=== PATIENT | male | born 1940 | race Caucasian/White ===

== ENCOUNTER → 2016-07-09 | Outpatient (CLI) | payer MEDICARE, BC ==
[2016-07-09 08:44] LABS: ALT 22 U/L (21-72); AST 19 U/L (17-59); Alkaline Phosphatase 109 U/L (38-126); Anion Gap 9 mmol/L; Blood Urea Nitrogen 14 mg/dL (9-20); Calcium 9.2 mg/dL (8.4-10.2); Carbon Dioxide 29 mmol/L (22-30); Chloride 108 mmol/L (98-107); Cholesterol 127 mg/dL (<200); Glucose 110 mg/dL (74-99); HDL Cholesterol 38 mg/dL (40-60); Non-African American GFR(MDRD) >60 (>60 ml/min/1.73 sqM); Sodium 146 mmol/L (137-145); Total Bilirubin 0.6 mg/dL (0.2-1.3); Total Protein 6.3 g/dL (6.3-8.2); Triglycerides 110 mg/dL (<150)
== END | disposition home or self-care (01) ==
LOC: LABWHC1 07:52
PROVIDERS: ATTEND Internal Medicine Interventional Cardiology
DX: E78.2 Mixed hyperlipidemia (principal); D48.0 Neoplasm of uncertain behavior of bone and articular cartilage
CPT/HCPCS: 36415; 80053; 80061; 84443

== ENCOUNTER → 2016-10-20 | Outpatient (CLI) | payer MEDICARE, BC ==
[2016-10-20 11:10] LABS: CH 29.3; CHCM 32.1; HCT 43.8 % (39.0-53.0); HDW 2.31; HGB 14.1 gm/dL (13.0-17.5); MCH 29.5 pg (25.0-35.0); MCHC 32.1 g/dL (31.0-37.0); MCV 91.8 fL (80.0-100.0); Mean Platelet Volume 7.6; RBC 4.77 m/uL (4.30-5.90); RDW 14.9 % (11.5-15.5); WBC 8.2 k/uL (3.8-10.6)
== END | disposition home or self-care (01) ==
LOC: LABPAT 10:50
PROVIDERS: ATTEND Otolaryngology
DX: Z01.812 Encounter for preprocedural laboratory examination (principal)
CPT/HCPCS: 36415; 85027

== ENCOUNTER → 2017-07-26 | Outpatient (CLI) | payer MEDICARE, BC ==
[2017-07-26 08:05] LABS: ALT 17 U/L (21-72); AST 18 U/L (17-59); Albumin 3.6 g/dL (3.5-5.0); Alkaline Phosphatase 92 U/L (38-126); Anion Gap 11 mmol/L; Blood Urea Nitrogen 12 mg/dL (9-20); Calcium 9.4 mg/dL (8.4-10.2); Carbon Dioxide 30 mmol/L (22-30); Chloride 107 mmol/L (98-107); Cholesterol 121 mg/dL (<200); Glucose 111 mg/dL (74-99); HDL Cholesterol 34 mg/dL (40-60); LDL Cholesterol,Calculated 61 mg/dL (0-99); Potassium 4.2 mmol/L (3.5-5.1); Sodium 148 mmol/L (137-145); Total Bilirubin 0.4 mg/dL (0.2-1.3); Triglycerides 130 mg/dL (<150)
== END | disposition home or self-care (01) ==
LOC: LABWHC1 06:56
PROVIDERS: ATTEND Internal Medicine Interventional Cardiology
DX: E78.2 Mixed hyperlipidemia (principal)
CPT/HCPCS: 36415; 80053; 80061

== ENCOUNTER → 2018-01-18 | Outpatient (CLI) | payer MEDICARE, BC ==
[2018-01-18 16:30] LABS: LDL Cholesterol,Calculated 53.8 mg/dL (0.0-131.0); VLDL Calculation 39.2 mg/dL (5.00-40.00)
== END | disposition home or self-care (01) ==
LOC: LABWHC1 07:21
PROVIDERS: ATTEND Internal Medicine Interventional Cardiology
DX: E78.2 Mixed hyperlipidemia (principal)
CPT/HCPCS: 36415; 80061; 84450; 84460

== ENCOUNTER → 2018-05-31 | Outpatient (CLI) | payer MEDICARE, BC ==
[2018-05-31 19:35] LABS: Anion Gap 6.6 mmol/L (4.00-12.00); Calcium 9.2 mg/dL (8.7-10.3); Carbon Dioxide 27.4 mmol/L (21.6-31.8); Potassium 4.4 mmol/L (3.5-5.5)
== END | disposition home or self-care (01) ==
LOC: LABWHC1 13:37
PROVIDERS: ATTEND Family Medicine
DX: I10 Essential (primary) hypertension (principal)
CPT/HCPCS: 36415; 80048

== ENCOUNTER → 2018-08-08 | Outpatient (CLI) | payer MEDICARE, BC ==
[2018-08-08 18:54] LABS: Vitamin D 25 Hydroxy 71.4 ng/mL (30.0-100.0)
[2018-08-08 19:14] LABS: T4, Free (Free Thyroxine) 1.2 ng/dL (0.80-1.80)
== END | disposition home or self-care (01) ==
LOC: LABWHC1 11:54
PROVIDERS: ATTEND Psychiatry & Neurology Neurology
DX: E55.9 Vitamin D deficiency, unspecified (principal); R53.83 Other fatigue
CPT/HCPCS: 36415; 82306; 82607; 83921; 84439; 84443; 84481

== ENCOUNTER → 2018-10-10 | Outpatient (CLI) | payer MEDICARE, BC ==
[2018-10-10 11:14] LABS: LDL Cholesterol,Calculated 64.6 mg/dL (0.0-131.0); VLDL Calculation 20.4 mg/dL (5.00-40.00)
== END | disposition home or self-care (01) ==
LOC: LABWHC1 06:39
PROVIDERS: ATTEND Internal Medicine Interventional Cardiology
DX: E78.2 Mixed hyperlipidemia (principal)
CPT/HCPCS: 36415; 80061; 84450; 84460

== ENCOUNTER → 2018-10-26 | Outpatient (CLI) | payer MEDICARE, BC ==
[2018-10-26 12:39] LABS: HCT 43.6 % (39.0-53.0); HGB 13.8 gm/dL (13.0-17.5); MCH 29.1 pg (25.0-35.0); MCHC 31.6 g/dL (31.0-37.0); MCV 92.3 fL (80.0-100.0); Mean Platelet Volume 7.2; Platelet Count 342 k/uL (150-450); RBC 4.73 m/uL (4.30-5.90); RDW 14.2 % (11.5-15.5); WBC 7.1 k/uL (3.8-10.6)
[2018-10-26 12:51] LABS: African American GFR (CKD) >90 (>60 ml/min/1.73 sqM); Anion Gap 6 mmol/L; Blood Urea Nitrogen 15 mg/dL (9-20); Carbon Dioxide 28 mmol/L (22-30); Chloride 109 mmol/L (98-107); Potassium 4.5 mmol/L (3.5-5.1); Sodium 143 mmol/L (137-145)
== END | disposition home or self-care (01) ==
LOC: LABPAT 12:13
PROVIDERS: ATTEND Internal Medicine Interventional Cardiology
DX: Z01.812 Encounter for preprocedural laboratory examination (principal); I10 Essential (primary) hypertension; R94.39 Abnormal result of other cardiovascular function study
CPT/HCPCS: 36415; 80051; 82565; 84520; 85027

== ENCOUNTER 2018-11-03 06:32 | Day surgery (SDC) | payer MEDICARE, BC ==
[2018-10-28 13:34] VITALS: BMI 25.4
[~2018-11-03 06:32] MED LIST: ALPRAZolam 0.25 MG TAB PO PRN; ALPRAZolam 0.5 MG TAB PO PRN; ASPIRIN 325 MG TAB PO STA; ATORVASTATIN 80 MG TAB PO STA; NITROGLYCERIN SL TABS 0.4 MG TAB SUBLINGUAL PRN; SODIUM CHLORIDE 0.9% 1,000 ML in EMPTY BAG 1 BAG IV ONE
[2018-11-03] MEDS ORDERED: LIDOCAINE 1% INJ 10MG/ML (20 ML MDV) ONE ×2 (07:10→07:56)
[2018-11-03] MEDS ORDERED: fentaNYL (PF) 50 MCG/ML 2 ML AMP ONE (07:10)
[2018-11-03] MEDS ORDERED: LIDOCAINE 1% INJ 10MG/ML (20 ML MDV) SQ ONE ×2 (07:54→07:58)
[2018-11-03] MEDS ORDERED: fentaNYL (PF) 50 MCG/ML 2 ML AMP IV ONE (07:55)
[2018-11-03] MEDS ORDERED: MIDAZOLAM PF (FBP) 2 MG/2 ML VIAL IV ONE (07:59)
[2018-11-03] MEDS ORDERED: IOPAMIDOL-370 100ML BTL INJ ONE (08:08)
[2018-11-03] MEDS ORDERED: BIVALIRUDIN BOLUS 250 MG/50 ML IV ONE (08:13)
[2018-11-03] MEDS ORDERED: BIVALIRUDIN 250 MG in SODIUM CHLORIDE 0.9% 50 ML IV ONE (08:14)
[2018-11-03] MEDS ORDERED: RX INFO: IV CONTRAST WAS GIVEN 1 EACH MISC MISCELLANE PRN (08:40)
[2018-11-03] MEDS ORDERED: MAG HYDROX/AL HYDROX/SIMETH 30 ML CUP PO PRN (08:40)
[2018-11-03] MEDS ORDERED: ZOLPIDEM 5 MG TAB PO PRN (08:40)
[2018-11-03] MEDS ORDERED: NITROGLYCERIN SL TABS 0.4 MG TAB SUBLINGUAL PRN (08:40)
[2018-11-03] MEDS ORDERED: ATROPINE SULFATE 0.1 MG/ML 10ML SYRINGE IV PRN (08:40)
[2018-11-03] MEDS ORDERED: DICYCLOMINE 10 MG CAP PO PRN (08:41)
[2018-11-03] MEDS ORDERED: SODIUM CHLORIDE 0.9% 1,000 ML IV SCH (08:45)
--- NOTE | 2018-11-03 08:58 | CC ---
CARDIAC CATHETERIZATION REPORT Mr. Masterson is a 78-year-old male with known history of hypertension, hyperlipidemia, diabetes mellitus, history of coronary artery bypass grafting, who presented with symptoms of progressive fatigue and dyspnea and had an abnormal myocardial perfusion imaging. In view of that, recommendation was made regarding cardiac catheterization. The procedure as well as the risks and the complications were discussed with the patient who is in full understanding and agreement. PROCEDURE: Patient was brought to roofing laborer in a fasting semi-sedated state after receiving fentanyl and Benadryl and achieving moderate conscious sedated state. Using Xylocaine anesthesia in the Seldinger technique, a 6-Welsh sheath was introduced in the right femoral artery. Selective right and left coronary angiography were performed using 6- Welsh 4 bend right and 4.5 bend left Ryne catheter. Multiple views of the coronary artery including hemiaxial views were obtained. The right Ryne catheter was used to cannulate the saphenous vein graft to the right coronary artery and the LOPEZ to the LAD. Images of the grafts were obtained. Following that, angioplasty and stenting was performed. Following that 6-Welsh tight pigtail catheter was introduced in left ventricle and a 30-degree HOLLIDAY view of the left ventricle was obtained. Following that, catheters were removed. The sheath was sutured in place the patient was returned to his room in stable condition. FINDINGS: LEFT MAIN: This is a large-sized vessel bifurcating into left circumflex and left anterior descending artery. Left main coronary artery has no evidence of high-grade stenosis. LEFT ANTERIOR DESCENDING ARTERY: This vessel is heavily calcified proximally giving rise to a very proximal diagonal branch. Following that, the vessel is totally occluded with no antegrade flow. The first diagonal branch has an 85% to 90% stenosis in the ostium. The rest of the vessel has no high-grade stenosis. LEFT CIRCUMFLEX: This is a nondominant vessel, large in caliber giving rise to 3 obtuse marginal branches. The left circumflex as well as branches have no evidence of obstructive coronary artery disease. RIGHT CORONARY ARTERY: This vessel is totally occluded in the mid segment and has critical stenosis proximally. There is no significant antegrade flow. SAPHENOUS VEIN GRAFT TO THE RIGHT CORONARY ARTERY: The proximal distal anastomotic sites are patent. The flow in the PDA and PLV is brisk. There is no evidence of high- grade stenosis. LOPEZ TO LAD: The distal anastomotic site is patent. The flow in the LAD is brisk. There is no evidence of high-grade stenosis. LEFT VENTRICULOGRAM: Left ventriculogram is performed in 30-degree HOLLIDAY view and revealed normal left ventricular size and systolic function. Ejection fraction 60%. There was calcification involving the aorta. HEMODYNAMICS: There was no gradient across the aortic valve. The left ventricular end- diastolic pressure was 14 to 16 mmHg. CONCLUSION: 1. 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 2. Critical stenosis in the very proximal first diagonal branch. 3. Patent LOPEZ to LAD and patent saphenous vein graft to the right coronary artery. 4. Normal left ventricular size and systolic function. RECOMMENDATION: In view of finding anatomy, I recommend proceeding with angioplasty and stenting of the first diagonal branch. The procedure as well as the risks and the complications were discussed with the patient who is in full understanding and agreement. MMWILIAN / DREW: [id number] /
[2018-11-03] MEDS ORDERED: LOPRESSOR PO SCH (09:00)
--- NOTE | 2018-11-03 09:04 | PTCA ---
PERCUTANEOUSTRANS CORORONARY ANGIOGRAPHY Mr. Masterson is a 78-year-old male with known history of hypertension, hyperlipidemia, diabetes mellitus, who had an abnormal myocardial perfusion imaging with symptoms of progressive dyspnea and fatigue underwent cardiac catheterization, was found to have critical stenosis involving the very proximal first diagonal branch. In view of that, recommendation was made regarding angioplasty and stenting. The procedure as well as the risks and the complications were discussed with the patient who is in full understanding and agreement. PROCEDURE: A 6-Bangladeshi FL4.5 guiding catheter introduced in the system. After cannulating the left main a 0.014 balanced medium weight J-wire was advanced across the lesion positioned in the distal diagonal branch. Following that, a 2.75 x 12 mm Xience Renate stent was advanced, deployed and postdilated at 16 atmospheres. After the last inflation, after appropriate wait the balloon and the guidewire were withdrawn back in the guiding catheter. Images were obtained repeated. Those images reveal stable successful stenting. At that point, the guiding catheter, the balloon and the guidewire were removed. The left ventriculogram was performed. Following that, the sheath was sutured in place. The patient was returned to his room in stable condition. Of note, the patient had no chest discomfort or EKG changes with the inflation. He received Angiomax per protocol. RESULTS: Successful stenting of the proximal segment of the first diagonal branch with reduction of stenosis from 85% to 0%. RECOMMENDATION: Patient will be continued on aspirin, Plavix and statin. The importance of dual antiplatelet treatment was discussed with the patient and his family and they are in full understanding and agreement. Duration of procedure is 35 minutes. MMODL / IJN: [id number] /
[2018-11-03 09:55] LABS: Glucose,Whole Blood 99 mg/dL (75-99)
[2018-11-03] MEDS ORDERED: amLODIPine 5 MG TAB PO STA ×2 (10:20→11:50)
[2018-11-03 11:06] VITALS: RESP 16
[2018-11-03] MEDS: FLUTICASONE 50MCG/SPRAY NASAL 16GM EA NOSTRIL SCH (17:48)
[2018-11-03] MEDS: CLOPIDOGREL 75 MG TAB PO SCH (17:48)
[2018-11-03] MEDS: PANTOPRAZOLE 40 MG TABLET PO SCH (17:48)
[2018-11-03] MEDS ORDERED: ACETAMINOPHEN TAB 325 MG TAB PO PRN (20:16)
[2018-11-03] MEDS ORDERED: ATORVASTATIN 40 MG TAB PO SCH (21:00)
[2018-11-03] MEDS ORDERED: MONTELUKAST 10 MG TAB PO SCH (21:00)
[2018-11-03] MEDS ORDERED: TAMSULOSIN 0.4 MG CAP.ER.24H PO SCH (21:00)
[2018-11-03] MEDS ORDERED: VALSARTAN 160 MG TAB PO SCH (21:00)
[2018-11-04] MEDS: PANTOPRAZOLE 40 MG TABLET PO SCH ×2 (06:29→07:59)
[2018-11-04 06:58] LABS: African American GFR (CKD) >90 (>60 ml/min/1.73 sqM); Anion Gap 5 mmol/L; Blood Urea Nitrogen 13 mg/dL (9-20); Calcium 8.8 mg/dL (8.4-10.2); Carbon Dioxide 26 mmol/L (22-30); Chloride 109 mmol/L (98-107); Glucose 120 mg/dL (74-99); Non-African American GFR(CKD) 87 (>60 ml/min/1.73 sqM); Potassium 4.1 mmol/L (3.5-5.1); Sodium 140 mmol/L (137-145)
--- NOTE | 2018-11-04 07:38 | PN ---
PROGRESS NOTE Mr. Masterson is a 78-year-old male with known history of coronary artery disease who has been complaining of progressive dyspnea on exertion, had an abnormal myocardial perfusion imaging. On Subsequent cardiac catheterization that revealed evidence of significant disease in the first diagonal branch with patent LOPEZ to LAD and patent saphenous vein graft to the RCA. He underwent stenting of the diagonal branch. He is doing well this morning, ambulating without difficulty. His breathing has been stable. He is denying any chest pain. He continues on aspirin once a day, Lipitor 40 mg daily, Plavix 75 mg daily, valsartan 320 mg daily. PHYSICAL EXAMINATION: Blood pressure 137/60 with a heart rate in the 60s. LUNGS: Clear. HEART: Regular rate and rhythm, S1, S2. No S3. No rub. ABDOMEN: Soft, nontender. Positive bowel sounds, no organomegaly. EXTREMITIES: No edema, intact pulses, right femoral pulse is intact. EKG reveals sinus mechanism with occasional PACs and no acute ST-segment changes. LAB DATA: Revealed potassium 4.1, BUN and creatinine 13 and 0.76. IMPRESSION: 1. Status post stenting of the diagonal branch. 2. History of coronary artery disease, status post coronary artery bypass grafting. 3. Hypertension. 4. Hyperlipidemia. RECOMMENDATION: Patient will be discharged home today and followed as an outpatient. MMODL / IJN: [id number] /
[2018-11-04] MEDS: FLUTICASONE 50MCG/SPRAY NASAL 16GM EA NOSTRIL SCH (07:59)
[2018-11-04] MEDS: CLOPIDOGREL 75 MG TAB PO SCH (07:59)
[2018-11-04 08:24] VITALS: BP 132/60; PULSE 89; TEMP 98.3
[2018-11-04] MEDS ORDERED: ASPIRIN 81 MG PO SCH (09:00)
== END 2018-11-04 10:12 | disposition home or self-care (01) ==
LOC: CATHCVL 06:32 → 3SCARD 08:28 → CATHCVL 11-04 10:12
PROVIDERS: ATTEND Internal Medicine Interventional Cardiology
DX: I25.10 Atherosclerotic heart disease of native coronary artery without angina pectoris (principal); I25.84 Coronary atherosclerosis due to calcified coronary lesion; I25.82 Chronic total occlusion of coronary artery; I10 Essential (primary) hypertension; E78.2 Mixed hyperlipidemia; E78.00 Pure hypercholesterolemia, unspecified; E11.9 Type 2 diabetes mellitus without complications; Z95.1 Presence of aortocoronary bypass graft; Z79.02 Long term (current) use of antithrombotics/antiplatelets; Z79.899 Other long term (current) drug therapy; Z88.1 Allergy status to other antibiotic agents
CPT/HCPCS: 93459; 85347; 80048; C9600; C1769 ×2; C1887; C1894; C1874; J2001; J3010; J0583; Q9967; J2250

== ENCOUNTER 2018-11-05 10:49 | Observation (INO) | payer MEDICARE, BC ==
[2018-11-05] MEDS ORDERED: SODIUM CHLORIDE 0.9% 1,000 ML IV STA (11:10)
[2018-11-05 11:26] LABS: Glucose,Whole Blood 165 mg/dL (75-99)
[2018-11-05 11:27] LABS: Basophils # (A) 0.1 k/uL (0-0.2); Basophils % (A) 1 %; Eosinophils # (A) 0.3 k/uL (0-0.7); Eosinophils % (A) 4 %; HCT 43.3 % (39.0-53.0); HGB 14.1 gm/dL (13.0-17.5); Lymphocytes # (A) 1.4 k/uL (1.0-4.8); Lymphocytes % (A) 17 %; MCH 29.2 pg (25.0-35.0); MCHC 32.6 g/dL (31.0-37.0); MCV 89.5 fL (80.0-100.0); Mean Platelet Volume 7.4; Monocytes # (A) 0.5 k/uL (0-1.0); Monocytes % (A) 6 %; Neutrophils # (A) 6.3 k/uL (1.3-7.7); Neutrophils % (A) 72 %; Platelet Count 367 k/uL (150-450); RBC 4.84 m/uL (4.30-5.90); RDW 14.7 % (11.5-15.5); WBC 8.7 k/uL (3.8-10.6)
[2018-11-05 11:32] LABS: ALT 12 U/L (21-72); AST 17 U/L (17-59); African American GFR (CKD) >90 (>60 ml/min/1.73 sqM); Albumin 3.5 g/dL (3.5-5.0); Alkaline Phosphatase 90 U/L (38-126); Anion Gap 10 mmol/L; Blood Urea Nitrogen 18 mg/dL (9-20); Calcium 9.2 mg/dL (8.4-10.2); Carbon Dioxide 22 mmol/L (22-30); Chloride 109 mmol/L (98-107); Creatine Kinase 28 U/L (55-170); Glucose 175 mg/dL (74-99); Magnesium 2.1 mg/dL (1.6-2.3); Phosphorus 3.8 mg/dL (2.5-4.5); Potassium 4.2 mmol/L (3.5-5.1); Sodium 141 mmol/L (137-145); Total Bilirubin 0.7 mg/dL (0.2-1.3); Total Protein 6.1 g/dL (6.3-8.2)
[2018-11-05 11:49] LABS: Prothrombin Time 10.3 sec (9.0-12.0)
--- NOTE | 2018-11-05 11:50 | ED ---
Weakness HPI - General Chief complaint: Weakness Stated complaint: POSS CVA Time Seen by Provider: 11/05/18 11:09 Source: patient, family, RN notes reviewed, old records reviewed Mode of arrival: ambulatory Limitations: no limitations - History of Present Illness Initial comments: This is a 78 -year-old male presenting for evaluation. Patient presented today for evaluation of not feeling well weakness weakness began this morning he noticed last night. Patient appeared to have elevated heart rate last night. Patient recent heart history is significant for heart disease with prior CABG, stent placement a few days ago. Patient was feeling fine until today and then being very lightheaded dizzy pale awful times throughout today with no 4 episode of syncope. No other change in medications as of now. Patient has no headache denies any neurological complaint currently no chest pain currently no shortness of breath. Patient states he started much better now than he was earlier MD Complaint: generalized weakness -: minutes(s) Location: generalized Severity: moderate Severity scale (1-10): 7 Consistency: constant, other (Improving) Improves with: rest Worsens with: movement Associated Symptoms: shortness of breath, syncope (Near-syncope) - Related Data Home Medications Medication Instructions Recorded Confirmed Montelukast [Singulair] 10 mg PO HS 11/12/15 11/05/18 Fexofenadine HCl [Kavita Allergy] 180 mg PO DAILY PRN 11/19/15 11/05/18 Rosuvastatin Calcium [Crestor] 20 mg PO HS 11/19/15 11/05/18 Dicyclomine [Bentyl] 10 mg PO TID PRN 12/30/16 11/05/18 Fluticasone Nasal [place] [Flonase 1 spray EA NOSTRIL DAILY 12/30/16 11/05/18 Nasal [place]] Pantoprazole Sodium [Protonix] 40 mg PO DAILY 12/30/16 11/05/18 Clopidogrel [Plavix] 75 mg PO DAILY 10/28/18 11/05/18 Multivitamins, Thera [Multivitamin 1 tab PO DAILY 10/28/18 11/05/18 (formulary)] Valsartan 320 mg PO HS 10/28/18 11/05/18 Citalopram Hydrobromide [CeleXA] 20 mg PO DAILY 11/05/18 11/05/18 Cranberry Fruit Extract [Cranberry] 500 mg PO DAILY 11/05/18 11/05/18 Metoprolol Tartrate [Lopressor] 25 mg PO BID 11/05/18 11/05/18 Previous Rx's Medication Instructions Recorded Tamsulosin [Flomax] 0.4 mg PO HS cap.er.24h 11/26/15 Aspirin 81 mg PO DAILY chew 11/04/18 Nitroglycerin Sl Tabs [Nitrostat] 0.4 mg SUBLINGUAL Q5M PRN #25 tab 11/04/18 Allergies Allergy/AdvReac Type Severity Reaction Status Date / Time erythromycin base AdvReac Nausea & Verified 11/05/18 11:18 Vomiting Review of Systems ROS Statement: Those systems with pertinent positive or pertinent negative responses have been documented in the HPI. ROS Other: All systems not noted in ROS Statement are negative. 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 History of Any Multi-Drug Resistant Organisms: None Reported Past Surgical History: Adenoidectomy, Coronary Bypass/CABG, Heart Catheterization, Heart Catheterization With Stent, Tonsillectomy Additional Past Surgical History / Comment(s): 11/13/15 Cardiac cath, 11/21/15 CABG-2 vessel, deviated septum repaired, cystoscopies x2, colonoscopy, bilateral cataract surg. Past Anesthesia/Blood Transfusion Reactions: No Reported Reaction Past Psychological History: Bipolar, Depression Smoking Status: Current every day smoker Past Alcohol Use History: None Reported Past Drug Use History: None Reported - Past Family History Father Additional Family Medical History / Comment(s): Father was a "drinker and a smoker". He at the age of 55 yrs from cerebral hemorhage Mother Additional Family Medical History / Comment(s): Mother at the age of 92yrs. General Exam Limitations: no limitations General appearance: alert, in no apparent distress, anxious Head exam: Present: atraumatic, normocephalic, normal inspection Eye exam: Present: normal appearance, PERRL, EOMI. Absent: scleral icterus, conjunctival injection, periorbital swelling ENT exam: Present: normal exam, mucous membranes moist Neck exam: Present: normal inspection. Absent: tenderness, meningismus, lymphadenopathy Respiratory exam: Present: normal lung sounds bilaterally. Absent: respiratory distress, wheezes, rales, rhonchi, stridor Cardiovascular Exam: Present: tachycardia, irregular rhythm, normal heart sounds. Absent: systolic murmur, diastolic murmur, rubs, gallop, clicks GI/Abdominal exam: Present: soft, normal bowel sounds. Absent: distended, tenderness, guarding, rebound, rigid Extremities exam: Present: normal inspection, full ROM, normal capillary refill. Absent: tenderness, pedal edema, joint swelling, calf tenderness Back exam: Present: normal inspection Neurological exam: Present: alert, oriented X3, CN II-XII intact Psychiatric exam: Present: normal affect, normal mood Skin exam: Present: warm, dry, intact, normal color. Absent: rash Course Vital Signs 11/05/18 11/05/18 11/05/18 10:52 11:05 11:10 Temperature 98.1 F Pulse Rate 131 H 131 H 125 H Respiratory 18 30 H 19 Rate Blood Pressure 85/49 105/63 O2 Sat by Pulse 97 Oximetry 11/05/18 11/05/18 11/05/18 11:20 11:30 11:40 Temperature Pulse Rate 124 H 123 H Respiratory 22 34 H Rate Blood Pressure 97/67 97/67 92/61 O2 Sat by Pulse 98 97 Oximetry 11/05/18 11/05/18 11/05/18 12:10 12:20 12:30 Temperature Pulse Rate 70 81 74 Respiratory 20 16 20 Rate Blood Pressure 110/65 99/62 99/62 O2 Sat by Pulse 98 95 96 Oximetry 11/05/18 12:32 Temperature Pulse Rate 78 Respiratory 18 Rate Blood Pressure 114/78 O2 Sat by Pulse 99 Oximetry - Reevaluation(s) Reevaluation #1: 11/05/18 12:09 Medical records reviewed Reevaluation #2: 11/05/18 12:57 Heart rate improved with hydration here in the ER as well as blood pressure EKG Findings - EKG Comments: EKG Findings:: EKG shows A. fib with RVR rate 120, QRS 86, QTc 398 Medical Decision Making - Medical Decision Making 78 male the ER for evaluation with weakness lightheadedness near syncope, patient is A. fib with RVR which is now resolved. Patient can be admitted for cardiology evaluation and observation - Lab Data Result diagrams: 11/05/18 11:12 11/05/18 11:12 Lab Results 11/05/18 11/05/18 11/05/18 Range/Units 11:09 11:12 11:12 WBC 8.7 (3.8-10.6) k/uL RBC 4.84 (4.30-5.90) m/uL Hgb 14.1 (13.0-17.5) gm/dL Hct 43.3 (39.0-53.0) % MCV 89.5 (80.0-100.0) fL MCH 29.2 (25.0-35.0) pg MCHC 32.6 (31.0-37.0) g/dL RDW 14.7 (11.5-15.5) % Plt Count 367 (150-450) k/uL Neutrophils % 72 % Lymphocytes % 17 % Monocytes % 6 % Eosinophils % 4 % Basophils % 1 % Neutrophils # 6.3 (1.3-7.7) k/uL Lymphocytes # 1.4 (1.0-4.8) k/uL Monocytes # 0.5 (0-1.0) k/uL Eosinophils # 0.3 (0-0.7) k/uL Basophils # 0.1 (0-0.2) k/uL PT (9.0-12.0) sec INR (<1.2) APTT (22.0-30.0) sec Sodium 141 (137-145) mmol/L Potassium 4.2 (3.5-5.1) mmol/L Chloride 109 H (98-107) mmol/L Carbon Dioxide 22 (22-30) mmol/L Anion Gap 10 mmol/L BUN 18 (9-20) mg/dL Creatinine 0.86 (0.66-1.25) mg/dL Est GFR (CKD-EPI)AfAm >90 (>60 ml/min/1.73 sqM) Est GFR (CKD-EPI)NonAf 83 (>60 ml/min/1.73 sqM) Glucose 175 H (74-99) mg/dL POC Glucose (mg/dL) 165 H (75-99) mg/dL POC Glu Seedling Puller Luz Elena [place] Plasma Lactic Acid Brent (0.7-2.0) mmol/L Calcium 9.2 (8.4-10.2) mg/dL Phosphorus 3.8 (2.5-4.5) mg/dL Magnesium 2.1 (1.6-2.3) mg/dL Total Bilirubin 0.7 (0.2-1.3) mg/dL AST 17 (17-59) U/L ALT 12 L (21-72) U/L Alkaline Phosphatase 90 (38-126) U/L Creatine Kinase 28 L (55-170) U/L Troponin I (0.000-0.034) ng/mL Total Protein 6.1 L (6.3-8.2) g/dL Albumin 3.5 (3.5-5.0) g/dL TSH 3.550 (0.465-4.680) mIU/L 11/05/18 11/05/18 11/05/18 Range/Units 11:12 11:12 11:12 WBC (3.8-10.6) k/uL RBC (4.30-5.90) m/uL Hgb (13.0-17.5) gm/dL Hct (39.0-53.0) % MCV (80.0-100.0) fL MCH (25.0-35.0) pg MCHC (31.0-37.0) g/dL RDW (11.5-15.5) % Plt Count (150-450) k/uL Neutrophils % % Lymphocytes % % Monocytes % % Eosinophils % % Basophils % % Neutrophils # (1.3-7.7) k/uL Lymphocytes # (1.0-4.8) k/uL Monocytes # (0-1.0) k/uL Eosinophils # (0-0.7) k/uL Basophils # (0-0.2) k/uL PT 10.3 (9.0-12.0) sec INR 1.0 (<1.2) APTT 26.0 (22.0-30.0) sec Sodium (137-145) mmol/L Potassium (3.5-5.1) mmol/L Chloride (98-107) mmol/L Carbon Dioxide (22-30) mmol/L Anion Gap mmol/L BUN (9-20) mg/dL Creatinine (0.66-1.25) mg/dL Est GFR (CKD-EPI)AfAm (>60 ml/min/1.73 sqM) Est GFR (CKD-EPI)NonAf (>60 ml/min/1.73 sqM) Glucose (74-99) mg/dL POC Glucose (mg/dL) (75-99) mg/dL POC Glu Seedling Puller ID Plasma Lactic Acid Brent 2.1 H* (0.7-2.0) mmol/L Calcium (8.4-10.2) mg/dL Phosphorus (2.5-4.5) mg/dL Magnesium (1.6-2.3) mg/dL Total Bilirubin (0.2-1.3) mg/dL AST (17-59) U/L ALT (21-72) U/L Alkaline Phosphatase (38-126) U/L Creatine Kinase (55-170) U/L Troponin I 0.076 H* (0.000-0.034) ng/mL Total Protein (6.3-8.2) g/dL Albumin (3.5-5.0) g/dL TSH (0.465-4.680) mIU/L - Radiology Data Radiology results: report reviewed (Chest x-rays negative for acute disease), image reviewed Critical Care Time Critical Care Time: Yes Total Critical Care Time: 31 Disposition Clinical Impression: Coronary artery disease, Atrial fibrillation with RVR, Dehydration Disposition: ADMITTED IP TO THIS HOSP Condition: Fair Is patient prescribed a controlled substance at d/c from ED?: No Referrals: Adam Acosta MD [Primary Care Provider] - 1-2 days
--- NOTE | 2018-11-05 11:58 | CT ---
EXAMINATION TYPE: CT brain scotty hendricks DATE OF EXAM: 11/05/2018 COMPARISON: Previous study dated 12/30/2016 HISTORY: Fall CT DLP: 1265.6 mGycm Automated exposure control for dose reduction was used. TECHNIQUE: CT scan of the head and cervical spine are performed without contrast. FINDINGS: BRAIN: There are generalized changes of sulcal prominence and ventriculomegaly, compatible with atrop hic change. There is diffuse periventricular white matter lucency, compatible with small vessel ische judson change. There is an old infarct involving the basal ganglia on the right and a small lacunar infa rct in the posterior limb of the internal capsule on the left. There is no acute mass effect, midline shift or intracranial blood. Visualized portions of the paranasal sinuses and mastoids are clear. The bony calvarium is intact. IMPRESSION: 1. NO ACUTE INTRACRANIAL ABNORMALITY. 2. DEGENERATIVE CHANGE. 3. EVIDENCE OF PREVIOUS BILATERAL INFARCTS. CERVICAL SPINE: There are emphysematous changes present within the visualized portions of the lungs. There is aneurysmal dilatation of the proximal ascending thoracic aorta with maximal transverse diame ter 4.3 cm. Prevertebral soft tissues are otherwise unremarkable. Vertebral body height and alignment are maintained. Atlantoaxial relationships are normal. There is degenerative disc disease and hypertrophic spondylosis, most marked at C4-5, C5-6 and C6-7 b ut also present at C3-4. There is uncovertebral joint disease present at these levels. There is facet arthropathy present bilaterally at C2-3, C3-4 and C4-5. No definite protrusion is seen. No fractures identified. IMPRESSION: 1. NO ACUTE OSSEOUS LESION. 2. DEGENERATIVE CHANGE. 3. EMPHYSEMATOUS CHANGE. 4. ASCENDING THORACIC AORTIC ANEURYSM.
--- NOTE | 2018-11-05 11:59 | XR ---
EXAMINATION TYPE: XR chest 2V DATE OF EXAM: 11/05/2018 HISTORY: Weakness. REFERENCE: Previous study dated 12/30/2016. FINDINGS: There has been a midline sternotomy. The lungs are clear. Pleural space are clear. The heart is not enlarged. Fullness in the right paratr acheal region is stable and may relate to ectasia of the great vessels. IMPRESSION: NO ACUTE INTRATHORACIC ABNORMALITY OR INTERVAL CHANGE IN THE APPEARANCE OF THE CHEST.
[2018-11-05] MEDS ORDERED: DILTIAZEM DRIP BOLUS FROM BAG 1 MG SOLN IV ONE (12:09)
[2018-11-05] MEDS ORDERED: DILTIAZEM 125 MG in SODIUM CHLORIDE 0.9% 100 ML IV SCH (12:30)
[2018-11-05] MEDS ORDERED: NITROGLYCERIN SL TABS 0.4 MG TAB SUBLINGUAL PRN ×2 (12:55→15:06)
[2018-11-05] MEDS ORDERED: HEPARIN SODIUM,PORCINE 5,000 UNIT/ML 1 ML VIAL IV PRN (12:55)
[2018-11-05] MEDS ORDERED: ASPIRIN 81 MG PO STA (12:55)
[2018-11-05] MEDS ORDERED: HEPARIN SODIUM,PORCINE 5,000 UNIT/ML 1 ML VIAL IV ONE (12:55)
[2018-11-05] MEDS ORDERED: HEPARIN SOD,PORK IN 0.45% NACL 25,000 UNIT in 0.45% NACL 1 250ML.BAG IV SCH (13:00)
[2018-11-05 13:20] LABS: Appearance,Urine Clear (Clear); Bacteria,Urine Rare /hpf; Bilirubin,Urine Negative (Negative); Blood,Urine Negative (Negative); Color,Urine Yellow; Glucose,Urine (UA) Negative (Negative); Hyaline Casts,Urine 42 /lpf (0-2); Ketones,Urine Negative (Negative); Leukocyte Esterase,Urine Small (Negative); Mucus,Urine Rare /hpf; Nitrite,Urine Negative (Negative); PH, Urine 6.5 (5.0-8.0); Protein,Urine Trace (Negative); RBC,Urine 1 /hpf (0-5); Specific Gravity,Urine 1.014 (1.001-1.035); Urobilinogen,Urine <2.0 mg/dL (<2.0); WBC,Urine 17 /hpf (0-5)
[2018-11-05] MEDS ORDERED: ACETAMINOPHEN TAB 325 MG TAB PO PRN (15:04)
[2018-11-05] MEDS ORDERED: NALOXONE 0.4 MG/ML 1 ML VIAL IV PRN (15:04)
[2018-11-05] MEDS ORDERED: DICYCLOMINE 10 MG CAP PO PRN (15:06)
[2018-11-05] MEDS ORDERED: LORATADINE 10 MG TAB PO PRN (15:06)
--- NOTE | 2018-11-05 15:16 | P.HPIM ---
History of Present Illness H&P Date: 11/05/18 Chief Complaint: Weakness 78 -year-old male presented to the ER because of feeling weak and tired since last night. This morning when he got up he was very wobbly secondary to extreme weakness. Family members had to assist him with walking. Patient denied having any dizziness, passing out. No chest pain or shortness of breath. Patient fell onto the wall and hit his head against a wall in the bathroom due to weakness today. No shaking, urinary or stool incontinence. No focal weakness or numbness. No nausea or vomiting. No fevers or chills. A few days ago patient had a positive stress test and subsequently had a heart catheterization during which she had a stent placed in the diagonal artery. He has been doing well since her heart cath until he started having weakness. In the emergency department he was evaluated with computed tomography scan of the head and neck which came back negative for acute fractures or dislocation. No bleeding was found. EKG showed A. fib with RVR. Labs significant for slightly elevated troponin at 0.076. Review of Systems Complete review of systems performed, pertinent positives as per HPI otherwise negative. 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 History of Any Multi-Drug Resistant Organisms: None Reported Past Surgical History: Adenoidectomy, Coronary Bypass/CABG, Heart Catheterizatio n, Heart Catheterization With Stent, Tonsillectomy Additional Past Surgical History / Comment(s): 11/13/15 Cardiac cath, 11/21/15 CABG-2 vessel, deviated septum repaired, cystoscopies x2, colonoscopy, bilateral cataract surg. Past Anesthesia/Blood Transfusion Reactions: No Reported Reaction Past Psychological History: Bipolar, Depression Smoking Status: Current every day smoker Past Alcohol Use History: None Reported Past Drug Use History: None Reported - Past Family History Father Additional Family Medical History / Comment(s): Father was a "drinker and a smoker". He at the age of 55 yrs from cerebral hemorhage Mother Additional Family Medical History / Comment(s): Mother at the age of 92yrs. Medications and Allergies Home Medications Medication Instructions Recorded Confirmed Type Montelukast [Singulair] 10 mg PO HS 11/12/15 11/05/18 History Fexofenadine HCl [Kavita Allergy] 180 mg PO DAILY PRN 11/19/15 11/05/18 History Rosuvastatin Calcium [Crestor] 20 mg PO HS 11/19/15 11/05/18 History Tamsulosin [Flomax] 0.4 mg PO HS cap.er.24h 11/26/15 11/05/18 Rx Dicyclomine [Bentyl] 10 mg PO TID PRN 12/30/16 11/05/18 History Fluticasone Nasal [place] [Flonase 1 spray EA NOSTRIL DAILY 12/30/16 11/05/18 History Nasal [place]] Pantoprazole Sodium [Protonix] 40 mg PO DAILY 12/30/16 11/05/18 History Clopidogrel [Plavix] 75 mg PO DAILY 10/28/18 11/05/18 History Multivitamins, Thera [Multivitamin 1 tab PO DAILY 10/28/18 11/05/18 History (formulary)] Valsartan 320 mg PO HS 10/28/18 11/05/18 History Aspirin 81 mg PO DAILY chew 11/04/18 11/05/18 Rx Nitroglycerin Sl Tabs [Nitrostat] 0.4 mg SUBLINGUAL Q5M PRN #25 tab 11/04/18 11/05/18 Rx Citalopram Hydrobromide [CeleXA] 20 mg PO DAILY 11/05/18 11/05/18 History Cranberry Fruit Extract [Cranberry] 500 mg PO DAILY 11/05/18 11/05/18 History Metoprolol Tartrate [Lopressor] 25 mg PO BID 11/05/18 11/05/18 History Allergies Allergy/AdvReac Type Severity Reaction Status Date / Time erythromycin base AdvReac Nausea & Verified 11/05/18 11:18 Vomiting Physical Exam Vitals: Vital Signs Temp Pulse Resp BP Pulse Ox 11/05/18 13:50 69 31 H 116/66 96 11/05/18 13:40 76 20 128/74 98 11/05/18 13:30 87 20 121/68 96 11/05/18 13:10 63 15 112/66 98 11/05/18 12:50 93 18 116/79 97 11/05/18 12:40 73 11 L 114/74 97 11/05/18 12:32 78 18 114/78 99 11/05/18 12:30 74 20 99/62 96 11/05/18 12:20 81 16 99/62 95 11/05/18 12:10 70 20 110/65 98 11/05/18 11:40 92/61 11/05/18 11:30 123 H 34 H 97/67 97 11/05/18 11:20 124 H 22 97/67 98 11/05/18 11:10 125 H 19 105/63 11/05/18 11:05 131 H 30 H 11/05/18 10:52 98.1 F 131 H 18 85/49 97 Intake and Output 11/05/18 11/05/18 11/05/18 06:59 14:59 22:59 Other: Weight 66.224 kg Constitutional: No acute distress, conversant, pleasant Eyes:Anicteric sclerae, moist conjunctiva, no lid-lag, PERRLA, ENMT: Oropharynx clear, no erythema, exudates Neck: Supple, FROM, no masses, or JVD, No carotid bruits, No thyromegaly Lungs: Clear to auscultation, Clear to percussion, Normal respiratory effort, no accessory muscle use Cardiovascular: Heart regular in rate and rhythm, No murmurs, gallops, or rubs, No peripheral edema Abdominal: Soft, Nontender, no guarding, rebound or rigidity, Normoactive bowel sounds, No hepatomegaly, No splenomegaly, No palpable mass Skin: Normal temperature, tone, texture, turgor, no induration, No subcutaneous nodules, No rash, lesions, No ulcers Extremities: No digital cyanosis, No clubbing, Pedal pulses intact and symmetrical, Radial pulses intact and symmetrical, No calf tenderness Psychiatric: Alert and oriented to person, place and time, appropriate affect, intact judgement Neuro: Muscles Strength 5/5 in all 4 extremities, Sensation to light touch grossly present throughout, Cranial nerves II-XII grossly intact, no focal sensory deficits Results CBC & Chem 7: 11/05/18 11:12 11/05/18 11:12 Labs: Abnormal Lab Results - Last 24 Hours (Table) 11/05/18 11/05/18 11/05/18 Range/Units 11:09 11:12 11:12 Chloride 109 H (98-107) mmol/L Glucose 175 H (74-99) mg/dL POC Glucose (mg/dL) 165 H (75-99) mg/dL Plasma Lactic Acid Brent 2.1 H* (0.7-2.0) mmol/L ALT 12 L (21-72) U/L Creatine Kinase 28 L (55-170) U/L Troponin I (0.000-0.034) ng/mL Total Protein 6.1 L (6.3-8.2) g/dL Urine Protein (Negative) Ur Leukocyte Esterase (Negative) Urine WBC (0-5) /hpf Urine Bacteria (None) /hpf Hyaline Casts (0-2) /lpf Urine Mucus (None) /hpf 11/05/18 11/05/18 Range/Units 11:12 12:34 Chloride (98-107) mmol/L Glucose (74-99) mg/dL POC Glucose (mg/dL) (75-99) mg/dL Plasma Lactic Acid Brent (0.7-2.0) mmol/L ALT (21-72) U/L Creatine Kinase (55-170) U/L Troponin I 0.076 H* (0.000-0.034) ng/mL Total Protein (6.3-8.2) g/dL Urine Protein Trace H (Negative) Ur Leukocyte Esterase Small H (Negative) Urine WBC 17 H (0-5) /hpf Urine Bacteria Rare H (None) /hpf Hyaline Casts 42 H (0-2) /lpf Urine Mucus Rare H (None) /hpf Assessment and Plan Plan: Atrial fibrillation with RVR Rhythm converted back to normal sinus rhythm spontaneously in the emergency department Resume home Lopressor 25 mg by mouth twice a day HR is currently stable Patient was started on heparin in the emergency department, will resume until cardiology evaluates Elevated troponin Rule out ACS Continue aspirin and Plavix Continue statin Cycle troponins Cardiology evaluation Essential hypertension Hyperlipidemia Depression Stable Resume meds
[2018-11-05] MEDS: METOPROLOL TARTRATE 25 MG TAB PO SCH (17:58)
[2018-11-05] MEDS: TAMSULOSIN 0.4 MG CAP.ER.24H PO SCH (19:43)
[2018-11-05] MEDS: MONTELUKAST 10 MG TAB PO SCH (19:43)
[2018-11-05] MEDS: VALSARTAN 160 MG TAB PO SCH (19:43)
[2018-11-05] MEDS ORDERED: NON-FORMULARY DRUG (Rosuvastatin Calcium [Crestor] 20 MG) PO SCH (21:00)
[2018-11-05] MEDS ORDERED: METOPROLOL TARTRATE 25 MG TAB PO SCH (21:00)
[2018-11-06] MEDS: PANTOPRAZOLE 40 MG TABLET PO SCH (06:07)
[2018-11-06 06:25] LABS: Basophils # (A) 0.1 k/uL (0-0.2); Basophils % (A) 1 %; Eosinophils # (A) 0.6 k/uL (0-0.7); Eosinophils % (A) 9 %; HCT 35.5 % (39.0-53.0); HGB 11.7 gm/dL (13.0-17.5); Lymphocytes # (A) 1.3 k/uL (1.0-4.8); Lymphocytes % (A) 19 %; MCH 29.6 pg (25.0-35.0); MCHC 32.9 g/dL (31.0-37.0); Mean Platelet Volume 7.3; Monocytes # (A) 0.5 k/uL (0-1.0); Monocytes % (A) 8 %; Neutrophils # (A) 4.2 k/uL (1.3-7.7); Neutrophils % (A) 63 %; Platelet Count 271 k/uL (150-450); RBC 3.94 m/uL (4.30-5.90); RDW 14.5 % (11.5-15.5); WBC 6.7 k/uL (3.8-10.6)
[2018-11-06 06:46] LABS: AST 14 U/L (17-59); African American GFR (CKD) >90 (>60 ml/min/1.73 sqM); Albumin 2.7 g/dL (3.5-5.0); Alkaline Phosphatase 70 U/L (38-126); Anion Gap 3 mmol/L; Blood Urea Nitrogen 14 mg/dL (9-20); Calcium 8.3 mg/dL (8.4-10.2); Carbon Dioxide 27 mmol/L (22-30); Chloride 112 mmol/L (98-107); Cholesterol 93 mg/dL (<200); Glucose 113 mg/dL (74-99); HDL Cholesterol 21 mg/dL (40-60); LDL Cholesterol,Calculated 50 mg/dL (0-99); Phosphorus 4.2 mg/dL (2.5-4.5); Potassium 4.2 mmol/L (3.5-5.1); Sodium 142 mmol/L (137-145); Total Bilirubin 0.5 mg/dL (0.2-1.3); Total Protein 4.9 g/dL (6.3-8.2); Triglycerides 111 mg/dL (<150)
[2018-11-06 06:48] LABS: ALT 17 U/L (21-72)
[2018-11-06] MEDS: MULTIVITAMINS, THERA 1 EACH TAB PO SCH (08:26)
[2018-11-06] MEDS: ATORVASTATIN 80 MG TAB PO SCH (08:26)
[2018-11-06] MEDS: CITALOPRAM HYDROBROMIDE 20 MG TAB PO SCH (08:26)
[2018-11-06] MEDS: METOPROLOL TARTRATE 25 MG TAB PO SCH ×2 (08:26→20:35)
[2018-11-06] MEDS: ASPIRIN 81 MG PO SCH (08:26)
[2018-11-06] MEDS: CLOPIDOGREL 75 MG TAB PO SCH (08:26)
[2018-11-06] MEDS ORDERED: ASPIRIN 325 MG TAB PO SCH (09:00)
--- NOTE | 2018-11-06 11:00 | P.PN ---
Subjective Progress Note Date: 11/06/18 Principal diagnosis: Weakness Patient is still weak, he was wobbly this morning when he was stood up by the nurse. No chest pain or shortness of breath. No palpitations. No dizziness. Objective - Vital Signs Vital signs: Vital Signs Temp 98 F 11/06/18 08:00 Pulse 68 11/06/18 08:00 Resp 20 11/06/18 08:00 BP 132/64 11/06/18 08:00 Pulse Ox 97 11/06/18 08:00 Intake & Output 11/05/18 11/06/18 11/06/18 18:59 06:59 18:59 Intake Total 120 264.106 Output Total 200 350 200 Balance -80 -350 64.106 Weight 66.224 kg 66.7 kg Intake: Intake, IV Titration 144.106 Amount Heparin Sod,Pork in 0.45% 144.106 NaCl 25,000 unit In 0.45 % NaCl 1 250ml.bag @ 12 UNITS/KG/HR 7.947 mls/hr IV .Q24H [facility] Rx#: [id number] Oral 120 120 Output: Urine 200 350 200 Other: Voiding Method Urinal Urinal # Voids 0 2 1 # Bowel Movements 1 0 - Exam Constitutional: No acute distress, conversant, pleasant Eyes:Anicteric sclerae, moist conjunctiva, no lid-lag, PERRLA, ENMT: Oropharynx clear, no erythema, exudates Neck: Supple, FROM, no masses, or JVD, No carotid bruits, No thyromegaly Lungs: Clear to auscultation, Clear to percussion, Normal respiratory effort, no accessory muscle use Cardiovascular: Heart regular in rate and rhythm, No murmurs, gallops, or rubs, No peripheral edema Abdominal: Soft, Nontender, no guarding, rebound or rigidity, Normoactive bowel sounds, No hepatomegaly, No splenomegaly, No palpable mass Skin: Normal temperature, tone, texture, turgor, no induration, No subcutaneous nodules, No rash, lesions, No ulcers Extremities: No digital cyanosis, No clubbing, Pedal pulses intact and symmetrical, Radial pulses intact and symmetrical, No calf tenderness Psychiatric: Alert and oriented to person, place and time, appropriate affect, intact judgement Neuro: Muscles Strength 5/5 in all 4 extremities, Sensation to light touch gross ly present throughout, Cranial nerves II-XII grossly intact, no focal sensory deficits - Labs CBC & Chem 7: 11/06/18 05:49 11/06/18 05:49 Labs: Abnormal Lab Results - Last 24 Hours (Table) 11/05/18 11/05/18 11/05/18 Range/Units 11:09 11:12 11:12 RBC (4.30-5.90) m/uL Hgb (13.0-17.5) gm/dL Hct (39.0-53.0) % APTT (22.0-30.0) sec Chloride 109 H (98-107) mmol/L Glucose 175 H (74-99) mg/dL POC Glucose (mg/dL) 165 H (75-99) mg/dL Plasma Lactic Acid Brent 2.1 H* (0.7-2.0) mmol/L Calcium (8.4-10.2) mg/dL AST (17-59) U/L ALT 12 L (21-72) U/L Creatine Kinase 28 L (55-170) U/L Troponin I (0.000-0.034) ng/mL Total Protein 6.1 L (6.3-8.2) g/dL Albumin (3.5-5.0) g/dL HDL Cholesterol (40-60) mg/dL Urine Protein (Negative) Ur Leukocyte Esterase (Negative) Urine WBC (0-5) /hpf Urine Bacteria (None) /hpf Hyaline Casts (0-2) /lpf Urine Mucus (None) /hpf 11/05/18 11/05/18 11/05/18 Range/Units 11:12 12:34 16:01 RBC (4.30-5.90) m/uL Hgb (13.0-17.5) gm/dL Hct (39.0-53.0) % APTT (22.0-30.0) sec Chloride (98-107) mmol/L Glucose (74-99) mg/dL POC Glucose (mg/dL) (75-99) mg/dL Plasma Lactic Acid Brent (0.7-2.0) mmol/L Calcium (8.4-10.2) mg/dL AST (17-59) U/L ALT (21-72) U/L Creatine Kinase (55-170) U/L Troponin I 0.076 H* 0.076 H* (0.000-0.034) ng/mL Total Protein (6.3-8.2) g/dL Albumin (3.5-5.0) g/dL HDL Cholesterol (40-60) mg/dL Urine Protein Trace H (Negative) Ur Leukocyte Esterase Small H (Negative) Urine WBC 17 H (0-5) /hpf Urine Bacteria Rare H (None) /hpf Hyaline Casts 42 H (0-2) /lpf Urine Mucus Rare H (None) /hpf 11/05/18 11/05/18 11/06/18 Range/Units 19:20 23:26 05:49 RBC 3.94 L (4.30-5.90) m/uL Hgb 11.7 L (13.0-17.5) gm/dL Hct 35.5 L (39.0-53.0) % APTT 50.2 H (22.0-30.0) sec Chloride (98-107) mmol/L Glucose (74-99) mg/dL POC Glucose (mg/dL) (75-99) mg/dL Plasma Lactic Acid Brent (0.7-2.0) mmol/L Calcium (8.4-10.2) mg/dL AST (17-59) U/L ALT (21-72) U/L Creatine Kinase (55-170) U/L Troponin I 0.073 H* (0.000-0.034) ng/mL Total Protein (6.3-8.2) g/dL Albumin (3.5-5.0) g/dL HDL Cholesterol (40-60) mg/dL Urine Protein (Negative) Ur Leukocyte Esterase (Negative) Urine WBC (0-5) /hpf Urine Bacteria (None) /hpf Hyaline Casts (0-2) /lpf Urine Mucus (None) /hpf 11/06/18 11/06/18 Range/Units 05:49 05:49 RBC (4.30-5.90) m/uL Hgb (13.0-17.5) gm/dL Hct (39.0-53.0) % APTT 44.3 H (22.0-30.0) sec Chloride 112 H (98-107) mmol/L Glucose 113 H (74-99) mg/dL POC Glucose (mg/dL) (75-99) mg/dL Plasma Lactic Acid Brent (0.7-2.0) mmol/L Calcium 8.3 L (8.4-10.2) mg/dL AST 14 L (17-59) U/L ALT 17 L (21-72) U/L Creatine Kinase (55-170) U/L Troponin I (0.000-0.034) ng/mL Total Protein 4.9 L (6.3-8.2) g/dL Albumin 2.7 L (3.5-5.0) g/dL HDL Cholesterol 21 L (40-60) mg/dL Urine Protein (Negative) Ur Leukocyte Esterase (Negative) Urine WBC (0-5) /hpf Urine Bacteria (None) /hpf Hyaline Casts (0-2) /lpf Urine Mucus (None) /hpf Microbiology - Last 24 Hours (Table) 11/05/18 12:34 Urine Culture - Preliminary Urine,Voided Assessment and Plan Plan: Atrial fibrillation with RVR Rhythm converted back to normal sinus rhythm spontaneously in the emergency department Resume home Lopressor 25 mg by mouth twice a day HR is currently stable Seen by cardiology, patient will be started on xarelto for AC therapy Elevated troponin Troponin remained flat, ACS unlikely Continue aspirin and Plavix Continue statin Essential hypertension Hyperlipidemia Depression Stable Resume meds General weakness PT and OT Insomnia Steffanie
[2018-11-06] MEDS: FLUTICASONE 50MCG/SPRAY NASAL 16GM EA NOSTRIL SCH (12:47)
--- NOTE | 2018-11-06 12:49 | P.CRDCN ---
History of Present Illness Consult date: 11/06/18 Reason for Consult (text): Elevated troponin, atrial fibrillation with RVR History of present illness: The patient is a 78-year-old male who follows with Dr. Webb in the office, who presents after experiencing dizziness and lightheadedness, followed by a fall at home. He was recently admitted to the hospital and received a stent to his fir st diagonal branch on November 03. He states he went home feeling well, however his discharge paperwork said to discontinue his metoprolol, therefore he did not take it for several days. Upon arrival to the emergency room he was noted to be in atrial fibrillation with a heart rate of 120, and his systolic blood pressure was in the 80s. Serial troponins show 0.73, 0.76, and 0.76. He was started on a Cardizem drip and converted to sinus rhythm. On exam he is resting comfortably in the recliner with his at his side. He states he no longer has any dizziness or lightheadedness. He states he recently walked to the bathroom with assistance of the nursing staff and has a slightly unstable gait. He denies any chest pain, chest pressure, palpitations, or dyspnea. PAST MEDICAL HISTORY: CAD status post CABG and recent stenting of his first diagonal branch, hypertension, dyslipidemia, CVA REVIEW OF SYSTEMS: No fever or chills. No cough or expectoration. No diaphor esis. Patient denies headache, dizziness, blurred vision, double vision. Patient denies any stomach discomfort. No nausea, vomiting. No hematochezia. No hematemesis. Denies any black stools or blood in his stools. Denies dysuria or hematuria. No muscle weakness or numbness. PHYSICAL EXAMINATION: This is a 78-year-old male in no apparent distress at the time of my examination. HEENT: Head is atraumatic, normocephalic. Pupils are equal, round. Sclerae anicteric. Conjunctivae are clear. Mucous membranes of the mouth are moist. Neck is supple. There is no jugular venous distention. No carotid bruit is heard. CHEST EXAMINATION: Lungs are clear to auscultation. No chest wall tenderness is noted on palpation or with deep breathing. HEART EXAMINATION: Heart regular rate and rhythm. S1, S2 heard. No murmurs, gallops or rub. ABDOMEN: Soft, nontender. Bowel sounds are heard. No organomegaly noted. EXTREMITIES: 2+ peripheral pulses with no evidence of peripheral edema and no calf tenderness noted. NEUROLOGIC EXAMINATION: Patient is awake, alert and oriented x3. History of mild dementia. EKG shows atrial fibrillation with a rate of 123 LABORATORY DATA: WBC 6.7, hemoglobin 11.7, hematocrit 35.5, platelet 271, sodium 142, potassium 4.2, BUN 14, creatinine 0.78, AST 14, ALT 17, LDL 50, and triglycerides 111 FINAL ASSESSMENT AND PLAN: #1 paroxysmal atrial fibrillation, conversion calcium channel bhumika #2 history of coronary artery disease, recent stenting to his first diagonal #3 dizziness, likely related to hypotension while in atrial fibrillation PLAN: We will discontinue heparin drip. Patient will start Xarelto 15 mg daily, in addition to his Plavix and low-dose aspirin. Encourage ambulation for unsteady gait. Check for orthostatic blood pressures. 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 History of Any Multi-Drug Resistant Organisms: None Reported Past Surgical History: Adenoidectomy, Coronary Bypass/CABG, Heart Catheterization, Heart Catheterization With Stent, Tonsillectomy Additional Past Surgical History / Comment(s): 11/13/15 Cardiac cath, 11/21/15 CABG-2 vessel, deviated septum repaired, cystoscopies x2, colonoscopy, bilateral cataract surg. Past Anesthesia/Blood Transfusion Reactions: No Reported Reaction Date of Last Stent Placement:: 11/03/18 Past Psychological History: Bipolar, Depression Smoking Status: Current every day smoker Past Alcohol Use History: None Reported Past Drug Use History: None Reported - Past Family History Father Additional Family Medical History / Comment(s): Father was a "drinker and a smoker". He at the age of 55 yrs from cerebral hemorhage Mother Additional Family Medical History / Comment(s): Mother at the age of 92yrs. Medications and Allergies Home Medications Medication Instructions Recorded Confirmed Type Montelukast [Singulair] 10 mg PO HS 11/12/15 11/05/18 History Fexofenadine HCl [Kavita Allergy] 180 mg PO DAILY PRN 11/19/15 11/05/18 History Rosuvastatin Calcium [Crestor] 20 mg PO HS 11/19/15 11/05/18 History Tamsulosin [Flomax] 0.4 mg PO HS cap.er.24h 11/26/15 11/05/18 Rx Dicyclomine [Bentyl] 10 mg PO TID PRN 12/30/16 11/05/18 History Fluticasone Nasal [place] [Flonase 1 spray EA NOSTRIL DAILY 12/30/16 11/05/18 History Nasal [place]] Pantoprazole Sodium [Protonix] 40 mg PO DAILY 12/30/16 11/05/18 History Clopidogrel [Plavix] 75 mg PO DAILY 10/28/18 11/05/18 History Multivitamins, Thera [Multivitamin 1 tab PO DAILY 10/28/18 11/05/18 History (formulary)] Valsartan 320 mg PO HS 10/28/18 11/05/18 History Aspirin 81 mg PO DAILY chew 11/04/18 11/05/18 Rx Nitroglycerin Sl Tabs [Nitrostat] 0.4 mg SUBLINGUAL Q5M PRN #25 tab 11/04/18 0 11/05/18 Rx Citalopram Hydrobromide [CeleXA] 20 mg PO DAILY 11/05/18 11/05/18 History Cranberry Fruit Extract [Cranberry] 500 mg PO DAILY 11/05/18 11/05/18 History Metoprolol Tartrate [Lopressor] 25 mg PO BID 11/05/18 11/05/18 History Allergies Allergy/AdvReac Type Severity Reaction Status Date / Time erythromycin base AdvReac Nausea & Verified 11/05/18 11:18 Vomiting Physical Exam Vitals: Vital Signs Temp Pulse Pulse Pulse Pulse Pulse Resp 11/06/18 11:43 97.7 F 54 L 57 L 53 L 16 11/06/18 08:00 98 F 68 20 11/06/18 04:00 72 16 11/06/18 03:35 64 11/06/18 00:00 65 17 11/05/18 20:00 60 18 11/05/18 17:45 64 20 11/05/18 16:25 72 16 11/05/18 15:08 97.6 F 69 16 11/05/18 13:50 69 31 H 11/05/18 13:40 76 20 11/05/18 13:30 87 20 11/05/18 13:10 63 15 11/05/18 12:50 93 18 11/05/18 12:40 73 11 L 11/05/18 12:32 78 18 BP BP BP BP BP Pulse Ox 11/06/18 11:43 169/66 152/69 157/64 98 11/06/18 08:00 132/64 97 11/06/18 04:00 153/69 96 11/06/18 03:35 11/06/18 00:00 142/63 96 11/05/18 20:00 160/75 98 11/05/18 17:45 170/71 11/05/18 16:25 164/70 99 11/05/18 15:08 121/58 97 11/05/18 13:50 116/66 96 11/05/18 13:40 128/74 98 11/05/18 13:30 121/68 96 11/05/18 13:10 112/66 98 11/05/18 12:50 116/79 97 11/05/18 12:40 114/74 97 11/05/18 12:32 114/78 99 Intake and Output 11/05/18 11/06/18 11/06/18 22:59 06:59 14:59 Intake Total 120 264.106 Output Total 300 250 200 Balance -180 -250 64.106 Intake: Intake, IV Titration 144.106 Amount Heparin Sod,Pork in 0.45% 144.106 NaCl 25,000 unit In 0.45 % NaCl 1 250ml.bag @ 12 UNITS/KG/HR 7.947 mls/hr IV .Q24H [facility] Rx#: [id number] Oral 120 120 Output: Urine 300 250 200 Other: Voiding Method Urinal Urinal # Voids 0 2 1 # Bowel Movements 1 0 Weight 66.7 kg Results 11/06/18 05:49 11/06/18 05:49 Cardiac Enzymes 11/05/18 11/05/18 11/05/18 Range/Units 11:12 16:01 23:26 AST (17-59) U/L Troponin I 0.076 H* 0.076 H* 0.073 H* (0.000-0.034) ng/mL 11/06/18 Range/Units 05:49 AST 14 L (17-59) U/L Troponin I (0.000-0.034) ng/mL Coagulation 11/05/18 11/06/18 Range/Units 19:20 05:49 APTT 50.2 H 44.3 H (22.0-30.0) sec Lipids 11/06/18 Range/Units 05:49 Triglycerides 111 (<150) mg/dL Cholesterol 93 (<200) mg/dL HDL Cholesterol 21 L (40-60) mg/dL CBC 11/06/18 Range/Units 05:49 WBC 6.7 (3.8-10.6) k/uL RBC 3.94 L (4.30-5.90) m/uL Hgb 11.7 L (13.0-17.5) gm/dL Hct 35.5 L (39.0-53.0) % Plt Count 271 (150-450) k/uL Comprehensive Metabolic Panel 11/06/18 Range/Units 05:49 Sodium 142 (137-145) mmol/L Potassium 4.2 (3.5-5.1) mmol/L Chloride 112 H (98-107) mmol/L Carbon Dioxide 27 (22-30) mmol/L BUN 14 (9-20) mg/dL Creatinine 0.78 (0.66-1.25) mg/dL Glucose 113 H (74-99) mg/dL Calcium 8.3 L (8.4-10.2) mg/dL AST 14 L (17-59) U/L ALT 17 L (21-72) U/L Alkaline Phosphatase 70 (38-126) U/L Total Protein 4.9 L (6.3-8.2) g/dL Albumin 2.7 L (3.5-5.0) g/dL Current Medications Generic Name Dose Route Start Last Admin Trade Name Freq PRN Reason Stop Dose Admin Acetaminophen 650 mg 11/05/18 15:04 Tylenol Tab PO Q6HR PRN Mild Pain or Fever > 100.5 Aspirin 81 mg 11/06/18 09:00 11/06/18 08:26 Aspirin PO 81 mg DAILY JUAN Administration Atorvastatin Calcium 80 mg 11/06/18 09:00 11/06/18 08:26 Lipitor PO 80 mg DAILY [facility] Administration Citalopram Hydrobromide 20 mg 11/06/18 09:00 11/06/18 08:26 Celexa PO 20 mg DAILY [facility] Administration Clopidogrel Bisulfate 75 mg 11/06/18 09:00 11/06/18 08:26 Plavix PO 75 mg DAILY [facility] Administration Dicyclomine HCl 10 mg 11/05/18 15:06 Bentyl PO TID PRN ibs Fluticasone Propionate 1 spray 11/06/18 09:00 Flonase Nasal [place] EA NOSTRIL DAILY [facility] Loratadine 10 mg 11/05/18 15:06 Claritin PO DAILY PRN Allergy Symptoms Metoprolol Tartrate 25 mg 11/05/18 21:00 11/06/18 08:26 Lopressor PO 25 mg BID [facility] Administration Montelukast Sodium 10 mg 11/05/18 21:00 11/05/18 19:43 Singulair PO 10 mg HS [facility] Administration Multivitamins 1 each 11/06/18 09:00 11/06/18 08:26 Theragran PO 1 each DAILY [facility] Administration Naloxone HCl 0.2 mg 11/05/18 15:04 Narcan IV Q2M PRN Opioid Reversal Nitroglycerin 0.4 mg 11/05/18 12:55 Nitrostat SUBLINGUAL Q5M PRN Chest Pain Nitroglycerin 0.4 mg 11/05/18 15:06 Nitrostat SUBLINGUAL Q5M PRN Chest Pain Pantoprazole Sodium 40 mg 11/06/18 07:30 11/06/18 06:07 Protonix PO 40 mg [id number] Administration Rivaroxaban 15 mg 11/06/18 17:30 Xarelto PO W/SUPPER [facility] Tamsulosin HCl 0.4 mg 11/05/18 21:00 11/05/18 19:43 Flomax PO 0.4 mg HS [facility] Administration Valsartan 320 mg 11/05/18 21:00 11/05/18 19:43 Diovan PO 320 mg HS [facility] Administration Zolpidem Tartrate 5 mg 11/06/18 21:00 Ambien PO HS [facility] Intake and Output 11/05/18 11/06/18 11/06/18 22:59 06:59 14:59 Intake Total 120 264.106 Output Total 300 250 200 Balance -180 -250 64.106 Intake: Intake, IV Titration 144.106 Amount Heparin Sod,Pork in 0.45% 144.106 NaCl 25,000 unit In 0.45 % NaCl 1 250ml.bag @ 12 UNITS/KG/HR 7.947 mls/hr IV .Q24H [facility] Rx#: [id number] Oral 120 120 Output: Urine 300 250 200 Other: Voiding Method Urinal Urinal # Voids 0 2 1 # Bowel Movements 1 0 Weight 66.7 kg 11/06/18 05:49 11/06/18 05:49
[2018-11-06] MEDS ORDERED: RIVAROXABAN 15 MG TAB PO SCH (17:30)
[2018-11-06] MEDS: VALSARTAN 160 MG TAB PO SCH (20:35)
[2018-11-06] MEDS: MONTELUKAST 10 MG TAB PO SCH (20:35)
[2018-11-06] MEDS: TAMSULOSIN 0.4 MG CAP.ER.24H PO SCH (20:35)
[2018-11-06] MEDS: ZOLPIDEM 5 MG TAB PO SCH (20:35)
[2018-11-07 06:22] LABS: Basophils % (A) 1 %; Eosinophils # (A) 0.5 k/uL (0-0.7); Eosinophils % (A) 9 %; HCT 36.8 % (39.0-53.0); HGB 11.8 gm/dL (13.0-17.5); Lymphocytes % (A) 17 %; MCH 28.7 pg (25.0-35.0); MCHC 32.1 g/dL (31.0-37.0); MCV 89.5 fL (80.0-100.0); Mean Platelet Volume 7.2; Monocytes # (A) 0.5 k/uL (0-1.0); Monocytes % (A) 9 %; Neutrophils # (A) 3.6 k/uL (1.3-7.7); Neutrophils % (A) 63 %; Platelet Count 275 k/uL (150-450); RBC 4.12 m/uL (4.30-5.90); RDW 13.3 % (11.5-15.5); WBC 5.7 k/uL (3.8-10.6)
[2018-11-07 06:34] LABS: African American GFR (CKD) >90 (>60 ml/min/1.73 sqM); Anion Gap 6 mmol/L; Blood Urea Nitrogen 10 mg/dL (9-20); Calcium 8.6 mg/dL (8.4-10.2); Carbon Dioxide 24 mmol/L (22-30); Chloride 112 mmol/L (98-107); Glucose 104 mg/dL (74-99); Potassium 4.1 mmol/L (3.5-5.1); Sodium 142 mmol/L (137-145)
[2018-11-07] MEDS: PANTOPRAZOLE 40 MG TABLET PO SCH (06:45)
--- NOTE | 2018-11-07 08:55 | P.DS ---
Providers Date of admission: 11/05/18 12:55 Expected date of discharge: 11/07/18 Attending physician: Barbara Corley MD Consults: 11/05/18 12:55 Consult Physician Urgent Consulting Provider: Sadi Webb Consult Reason/Comments: cp Do you want consulting provider notified?: Yes Primary care physician: [facility] Course: 78 -year-old male presented to the ER because of feeling weak and tired since last night. This morning when he got up he was very wobbly secondary to extreme weakness. Family members had to assist him with walking. Patient denied having any dizziness, passing out. No chest pain or shortness of breath. Patient fell onto the wall and hit his head against a wall in the bathroom due to weakness today. No shaking, urinary or stool incontinence. No focal weakness or numbness. No nausea or vomiting. No fevers or chills. A few days ago patient had a positive stress test and subsequently had a heart catheterization during which she had a stent placed in the diagonal artery. He has been doing well since her heart cath until he started having weakness. In the emergency department he was evaluated with computed tomography scan of the head and neck which came back negative for acute fractures or dislocation. No bleeding was found. EKG showed A. fib with RVR. Labs significant for slightly elevated troponin at 0.076. Rest of his labs were unremarkable. While in the emergency department patient spontaneously flipped back to normal sinus rhythm with normal rate. Patient was admitted to the hospital, troponin was cycled and it remained flat. ACS was ruled out. Plastic [employer] Filler recommended adding anticoagulation to his regimen, he was started on the to 50 mg daily. Over the hospital course patient was feeling weak but that improved towards the end of the hospitalization. He did not have any chest pain or shortness of breath. Today patient is feeling okay, he will be discharged home in stable condition. Patient Condition at Discharge: Fair Plan - Discharge Summary New Discharge Prescriptions: New Rivaroxaban [Xarelto] 15 mg PO W/SUPPER #30 tab Continue Montelukast [Singulair] 10 mg PO HS Fexofenadine HCl [Kavita Allergy] 180 mg PO DAILY PRN PRN Reason: Allergy Symptoms Rosuvastatin Calcium [Crestor] 20 mg PO HS Tamsulosin [Flomax] 0.4 mg PO HS cap.er.24h Fluticasone Nasal [place] [Flonase Nasal [place]] 1 spray EA NOSTRIL DAILY Dicyclomine [Bentyl] 10 mg PO TID PRN PRN Reason: ibs Pantoprazole Sodium [Protonix] 40 mg PO DAILY Valsartan 320 mg PO HS Clopidogrel [Plavix] 75 mg PO DAILY Multivitamins, Thera [Multivitamin (formulary)] 1 tab PO DAILY Aspirin 81 mg PO DAILY chew Nitroglycerin Sl Tabs [Nitrostat] 0.4 mg SUBLINGUAL Q5M PRN #25 tab PRN Reason: Chest Pain Cranberry Fruit Extract [Cranberry] 500 mg PO DAILY Metoprolol Tartrate [Lopressor] 25 mg PO BID Citalopram Hydrobromide [CeleXA] 20 mg PO DAILY Discharge Medication List Montelukast [Singulair] 10 mg PO HS 11/12/15 [History] Fexofenadine HCl [Kavita Allergy] 180 mg PO DAILY PRN 11/19/15 [History] Rosuvastatin Calcium [Crestor] 20 mg PO HS 11/19/15 [History] Tamsulosin [Flomax] 0.4 mg PO HS cap.er.24h 11/26/15 [Rx] Dicyclomine [Bentyl] 10 mg PO TID PRN 12/30/16 [History] Fluticasone Nasal [place] [Flonase Nasal [place]] 1 spray EA NOSTRIL DAILY 12/30/16 [History] Pantoprazole Sodium [Protonix] 40 mg PO DAILY 12/30/16 [History] Clopidogrel [Plavix] 75 mg PO DAILY 10/28/18 [History] Multivitamins, Thera [Multivitamin (formulary)] 1 tab PO DAILY 10/28/18 [History] Valsartan 320 mg PO HS 10/28/18 [History] Aspirin 81 mg PO DAILY chew 11/04/18 [Rx] Nitroglycerin Sl Tabs [Nitrostat] 0.4 mg SUBLINGUAL Q5M PRN #25 tab 11/04/18 [Rx] Citalopram Hydrobromide [CeleXA] 20 mg PO DAILY 11/05/18 [History] Cranberry Fruit Extract [Cranberry] 500 mg PO DAILY 11/05/18 [History] Metoprolol Tartrate [Lopressor] 25 mg PO BID 11/05/18 [History] Rivaroxaban [Xarelto] 15 mg PO W/SUPPER #30 tab 11/07/18 [Rx] Follow up Appointment(s)/Referral(s): Adam Acosta MD [Primary Care Provider] - 1-2 days
[2018-11-07] MEDS: MULTIVITAMINS, THERA 1 EACH TAB PO SCH (09:31)
[2018-11-07] MEDS: CITALOPRAM HYDROBROMIDE 20 MG TAB PO SCH (09:31)
[2018-11-07] MEDS: ASPIRIN 81 MG PO SCH (09:31)
[2018-11-07] MEDS: CLOPIDOGREL 75 MG TAB PO SCH (09:31)
[2018-11-07] MEDS: METOPROLOL TARTRATE 25 MG TAB PO SCH ×2 (09:31→21:00)
[2018-11-07] MEDS: ATORVASTATIN 80 MG TAB PO SCH (09:31)
[2018-11-07] MEDS: FLUTICASONE 50MCG/SPRAY NASAL 16GM EA NOSTRIL SCH (09:32)
--- NOTE | 2018-11-07 11:05 | PN ---
PROGRESS NOTE Mr. Masterson is 78-year-old male with known history of coronary artery disease, status post coronary artery bypass grafting, history of recent admission and stenting of the diagonal branch. After he went home, he felt well the first day. Subsequently, he was unsteady, dizzy and had a short episode of slurred speech. He came into the emergency room, was noted to be in atrial fibrillation. He is back in sinus mechanism. At this time, he is feeling well. His breathing has been stable. He has been ambulating without difficulty. Denying any chest pain. No dizziness. No palpitation. He continued to be on aspirin once a day, Plavix 75 mg daily, metoprolol tartrate 25 mg twice a day, and he was started on Xarelto 15 mg daily. He was on Diovan 320 mg daily. Of note, the patient did not take his beta bhumika at home. PHYSICAL EXAMINATION: Blood pressure is running in the 160s with the heart rate in the 60s. LUNGS: Clear. HEART: Regular rate and rhythm. S1, S2. No S3 with a systolic murmur. ABDOMEN: Soft, nontender. EXTREMITIES: No edema. LAB DATA: Lab data revealed BUN and creatinine of 10 and 0.67. Hemoglobin is 11.8, potassium 4.1. His LDL of 50. He had minimal elevation of troponin at 0.076 and 0.073, most likely related to his recent event. IMPRESSION: 1. Paroxysmal atrial fibrillation back in sinus mechanism. 2. Status post recent stenting of the diagonal branch. 3. Hypertension. 4. Hyperlipidemia. RECOMMENDATION: From the cardiac standpoint, I will stop the aspirin and switch him to Eliquis 5 mg twice a day. I will add Norvasc 5 mg daily to optimize his blood pressure control. Increase his level of activity and if he remains stable, I am hopeful he should be able to be discharged home tomorrow. MMODL / IJN: [id number] / [facility] CENTERJoellen
[2018-11-07] MEDS: amLODIPine 5 MG TAB PO SCH (12:17)
--- NOTE | 2018-11-07 13:35 | P.PN ---
Subjective Progress Note Date: 11/07/18 Principal diagnosis: Weakness Doing okay, no complaints. Walked around the [place] 3 times yesterday. Objective - Vital Signs Vital signs: Vital Signs Temp 97.9 F 11/07/18 08:00 Pulse 68 11/07/18 08:00 Resp 18 11/07/18 08:00 BP 163/78 11/07/18 04:00 Pulse Ox 98 11/07/18 08:00 Intake & Output 11/06/18 11/07/18 11/07/18 18:59 06:59 18:59 Intake Total 504.106 600 120 Output Total 200 400 Balance 304.106 200 120 Weight 66.6 kg Intake: Intake, IV Titration 144.106 Amount Heparin Sod,Pork in 0.45% 144.106 NaCl 25,000 unit In 0.45 % NaCl 1 250ml.bag @ 12 UNITS/KG/HR 7.947 mls/hr IV .Q24H JUAN Rx#: [id number] Oral 360 600 120 Output: Urine 200 400 Other: Voiding Method Urinal Urinal Urinal # Voids 1 1 1 # Bowel Movements 0 - Exam Constitutional: No acute distress, conversant, pleasant Eyes:Anicteric sclerae, moist conjunctiva, no lid-lag, PERRLA, ENMT: Oropharynx clear, no erythema, exudates Neck: Supple, FROM, no masses, or JVD, No carotid bruits, No thyromegaly Lungs: Clear to auscultation, Clear to percussion, Normal respiratory effort, no accessory muscle use Cardiovascular: Heart regular in rate and rhythm, No murmurs, gallops, or rubs, No peripheral edema Abdominal: Soft, Nontender, no guarding, rebound or rigidity, Normoactive bowel sounds, No hepatomegaly, No splenomegaly, No palpable mass Skin: Normal temperature, tone, texture, turgor, no induration, No subcutaneous nodules, No rash, lesions, No ulcers Extremities: No digital cyanosis, No clubbing, Pedal pulses intact and symmetrical, Radial pulses intact and symmetrical, No calf tenderness Psychiatric: Alert and oriented to person, place and time, appropriate affect, intact judgement Neuro: Muscles Strength 5/5 in all 4 extremities, Sensation to light touch grossly present throughout, Cranial nerves II-XII grossly intact, no focal sensory deficits - Labs CBC & Chem 7: 11/07/18 05:58 11/07/18 05:58 Labs: Abnormal Lab Results - Last 24 Hours (Table) 11/07/18 11/07/18 Range/Units 05:58 05:58 RBC 4.12 L (4.30-5.90) m/uL Hgb 11.8 L (13.0-17.5) gm/dL Hct 36.8 L (39.0-53.0) % Chloride 112 H (98-107) mmol/L Glucose 104 H (74-99) mg/dL Microbiology - Last 24 Hours (Table) 11/05/18 12:34 Urine Culture - Preliminary Urine,Voided Group D Enterococcus Assessment and Plan Plan: Atrial fibrillation with RVR Rhythm converted back to normal sinus rhythm spontaneously in the emergency department Resume home Lopressor 25 mg by mouth twice a day HR is currently stable Discussed with cheese cutter Dr. Webb would like to keep him on more day for monitoring for possible pauses Dr. Webb also switched him from xarelto to eliquis and discontinued aspirin. Elevated troponin Troponin remained flat, ACS unlikely Continue Plavix Continue statin Essential hypertension Norvasc added for better bp control Hyperlipidemia Depression Stable Resume meds General weakness PT and OT Insomnia Ambien
[2018-11-07] MEDS: APIXABAN 5 MG TAB PO SCH (21:00)
[2018-11-07] MEDS: VALSARTAN 160 MG TAB PO SCH (21:00)
[2018-11-07] MEDS: TAMSULOSIN 0.4 MG CAP.ER.24H PO SCH (21:00)
[2018-11-07] MEDS: MONTELUKAST 10 MG TAB PO SCH (21:00)
[2018-11-07] MEDS: ZOLPIDEM 5 MG TAB PO SCH (21:00)
[2018-11-08] MEDS: PANTOPRAZOLE 40 MG TABLET PO SCH (06:37)
[2018-11-08 06:38] LABS: Mean Platelet Volume 7.6; Platelet Count 315 k/uL (150-450)
[2018-11-08 06:53] LABS: African American GFR (CKD) >90 (>60 ml/min/1.73 sqM); Anion Gap 6 mmol/L; Blood Urea Nitrogen 13 mg/dL (9-20); Calcium 8.9 mg/dL (8.4-10.2); Carbon Dioxide 26 mmol/L (22-30); Chloride 110 mmol/L (98-107); Glucose 107 mg/dL (74-99); Potassium 4.2 mmol/L (3.5-5.1); Sodium 142 mmol/L (137-145)
[2018-11-08] MEDS: APIXABAN 5 MG TAB PO SCH (08:35)
[2018-11-08] MEDS: amLODIPine 5 MG TAB PO SCH (08:35)
[2018-11-08] MEDS: METOPROLOL TARTRATE 25 MG TAB PO SCH (08:35)
[2018-11-08] MEDS: CLOPIDOGREL 75 MG TAB PO SCH (08:35)
[2018-11-08] MEDS: ATORVASTATIN 80 MG TAB PO SCH (08:35)
[2018-11-08] MEDS: MULTIVITAMINS, THERA 1 EACH TAB PO SCH (08:35)
[2018-11-08] MEDS: CITALOPRAM HYDROBROMIDE 20 MG TAB PO SCH (08:35)
[2018-11-08] MEDS: FLUTICASONE 50MCG/SPRAY NASAL 16GM EA NOSTRIL SCH (08:36)
[2018-11-08 08:44] VITALS: BP 151/66; PULSE 68; RESP 18; TEMP 98.7
--- NOTE | 2018-11-08 08:59 | PN ---
PROGRESS NOTE Mr. Masterson is a 78-year-old male with a history of coronary artery disease who presented with episode of atrial fibrillation and dizziness. He continued to be in sinus mechanism. He is active, ambulating without difficulty. Denying any chest pain. No dizziness. No palpitation. No nausea. He continues to be on amlodipine 5 mg daily, Eliquis 5 mg twice a day, citalopram 20 mg daily, Plavix 75 mg daily, metoprolol tartrate 25 mg twice a day, and Diovan 320 mg daily. PHYSICAL EXAMINATION: Blood pressure 140/60 with the heart rate in the 60s. LUNGS: Clear. HEART: Regular rate and rhythm. S1, S2. No S3. No rub. ABDOMEN: Soft, nontender. EXTREMITIES: No edema. LAB DATA: Lab data revealed BUN and creatinine 13 and 0.72. IMPRESSION: 1. Status post stenting of the diagonal branch. 2. Paroxysmal atrial fibrillation back in sinus mechanism. 3. Hypertension. 4. Hyperlipidemia. RECOMMENDATION: Patient will be discharged home today and followed as an outpatient in one week. MMODL / IJN: [id number] /
== END 2018-11-08 11:40 | disposition home or self-care (01) ==
LOC: EC 10:49 → 3SCARD 12:55
PROVIDERS: ADMIT Internal Medicine; ATTEND Internal Medicine
DX: I48.0 Paroxysmal atrial fibrillation (principal); I25.10 Atherosclerotic heart disease of native coronary artery without angina pectoris; E86.0 Dehydration; E11.9 Type 2 diabetes mellitus without complications; E78.5 Hyperlipidemia, unspecified; F32.9 Major depressive disorder, single episode, unspecified; F17.200 Nicotine dependence, unspecified, uncomplicated; I10 Essential (primary) hypertension; K21.9 Gastro-esophageal reflux disease without esophagitis; N40.0 Benign prostatic hyperplasia without lower urinary tract symptoms; Z79.01 Long term (current) use of anticoagulants; Z79.02 Long term (current) use of antithrombotics/antiplatelets; Z79.82 Long term (current) use of aspirin; Z79.899 Other long term (current) drug therapy; Z86.73 Personal history of transient ischemic attack (TIA), and cerebral infarction without residual deficits; Z87.442 Personal history of urinary calculi; Z95.1 Presence of aortocoronary bypass graft; Y92.012 Bathroom of single-family (private) house as the place of occurrence of the external cause; W01.198A Fall on same level from slipping, tripping and stumbling with subsequent striking against other object, initial encounter
CPT/HCPCS: 96376 ×2; 96366 ×2; 96361; 96365; 99291; 36415; 93005; 97162; 80061; 80053 ×2; 80048 ×2; 82550; 83605; 83735 ×2; 84100 ×2; 84443; 84484; 85025 ×3; 85049; 85610; 85730 ×2; 81001; 87086; 87077; 87186; 71046; 72125; 70450; G0378 ×4; J1644 ×3

== ENCOUNTER → 2020-01-30 | Outpatient (CLI) | payer MEDICARE, BC ==
[2020-01-30 10:47] LABS: African American GFR (CKD) 97.8 (60.0-200.0); Albumin 3.7 g/dL (3.80-4.90); Albumin/Globulin Ratio 1.85 (1.60-3.17); Anion Gap 7.5 mmol/L (4.00-12.00); BUN/Creat Ratio 18.75 Ratio (12.00-20.00); Calcium 8.9 mg/dL (8.7-10.3); Carbon Dioxide 27.5 mmol/L (21.6-31.8); Chol/HDL Ratio 4.94; LDL Cholesterol,Calculated 108.6 mg/dL (0.0-131.0); Non-African American GFR(CKD) 84.4 (60.0-200.0); Potassium 4.3 mmol/L (3.5-5.5); Total Bilirubin 0.7 mg/dL (0.2-1.2); Total Protein 5.7 g/dL (6.2-8.2); VLDL Calculation 21.4 mg/dL (5.00-40.00)
== END | disposition home or self-care (01) ==
LOC: LABWHC1 07:38
PROVIDERS: ATTEND Internal Medicine Interventional Cardiology
DX: E78.2 Mixed hyperlipidemia (principal)
CPT/HCPCS: 36415; 80053; 80061

== ENCOUNTER → 2020-09-30 | Outpatient (CLI) | payer MEDICARE, BC ==
[2020-09-30 11:47] LABS: African American GFR (CKD) 102.6 (60.0-200.0); Albumin 3.6 g/dL (3.80-4.90); Albumin/Globulin Ratio 1.71 (1.60-3.17); Anion Gap 1.6 mmol/L (4.00-12.00); BUN/Creat Ratio 18.57 Ratio (12.00-20.00); Calcium 8.7 mg/dL (8.7-10.3); Carbon Dioxide 29.4 mmol/L (21.6-31.8); Chol/HDL Ratio 3.72; Globulin 2.1 g/dL (1.6-3.3); LDL Cholesterol,Calculated 57.4 mg/dL (0.0-131.0); Non-African American GFR(CKD) 88.5 (60.0-200.0); Potassium 4.3 mmol/L (3.5-5.5); Total Bilirubin 0.5 mg/dL (0.3-1.2); Total Protein 5.7 g/dL (6.2-8.2); VLDL Calculation 21.6 mg/dL (5.00-40.00)
== END | disposition home or self-care (01) ==
LOC: LABWHC1 07:45
PROVIDERS: ATTEND Internal Medicine Interventional Cardiology
DX: E78.2 Mixed hyperlipidemia (principal)
CPT/HCPCS: 36415; 80053; 80061

== ENCOUNTER 2021-08-13 07:33 | Inpatient (IN) | payer MEDICARE, BC ==
[2021-08-13] MEDS ORDERED: SODIUM CHLORIDE 0.9% 1,000 ML IV STA (07:41)
[2021-08-13 07:52] LABS: Glucose,Whole Blood 126 mg/dL (75-99)
--- NOTE | 2021-08-13 07:58 | ED ---
General Adult HPI - General Chief complaint: Weakness Stated complaint: neuro issue Time Seen by Provider: 08/13/21 07:40 Source: patient, EMS, RN notes reviewed, old records reviewed Mode of arrival: EMS - History of Present Illness Initial comments: Patient is an 80-year-old male with past medical history remarkable for CAD with coronary bypass surgery, diabetes, hypertension, hyperlipidemia, renal disease, A. fib on Eliquis who presents to the emergency Department complaining of a dizziness episode this morning in the shower. When EMS arrived, patient was dazed, and obvious right-sided weakness of the right upper extremity that is isolated. They stated it was completely paralyzed. Symptoms eventually resolved. This is approximately at 7 AM. Patient had a low blood pressure at that time as well which responded to fluids. He states he had some left-sided chest discomfort earlier on the way to the hospital but that is since resolved. No symptoms of since resolved. States he has residual left-sided weakness from prior CVA. Denies any abdominal pain, nausea, vomiting. Denies any current chest pain. Denies any shortness of breath. Denies any headache. States he has not had any recent severe chest pain with radiation to the back. His no other acute complaints at this time. Denies any history of intracranial surgery. Presents for further evaluation at this time. - Related Data Home Medications Medication Instructions Recorded Confirmed Rosuvastatin Calcium [Crestor] 20 mg PO HS 11/19/15 08/13/21 Fluticasone Nasal [place] [Flonase 1 spray EA NOSTRIL DAILY 12/30/16 08/13/21 Nasal [place]] Pantoprazole Sodium [Protonix] 40 mg PO DAILY 12/30/16 08/13/21 Multivitamins, Thera [Multivitamin 1 tab PO DAILY 10/28/18 08/13/21 (formulary)] Valsartan 320 mg PO HS 10/28/18 08/13/21 Citalopram Hydrobromide [CeleXA] 20 mg PO DAILY 11/05/18 08/13/21 Cranberry Fruit Extract [Cranberry] 500 mg PO DAILY 11/05/18 08/13/21 Metoprolol Tartrate [Lopressor] 25 mg PO BID 11/05/18 08/13/21 Aspirin EC [Ecotrin Low Dose] 81 mg PO DAILY 08/13/21 08/13/21 Chlorhexidine Gluconate [Peridex] 15 ml PO BID 08/13/21 08/13/21 Dicyclomine [Bentyl] 20 mg PO TID 08/13/21 08/13/21 Loratadine [Claritin] 10 mg PO DAILY 08/13/21 08/13/21 Mometasone Furoate [Elocon 0.1% 1 applic TOPICAL HS PRN 08/13/21 08/13/21 Top Soln] Triamcinolone 0.1% Cream [Kenalog 1 applicatio TOPICAL Q48H 08/13/21 08/13/21 0.1% Cream] cycloSPORINE 0.05% OPHTH SOLN 1 drop BOTH EYES Q12H 08/13/21 08/13/21 [Restasis] Previous Rx's Medication Instructions Recorded Tamsulosin [Flomax] 0.4 mg PO HS cap.er.24h 11/26/15 Nitroglycerin Sl Tabs [Nitrostat] 0.4 mg SUBLINGUAL Q5M PRN #25 tab 11/04/18 Apixaban [Eliquis] 5 mg PO BID #60 tab 11/08/18 Allergies Allergy/AdvReac Type Severity Reaction Status Date / Time erythromycin base AdvReac Nausea & Verified 08/13/21 08:32 Vomiting Review of Systems ROS Statement: Those systems with pertinent positive or pertinent negative responses have been documented in the HPI. Review of Systems: CONST: Denies fever EYES: Denies blurry vision ENT: Denies nasal congestion C/V: Denies Chest pain RESP: Denies shortness of breath GI: Denies abdominal pain : Denies dysuria SKIN: Denies rash. MSK: Denies joint pain. NEURO: Denies headache ROS Other: All systems not noted in ROS Statement are negative. 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 History of Any Multi-Drug Resistant Organisms: None Reported Past Surgical History: Adenoidectomy, Coronary Bypass/CABG, Heart Catheterization, Heart Catheterization With Stent, Tonsillectomy Additional Past Surgical History / Comment(s): 11/13/15 Cardiac cath, 11/21/15 CABG-2 vessel, deviated septum repaired, cystoscopies x2, colonoscopy, bilateral cataract surg. Past Anesthesia/Blood Transfusion Reactions: No Reported Reaction Date of Last Stent Placement:: 11/03/18 Past Psychological History: Bipolar, Depression Past Alcohol Use History: None Reported Past Drug Use History: None Reported - Past Family History Father Additional Family Medical History / Comment(s): Father was a "drinker and a smoker". He at the age of 55 yrs from cerebral hemorhage Mother Additional Family Medical History / Comment(s): Mother at the age of 92yrs. General Exam - General Exam Comments Initial Comments: General: Appears in no acute distress. HEAD: Normal with no signs of head trauma. EYES: PERRLA, EOMI, conjunctiva normal, no discharge. Pupils are 3 mm and equal bilaterally. ENT: Hearing grossly intact, normal oropharynx. RESPIRATORY: Clear breath sounds bilaterally. No wheezes, rales, or rhonchi. C/V: Regular rate and rhythm. S1 and S2 auscultated, no edema, peripheral pulses 2+ and intact throughout ABD: Abd is soft, nontender, nondistended EXT: Normal range of motion, no obvious deformity SKIN: No rashes or lesions observed on exposed skin. NEURO: Alert and oriented 4. Cranial nerves II through XII are intact. Mild left lower extremity weakness which is chronic. NIH is currently 0 for new symptoms. GCS 15. Course Vital Signs 08/13/21 08/13/21 08/13/21 07:38 07:55 08:55 Temperature 97.6 F Pulse Rate 97 95 88 Respiratory 18 18 18 Rate Blood Pressure 138/74 124/63 149/72 O2 Sat by Pulse 97 96 100 Oximetry 08/13/21 08/13/21 08/13/21 09:40 10:39 10:42 Temperature 98.1 F 98.1 F Pulse Rate 70 68 84 Respiratory 18 18 18 Rate Blood Pressure 141/73 107/71 107/71 O2 Sat by Pulse 100 98 98 Oximetry Medical Decision Making - Medical Decision Making Based on the patient's presentation and physical exam, there is concern for an acute ST segment elevation myocardial infarction this patient. STEMI pager was activated. However due to the witnessed by EMS right-sided paralysis at home, concern for aortic dissection is high my differential. Cannot rule out TIA or CVA. Particularly with him being on blood thinners. Therefore we will obtain CT brain as well as brain and neck imaging in addition to CT angiogram of the aorta. He was in agreement this plan. STEMI pager was activated. We will hold heparin as well as aspirin at this time until imaging is completed. EKG showed ST segment elevations in leads II, 3, aVF as well as depressions in the anterior precordial leads V2 through V6. Concerning for STEMI.Vital signs are within normal limits at this time. Patient remains asymptomatic at this time. Denies any current chest pain. Accu-Chek was within normal limits.I spoke with Dr. Price who requested we completed the neuro symptoms evaluation prior to any cardiac cath. Does not believe this is an acute STEMI. computer laboratory technician was cancelled. Spoke with Dr. Boudreaux who presented to bedside and was in agreement with the plan. Will restart eliquis at neuro's recommendation, and will continue cardiac monitoring and trending troponins. Patient remains asymptomatic at this time. Vital signs are within normal limits. Laboratory studies returned and showed a slight normocytic anemia with a hemoglobin of 12.1, which is chronic. Remainder the labs are unremarkable. Troponin is indeterminate at 0.029. We'll continue to monitor. Chest x-ray shows no acute cardiopulmonary process. Torturous aorta with chronic inferior dilation seen. CT brain showed no acute intracranial process. Old chronic changes.CT angiogram of the brain revealed a plaque in the left internal carotid artery and possible dissection read by radiology at the skull base with patent distal artery. There is also focal stenosis of the left internal carotid artery as well as mid basilar artery. Also the left MCA. 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 No evidence of dissection. No evidence of occlusive stenosis. Patient does have mild hypocalcemia. On reevaluation, NIH remains 0. GCS is 15. He remains asymptomatic. Vital signs are within normal limits and stable. The wares sorter is at bedside. I have updated them on the results of the imaging as well as labs. Cardiology does not plan to take the patient for cath and will evaluate the patient following neurology clearance. I did speak with the neuro apparel manufacture instructor over the phone, Dr. Macdonald and had him review the CT brain and CT angiogram imaging. He does not believe that the interpretted dissection is a dissection at the skull base. He believes it is likely a plaque, not a dissection. He recommended stat MRI as well as loading the patient with Brillinta and to an aspirin. He also recommended holding the patient's old present on MRI is completed. I spoke about this with the patient and he was in agreement this plan. I discussed this with the patient's admitting doctor, Dr. Galeana who was in agreement with the plan. I spoke with on-call neurology, Dr. Ogden who is in agreement this plan. Patient will therefore be admitted in stable condition for prior further workup for possible TIA as well as his abnormal EKG. Vital signs remain within normal limits and stable throughout his stay in the emergency department. Stat MRI is ordered, and will be completed this afternoon after talking to MRI. - Lab Data Result diagrams: 08/13/21 07:50 08/13/21 07:50 Lab Results 08/13/21 08/13/21 08/13/21 Range/Units 07:50 07:50 07:50 WBC 6.9 (3.8-10.6) k/uL RBC 4.17 L (4.30-5.90) m/uL Hgb 12.1 L (13.0-17.5) gm/dL Hct 38.0 L (39.0-53.0) % MCV 91.2 (80.0-100.0) fL MCH 28.9 (25.0-35.0) pg MCHC 31.7 (31.0-37.0) g/dL RDW 13.8 (11.5-15.5) % Plt Count 256 (150-450) k/uL MPV 7.8 Neutrophils % 68 % Lymphocytes % 19 % Monocytes % 8 % Eosinophils % 2 % Basophils % 1 % Neutrophils # 4.7 (1.3-7.7) k/uL Lymphocytes # 1.3 (1.0-4.8) k/uL Monocytes # 0.6 (0-1.0) k/uL Eosinophils # 0.2 (0-0.7) k/uL Basophils # 0.1 (0-0.2) k/uL PT 12.6 H (9.0-12.0) sec INR 1.2 H (<1.2) APTT 27.6 (22.0-30.0) sec Sodium 139 (137-145) mmol/L Potassium 3.7 (3.5-5.1) mmol/L Chloride 113 H (98-107) mmol/L Carbon Dioxide 21 L (22-30) mmol/L Anion Gap 5 mmol/L BUN 12 (9-20) mg/dL Creatinine 0.71 (0.66-1.25) mg/dL Est GFR (CKD-EPI)AfAm >90 (>60 ml/min/1.73 sqM) Est GFR (CKD-EPI)NonAf 88 (>60 ml/min/1.73 sqM) Glucose 130 H (74-99) mg/dL POC Glucose (mg/dL) (75-99) mg/dL POC Glu Emr Specialist ID Calcium 7.3 L (8.4-10.2) mg/dL Magnesium 1.7 (1.6-2.3) mg/dL Total Bilirubin 0.7 (0.2-1.3) mg/dL AST 19 (17-59) U/L ALT 10 (4-49) U/L Alkaline Phosphatase 59 (38-126) U/L Troponin I (0.000-0.034) ng/mL Total Protein 4.9 L (6.3-8.2) g/dL Albumin 2.6 L (3.5-5.0) g/dL Urine Color Urine Appearance (Clear) Urine pH (5.0-8.0) Ur Specific [place] (1.001-1.035) Urine Protein (Negative) Urine Glucose (UA) (Negative) Urine Ketones (Negative) Urine Blood (Negative) Urine Nitrite (Negative) Urine Bilirubin (Negative) Urine Urobilinogen (<2.0) mg/dL Ur Leukocyte Esterase (Negative) 08/13/21 08/13/21 08/13/21 Range/Units 07:50 07:51 08:49 WBC (3.8-10.6) k/uL RBC (4.30-5.90) m/uL Hgb (13.0-17.5) gm/dL Hct (39.0-53.0) % MCV (80.0-100.0) fL MCH (25.0-35.0) pg MCHC (31.0-37.0) g/dL RDW (11.5-15.5) % Plt Count (150-450) k/uL MPV Neutrophils % % Lymphocytes % % Monocytes % % Eosinophils % % Basophils % % Neutrophils # (1.3-7.7) k/uL Lymphocytes # (1.0-4.8) k/uL Monocytes # (0-1.0) k/uL Eosinophils # (0-0.7) k/uL Basophils # (0-0.2) k/uL PT (9.0-12.0) sec INR (<1.2) APTT (22.0-30.0) sec Sodium (137-145) mmol/L Potassium (3.5-5.1) mmol/L Chloride (98-107) mmol/L Carbon Dioxide (22-30) mmol/L Anion Gap mmol/L BUN (9-20) mg/dL Creatinine (0.66-1.25) mg/dL Est GFR (CKD-EPI)AfAm (>60 ml/min/1.73 sqM) Est GFR (CKD-EPI)NonAf (>60 ml/min/1.73 sqM) Glucose (74-99) mg/dL POC Glucose (mg/dL) 126 H (75-99) mg/dL POC Glu Emr Specialist ID Abram Joseph Calcium (8.4-10.2) mg/dL Magnesium (1.6-2.3) mg/dL Total Bilirubin (0.2-1.3) mg/dL AST (17-59) U/L ALT (4-49) U/L Alkaline Phosphatase (38-126) U/L Troponin I 0.029 (0.000-0.034) ng/mL Total Protein (6.3-8.2) g/dL Albumin (3.5-5.0) g/dL Urine Color Colorless Urine Appearance Clear (Clear) Urine pH 7.5 (5.0-8.0) Ur Specific [place] 1.029 (1.001-1.035) Urine Protein Negative (Negative) Urine Glucose (UA) Negative (Negative) Urine Ketones Negative (Negative) Urine Blood Negative (Negative) Urine Nitrite Negative (Negative) Urine Bilirubin Negative (Negative) Urine Urobilinogen <2.0 (<2.0) mg/dL Ur Leukocyte Esterase Negative (Negative) - EKG Data -: EKG Interpreted by Me EKG Comments: 12-lead Electrocardiogram Interpretation Note EKG was reviewed and interpreted by myself. 12-lead ECG performed at 0737 is interpreted by me as revealing atrial fibrillation at a rate of 104 beats per minute. [place] is normal. PA interval is unobtainable, QRS duration is 128, QTc is 458. Patient does have new onset ST segment depressions in lead V2 through V6, most prominent in V3 through V5. Patient also has subtle ST segment elevations in the inferior leads II, III, aVF. These are new when compared to prior EKGs.. R wave progression across the precordium was satisfactory. By my interpretation this EKG is concerning for acute ischemia. Concerning for acute ST segment elevation myocardial infarction.. Critical Care Time Critical Care Time: Yes Total Critical Care Time: 35 Critical Care Time: Upon my evaluation, this patient had a high probability of imminent or life- threatening deterioration due to possible TIA, EKG changes concerning for possible ACS, which required my direct attention, intervention, and personal m anagement. I have personally provided 35 minutes of critical care time exclusive of time spent on separately billable procedures. Time includes review of laboratory megan a, radiology results, discussion with consultants, and monitoring for potential decompensation. Interventions were performed as documented in my note. Disposition Clinical Impression: TIA (transient ischemic attack), Acute electrocardiogram changes, ST segment depression Disposition: ADMITTED IP TO THIS HOSP Condition: Serious Time of Disposition: 09:40
[2021-08-13 08:00] LABS: Basophils # (A) 0.1 k/uL (0-0.2); Basophils % (A) 1 %; Eosinophils # (A) 0.2 k/uL (0-0.7); Eosinophils % (A) 2 %; HGB 12.1 gm/dL (13.0-17.5); Lymphocytes # (A) 1.3 k/uL (1.0-4.8); Lymphocytes % (A) 19 %; MCH 28.9 pg (25.0-35.0); MCHC 31.7 g/dL (31.0-37.0); MCV 91.2 fL (80.0-100.0); Mean Platelet Volume 7.8; Monocytes # (A) 0.6 k/uL (0-1.0); Monocytes % (A) 8 %; Neutrophils # (A) 4.7 k/uL (1.3-7.7); Neutrophils % (A) 68 %; Platelet Count 256 k/uL (150-450); RBC 4.17 m/uL (4.30-5.90); RDW 13.8 % (11.5-15.5); WBC 6.9 k/uL (3.8-10.6)
[2021-08-13 08:11] LABS: ALT 10 U/L (4-49); AST 19 U/L (17-59); African American GFR (CKD) >90 (>60 ml/min/1.73 sqM); Albumin 2.6 g/dL (3.5-5.0); Alkaline Phosphatase 59 U/L (38-126); Anion Gap 5 mmol/L; Blood Urea Nitrogen 12 mg/dL (9-20); Calcium 7.3 mg/dL (8.4-10.2); Carbon Dioxide 21 mmol/L (22-30); Chloride 113 mmol/L (98-107); Glucose 130 mg/dL (74-99); Magnesium 1.7 mg/dL (1.6-2.3); Non-African American GFR(CKD) 88 (>60 ml/min/1.73 sqM); Potassium 3.7 mmol/L (3.5-5.1); Sodium 139 mmol/L (137-145); Total Bilirubin 0.7 mg/dL (0.2-1.3); Total Protein 4.9 g/dL (6.3-8.2)
--- NOTE | 2021-08-13 08:11 | XR ---
EXAMINATION TYPE: XR chest 1V portable DATE OF EXAM: 08/13/2021 COMPARISON: X-ray dated 11/05/2018 HISTORY: Chest pain TECHNIQUE: Single frontal view of the chest is obtained. FINDINGS: Focal density along the medial aspect of the right upper lung zone, stable and likely benign. Sternot skip wire sutures. Tortuous descending thoracic aorta with questionable inferior dilatation, also appr eciated previously. Grossly unremarkable remainder of the lungs. No sizable pleural effusion or definite pneumothorax. No gross cardiomegaly. No gross aggressive bone lesion. IMPRESSION: As above.
[2021-08-13 08:18] LABS: INR 1.2 (<1.2); Partial Thromboplastin Time 27.6 sec (22.0-30.0); Prothrombin Time 12.6 sec (9.0-12.0)
--- NOTE | 2021-08-13 08:31 | CT ---
EXAMINATION TYPE: CT brain wo con DATE OF EXAM: 08/13/2021 COMPARISON: CT dated 11/05/2018 HISTORY: Neuro deficit CT DLP: 1099.6 mGycm Automated exposure control for dose reduction was used. TECHNIQUE: CT scan of the brain is performed without IV contrast administration. FINDINGS: Brain volume loss changes, likely age-related. Bilateral cerebral white matter hypodensities, likely representing chronic microvascular ischemic changes. Scattered bilateral basal ganglia chronic lacuna r infarcts, appreciated previously. Scattered arterial atherosclerotic calcifications. No acute intracranial hemorrhage. No gross acute cortical infarct. No midline or herniation. Unremark able basal cisterns, sella and CP angles. No gross space-occupying lesion, vasogenic edema or mass ef fect. Unremarkable orbits. Chronic inflammatory changes of the maxillary sinuses with mucosal thickening of the sphenoid sinus. Clear mastoid air cells. No aggressive bone lesion. IMPRESSION: Brain volume loss changes, chronic ischemic changes and scattered chronic lacunar infarcts as describ ed above. No acute intracranial hemorrhage or gross acute cortical infarct however a small acute or hyperacute infarct cannot be excluded. Other incidental findings as described above.
--- NOTE | 2021-08-13 08:58 | P.CRDCN ---
History of Present Illness Consult date: 08/13/21 History of present illness: This is a 80-year-old gentleman with history of ischemic heart disease and previous bypass surgery done in 2016 with the LOPEZ graft to the LAD and vein graft to the RCA. Subsequently in 2019. He had stent placement of the diagonal branch. Patient also has a previous history of CVA with left-sided weakness. Today, apparently was in the bathroom and then became weak and kind of unresponsive. The with help of labor helped him into the bed and they called the paramedics. By the time paramedics came and patient apparently was unresponsive. There was some weakness in the right upper extremity. EKG done showed evidence of ST depressions in the anterolateral leads and minimal ST elevation in inferior leads initially patient did not have any significant chest pain. By the time patient came to the emergency room. Most of his symptoms are resolved . He is complaining of some fatigue and tiredness. Denies any chest pain or shortness of breath, no palpitations. Repeat EKG showed complete resolution of the ST changes in the inferior leads. There are diffuse nonspecific ST depression in the lateral leads. Picture doesn't seem to be consistent with acute myocardial infarction. He did have a computed tomography scan of the brain which did not reveal any acute bleeding or infarct. Waiting for the input from the neurologist. Apparently patient had similar episodes in the past 2. It appears to be some heart TIA like symptomatology. We'll continue to monitor him. He recently had stress test and echocardiogram in cardiology office. We are in the process of getting the reports. From a cardiac standpoint. We'll continue to monitor his symptoms. Cardiac enzymes and also get an echocardiogram. Continue with anti-cognition therapy. Refills okay with neurologist. 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 History of Any Multi-Drug Resistant Organisms: None Reported Past Surgical History: Adenoidectomy, Coronary Bypass/CABG, Heart Catheterization, Heart Catheterization With Stent, Tonsillectomy Additional Past Surgical History / Comment(s): 11/13/15 Cardiac cath, 11/21/15 CABG-2 vessel, deviated septum repaired, cystoscopies x2, colonoscopy, bilateral cataract surg. Past Anesthesia/Blood Transfusion Reactions: No Reported Reaction Date of Last Stent Placement:: 11/03/18 Past Psychological History: Bipolar, Depression Past Alcohol Use History: None Reported Past Drug Use History: None Reported - Past Family History Father Additional Family Medical History / Comment(s): Father was a "drinker and a smoker". He at the age of 55 yrs from cerebral hemorhage Mother Additional Family Medical History / Comment(s): Mother at the age of 92yrs. Medications and Allergies Home Medications Medication Instructions Recorded Confirmed Type Rosuvastatin Calcium [Crestor] 20 mg PO HS 11/19/15 08/13/21 History Tamsulosin [Flomax] 0.4 mg PO HS cap.er.24h 11/26/15 08/13/21 Rx Fluticasone Nasal [place] [Flonase 1 spray EA NOSTRIL DAILY 12/30/16 08/13/21 History Nasal [place]] Pantoprazole Sodium [Protonix] 40 mg PO DAILY 12/30/16 08/13/21 History Multivitamins, [place]ra [Multivitamin 1 tab PO DAILY 10/28/18 08/13/21 History (formulary)] Valsartan 320 mg PO HS 10/28/18 08/13/21 History Nitroglycerin Sl Tabs [Nitrostat] 0.4 mg SUBLINGUAL Q5M PRN #25 tab 11/04/18 08/13/21 Rx Citalopram Hydrobromide [CeleXA] 20 mg PO DAILY 11/05/18 08/13/21 History Cranberry Fruit Extract [Cranberry] 500 mg PO DAILY 11/05/18 08/13/21 History Metoprolol Tartrate [Lopressor] 25 mg PO BID 11/05/18 08/13/21 History Apixaban [Eliquis] 5 mg PO BID #60 tab 11/08/18 08/13/21 Rx Chlorhexidine Gluconate [Peridex] 15 ml PO BID 08/13/21 08/13/21 History Dicyclomine [Bentyl] 20 mg PO TID 08/13/21 08/13/21 History Loratadine [Claritin] 10 mg PO DAILY 08/13/21 08/13/21 History Mometasone Furoate [Elocon 0.1% 1 applic TOPICAL HS PRN 08/13/21 08/13/21 History Top Soln] Triamcinolone 0.1% Cream [Kenalog 1 applicatio TOPICAL Q48H 08/13/21 08/13/21 History 0.1% Cream] cycloSPORINE 0.05% OPHTH SOLN 1 drop BOTH EYES Q12H 08/13/21 08/13/21 History [Restasis] Allergies Allergy/AdvReac Type Severity Reaction Status Date / Time erythromycin base AdvReac Nausea & Verified 08/13/21 08:32 Vomiting Physical Exam Vitals: Vital Signs Temp Pulse Resp BP Pulse Ox 08/13/21 07:55 95 18 124/63 96 08/13/21 07:38 97.6 F 97 18 138/74 97 Intake and Output 08/12/21 08/13/21 08/13/21 22:59 06:59 14:59 Other: Weight 68.039 kg GENERAL EXAM: Patient is alert and oriented and doesn't appear to be in any acute distress HEENT: Normocephalic. . NECK: No masses, no nuchal rigidity. CHEST: No chest wall deformity. LUNGS: Equal air entry with no crackles or wheeze. HEART: S1 and S2 normal. Irregular heart sounds ABDOMEN: No hepatosplenomegaly, normal bowel sounds, no guarding or rigidity. SKIN: No rashes CENTRAL NERVOUS SYSTEM: Left-sided weakness EXTREMITIES: No cyanosis, clubbing or edema. Results 08/13/21 07:50 08/13/21 07:50 Cardiac Enzymes 08/13/21 08/13/21 Range/Units 07:50 07:50 AST 19 (17-59) U/L Troponin I 0.029 (0.000-0.034) ng/mL Coagulation 08/13/21 Range/Units 07:50 PT 12.6 H (9.0-12.0) sec APTT 27.6 (22.0-30.0) sec CBC 08/13/21 Range/Units 07:50 WBC 6.9 (3.8-10.6) k/uL RBC 4.17 L (4.30-5.90) m/uL Hgb 12.1 L (13.0-17.5) gm/dL Hct 38.0 L (39.0-53.0) % Plt Count 256 (150-450) k/uL Comprehensive Metabolic Panel 08/13/21 Range/Units 07:50 Sodium 139 (137-145) mmol/L Potassium 3.7 (3.5-5.1) mmol/L Chloride 113 H (98-107) mmol/L Carbon Dioxide 21 L (22-30) mmol/L BUN 12 (9-20) mg/dL Creatinine 0.71 (0.66-1.25) mg/dL Glucose 130 H (74-99) mg/dL Calcium 7.3 L (8.4-10.2) mg/dL AST 19 (17-59) U/L ALT 10 (4-49) U/L Alkaline Phosphatase 59 (38-126) U/L Total Protein 4.9 L (6.3-8.2) g/dL Albumin 2.6 L (3.5-5.0) g/dL Intake and Output 08/12/21 08/13/21 08/13/21 22:59 06:59 14:59 Other: Weight 68.039 kg Patient Weight 08/14/21 06:59 Weight 68.039 kg 08/13/21 07:50 08/13/21 07:50 EKG Interpretations (text) Atrial fibrillation with controlled ventricular response with diffuse nonspecific ST-T changes in anterolateral leads. Findings consistent with old inferior wall MD Assessment and Plan (1) TIA (transient ischemic attack) Current Visit: Yes Status: Acute Code(s): G45.9 - TRANSIENT CEREBRAL ISCHEMIC ATTACK, UNSPECIFIED SNOMED Code(s): 534320938 (2) Chronic atrial fibrillation Current Visit: Yes Status: Acute Code(s): I48.20 - CHRONIC ATRIAL FIBRILLATION, UNSPECIFIED SNOMED Code(s): 880288929 (3) History of coronary artery bypass graft Current Visit: Yes Status: Acute Code(s): Z95.1 - PRESENCE OF AORTOCORONARY BYPASS GRAFT SNOMED Code(s): 524649219 (4) Old inferior wall myocardial infarction Current Visit: Yes Status: Acute Code(s): I25.2 - OLD MYOCARDIAL INFARCTION SNOMED Code(s): 155738211 (5) History of CVA (cerebrovascular accident) Current Visit: Yes Status: Acute Code(s): Z86.73 - PRSNL HX OF TIA (TIA), AND CEREB INFRC W/O RESID DEFICITS SNOMED Code(s): 382834634 Plan: Continue to monitor symptoms. Follow Cardec enzymes studies. Echocardiogram. Neurology consult. Continue anti-cognition, if it's okay with neurology. Further recommend she'll depend upon clinical course
--- NOTE | 2021-08-13 08:59 | CT ---
EXAMINATION TYPE: CT angio head neck DATE OF EXAM: 08/13/2021 HISTORY: Neuro deficit COMPARISON: CT dated 12/30/2016 CT DLP: 468.3 mGycm. Automated Exposure Control for Dose Reduction was Utilized. TECHNIQUE: CTA scan of the head and neck is performed with IV Contrast, patient injected with 65 mL of Isovue 370, axial images are obtained, coronal and sagittal reformatted images are reviewed. 3D re constructed images are created on an independent workstation and reviewed. FINDINGS: Carotid/Vascular Structures: Scattered arterial atherosclerotic calcification, plaques and tortuosity . Mild focal stenosis of the origin of the right subclavian artery. Mild stenosis of the origin of th e right internal carotid artery by a partially calcified atheromatous plaque. Severe stenosis of the origin of the right vertebral artery yet patent distally. Severe tortuosity and focal moderate stenos is of the proximal portion of the left subclavian artery yet patent distally. Mild stenosis of the pr oximal portion of the left internal carotid artery yet patent distally. Reduced caliber of the superi or aspect of the cervical portion of the left internal carotid artery by a noncalcified atherosclerot ic plaque causing about 60 % stenosis with questionable subtle dissection at the skull base. Hypoplas tic V4 segment of the right vertebral artery. Focal stenosis of the midportion of the basilar artery yet patent distally. Focal stenosis of the M2 branches and distal aspect of the M1 segment of the lef t MCA yet patent distally. Severe focal stenosis of the cavernous portion of the left internal caroti d artery yet patent distally. No other significant arterial stenosis, dissection, occlusion or aneury sm seen in the head or the neck. Other: No intracranial abnormal enhancement. Degenerative changes of the cervical spine. CT scan of t he chest is dictated separately. IMPRESSION: Reduced caliber of the superior aspect of the cervical portion of the left internal carotid artery by a noncalcified atheromatous plaque with about 60 % stenosis, with questionable subtle dissection at the skull base yet the artery is patent distally. Severe focal stenosis of the cavernous portion of the left internal carotid artery with other segment s focal stenosis of the mid basilar artery, M1 and M2 branch of the left MCA as described above. Othe r extensive arterial atherosclerotic changes as detailed above.
[2021-08-13] MEDS ORDERED: ISOSORBIDE MONONITRATE ER 30 MG TAB.ER.24H PO ONE (09:15)
--- NOTE | 2021-08-13 09:18 | CT ---
EXAMINATION TYPE: CT angio thor/abd pel aorta DATE OF EXAM: 08/13/2021 INDICATION: Chest pain, dissection CT DLP: 1303.7 mGy.cm Automated Exposure Control for Dose Reduction was Utilized. TECHNIQUE AND CONTRAST: CT scan of the chest, abdomen and pelvis is performed without and with IV Contrast, patient injected with 100 mL of Isovue 370. MIP and 3-D reconstruction images were generated on an independent worksta tion and reviewed. COMPARISON: No previous CT scan is available for comparison. FINDINGS: Extensive atherosclerotic calcification and tortuosity of the visualized arteries with thickened portia rial centeno. The ascending aorta measures up to 4.6 cm. The aortic arch measures 4.2 cm. The superior aspect of the descending aorta measures 4 cm. The inferior aspect of the descending aorta measures 3 cm. The upper abdominal aorta measures up to 3.3 cm. Diffusely dilated infrarenal abdominal aorta james suring up to 3 cm. No evidence of aortic stenosis, occlusion or dissection. Focal stenosis of the origin of the celiac trunk yet patent distally. Severe stenosis of the origin o f the superior mesenteric artery yet patent distally with multiple more distal segments of stenosis. Atherosclerotic renal arteries with multiple segments of stenosis and wall thickening. Opacified infe rior mesenteric artery down to the pelvis. Atherosclerotic iliac and proximal femoral arteries with f ocal stenosis of the proximal portion of the right common femoral artery. Dilated pulmonary trunk measuring up to 3.6 cm suggestive of pulmonary hypertension. Cardiomegaly, pl ease correlate with echocardiographic results. Coronary arterial calcification/stents. No pericardial effusion. Expiratory exposure. Lower lobar dependent densities and subsegmental atelectasis. Calcifi ed granuloma is seen in the right lung base. Patent trachea and main bronchi. No sizable pleural effu sheeba. No definite hepatic focal lesion. Cholelithiasis with a slightly thickened gallbladder wall, please c orrelate clinically for chronic or mild acute cholecystitis. Atrophic pancreas. Unremarkable spleen a nd adrenals. Scattered bilateral renal hypodensities, likely representing renal cysts. Enlarged prost ate, please correlate with PSA level. Unremarkable seminal vesicles and urinary bladder. Small sliding hiatal hernia, otherwise unremarkable nondistended stomach, duodenum and small bowel. C olonic diverticulosis most evident involving the sigmoid colon. Normal appendix. No suspicious lympha denopathy. No sizable ascites. Diffuse osteopenia. Sternotomy wire sutures. T12 vertebral body collap se, likely chronic, please correlate clinically. Anterolisthesis of L4 over L5 with IMPRESSION: Ascending aortic aneurysm with unfolding of the thoracic aorta, dilated aortic arch and infrarenal ab dominal aorta as detailed above. No evidence of aortic dissection, occlusion or significant stenosis. Other arterial atherosclerotic changes and incidental findings as detailed above.
[2021-08-13 09:35] LABS: Appearance,Urine Clear (Clear); Bilirubin,Urine Negative (Negative); Blood,Urine Negative (Negative); Color,Urine Colorless; Glucose,Urine (UA) Negative (Negative); Ketones,Urine Negative (Negative); Leukocyte Esterase,Urine Negative (Negative); Nitrite,Urine Negative (Negative); PH, Urine 7.5 (5.0-8.0); Protein,Urine Negative (Negative); Specific Gravity,Urine 1.029 (1.001-1.035); Urobilinogen,Urine <2.0 mg/dL (<2.0)
[2021-08-13] MEDS ORDERED: ASPIRIN 325 MG TAB PO STA (09:48)
[2021-08-13] MEDS ORDERED: CLOPIDOGREL 75 MG TAB PO STA (09:48)
[2021-08-13] MEDS ORDERED: TICAGRELOR 90 MG TAB PO STA (09:53)
[2021-08-13] MEDS: SODIUM CHLORIDE 0.9% 1,000 ML IV SCH ×2 (10:35→22:15)
--- NOTE | 2021-08-13 14:17 | CA ---
Transthoracic Echo Report Name: Vimal Masterson Age: 80 Gender: M : 1940 Exam Date: 08/13/2021 09:33 Exam Location: [facility] Ht (in): 67 Wt (lb): 150 Ordering Physician: Terrance Yun MD ([id number]) Attending/Referring Phys: Records Management Assistant Marisela Barfield RDCS Procedure CPT: Indications: Abnormal EKG, TIA Cardiac Hx: Technical Quality: Good Contrast 1: N/A Total Dose (mL): Contrast 2: Total Dose (mL): MEASUREMENTS (Male / Female) Normal Values 2D ECHO LV Diastolic Diameter PLAX 4.3 cm 4.2 - 5.9 / 3.9 - 5.3 cm LV Systolic Diameter PLAX 4.1 cm IVS Diastolic Thickness 1.4 cm 0.6 - 1.0 / 0.6 - 0.9 cm LVPW Diastolic Thickness 1.3 cm 0.6 - 1.0 / 0.6 - 0.9 cm LV Relative Wall Thickness 0.6 RV Internal Dim ED PLAX 3.1 cm LA Systolic Diameter LX 4.8 cm 3.0 - 4.0 / 2.7 - 3.8 cm LA Volume 115.1 cm??? 18 - 58 / 22 - 52 cm??? M-MODE Aortic Root Diameter MM 3.9 cm LA Systolic Diameter MM 4.6 cm LA Ao Ratio MM 1.2 MV E Point Septal Separation 0.8 cm AV Cusp Separation MM 1.3 cm DOPPLER AV Peak Velocity 258.0 cm/s AV Peak Gradient 26.6 mmHg AV Mean Velocity 327.1 cm/s AV Mean Gradient 43.1 mmHg AV Velocity Time Integral 181.1 cm FINDINGS Left Ventricle Left ventricular ejection fraction is estimated at 40-45 %. Inferior hypokinesis. Right Ventricle Normal right ventricular size and function. Right ventricular systolic pressure within normal limits. Right Atrium Normal right atrial size. Left Atrium Moderately increased left atrial diameter. Severely increased left atrial volume. Moderately increased left atrial area. Mitral Valve Moderate mitral regurgitation. Mitral annular calcification. Aortic Valve [id number] aortic regurgitation. Aortic valve sclerosis. Tricuspid Valve Structurally normal tricuspid valve. Mild tricuspid regurgitation. Pulmonic Valve Mild pulmonic regurgitation. Pericardium Normal pericardium. Aorta Aortic root and proximal ascending aorta not well visualized. CONCLUSIONS Mildly impaired all the function was EF between 40-45% Moderate mitral regurgitation Moderate aortic regurgitation Previewed by: Dr. Gigi Lacy MD (Electronically Signed) Final Date: 13 Aug 2021 14:16
--- NOTE | 2021-08-13 14:35 | MR ---
EXAMINATION TYPE: MR brain wo con DATE OF EXAM: 08/13/2021 COMPARISON: CT brain earlier today. HISTORY: Neuro deficit, acute, stroke suspected. TECHNIQUE: Multiplanar, multisequence imaging of the brain and brainstem is performed without IV cont rast. FINDINGS: Diffusion weighted images demonstrate no evidence of a recent infarct or other diffusion abnormality. There is mild to moderate diffuse ventricular and sulcal prominence. There are multifocal and conflue nt areas of T2 hyperintensity seen throughout the white matter bilaterally. There are old lacunar inf arcts in the right coronal radiata redemonstrated. Midline structures demonstrate normal morphology. The craniocervical junction appears within normal limits. Normal vascular flow voids are present. Left vertebral artery noted dominant or larger calibe r. Mild mucosal thickening involving ethmoid sinuses bilaterally. Globes are intact bilaterally. IMPRESSION: 1. No MRI evidence for recent infarct. 2. Mild to moderate diffuse cerebral atrophy and moderate to advanced chronic small vessel ischemic c hanges with old right-sided infarcts are all redemonstrated.
[2021-08-13] MEDS ORDERED: TRIAMCINOLONE 0.1% CREAM 80 GM TUBE TOPICAL PRN (14:52)
[2021-08-13] MEDS ORDERED: NITROGLYCERIN SL TABS 0.4 MG TAB SUBLINGUAL PRN (14:52)
[2021-08-13] MEDS ORDERED: HEPARIN SODIUM 1,000 UN/ML (10ML VL) IV ONE (14:55)
[2021-08-13] MEDS ORDERED: HEPARIN SODIUM 1,000 UN/ML (10ML VL) IV PRN (14:55)
[2021-08-13] MEDS ORDERED: NON FORMULARY DRUG (Cranberry Fruit Extract [Cranberry] 500 MG Tablet) PO SCH (15:00)
[2021-08-13 15:32] LABS: Basophils % (A) 1 %; Eosinophils # (A) 0.1 k/uL (0-0.7); Eosinophils % (A) 1 %; HCT 38.8 % (39.0-53.0); HGB 12.1 gm/dL (13.0-17.5); Lymphocytes % (A) 15 %; MCH 28.7 pg (25.0-35.0); MCHC 31.1 g/dL (31.0-37.0); MCV 92.3 fL (80.0-100.0); Mean Platelet Volume 8.2; Monocytes # (A) 0.5 k/uL (0-1.0); Monocytes % (A) 8 %; Neutrophils # (A) 4.6 k/uL (1.3-7.7); Neutrophils % (A) 73 %; Platelet Count 250 k/uL (150-450); RBC 4.21 m/uL (4.30-5.90); RDW 13.7 % (11.5-15.5); WBC 6.3 k/uL (3.8-10.6)
[2021-08-13 15:43] LABS: INR 1.1 (<1.2); Partial Thromboplastin Time 29.3 sec (22.0-30.0); Prothrombin Time 11.7 sec (9.0-12.0)
[2021-08-13] MEDS: HEPARIN SOD,PORK IN 0.45% NACL 25,000 UNIT in 0.45% NACL 1 250ML.BAG IV SCH (15:47)
--- NOTE | 2021-08-13 17:03 | P.HPIM ---
History of Present Illness H&P Date: 08/13/21 Chief Complaint: Episode of unresponsiveness 80-year-old man with history of CAD status post CABG as well as PCI, paroxysmal atrial fibrillation, strokes, hypertension, diabetes, hyper lipidemia, BPH presented with episode of unresponsiveness and presyncope. Patient's states that she helped patient get into the shower today as she usually does. After shower, patient had an episode in which she started to feel very weak and was holding on to the bar, and that was guided gently to the ground. After this, patient was having trouble transferring the patient out of the shower and into the bed, as well as stating that patient was not acting "normal." Patient does remember the entire episode, and confirm these details with me. However, at this time patient has no complaints, denies fevers, chills, nausea, vomiting, syncope, chest pain, palpitations, cough, dyspnea, abdominal pain, constipation, diarrhea, dysuria, dyschezia, numbness/weakness of his extremities beyond his baseline left-sided residual deficit. To clarify, patient does report right- sided weakness at the time of the episode, however, does not reported now. Upon my evaluation, patient was afebrile, 107/71, heart rate was 75, 98% on 2 L nasal cannula. CBC was remarkable for mild anemia, at baseline. Chemistries show mild acidosis with a bicarb of 21. LFTs show low total protein of 4.9, low elevated at 2.6. Coags demonstrate elevated PT and INR to 12.6, 1.2. UA is normal. Patient's chest x-ray is grossly unremarkable. Patient's brain CT was negative for acute intracranial bleed. Patient's CT ONTIVEROS of the head and neck shows reduced caliber of the superior aspect of the cervical left internal carotid artery at an estimation of 60%, severe focal stenosis of the cavernous portion of the left internal carotid artery with other segments of focal stenosis at the mid basilar artery, focal stenosis of the M1, M2 segment of the left MCA. Thoracic CT shows ascending aortic aneurysm with unfolding of the thoracic aorta, dilated aortic arch without evidence of dissection, occlusion, or significant stenosis. Echocardiogram shows an ejection fraction of 45-50% with inferior wall motion abnormality. EKG shows atrial fibrillation with rapid ventricular response and what appears to be ischemic changes. Brain MRI is negative for recent infarct. Due to patient's EKG findings, code STEMI was called, and patient was evaluated by cardiology. Patient is not having any chest pain, and presentation was atypical for ACS, therefore, cardiology deferred doing a left heart catheter ization at this time. Subsequent troponins have shown elevation, and the case was discussed with cardiology and neurology, who recommended making patient nothing by mouth at midnight and continuing to trend tropes. Patient was already aspirin, brilinta loaded, heparin drip was started. All Systems reviewed and pertinent positives and negatives noted in HPI, all other symptoms are negative Gen: awake, alert HEENT: normocephalic, atraumatic, good hearing acuity, moist mucous membranes Resp: good air exchange, breathing comfortably with no accessory muscle use CVS: good distal perfusion x 4, GI: soft, NTTP, ND : no SPT, no CVAT, lares catheter not present MSK: no pitting edema, no clubbing Neuro: non-focal, moving all extremities Psych: cooperative, euthymic mood Images and labs reviewed as above Assessment/plan: Non-ST elevation IA CAD Proximal atrial fibrillation History of CVA -Admit inpatient, telemetry -Cardiology, neurology consult -Nothing by mouth the night -Continue brilinta, heparin drip -Follow labs -Trend troponins -Consider vascular surgery consult -hold home eliquis, aspirin Hypertension Hyperlipidemia Diabetes type 2 BPH -Home medications reviewed and reconciled Past Medical History Past Medical History: Coronary Artery Disease (CAD), CVA/TIA, Diabetes Mellitus, GERD/Reflux, Hyperlipidemia, Hypertension, Osteoarthritis (OA), Prostate Disorder, Renal Disease Additional Past Medical History / Comment(s): 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 History of Any Multi-Drug Resistant Organisms: None Reported Past Surgical History: Adenoidectomy, Coronary Bypass/CABG, Heart Catheterization, Heart Catheterization With Stent, Tonsillectomy Additional Past Surgical History / Comment(s): 11/13/15 Cardiac cath, 11/21/15 CABG-2 vessel, deviated septum repaired, cystoscopies x2, colonoscopy, bilateral cataract surg. Past Anesthesia/Blood Transfusion Reactions: No Reported Reaction Date of Last Stent Placement:: 11/03/18 Past Psychological History: Bipolar, Depression Past Alcohol Use History: None Reported Past Drug Use History: None Reported - Past Family History Father Additional Family Medical History / Comment(s): Father was a "drinker and a smoker". He at the age of 55 yrs from cerebral hemorhage Mother Additional Family Medical History / Comment(s): Mother at the age of 92yrs. Medications and Allergies Home Medications Medication Instructions Recorded Confirmed Type Rosuvastatin Calcium [Crestor] 20 mg PO HS 11/19/15 08/13/21 History Tamsulosin [Flomax] 0.4 mg PO HS cap.er.24h 11/26/15 08/13/21 Rx Fluticasone Nasal [place] [Flonase 1 spray EA NOSTRIL DAILY 12/30/16 08/13/21 History Nasal [place]] Pantoprazole Sodium [Protonix] 40 mg PO DAILY 12/30/16 08/13/21 History Multivitamins, Thera [Multivitamin 1 tab PO DAILY 10/28/18 08/13/21 History (formulary)] Valsartan 320 mg PO HS 10/28/18 08/13/21 History Nitroglycerin Sl Tabs [Nitrostat] 0.4 mg SUBLINGUAL Q5M PRN #25 tab 11/04/18 08/13/21 Rx Citalopram Hydrobromide [CeleXA] 20 mg PO DAILY 11/05/18 08/13/21 History Cranberry Fruit Extract [Cranberry] 500 mg PO DAILY 11/05/18 08/13/21 History Metoprolol Tartrate [Lopressor] 25 mg PO BID 11/05/18 08/13/21 History Apixaban [Eliquis] 5 mg PO BID #60 tab 11/08/18 08/13/21 Rx Aspirin EC [Ecotrin Low Dose] 81 mg PO DAILY 08/13/21 08/13/21 History Chlorhexidine Gluconate [Peridex] 15 ml PO BID 08/13/21 08/13/21 History Dicyclomine [Bentyl] 20 mg PO TID 08/13/21 08/13/21 History Loratadine [Claritin] 10 mg PO DAILY 08/13/21 08/13/21 History Mometasone Furoate [Elocon 0.1% 1 applic TOPICAL HS PRN 08/13/21 08/13/21 History Top Soln] Triamcinolone 0.1% Cream [Kenalog 1 applicatio TOPICAL Q48H 08/13/21 08/13/21 History 0.1% Cream] cycloSPORINE 0.05% OPHTH SOLN 1 drop BOTH EYES Q12H 08/13/21 08/13/21 History [Restasis] Allergies Allergy/AdvReac Type Severity Reaction Status Date / Time erythromycin base AdvReac Nausea & Verified 08/13/21 08:32 Vomiting Physical Exam Osteopathic Statement: *. No significant issues noted on an osteopathic stru ctural exam other than those noted in the History and Physical/Consult. Vitals: Vital Signs Temp Pulse Resp BP Pulse Ox 08/13/21 10:42 98.1 F 84 18 107/71 98 08/13/21 10:39 98.1 F 68 18 107/71 98 08/13/21 09:40 70 18 141/73 100 08/13/21 08:55 88 18 149/72 100 08/13/21 07:55 95 18 124/63 96 08/13/21 07:38 97.6 F 97 18 138/74 97 Intake and Output 08/13/21 08/13/21 08/13/21 06:59 14:59 22:59 Other: Weight 68.039 kg Results CBC & Chem 7: 08/13/21 15:22 08/13/21 07:50 Labs: Abnormal Lab Results - Last 24 Hours (Table) 08/13/21 08/13/21 08/13/21 Range/Units 07:50 07:50 07:50 RBC 4.17 L (4.30-5.90) m/uL Hgb 12.1 L (13.0-17.5) gm/dL Hct 38.0 L (39.0-53.0) % PT 12.6 H (9.0-12.0) sec INR 1.2 H (<1.2) Chloride 113 H (98-107) mmol/L Carbon Dioxide 21 L (22-30) mmol/L Glucose 130 H (74-99) mg/dL POC Glucose (mg/dL) (75-99) mg/dL Calcium 7.3 L (8.4-10.2) mg/dL Troponin I (0.000-0.034) ng/mL Total Protein 4.9 L (6.3-8.2) g/dL Albumin 2.6 L (3.5-5.0) g/dL 08/13/21 08/13/21 08/13/21 Range/Units 07:51 11:04 13:35 RBC (4.30-5.90) m/uL Hgb (13.0-17.5) gm/dL Hct (39.0-53.0) % PT (9.0-12.0) sec INR (<1.2) Chloride (98-107) mmol/L Carbon Dioxide (22-30) mmol/L Glucose (74-99) mg/dL POC Glucose (mg/dL) 126 H (75-99) mg/dL Calcium (8.4-10.2) mg/dL Troponin I 0.665 H* 2.220 H* (0.000-0.034) ng/mL Total Protein (6.3-8.2) g/dL Albumin (3.5-5.0) g/dL 08/13/21 Range/Units 15:22 RBC 4.21 L (4.30-5.90) m/uL Hgb 12.1 L (13.0-17.5) gm/dL Hct 38.8 L (39.0-53.0) % PT (9.0-12.0) sec INR (<1.2) Chloride (98-107) mmol/L Carbon Dioxide (22-30) mmol/L Glucose (74-99) mg/dL POC Glucose (mg/dL) (75-99) mg/dL Calcium (8.4-10.2) mg/dL Troponin I (0.000-0.034) ng/mL Total Protein (6.3-8.2) g/dL Albumin (3.5-5.0) g/dL
--- NOTE | 2021-08-13 17:19 | P.CNNES ---
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 fib on e liquis who presented emergency department on 08/13/2021 complaining of dizziness. Some of the history is obtained from patient's and son (who are at bedside) as well the ED team. Per the patient's she stated that today at around 6:30 to 6:45 AM while he was in the shower the patient the was slumped down and he was in generalized weakness and he had he needed assistance to get out of the shower. She did not notice any focal weakness, facial droop was more significant than usual or slurring of the speech or any difficulty getting his words out. Prior to that the patient the was walking at baseline using his cane. Per the ED team upon arrival the patient had obvious right-sided weakness which seemed right upper extremity which completely resolved. Patient's felt the onset of his weakness was around 7 AM today. Patient had low blood pressure at that time. Patient denies of any focal weakness. He also has some left- sided chest pain according to ED team but he denies of chest pain. As mentioned earlier the patient is on Eliquis 5mg 1 tab bid. Patient is also on aspirin 81 mg daily at home as well as Crestor 20 mg daily at bedtime. Some of the workup in our facility during this hospital visit consisted of: CT of the head is reported as brain volume loss changes, chronic ischemic changes and scattered chronic lacunar infarct. No acute intracranial hemorrhage or gross acute cortical infarct. I personally reviewed the CT of the head and I agree there is no acute or subacute ischemic stroke. The patient does have bilateral lacunar infarct in the basal ganglia region. CT angiography of the head and neck is reported as reduced caliber of the superior aspect of the cervical portion of the left internal carotid artery by a noncalcified atheromatous plaque with about 60% stenosis with questionable septal dissection of the skull base yet artery is patent distally. 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 Other extensive arterial office chronic changes. 2-D echo was reported as mild impaired left ventricle function with ejection fraction between 40-45%. Moderate mitral regurgitation. Moderate aortic regurgitation. Left atrium is moderately increased severely increased left atrial of volume. Moderately increased left atrial area. Patient NIH per the ED team was 0. The ED spoke with the stroke team regarding this case and they reviewed the images and they did not feel the patient the head and dissection he believes likely was a plaque not a dissection. Stroke attending recommended MRI with Brilinta and aspirin. No IV TPA since the patient symptoms resolved. And the risk outweigh the benefit. Patient troponin is trending up and the most recent one is 2.20. There was a concern for stem E and ED team consult with cardiology and they don't feel the patient has acute STEMI Review of Systems Review of system: The 12 point system was reviewed and apparent positive and negative per HPI. 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 History of Any Multi-Drug Resistant Organisms: None Reported Past Surgical History: Adenoidectomy, Coronary Bypass/CABG, Heart Catheterization, Heart Catheterization With Stent, Tonsillectomy Additional Past Surgical History / Comment(s): 11/13/15 Cardiac cath, 11/21/15 CABG-2 vessel, deviated septum repaired, cystoscopies x2, colonoscopy, bilateral cataract surg. Past Anesthesia/Blood Transfusion Reactions: No Reported Reaction Date of Last Stent Placement:: 11/03/18 Past Psychological History: Bipolar, Depression Past Alcohol Use History: None Reported Past Drug Use History: None Reported - Past Family History Father Additional Family Medical History / Comment(s): Father was a "drinker and a smoker". He at the age of 55 yrs from cerebral hemorhage Mother Additional Family Medical History / Comment(s): Mother at the age of 92yrs. Medications and Allergies Home Medications Medication Instructions Recorded Confirmed Type Rosuvastatin Calcium [Crestor] 20 mg PO HS 11/19/15 08/13/21 History Tamsulosin [Flomax] 0.4 mg PO HS cap.er.24h 11/26/15 08/13/21 Rx Fluticasone Nasal [place] [Flonase 1 spray EA NOSTRIL DAILY 12/30/16 08/13/21 History Nasal [place]] Pantoprazole Sodium [Protonix] 40 mg PO DAILY 12/30/16 08/13/21 History Multivitamins, Thera [Multivitamin 1 tab PO DAILY 10/28/18 08/13/21 History (formulary)] Valsartan 320 mg PO HS 10/28/18 08/13/21 History Nitroglycerin Sl Tabs [Nitrostat] 0.4 mg SUBLINGUAL Q5M PRN #25 tab 11/04/18 08/13/21 Rx Citalopram Hydrobromide [CeleXA] 20 mg PO DAILY 11/05/18 08/13/21 History Cranberry Fruit Extract [Cranberry] 500 mg PO DAILY 11/05/18 08/13/21 History Metoprolol Tartrate [Lopressor] 25 mg PO BID 11/05/18 08/13/21 History Apixaban [Eliquis] 5 mg PO BID #60 tab 11/08/18 08/13/21 Rx Aspirin EC [Ecotrin Low Dose] 81 mg PO DAILY 08/13/21 08/13/21 History Chlorhexidine Gluconate [Peridex] 15 ml PO BID 08/13/21 08/13/21 History Dicyclomine [Bentyl] 20 mg PO TID 08/13/21 08/13/21 History Loratadine [Claritin] 10 mg PO DAILY 08/13/21 08/13/21 History Mometasone Furoate [Elocon 0.1% 1 applic TOPICAL HS PRN 08/13/21 08/13/21 His tory Top Soln] Triamcinolone 0.1% Cream [Kenalog 1 applicatio TOPICAL Q48H 08/13/21 08/13/21 History 0.1% Cream] cycloSPORINE 0.05% OPHTH SOLN 1 drop BOTH EYES Q12H 08/13/21 08/13/21 History [Restasis] Allergies Allergy/AdvReac Type Severity Reaction Status Date / Time erythromycin base AdvReac Nausea & Verified 08/13/21 08:32 Vomiting Physical Examination - Vital Signs Vital Signs: Vital Signs Temp Pulse Resp BP Pulse Ox 08/13/21 10:42 98.1 F 84 18 107/71 98 08/13/21 10:39 98.1 F 68 18 107/71 98 08/13/21 09:40 70 18 141/73 100 08/13/21 08:55 88 18 149/72 100 08/13/21 07:55 95 18 124/63 96 08/13/21 07:38 97.6 F 97 18 138/74 97 Intake and Output 08/13/21 08/13/21 08/13/21 06:59 14:59 22:59 Other: Weight 68.039 kg GENERAL: The patient is lying in bed and is not in acute distress. CHEST: The heart rate is regular rate rhythm. No murmurs to auscultation. LUNG: Clear to auscultation bilaterally no wheezing noted throughout. Not labored breathing. ABDOMEN/GI: Bowel sounds present in all 4 quadrants. No tenderness to palpation throughout. NEUROLOGICAL: Higher mental function: The patient is awake, alert, oriented to self, place and time. Patient is following commands. No aphasia and no neglect. Cranial nerves: The pupils are round, equal and reactive to light and accommodation. Has some echymosis over the right medial (after MRI). Visual wilson are full to confrontation throughout. Extraocular movement is intact no nystagmus is noted. Facial sensation is normal to touch throughout. The facial strength is left nasolabial flattening (old). Hearing is severely decreased bilaterally to hand rub. Tongue is midline and moved [id number] without any difficulty. No dysarthria is noted. Shoulder shrug is normal bilaterally. Motor: Gait is deferred. The strength is Left side is 4-4+ (old). Otherwise 5 over 5 throughout. Normal tone and bulk. Cerebellum: Normal finger to nose bilaterally. Sensation: Sensation is normal to touch throughout. Reflexes (right/left): 2+ throughout Plantars are downgoing bilaterally. Results - Laboratory Findings CBC and BMP: 08/13/21 15:22 08/13/21 07:50 Abnormal Lab Findings: Abnormal Labs 08/13/21 08/13/21 08/13/21 07:50 07:50 07:50 RBC 4.17 L Hgb 12.1 L Hct 38.0 L PT 12.6 H INR 1.2 H Chloride 113 H Carbon Dioxide 21 L Glucose 130 H POC Glucose (mg/dL) Calcium 7.3 L Troponin I Total Protein 4.9 L Albumin 2.6 L 08/13/21 08/13/21 08/13/21 07:51 11:04 13:35 RBC Hgb Hct PT INR Chloride Carbon Dioxide Glucose POC Glucose (mg/dL) 126 H Calcium Troponin I 0.665 H* 2.220 H* Total Protein Albumin 08/13/21 15:22 RBC 4.21 L Hgb 12.1 L Hct 38.8 L PT INR Chloride Carbon Dioxide Glucose POC Glucose (mg/dL) Calcium Troponin I Total Protein Albumin Assessment and Plan Assessment: NSTEMI Transient reported right upper extremity weaknessand was hypotensive per ED team. Per he did not have any focal weakness, aphasia or any new focal deficits at home and was generalized weak. I cannot rule out TIA. MRI Brain is negative for acute or subacute stroke. History of stroke with residual left sided weakness. History of multiple lacunar stroke (small vessel disease) bilaterally Atrial fibrillation on eliquis Coronary artery disease status post bypass Diabetes, hypertension Hyperlipidemia Hard of hearing Plan: * MRI Brain is negative for acute or subacute stroke. * From a neurological perspective the patient is cleared to start anticoagulation or his home Eliquis 5mg bid. Patient received loading dose of Brilintal 180mg and started on Brilinta per Dr. Negrete recommendation. He was given one 325mg. He is also on ASA 81mg home dose. I do not recommend dual antiplatelets in addition to his eliquis because of risk of bleed from neurological perspective (No need for ASA) but will defer it to cardiology team. * CT angiography of the head and neck is reported as reduced caliber of the superior aspect of the cervical portion of the left internal carotid artery by a noncalcified atheromatous plaque with about 60% stenosis with questionable septal dissection of the skull base yet artery is patent distally. 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 Dr. Negrete (neuro-intervionalist) reviewed the images and believes likely was a plaque not a dissection. * Recommend patient to follow-up with Dr. Negrete (neuro-intervention as outpatient). * Currently the patient is on Lipitor 40 mg daily at bedtime * PT, OT, [employer] are consulted. * Lipid panel is ordered * Continue neuro checks * Cardiac monitoring * Cardiology is on board * Will defer the rest of medical management to the primary team. * For DVT prophylaxis: Can be started on anticoagulation Discussed the plan with patient, his and son who are at bedside. Also discussed with ED team and primary team. Thank you for the consultation. Fredo Ogden M.D. Neuro-Hospitalist Time with Patient: Greater than 30
[2021-08-13] MEDS: DICYCLOMINE 20 MG TAB PO SCH ×2 (18:02→22:13)
[2021-08-13 20:29] LABS: Glucose,Whole Blood 120 mg/dL (75-99)
[2021-08-13] MEDS ORDERED: APIXABAN 5 MG TAB PO SCH (21:00)
[2021-08-13] MEDS: ATORVASTATIN 40 MG TAB PO SCH (22:13)
[2021-08-13] MEDS: METOPROLOL TARTRATE 25 MG TAB PO SCH (22:13)
[2021-08-13] MEDS: TICAGRELOR 90 MG TAB PO SCH (22:13)
[2021-08-13] MEDS: TAMSULOSIN 0.4 MG CAP.ER.24H PO SCH (22:13)
[2021-08-13] MEDS: VALSARTAN 160 MG TAB PO SCH (22:26)
[2021-08-13] MEDS: cycloSPORINE 0.05% OPHTH 0.4 ML DROPERETTE BOTH EYES SCH (22:27)
[2021-08-14 04:08] LABS: Basophils # (A) 0.1 k/uL (0-0.2); Basophils % (A) 1 %; Eosinophils # (A) 0.3 k/uL (0-0.7); Eosinophils % (A) 4 %; HCT 37.9 % (39.0-53.0); HGB 11.7 gm/dL (13.0-17.5); Lymphocytes # (A) 0.8 k/uL (1.0-4.8); Lymphocytes % (A) 13 %; MCH 28.5 pg (25.0-35.0); MCHC 30.9 g/dL (31.0-37.0); MCV 92.2 fL (80.0-100.0); Mean Platelet Volume 7.7; Monocytes # (A) 0.4 k/uL (0-1.0); Monocytes % (A) 6 %; Neutrophils # (A) 4.9 k/uL (1.3-7.7); Neutrophils % (A) 75 %; Platelet Count 244 k/uL (150-450); RBC 4.11 m/uL (4.30-5.90); RDW 13.7 % (11.5-15.5); WBC 6.6 k/uL (3.8-10.6)
[2021-08-14 04:22] LABS: INR 1.1 (<1.2)
[2021-08-14 04:23] LABS: Partial Thromboplastin Time 51.8 sec (22.0-30.0); Prothrombin Time 11.7 sec (9.0-12.0)
[2021-08-14 05:08] LABS: African American GFR (CKD) >90 (>60 ml/min/1.73 sqM); Anion Gap 1 mmol/L; Blood Urea Nitrogen 9 mg/dL (9-20); Calcium 7.7 mg/dL (8.4-10.2); Carbon Dioxide 26 mmol/L (22-30); Chloride 113 mmol/L (98-107); Glucose 105 mg/dL (74-99); Non-African American GFR(CKD) >90 (>60 ml/min/1.73 sqM); Potassium 3.8 mmol/L (3.5-5.1); Sodium 140 mmol/L (137-145)
[2021-08-14] MEDS: SODIUM CHLORIDE 0.9% 1,000 ML IV SCH ×2 (06:32→10:13)
[2021-08-14] MEDS ORDERED: NON FORMULARY DRUG (Aspirin Ec 81 MG Tablet) PO SCH (09:00)
[2021-08-14] MEDS: PANTOPRAZOLE 40 MG TABLET PO SCH (10:07)
[2021-08-14] MEDS: MULTIVITAMINS, THERA 1 EACH TAB PO SCH (10:07)
[2021-08-14] MEDS: METOPROLOL TARTRATE 25 MG TAB PO SCH ×2 (10:08→23:35)
[2021-08-14] MEDS: DICYCLOMINE 20 MG TAB PO SCH ×4 (10:08→23:35)
[2021-08-14] MEDS: TICAGRELOR 90 MG TAB PO SCH ×2 (10:08→23:35)
[2021-08-14] MEDS: CITALOPRAM HYDROBROMIDE 20 MG TAB PO SCH (10:08)
[2021-08-14] MEDS: cycloSPORINE 0.05% OPHTH 0.4 ML DROPERETTE BOTH EYES SCH ×2 (10:09→23:39)
[2021-08-14] MEDS: LORATADINE 10 MG TAB PO SCH (10:09)
[2021-08-14] MEDS: FLUTICASONE 50MCG/SPRAY NASAL 16GM EA NOSTRIL SCH (10:12)
[2021-08-14] MEDS: ISOSORBIDE MONONITRATE ER 30 MG TAB.ER.24H PO SCH (10:12)
--- NOTE | 2021-08-14 10:41 | P.PN ---
Subjective HISTORY OF PRESENT ILLNESS: This is a 80-year-old gentleman with history of ischemic heart disease and previous bypass surgery done in 2016 with the LOPEZ graft to the LAD and vein graft to the RCA. Subsequently in 2019. He had stent placement of the diagonal branch. Patient also has a previous history of CVA with left-sided weakness. Today, apparently was in the bathroom and then became weak and kind of unresponsive. The with help of labor helped him into the bed and they called the paramedics. By the time paramedics came and patient apparently was unresponsive. There was some weakness in the right upper extremity. EKG done showed evidence of ST depressions in the anterolateral leads and minimal ST el evation in inferior leads initially patient did not have any significant chest pain. By the time patient came to the emergency room. Most of his symptoms are resolved . He is complaining of some fatigue and tiredness. Denies any chest pain or shortness of breath, no palpitations. Repeat EKG showed complete resolution of the ST changes in the inferior leads. There are diffuse nonspecific ST depression in the lateral leads. Picture doesn't seem to be consistent with acute myocardial infarction. He did have a computed tomography scan of the brain which did not reveal any acute bleeding or infarct. Waiting for the input from the neurologist. Apparently patient had similar episodes in the past 2. It appears to be some heart TIA like symptomatology. We'll continue to monitor him. He recently had stress test and echocardiogram in cardiology office. We are in the process of getting the reports. From a cardiac standpoint. We'll continue to monitor his symptoms. Cardiac enzymes and also get an echocardiogram. Continue with anti-cognition therapy. Refills okay with neurologist. Further recommendations depend upon clinical course 08/14/2021 Patient examined this morning at the bedside. Patient denies chest pain or pressure. He denies any shortness of breath. Dr. Yun discussed possible cardiac catheterization with patient who is leaning towards not having this procedure performed. However he would like to speak with his further and I will make a final decision. He remains on IV heparin. If no plans for cardiac catheterization will transition back to [facility]. PHYSICAL EXAM: VITAL SIGNS: Reviewed. GENERAL: Well-developed in no acute distress. NECK: Supple. No JVD or thyromegaly LUNGS: Respirations even and unlabored. Lungs essentially clear to auscultation bilaterally. HEART: Regular rate and rhythm. S1 and S2 heard. EXTREMITIES: Normal range of motion. No clubbing or cyanosis. Peripheral pulses intact. No lower extremity edema ASSESSMENT: Non-STEMI Possible TIA Coronary artery disease with previous CABG History of CVA with left-sided weakness Persistent atrial fibrillation PLAN: Continue IV heparin Continue cardiac medications Patient has decided to proceed with cardiac cath. THis will be done today by Dr. Yun Further recommendations pending patient course Nurse practitioner note has been reviewed by physician. Signing provider agrees with the documented findings, assessment, and plan of care. Objective - Vital Signs Vital signs: Vital Signs Temp 97.4 F L 08/14/21 09:48 Pulse 63 08/14/21 09:48 Resp 18 08/14/21 09:48 BP 139/94 08/14/21 04:00 Pulse Ox 96 08/14/21 09:48 FiO2 Intake & Output 08/13/21 08/14/21 08/14/21 18:59 06:59 18:59 Intake Total 47.357 Output Total 350 Balance -302.643 Weight 68.039 kg Intake: Intake, IV Titration 47.357 Amount Heparin Sod,Pork in 0.45% 47.357 NaCl 25,000 unit In 0.45 % NaCl 1 250ml.bag @ 12 UNITS/KG/HR 8.165 mls/hr IV .Q24H [facility] Rx#: [id number] Output: Urine 350 Other: Voiding Method Urinal # Voids 1 # Bowel Movements 1 - Labs CBC & Chem 7: 08/14/21 03:56 08/14/21 03:56 Labs: Abnormal Lab Results - Last 24 Hours (Table) 08/13/21 08/13/21 08/13/21 Range/Units 11:04 13:35 15:22 RBC 4.21 L (4.30-5.90) m/uL Hgb 12.1 L (13.0-17.5) gm/dL Hct 38.8 L (39.0-53.0) % MCHC (31.0-37.0) g/dL Lymphocytes # (1.0-4.8) k/uL APTT (22.0-30.0) sec Chloride (98-107) mmol/L Creatinine (0.66-1.25) mg/dL Glucose (74-99) mg/dL POC Glucose (mg/dL) (75-99) mg/dL Calcium (8.4-10.2) mg/dL Troponin I 0.665 H* 2.220 H* (0.000-0.034) ng/mL 08/13/21 08/13/21 08/13/21 Range/Units 17:18 20:27 20:49 RBC (4.30-5.90) m/uL Hgb (13.0-17.5) gm/dL Hct (39.0-53.0) % MCHC (31.0-37.0) g/dL Lymphocytes # (1.0-4.8) k/uL APTT 75.6 H (22.0-30.0) sec Chloride (98-107) mmol/L Creatinine (0.66-1.25) mg/dL Glucose (74-99) mg/dL POC Glucose (mg/dL) 120 H (75-99) mg/dL Calcium (8.4-10.2) mg/dL Troponin I 2.480 H* (0.000-0.034) ng/mL 08/13/21 08/14/21 08/14/21 Range/Units 20:49 03:56 03:56 RBC 4.11 L (4.30-5.90) m/uL Hgb 11.7 L (13.0-17.5) gm/dL Hct 37.9 L (39.0-53.0) % MCHC 30.9 L (31.0-37.0) g/dL Lymphocytes # 0.8 L (1.0-4.8) k/uL APTT (22.0-30.0) sec Chloride 113 H (98-107) mmol/L Creatinine 0.56 L (0.66-1.25) mg/dL Glucose 105 H (74-99) mg/dL POC Glucose (mg/dL) (75-99) mg/dL Calcium 7.7 L (8.4-10.2) mg/dL Troponin I 1.740 H* (0.000-0.034) ng/mL 08/14/21 08/14/21 Range/Units 03:56 03:56 RBC (4.30-5.90) m/uL Hgb (13.0-17.5) gm/dL Hct (39.0-53.0) % MCHC (31.0-37.0) g/dL Lymphocytes # (1.0-4.8) k/uL APTT 51.8 H (22.0-30.0) sec Chloride (98-107) mmol/L Creatinine (0.66-1.25) mg/dL Glucose (74-99) mg/dL POC Glucose (mg/dL) (75-99) mg/dL Calcium (8.4-10.2) mg/dL Troponin I 0.988 H* (0.000-0.034) ng/mL
[2021-08-14] MEDS ORDERED: ASPIRIN 325 MG TAB PO STA (10:44)
[2021-08-14] MEDS ORDERED: ATORVASTATIN 80 MG TAB PO STA (10:44)
[2021-08-14 14:45] LABS: Glucose,Whole Blood 99 mg/dL (75-99)
--- NOTE | 2021-08-14 14:46 | P.PN ---
Subjective Progress Note Date: 08/14/21 The patient is seen at bedside and feels from neurological perspective doing well and denies any new deficits. Cardiology is going to take patient in for cardiac cath. He was started on heparin drip yesterday. Objective - Vital Signs Vital signs: Vital Signs Temp 97.4 F L 08/14/21 09:48 Pulse 63 08/14/21 09:48 Resp 18 08/14/21 09:48 BP 178/79 08/14/21 09:48 Pulse Ox 96 08/14/21 09:48 FiO2 Intake & Output 08/13/21 08/14/21 08/14/21 18:59 06:59 18:59 Intake Total 47.357 86.071 Output Total 350 Balance -302.643 86.071 Weight 68.039 kg Intake: Intake, IV Titration 47.357 86.071 Amount Heparin Sod,Pork in 0.45% 47.357 86.071 NaCl 25,000 unit In 0.45 % NaCl 1 250ml.bag @ 12 UNITS/KG/HR 8.165 mls/hr IV .Q24H [facility] Rx#: [id number] Output: Urine 350 Other: Voiding Method Urinal # Voids 1 # Bowel Movements 1 - Exam GENERAL: The patient is lying in bed and is not in acute distress. NEUROLOGICAL: Higher mental function: The patient is awake, alert, oriented to self, place and time. Patient is following commands. No aphasia and no neglect. Cranial nerves: The pupils are round, equal and reactive to light and accommodation. Has some echymosis over the right medial (after MRI). Visual wilson are full to confrontation throughout. Extraocular movement is intact no nystagmus is noted. Facial sensation is normal to touch throughout. The facial strength is left nasolabial flattening (old). Hearing is severely decreased bilaterally to hand rub. Tongue is midline and moved [id number] without any difficulty. No dysarthria is noted. Shoulder shrug is normal bilaterally. Motor: Gait is deferred. The strength is Left side is 4-4+ (old). Otherwise 5 over 5 throughout. Normal tone and bulk. Cerebellum: Normal finger to nose bilaterally. Sensation: Sensation is normal to touch throughout. Reflexes (right/left): 2+ throughout Plantars are downgoing bilaterally. SOME OF THE WORK-UP IN HOSPITAL: Lipid panel: TG 53, Cholestrol 85, LDL 44 CT of the head is reported as brain volume loss changes, chronic ischemic changes and scattered chronic lacunar infarct. No acute intracranial hemorrhage or gross acute cortical infarct. I personally reviewed the CT of the head and I agree there is no acute or subacute ischemic stroke. The patient does have bilateral lacunar infarct in the basal ganglia region. CT angiography of the head and neck is reported as reduced caliber of the superior aspect of the cervical portion of the left internal carotid artery by a noncalcified atheromatous plaque with about 60% stenosis with questionable septal dissection of the skull base yet artery is patent distally. 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 Other extensive arterial office chronic changes. MRI Brain is negative for acute or subacute stroke. 2-D echo was reported as mild impaired left ventricle function with ejection fraction between 40-45%. Moderate mitral regurgitation. Moderate aortic regurgitation. Left atrium is moderately increased severely increased left atrial of volume. Moderately increased left atrial area. The ED spoke with the stroke team regarding this case and they reviewed the images and they did not feel the patient the head and dissection he believes likely was a plaque not a dissection. Stroke attending recommended MRI with Brilinta and aspirin. Patient troponin is trending upto 2.48 and currently trending down. - Labs CBC & Chem 7: 08/14/21 03:56 08/14/21 03:56 Labs: Abnormal Lab Results - Last 24 Hours (Table) 08/13/21 08/13/21 08/13/21 Range/Units 11:04 13:35 15:22 RBC 4.21 L (4.30-5.90) m/uL Hgb 12.1 L (13.0-17.5) gm/dL Hct 38.8 L (39.0-53.0) % MCHC (31.0-37.0) g/dL Lymphocytes # (1.0-4.8) k/uL APTT (22.0-30.0) sec Chloride (98-107) mmol/L Creatinine (0.66-1.25) mg/dL Glucose (74-99) mg/dL POC Glucose (mg/dL) (75-99) mg/dL Calcium (8.4-10.2) mg/dL Troponin I 0.665 H* 2.220 H* (0.000-0.034) ng/mL 08/13/21 08/13/21 08/13/21 Range/Units 17:18 20:27 20:49 RBC (4.30-5.90) m/uL Hgb (13.0-17.5) gm/dL Hct (39.0-53.0) % MCHC (31.0-37.0) g/dL Lymphocytes # (1.0-4.8) k/uL APTT 75.6 H (22.0-30.0) sec Chloride (98-107) mmol/L Creatinine (0.66-1.25) mg/dL Glucose (74-99) mg/dL POC Glucose (mg/dL) 120 H (75-99) mg/dL Calcium (8.4-10.2) mg/dL Troponin I 2.480 H* (0.000-0.034) ng/mL 08/13/21 08/14/21 08/14/21 Range/Units 20:49 03:56 03:56 RBC 4.11 L (4.30-5.90) m/uL Hgb 11.7 L (13.0-17.5) gm/dL Hct 37.9 L (39.0-53.0) % MCHC 30.9 L (31.0-37.0) g/dL Lymphocytes # 0.8 L (1.0-4.8) k/uL APTT (22.0-30.0) sec Chloride 113 H (98-107) mmol/L Creatinine 0.56 L (0.66-1.25) mg/dL Glucose 105 H (74-99) mg/dL POC Glucose (mg/dL) (75-99) mg/dL Calcium 7.7 L (8.4-10.2) mg/dL Troponin I 1.740 H* (0.000-0.034) ng/mL 08/14/21 08/14/21 Range/Units 03:56 03:56 RBC (4.30-5.90) m/uL Hgb (13.0-17.5) gm/dL Hct (39.0-53.0) % MCHC (31.0-37.0) g/dL Lymphocytes # (1.0-4.8) k/uL APTT 51.8 H (22.0-30.0) sec Chloride (98-107) mmol/L Creatinine (0.66-1.25) mg/dL Glucose (74-99) mg/dL POC Glucose (mg/dL) (75-99) mg/dL Calcium (8.4-10.2) mg/dL Troponin I 0.988 H* (0.000-0.034) ng/mL Assessment and Plan Assessment: NSTEMI Transient reported right upper extremity weaknessand was hypotensive per ED team. Per he did not have any focal weakness, aphasia or any new focal deficits at home and was generalized weak. I cannot rule out TIA. MRI Brain is negative for acute or subacute stroke. History of stroke with residual left sided weakness. History of multiple lacunar stroke (small vessel disease) bilaterally Atrial fibrillation on eliquis Coronary artery disease status post bypass Diabetes, hypertension Hyperlipidemia Hard of hearing Plan: * MRI Brain is negative for acute or subacute stroke. * From a neurological perspective the patient is cleared to start anticoagulation or his home Eliquis 5mg bid. Patient received loading dose of Brilintal 180mg and started on Brilinta per Dr. Negrete recommendation. He was given one 325mg. He is also on ASA 81mg home dose. I do not recommend dual antiplatelets in addition to his eliquis because of risk of bleed from neurological perspective (No need for ASA) but will defer it to cardiology team. * CT angiography of the head and neck is reported as reduced caliber of the superior aspect of the cervical portion of the left internal carotid artery by a noncalcified atheromatous plaque with about 60% stenosis with questionable septal dissection of the skull base yet artery is patent distally. 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 Dr. Negrete (neuro-intervionalist) reviewed the images and believes likely was a plaque not a dissection. * Recommend patient to follow-up with Dr. Negrete (neuro-intervention as outpatient). * Currently the patient is on Lipitor 40 mg daily at bedtime * PT, OT, CONFIGURATION MANAGEMENT ADMINISTRATOR are consulted. * Continue neuro checks * Cardiac monitoring * Cardiology is on board and planning for cardiac cath today. * Will defer the rest of medical management to the primary team. * For DVT prophylaxis: Can be started on anticoagulation Discussed the plan with patient, his and his nurse. There is no further neurological work-up. Neurology will sign off. Please reconsult if needed. Fredo Ogden M.D. Neuro-Hospitalist Time with Patient: Less than 30
[2021-08-14 14:53] LABS: Chol/HDL Ratio 2.81 Ratio; LDL Cholesterol,Calculated 44.1 mg/dL (0.0-131.0); VLDL Calculation 10.78 mg/dL (5.00-40.00)
[2021-08-14] MEDS ORDERED: fentaNYL (PF) 50 MCG/ML 2 ML AMP ONE (16:07)
[2021-08-14] MEDS ORDERED: IV FLUID CONTINUATION 1,000 ML IV ONE (16:12)
[2021-08-14] MEDS ORDERED: fentaNYL (PF) 50 MCG/ML 2 ML AMP IV ONE (16:18)
[2021-08-14] MEDS: MIDAZOLAM 2 MG/2 ML VIAL IV ONE ×2 (16:18→17:35)
[2021-08-14] MEDS ORDERED: LIDOCAINE 1% INJ 10MG/ML (30 ML VIAL-PF) SQ ONE (16:20)
--- NOTE | 2021-08-14 16:21 | P.PN ---
Subjective Progress Note Date: 08/14/21 Pt doing well today with no complaints. Will be going to [facility] today with cardiology Gen: awake, alert HEENT: normocephalic, atraumatic, good hearing acuity, moist mucous membranes Resp: good air exchange, breathing comfortably with no accessory muscle use CVS: good distal perfusion x 4, GI: soft, NTTP, ND : no SPT, no CVAT, lares catheter not present MSK: no pitting edema, no clubbing Neuro: non-focal, moving all extremities Psych: cooperative, euthymic mood Images and labs reviewed as above Assessment/plan: Non-ST elevation NE CAD Proximal atrial fibrillation History of CVA -Admit inpatient, telemetry -Cardiology, neurology consult -Nothing by mouth the night -Continue brilinta, heparin drip -Follow labs -Trend troponins -Consider vascular surgery consult -hold home eliquis, aspirin -cardiology consult Hypertension Hyperlipidemia Diabetes type 2 BPH -Home medications reviewed and reconciled Objective - Vital Signs Vital signs: Vital Signs Temp 97.3 F L 08/14/21 13:29 Pulse 57 L 08/14/21 13:29 Resp 18 08/14/21 13:29 BP 161/70 08/14/21 13:29 Pulse Ox 96 08/14/21 13:29 FiO2 Intake & Output 08/13/21 08/14/21 08/14/21 18:59 06:59 18:59 Intake Total 47.357 86.071 Output Total 350 200 Balance -302.643 -113.929 Weight 68.039 kg Intake: Intake, IV Titration 47.357 86.071 Amount Heparin Sod,Pork in 0.45% 47.357 86.071 NaCl 25,000 unit In 0.45 % NaCl 1 250ml.bag @ 12 UNITS/KG/HR 8.165 mls/hr IV .[facility]H [facility] Rx#: [id number] Output: Urine 350 200 Other: Voiding Method Urinal # Voids 1 # Bowel Movements 1 - Labs CBC & Chem 7: 08/14/21 03:56 08/14/21 03:56 Labs: Abnormal Lab Results - Last 24 Hours (Table) 08/13/21 08/13/21 08/13/21 Range/Units 17:18 20:27 20:49 RBC (4.30-5.90) m/uL Hgb (13.0-17.5) gm/dL Hct (39.0-53.0) % MCHC (31.0-37.0) g/dL Lymphocytes # (1.0-4.8) k/uL APTT 75.6 H (22.0-30.0) sec Chloride (98-107) mmol/L Creatinine (0.66-1.25) mg/dL Glucose (74-99) mg/dL POC Glucose (mg/dL) 120 H (75-99) mg/dL Calcium (8.4-10.2) mg/dL Troponin I 2.480 H* (0.000-0.034) ng/mL HDL Cholesterol (40.00-60.00) mg/dL 08/13/21 08/14/21 08/14/21 Range/Units 20:49 03:56 03:56 RBC 4.11 L (4.30-5.90) m/uL Hgb 11.7 L (13.0-17.5) gm/dL Hct 37.9 L (39.0-53.0) % MCHC 30.9 L (31.0-37.0) g/dL Lymphocytes # 0.8 L (1.0-4.8) k/uL APTT (22.0-30.0) sec Chloride 113 H (98-107) mmol/L Creatinine 0.56 L (0.66-1.25) mg/dL Glucose 105 H (74-99) mg/dL POC Glucose (mg/dL) (75-99) mg/dL Calcium 7.7 L (8.4-10.2) mg/dL Troponin I 1.740 H* (0.000-0.034) ng/mL HDL Cholesterol 30.40 L (40.00-60.00) mg/dL 08/14/21 08/14/21 Range/Units 03:56 03:56 RBC (4.30-5.90) m/uL Hgb (13.0-17.5) gm/dL Hct (39.0-53.0) % MCHC (31.0-37.0) g/dL Lymphocytes # (1.0-4.8) k/uL APTT 51.8 H (22.0-30.0) sec Chloride (98-107) mmol/L Creatinine (0.66-1.25) mg/dL Glucose (74-99) mg/dL POC Glucose (mg/dL) (75-99) mg/dL Calcium (8.4-10.2) mg/dL Troponin I 0.988 H* (0.000-0.034) ng/mL HDL Cholesterol (40.00-60.00) mg/dL
[2021-08-14] MEDS: SODIUM CHLORIDE 0.9% 1,000 ML in EMPTY BAG 1 BAG IV SCH (16:32)
[2021-08-14] MEDS: HEPARIN SOD,PORK IN 0.45% NACL 25,000 UNIT in 0.45% NACL 1 250ML.BAG IV SCH (16:33)
[2021-08-14] MEDS ORDERED: hydrALAZINE HCL 20 MG/ML 1 ML VIAL ONE ×2 (16:35→17:18)
[2021-08-14] MEDS ORDERED: hydrALAZINE HCL 20 MG/ML 1 ML VIAL IV ONE ×2 (16:37→17:20)
[2021-08-14] MEDS ORDERED: IOPAMIDOL-370 125ML BTL INJ ONE (16:50)
[2021-08-14] MEDS ORDERED: IOPAMIDOL-370 50ML BTL INJ ONE (17:00)
[2021-08-14] MEDS ORDERED: HEPARIN SODIUM 1,000 UN/ML (10ML VL) ONE (17:48)
[2021-08-14] MEDS ORDERED: IOPAMIDOL-370 100ML BTL INJ ONE (18:02)
[2021-08-14] MEDS ORDERED: NITROGLYCERIN 1000MCG/10ML SYRINGE INTRACORON ONE (18:02)
[2021-08-14] MEDS ORDERED: RX INFO: IV CONTRAST WAS GIVEN 1 EACH MISC MISCELLANE PRN (18:17)
[2021-08-14] MEDS ORDERED: ATROPINE SULFATE 0.1 MG/ML 10ML SYRINGE IV PRN (18:17)
[2021-08-14] MEDS ORDERED: MAG HYDROX/AL HYDROX/SIMETH 30 ML CUP PO PRN (18:17)
--- NOTE | 2021-08-14 18:17 | P.PRCINT ---
Percutaneous Coronary Int. - Percutaneous Coronary Intervention Percutaneous Coronary Intervention: PROCEDURES PERFORMED: Left coronary angiography, PCI of the ramus with a 2.5 x 15 mm Xience DONNIE INDICATION: Non-STEMI HISTORY: Patient is a pleasant 80-year-old male with history of coronary artery disease with prior CABG who presented with some strokelike symptoms as well as chest discomfort and was found to have non-STEMI with troponins up to 2. He did have EKG abnormalities with Q waves inferiorly with minimal ST elevation. Therefore heart catheterization was recommended. Diagnostic heart catheterization showed relatively similar left disease however severe in-stent stenosis and more distal stenosis of the ramus branch. The SVG to RCA was occluded which appeared to be chronic and had good collaterals from the left system to the RCA. Therefore recommendation was to perform PCI of the ramus. PROCEDURE: After the risks, benefits and alternatives of the above mentioned procedure explained in detail with the patient, informed consent was obtained. Patient was taken to the catheterization lab and prepped and draped in usual fashion. A 6-[place] sheath at artery been placed in the right femoral artery. The decision was made to perform PCI of the ramus. A 6-[place] CLS 4.5 guide was easily engage the left main. A 0.014 BMW wire was advanced into the distal ramus. The lesion was predilated with a 2.0 x 12 mm balloon. Next a 2.5 x 15 mm Xience DONNIE was placed. The balloon was also used to perform angioplasty of the in-stent stenosis of the proximal ramus stent. The balloon and wire were then removed. Final angiograms were performed. Per intervention there was 70% in-stent stenosis and 90% more distal ramus stenosis with SHANNAN 3 flow and postintervention there was SHANNAN 3 flow with less than 10% stenosis. The right femoral angiogram showed unsuitable anatomy for closure and therefore the sheath was left in place for manual hold at a later time. The patient tolerated the procedure well. Patient was transported back to the post catheterization holding area in stable condition. Conscious Sedation: Patient was monitored under the direct supervision of vision of myself for conscious sedation using Versed and fentanyl for a total duration of 29 minutes SELECTIVE CORONARY ARTERIOGRAPHY: LEFT MAIN: The left main is a large caliber vessel which bifurcates into the LAD and circumflex. There is no significant stenosis. LEFT ANTERIOR DESCENDING CORONARY ARTERY: LAD is a large caliber vessel which wraps around to the apex. There is 100% proximal stenosis. RAMUS INTERMEDIUS: The ramus is a small to moderate caliber vessel with a proximal stent with 70% instent stenosis and a mid ramus 90% stenosis. LEFT CIRCUMFLEX CORONARY ARTERY: Left circumflex is a moderate caliber vessel with mild 20-30% stenosis. There are left to right collaterals. RIGHT CORONARY ARTERY: The right coronary artery not imaged however known to be occluded. FINAL IMPRESSION: 1. CAD as described above including 100% LAD, 90% ramus, 100% RCA stenosis. 2. S/p successful PCI of the ramus with a 2.5 x 15 mm Xience DONNIE PLAN: 1. Aggressive risk factor modification per most recent ACC/AHA guidelines. 2. Treat RCA medically however if continued angina or further NSTEMI would cons ider [employer] PCI of [place] RCA. 3. Continue dual antiplatelets with aspirin and Brillinta for 12 months.
[2021-08-14 19:19] LABS: Glucose,Whole Blood 109 mg/dL (75-99)
[2021-08-14] MEDS ORDERED: FUROSEMIDE 10 MG/ML 4 ML VIAL IV STA (19:25)
[2021-08-14 20:10] LABS: Glucose,Whole Blood 108 mg/dL (75-99)
[2021-08-14] MEDS: TAMSULOSIN 0.4 MG CAP.ER.24H PO SCH (23:35)
[2021-08-14] MEDS: VALSARTAN 160 MG TAB PO SCH (23:35)
[2021-08-14] MEDS: ZOLPIDEM 5 MG TAB PO PRN (23:37)
[2021-08-15] MEDS: SODIUM CHLORIDE 0.9% 1,000 ML IV SCH ×2 (03:09→13:53)
[2021-08-15] MEDS: SODIUM CHLORIDE 0.9% 1,000 ML in EMPTY BAG 1 BAG IV SCH (03:09)
[2021-08-15 04:24] LABS: HCT 36.7 % (39.0-53.0); HGB 11.6 gm/dL (13.0-17.5); MCH 28.7 pg (25.0-35.0); MCHC 31.7 g/dL (31.0-37.0); MCV 90.6 fL (80.0-100.0); Platelet Count 296 k/uL (150-450); RBC 4.05 m/uL (4.30-5.90); WBC 11.3 k/uL (3.8-10.6)
[2021-08-15 04:32] LABS: African American GFR (CKD) >90 (>60 ml/min/1.73 sqM); Non-African American GFR(CKD) >90 (>60 ml/min/1.73 sqM)
[2021-08-15] MEDS ORDERED: HEPARIN SODIUM,PORCINE 2,500 UNIT in SODIUM CHLORIDE 0.9% 250 ML IRRIGATION PRN (07:00)
[2021-08-15] MEDS ORDERED: HEPARIN SODIUM,PORCINE 10,000 UNIT in SODIUM CHLORIDE 0.9% 1,000 ML IRRIGATION PRN (07:00)
[2021-08-15] MEDS: PANTOPRAZOLE 40 MG TABLET PO SCH (09:29)
[2021-08-15] MEDS: TICAGRELOR 90 MG TAB PO SCH ×2 (09:29→20:36)
[2021-08-15] MEDS: CITALOPRAM HYDROBROMIDE 20 MG TAB PO SCH (09:29)
[2021-08-15] MEDS: ASPIRIN 81 MG PO SCH (09:29)
[2021-08-15] MEDS: LORATADINE 10 MG TAB PO SCH (09:29)
[2021-08-15] MEDS: ISOSORBIDE MONONITRATE ER 30 MG TAB.ER.24H PO SCH (09:29)
[2021-08-15] MEDS: METOPROLOL TARTRATE 25 MG TAB PO SCH ×2 (09:30→20:36)
[2021-08-15] MEDS: MULTIVITAMINS, THERA 1 EACH TAB PO SCH (09:30)
[2021-08-15] MEDS: DICYCLOMINE 20 MG TAB PO SCH ×3 (09:30→20:37)
[2021-08-15] MEDS: FLUTICASONE 50MCG/SPRAY NASAL 16GM EA NOSTRIL SCH (09:31)
[2021-08-15] MEDS: cycloSPORINE 0.05% OPHTH 0.4 ML DROPERETTE BOTH EYES SCH ×2 (09:31→20:41)
--- NOTE | 2021-08-15 10:04 | P.PCN ---
Date of Procedure: 08/15/21 Preoperative Diagnosis: None STEMI Postoperative Diagnosis: Total occlusion of the graft to the right and in-stent stenosis involving the diagonal. Rest of the disease is stable Procedure(s) Performed: Left heart catheterization without left ventriculography Description of Procedure: HISTORY: This is a 80-year-old gentleman with history of ischemic heart disease with a previous bypass surgery with the LOPEZ graft to LAD and vein graft to the RCA and previous stent placement of the ramus intermedius/diagonal. Patient is admitted to the hospital with chest pain and possible CVA. Troponin went up to 2 size to possible non-STEMI. Patient also had a neurological workup without any definite acute CVA. Patient is advised to have a cardiac catheterization for definitive diagnosis CONSENT:I have discussed the risks, benefits and alternative therapies for the above-mentioned procedure and for both sedation/analgesia as well as necessary blood product administration, if indicated, as they pertain to this patient. The patient has indicated understanding and acceptance of the risks and procedures discussed. PROCEDURE: Patient was brought to the lab in a fasting state. Patient was given some IV sedation. The right groin is infiltrated with lidocaine and right femoral artery was entered using Seldinger technique. A 6-[place] catheter was left in place and selective coronary arteriography was performed. Patient tolerated the procedure well. Patient was found to have in-stent stenosis involving the ramus intermedius/diagonal. Patient had stent placement by Dr. Boudreaux Conscious Sedation: Versed 0.5mg Fentanyl 25 g Duration 40 minutes HEMODYNAMICS: The aortic pressure is about 130/70. Left ventricular end- diastolic pressure was not measured SELECTIVE CORONARY ARTERIOGRAPHY: LEFT MAIN: Normal length and patent THE LEFT ANTERIOR DESCENDING CORONARY ARTERY:. This is totally occluded in the proximal portion. The distal LAD seen by LOPEZ graft which appears to be free of occlusive disease. THE RAMUS INTERMEDIUS: This showed evidence of in- stent stenosis involving the proximal and midportion with about 70-90% stenosis THE LEFT CIRCUMFLEX AND IS CORONARY ARTERY:. Moderate-caliber vessel free of occlusive disease THE RIGHT CORONARY ARTERY:. This has critical lesion in the proximal followed by total occlusion. Distal RCA seen by collateral flow. The VEIN GRAFT TO THE RCA: This seemed to be totally occluded. Multiple catheters were used and and could not engage the graft. I program also did not show any flow THE LOPEZ GRAFT TO THE LAD: This seemed to patent throat its length and also to distal anastomosis. The distal LAD is free of occlusive disease. THE AORTOGRAM: This was performed in the left anterior oblique projection. This revealed dilated aortic root and ascending aorta. No flow was noted in the vein graft to the RCA LEFT VENTRICULOGRAPHY: Not performed FINAL IMPRESSION: Total occlusion of the vein graft to the RCA. In-stent stenosis involving the ramus intermedius with critical lesion. The LOPEZ graft to the LAD is patent. The [place] circumflex is free of any significant occlusive disease. [place] RCA is totally occluded with collateral from the left to the right PLAN: Proceed with stent placement of the intermediate/ramus PROGNOSIS: Guarded
--- NOTE | 2021-08-15 10:11 | P.PN ---
Subjective Progress Note Date: 08/15/21 HISTORY OF PRESENT ILLNESS: This is a 80-year-old gentleman with history of ischemic heart disease and previous bypass surgery done in 2016 with the LOPEZ graft to the LAD and vein g raft to the RCA. Subsequently in 2019. He had stent placement of the diagonal branch. Patient also has a previous history of CVA with left-sided weakness. Today, apparently was in the bathroom and then became weak and kind of unresponsive. The with help of labor helped him into the bed and they called the paramedics. By the time paramedics came and patient apparently was unresponsive. There was some weakness in the right upper extremity. EKG done showed evidence of ST depressions in the anterolateral leads and minimal ST elevation in inferior leads initially patient did not have any significant chest pain. By the time patient came to the emergency room. Most of his symptoms are resolved . He is complaining of some fatigue and tiredness. Denies any chest pain or shortness of breath, no palpitations. Repeat EKG showed complete resolution of the ST changes in the inferior leads. There are diffuse nonspecific ST depression in the lateral leads. Picture doesn't seem to be consistent with acute myocardial infarction. He did have a computed tomography scan of the brain which did not reveal any acute bleeding or infarct. Waiting for the input from the neurologist. Apparently patient had similar episodes in the past 2. It appears to be some heart TIA like symptomatology. We'll continue to monitor him. He recently had stress test and echocardiogram in cardiology office. We are in the process of getting the reports. From a cardiac standpoint. We'll continue to monitor his symptoms. Cardiac enzymes and also get an echocardiogram. Continue with anti-cognition therapy. Refills okay with neurologist. Further recommendations depend upon clinical course 08/14/2021 Patient examined this morning at the bedside. Patient denies chest pain or pre ssure. He denies any shortness of breath. Dr. Yun discussed possible cardiac catheterization with patient who is leaning towards not having this procedure performed. However he would like to speak with his further and I will make a final decision. He remains on IV heparin. If no plans for cardiac catheterization will transition back to [facility]. 08/15/2021 Patient examined this morning at the bedside. Patient is s/p cardiac catheterization with PCI of the ramus. Patient was also found to have total occlusion of the vein graft to RCA. In-stent stenosis involving the ramus int ermedius with critical lesion. LOPEZ to LAD was patent. [place] circumflex is free of any significant disease. [place] RCA is totally occluded with collaterals from the right to left. Patient reports having some bleeding to his right groin yesterday that has resolved. He denies chest pain or pressure. Denies SOB. Vital signs are stable. PHYSICAL EXAM: VITAL SIGNS: Reviewed. GENERAL: Well-developed in no acute distress. NECK: Supple. No JVD or thyromegaly LUNGS: Respirations even and unlabored. Lungs essentially clear to auscultation bilaterally. HEART: Regular rate and rhythm. S1 and S2 heard. EXTREMITIES: Normal range of motion. No clubbing or cyanosis. Peripheral pulses intact. No lower extremity edema ASSESSMENT: Non-STEMI Possible TIA Coronary artery disease with previous CABG History of CVA with left-sided weakness Persistent atrial fibrillation PLAN: Continue current cardiac medications May resume Eliquis 5mg BID starting tomorrow morning Stable from a cardiac standpoint Further recommendations pending patient course Nurse practitioner note has been reviewed by physician. Signing provider agrees with the documented findings, assessment, and plan of care. Objective - Vital Signs Vital signs: Vital Signs Temp 98.2 F 08/15/21 07:33 Pulse 71 08/15/21 07:33 Resp 20 08/15/21 07:33 BP 150/60 08/15/21 07:33 Pulse Ox 94 L 08/15/21 07:33 FiO2 Intake & Output 08/14/21 08/15/21 08/15/21 18:59 06:59 18:59 Intake Total 268.878 10 260 Output Total 500 1900 Balance -231.122 -1890 260 Intake: IV 170 10 Invasive Line 1 10 10 Invasive Line 2 10 Intake, IV Titration 98.878 Amount Heparin Sod,Pork in 0.45% 98.878 NaCl 25,000 unit In 0.45 % NaCl 1 250ml.bag @ 12 UNITS/KG/HR 8.165 mls/hr IV .Q24H [facility] Rx#: [id number] Oral 260 Output: Urine 500 1900 Uretheral (Rivera) 300 Other: Voiding Method Indwelling Catheter Indwelling Catheter - Labs CBC & Chem 7: 08/15/21 04:03 05/27/22 04:03 Labs: Abnormal Lab Results - Last 24 Hours (Table) 08/14/21 08/14/21 08/14/21 Range/Units 03:56 19:18 20:08 WBC (3.8-10.6) k/uL RBC (4.30-5.90) m/uL Hgb (13.0-17.5) gm/dL Hct (39.0-53.0) % Creatinine (0.66-1.25) mg/dL POC Glucose (mg/dL) 109 H 108 H (75-99) mg/dL HDL Cholesterol 30.40 L (40.00-60.00) mg/dL 08/15/21 08/15/21 Range/Units 04:03 04:03 WBC 11.3 H (3.8-10.6) k/uL RBC 4.05 L (4.30-5.90) m/uL Hgb 11.6 L (13.0-17.5) gm/dL Hct 36.7 L (39.0-53.0) % Creatinine 0.63 L (0.66-1.25) mg/dL POC Glucose (mg/dL) (75-99) mg/dL HDL Cholesterol (40.00-60.00) mg/dL
[2021-08-15 11:42] LABS: Glucose,Whole Blood 146 mg/dL (75-99)
[2021-08-15 12:12] VITALS: BMI 23.5
--- NOTE | 2021-08-15 13:37 | P.PN ---
Subjective Progress Note Date: 08/15/21 Pt had his LHC yesterday, had stent placed to 70% occlusion of rami. Had lares placed yesterday, and now having hematuria. Urology c/s is pending Gen: awake, alert HEENT: normocephalic, atraumatic, good hearing acuity, moist mucous membranes Resp: good air exchange, breathing comfortably with no accessory muscle use CVS: good distal perfusion x 4, GI: soft, NTTP, ND : no SPT, no CVAT, lares catheter not present MSK: no pitting edema, no clubbing Neuro: non-focal, moving all extremities Psych: cooperative, euthymic mood Images and labs reviewed as above Assessment/plan: Non-ST elevation NE CAD Proximal atrial fibrillation History of CVA -Admit inpatient, telemetry -Cardiology, neurology consult -Nothing by mouth the night -Continue brilinta, heparin drip -Follow labs -Trend troponins -Consider vascular surgery consult -hold home eliquis, aspirin -cardiology consult Hypertension Hyperlipidemia Diabetes type 2 BPH -Home medications reviewed and reconciled Objective - Vital Signs Vital signs: Vital Signs Temp 98.2 F 08/15/21 12:48 Pulse 91 08/15/21 12:48 Resp 20 08/15/21 12:48 BP 130/65 08/15/21 12:48 Pulse Ox 95 08/15/21 12:48 FiO2 Intake & Output 08/14/21 08/15/21 08/15/21 18:59 06:59 18:59 Intake Total 268.878 10 260 Output Total 500 1900 Balance -231.122 -1890 260 Weight 68.039 kg Intake: IV 170 10 Invasive Line 1 10 10 Invasive Line 2 10 Intake, IV Titration 98.878 Amount Heparin Sod,Pork in 0.45% 98.878 NaCl 25,000 unit In 0.45 % NaCl 1 250ml.bag @ 12 UNITS/KG/HR 8.165 mls/hr IV .Q24H [facility] Rx#: [id number] Oral 260 Output: Urine 500 1900 Uretheral ([place]) 300 Other: Voiding Method Indwelling Catheter Indwelling Catheter - Labs CBC & Chem 7: 08/15/21 04:03 08/15/21 04:03 Labs: Abnormal Lab Results - Last 24 Hours (Table) 08/14/21 08/14/21 08/14/21 Range/Units 03:56 19:18 20:08 WBC (3.8-10.6) k/uL RBC (4.30-5.90) m/uL Hgb (13.0-17.5) gm/dL Hct (39.0-53.0) % Creatinine (0.66-1.25) mg/dL POC Glucose (mg/dL) 109 H 108 H (75-99) mg/dL HDL Cholesterol 30.40 L (40.00-60.00) mg/dL 08/15/21 08/15/21 08/15/21 Range/Units 04:03 04:03 11:32 WBC 11.3 H (3.8-10.6) k/uL RBC 4.05 L (4.30-5.90) m/uL Hgb 11.6 L (13.0-17.5) gm/dL Hct 36.7 L (39.0-53.0) % Creatinine 0.63 L (0.66-1.25) mg/dL POC Glucose (mg/dL) 146 H (75-99) mg/dL HDL Cholesterol (40.00-60.00) mg/dL
[2021-08-15] MEDS: SODIUM CHLORIDE 0.9% 500 ML 500 ML IV SCH (13:51)
[2021-08-15 16:55] LABS: Glucose,Whole Blood 155 mg/dL (75-99)
--- NOTE | 2021-08-15 18:57 | P.GSCN ---
History of Present Illness Consult date: 08/15/21 Reason for Consult: Hematuria Requesting physician: Quique Boudreaux History of present illness: The patient is an 80-year-old white male well known to me. He was last seen in the office in January 2020. He has been treated for overactive bladder symptoms and BPH. At the time of his last visit, he was taking tamsulosin and oxybutynin chloride. He had been previously treated with Myrbetriq, which caused his blood pressure to increase. He continues to take tamsulosin. He is now admitted with a TIA and underwent left coronary PCI yesterday. Urinalysis obtained at the time of admission was normal. However, he now has a Rivera catheter and has been noted to have hematuria. I am consulted for this reason. 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 History of Any Multi-Drug Resistant Organisms: None Reported Past Surgical History: Adenoidectomy, Coronary Bypass/CABG, Heart Catheterization, Heart Catheterization With Stent, Tonsillectomy Additional Past Surgical History / Comment(s): 11/13/15 Cardiac cath, 11/21/15 CABG-2 vessel, deviated septum repaired, cystoscopies x2, colonoscopy, bilateral cataract surg. Past Anesthesia/Blood Transfusion Reactions: No Reported Reaction Date of Last Stent Placement:: 11/03/18 Past Psychological History: Bipolar, Depression Past Alcohol Use History: None Reported Past Drug Use History: None Reported - Past Family History Father Additional Family Medical History / Comment(s): Father was a "drinker and a smoker". He at the age of 55 yrs from cerebral hemorhage Mother Additional Family Medical History / Comment(s): Mother at the age of 92yrs. Medications and Allergies Home Medications Medication Instructions Recorded Confirmed Type Rosuvastatin Calcium [Crestor] 20 mg PO HS 11/19/15 08/13/21 History Tamsulosin [Flomax] 0.4 mg PO HS cap.er.24h 11/26/15 08/13/21 Rx Fluticasone Nasal Orrum [Flonase 1 spray EA NOSTRIL DAILY 12/30/16 08/13/21 History Nasal Orrum] Pantoprazole Sodium [Protonix] 40 mg PO DAILY 12/30/16 08/13/21 History Multivitamins, Thera [Multivitamin 1 tab PO DAILY 10/28/18 08/13/21 History (formulary)] Valsartan 320 mg PO HS 10/28/18 08/13/21 History Nitroglycerin Sl Tabs [Nitrostat] 0.4 mg SUBLINGUAL Q5M PRN #25 tab 11/04/18 08/13/21 Rx Citalopram Hydrobromide [CeleXA] 20 mg PO DAILY 11/05/18 08/13/21 History Cranberry Fruit Extract [Cranberry] 500 mg PO DAILY 11/05/18 08/13/21 History Metoprolol Tartrate [Lopressor] 25 mg PO BID 11/05/18 08/13/21 History Apixaban [Eliquis] 5 mg PO BID #60 tab 11/08/18 08/13/21 Rx Aspirin EC [Ecotrin Low Dose] 81 mg PO DAILY 08/13/21 08/13/21 History Chlorhexidine Gluconate [Peridex] 15 ml PO BID 08/13/21 08/13/21 History Dicyclomine [Bentyl] 20 mg PO TID 08/13/21 08/13/21 History Loratadine [Claritin] 10 mg PO DAILY 08/13/21 08/13/21 History Mometasone Furoate [Elocon 0.1% 1 applic TOPICAL HS PRN 08/13/21 08/13/21 History Top Soln] Triamcinolone 0.1% Cream [Kenalog 1 applicatio TOPICAL Q48H 08/13/21 08/13/21 History 0.1% Cream] cycloSPORINE 0.05% OPHTH SOLN 1 drop BOTH EYES Q12H 08/13/21 08/13/21 History [Restasis] Allergies Allergy/AdvReac Type Severity Reaction Status Date / Time erythromycin base AdvReac Nausea & Verified 08/13/21 08:32 Vomiting Surgical - Exam Vital Signs Temp Pulse Resp BP Pulse Ox 97.6 F 97 18 138/74 97 08/13/21 07:38 05/25/22 07:38 08/13/21 07:38 08/13/21 07:38 08/13/21 07:38 - General well developed, well nourished, no distress - Respiratory normal respiratory effort - Abdomen Abdomen: soft, non tender, no guarding, no rigid, no rebound - Genitourinary Normal phallus, normal urethral meatus. A [place] catheter is in place. A small amount of old blood is seen at the urethral meatus, and there is evidence of hematuria. The scrotum and testes are normal. - Psychiatric oriented to time, oriented to person, oriented to place, speech is normal, memory intact Results - Labs 08/15/21 04:03 08/15/21 04:03 Abnormal Lab Results - Last 24 Hours (Table) 08/14/21 08/14/21 08/15/21 Range/Units 19:18 20:08 04:03 WBC (3.8-10.6) k/uL RBC (4.30-5.90) m/uL Hgb (13.0-17.5) gm/dL Hct (39.0-53.0) % Creatinine 0.63 L (0.66-1.25) mg/dL POC Glucose (mg/dL) 109 H 108 H (75-99) mg/dL 08/15/21 08/15/21 08/15/21 Range/Units 04:03 11:32 16:53 WBC 11.3 H (3.8-10.6) k/uL RBC 4.05 L (4.30-5.90) m/uL Hgb 11.6 L (13.0-17.5) gm/dL Hct 36.7 L (39.0-53.0) % Creatinine (0.66-1.25) mg/dL POC Glucose (mg/dL) 146 H 155 H (75-99) mg/dL Diabetes panel 08/15/21 Range/Units 04:03 Creatinine 0.63 L (0.66-1.25) mg/dL Pituitary panel 08/15/21 Range/Units 04:03 Creatinine 0.63 L (0.66-1.25) mg/dL Adrenal panel 08/15/21 Range/Units 04:03 Creatinine 0.63 L (0.66-1.25) mg/dL Assessment and Plan (1) Gross hematuria Current Visit: Yes Status: Acute Code(s): R31.0 - GROSS HEMATURIA SNOMED Code(s): 564699129 Plan: Urinalysis at the time of admission was normal, and I attribute the patient's hematuria to the presence of a Rivera catheter and anticoagulants. The catheter should be removed when no longer medically needed. I anticipate resolution of the hematuria. The patient has an appointment to follow up with me in the office in several weeks, and I have instructed him to move up that appointment if he experiences persistent hematuria.
[2021-08-15 20:17] LABS: Glucose,Whole Blood 187 mg/dL (75-99)
[2021-08-15] MEDS: VALSARTAN 160 MG TAB PO SCH (20:36)
[2021-08-15] MEDS: TAMSULOSIN 0.4 MG CAP.ER.24H PO SCH (20:37)
[2021-08-15] MEDS: ATORVASTATIN 40 MG TAB PO SCH (20:37)
[2021-08-15] MEDS: ZOLPIDEM 5 MG TAB PO PRN (20:37)
[2021-08-16 06:31] LABS: Glucose,Whole Blood 142 mg/dL (75-99)
[2021-08-16] MEDS: METOPROLOL TARTRATE 25 MG TAB PO SCH ×2 (08:53→21:55)
[2021-08-16] MEDS: APIXABAN 5 MG TAB PO SCH ×2 (08:53→21:54)
[2021-08-16] MEDS: ASPIRIN 81 MG PO SCH (08:53)
[2021-08-16] MEDS: MULTIVITAMINS, THERA 1 EACH TAB PO SCH (08:53)
[2021-08-16] MEDS: PANTOPRAZOLE 40 MG TABLET PO SCH (08:53)
[2021-08-16] MEDS: CITALOPRAM HYDROBROMIDE 20 MG TAB PO SCH (08:53)
[2021-08-16] MEDS: TICAGRELOR 90 MG TAB PO SCH ×2 (08:53→21:54)
[2021-08-16] MEDS: FLUTICASONE 50MCG/SPRAY NASAL 16GM EA NOSTRIL SCH (08:54)
[2021-08-16] MEDS: DICYCLOMINE 20 MG TAB PO SCH ×2 (08:54→17:10)
[2021-08-16] MEDS: ISOSORBIDE MONONITRATE ER 30 MG TAB.ER.24H PO SCH (08:54)
[2021-08-16] MEDS: cycloSPORINE 0.05% OPHTH 0.4 ML DROPERETTE BOTH EYES SCH ×2 (08:54→21:54)
[2021-08-16] MEDS: LORATADINE 10 MG TAB PO SCH (08:54)
[2021-08-16 10:14] LABS: HCT 35.2 % (39.0-53.0); HGB 11.1 gm/dL (13.0-17.5); MCH 28.9 pg (25.0-35.0); MCHC 31.6 g/dL (31.0-37.0); MCV 91.3 fL (80.0-100.0); Mean Platelet Volume 7.8; Platelet Count 293 k/uL (150-450); RBC 3.86 m/uL (4.30-5.90); RDW 14.6 % (11.5-15.5); WBC 8.3 k/uL (3.8-10.6)
--- NOTE | 2021-08-16 10:53 | P.PN ---
Subjective HISTORY OF PRESENT ILLNESS: This is a 80-year-old gentleman with history of ischemic heart disease and previous bypass surgery done in 2016 with the LOPEZ graft to the LAD and vein graft to the RCA. Subsequently in 2019. He had stent placement of the diagonal branch. Patient also has a previous history of CVA with left-sided weakness. Today, apparently was in the bathroom and then became weak and kind of unresponsive. The with help of labor helped him into the bed and they called the paramedics. By the time paramedics came and patient apparently was unresponsive. There was some weakness in the right upper extremity. EKG done showed evidence of ST depressions in the anterolateral leads and minimal ST elevation in inferior leads initially patient did not have any significant chest pain. By the time patient came to the emergency room. Most of his symptoms are resolved . He is complaining of some fatigue and tiredness. Denies any chest pain or shortness of breath, no palpitations. Repeat EKG showed complete resolution of the ST changes in the inferior leads. There are diffuse nonspecific ST depression in the lateral leads. Picture doesn't seem to be consistent with acute myocardial infarction. He did have a computed tomography scan of the brain which did not reveal any acute bleeding or infarct. Waiting for the input from the neurologist. Apparently patient had similar episodes in the past 2. It appears to be some heart TIA like symptomatology. We'll continue to monitor him. He recently had stress test and echocardiogram in cardiology office. We are in the process of getting the reports. From a cardiac standpoint. We'll continue to monitor his symptoms. Cardiac enzymes and also get an echocardiogram. Continue with anti-cognition therapy. Refills okay with neurologist. Further recommendations depend upon clinical course 08/14/2021 Patient examined this morning at the bedside. Patient denies chest pain or pressure. He denies any shortness of breath. Dr. Yun discussed poss ible cardiac catheterization with patient who is leaning towards not having this procedure performed. However he would like to speak with his further and I will make a final decision. He remains on IV heparin. If no plans for cardiac catheterization will transition back to [facility]. 08/15/2021 Patient examined this morning at the bedside. Patient is s/p cardiac catheterization with PCI of the ramus. Patient was also found to have total occlusion of the vein graft to RCA. In-stent stenosis involving the ramus intermedius with critical lesion. LOPEZ to LAD was patent. [place] circumflex is free of any significant disease. [place] RCA is totally occluded with collaterals from the right to left. Patient reports having some bleeding to his right groin yesterday that has resolved. He denies chest pain or pressure. Denies SOB. Vital signs are stable. 08/16 Patient seen and examined. Patient denies any further chest pain or pressure. Right groin appears stable. Anxious to go home. PHYSICAL EXAM: VITAL SIGNS: Reviewed. GENERAL: Well-developed in no acute distress. NECK: Supple. No JVD or thyromegaly LUNGS: Respirations even and unlabored. Lungs essentially clear to auscultation bilaterally. HEART: Regular rate and rhythm. S1 and S2 heard. EXTREMITIES: Normal range of motion. No clubbing or cyanosis. Peripheral pulses intact. No lower extremity edema ASSESSMENT: Non-STEMI, status post PCI of ramus Possible TIA Coronary artery disease with previous CABG History of CVA with left-sided weakness Persistent atrial fibrillation PLAN: Continue current cardiac medications Continue Eliquis 5mg BID and Brillinta. No aspirin given increased risk of bleeding. Stable from a cardiac standpoint Further recommendations pending patient course Objective - Vital Signs Vital signs: Vital Signs Temp 98.2 F 08/16/21 08:00 Pulse 130 H 08/16/21 08:00 Resp 20 08/16/21 08:00 BP 126/72 08/16/21 08:00 Pulse Ox 95 08/16/21 08:00 FiO2 Intake & Output 08/15/21 08/16/21 08/16/21 18:59 06:59 18:59 Intake Total 1060 540 Output Total 1000 Balance 1060 -460 Weight 68.039 kg 68 kg Intake: Oral 1060 540 Output: Urine 1000 Other: Voiding Method Indwelling Catheter Indwelling Catheter - Labs CBC & Chem 7: 08/16/21 09:20 08/15/21 04:03 Labs: Abnormal Lab Results - Last 24 Hours (Table) 08/15/21 08/15/21 08/15/21 Range/Units 11:32 16:53 20:16 RBC (4.30-5.90) m/uL Hgb (13.0-17.5) gm/dL Hct (39.0-53.0) % POC Glucose (mg/dL) 146 H 155 H 187 H (75-99) mg/dL 08/16/21 08/16/21 Range/Units 06:23 09:20 RBC 3.86 L (4.30-5.90) m/uL Hgb 11.1 L (13.0-17.5) gm/dL Hct 35.2 L (39.0-53.0) % POC Glucose (mg/dL) 142 H (75-99) mg/dL
[2021-08-16 11:53] LABS: Glucose,Whole Blood 117 mg/dL (75-99)
[2021-08-16] MEDS: SODIUM CHLORIDE 0.9% 500 ML 500 ML IV SCH (12:15)
--- NOTE | 2021-08-16 12:34 | P.PN ---
Progress Note - Text Progress Note Date: 08/16/21 The patient's Rivera catheter was removed this morning. A clot was adherent to the tip of the catheter when it was removed, and the patient subsequently passed a long clot. He has not voided since that time. If he experiences difficulty voiding, replacement of the Rivera catheter may be required.
--- NOTE | 2021-08-16 15:58 | P.PN ---
Subjective Progress Note Date: 08/16/21 Pt has lares removed, but passed a blood clot while urinating. Fem stick site is bleeding again. Will monitor overnight. Gen: awake, alert HEENT: normocephalic, atraumatic, good hearing acuity, moist mucous membranes Resp: good air exchange, breathing comfortably with no accessory muscle use CVS: good distal perfusion x 4, GI: soft, NTTP, ND : no SPT, no CVAT, lares catheter not present MSK: no pitting edema, no clubbing Neuro: non-focal, moving all extremities Psych: cooperative, euthymic mood Images and labs reviewed as above Assessment/plan: Non-ST elevation [place] CAD Proximal atrial fibrillation History of CVA -Admit inpatient, telemetry -Cardiology, neurology consult -Nothing by mouth the night -Continue brilinta, heparin drip -Follow labs -Trend troponins -Consider vascular surgery consult -hold home eliquis, aspirin -cardiology consult Hypertension Hyperlipidemia Diabetes type 2 BPH -Home medications reviewed and reconciled Objective - Vital Signs Vital signs: Vital Signs Temp 98.6 F 08/16/21 12:00 Pulse 115 H 08/16/21 12:00 Resp 20 08/16/21 12:00 BP 143/74 08/16/21 12:00 Pulse Ox 94 L 08/16/21 12:00 FiO2 Intake & Output 08/15/21 08/16/21 08/16/21 18:59 06:59 18:59 Intake Total 9934 578 7268 Output Total 1000 400 Balance 1060 -460 700 Weight 68.039 kg 68 kg Intake: Oral 4837 976 4214 Output: Urine 1000 400 Uretheral (Lares) 400 Other: Voiding Method Indwelling Catheter Indwelling Catheter Urinal # Voids 2 - Labs CBC & Chem 7: 08/16/21 09:20 08/15/21 04:03 Labs: Abnormal Lab Results - Last 24 Hours (Table) 08/15/21 08/15/21 08/16/21 Range/Units 16:53 20:16 06:23 RBC (4.30-5.90) m/uL Hgb (13.0-17.5) gm/dL Hct (39.0-53.0) % POC Glucose (mg/dL) 155 H 187 H 142 H (75-99) mg/dL 05/28/22 05/28/22 Range/Units 09:20 11:51 RBC 3.86 L (4.30-5.90) m/uL Hgb 11.1 L (13.0-17.5) gm/dL Hct 35.2 L (39.0-53.0) % POC Glucose (mg/dL) 117 H (75-99) mg/dL
[2021-08-16] MEDS: ATORVASTATIN 40 MG TAB PO SCH (21:54)
[2021-08-16] MEDS: TAMSULOSIN 0.4 MG CAP.ER.24H PO SCH (21:55)
[2021-08-16] MEDS: VALSARTAN 160 MG TAB PO SCH (21:55)
[2021-08-17] MEDS: APIXABAN 5 MG TAB PO SCH ×2 (09:11→21:44)
[2021-08-17] MEDS: MULTIVITAMINS, THERA 1 EACH TAB PO SCH (09:12)
[2021-08-17] MEDS: ISOSORBIDE MONONITRATE ER 30 MG TAB.ER.24H PO SCH (09:12)
[2021-08-17] MEDS: PANTOPRAZOLE 40 MG TABLET PO SCH (09:12)
[2021-08-17] MEDS: LORATADINE 10 MG TAB PO SCH (09:12)
[2021-08-17] MEDS: DICYCLOMINE 20 MG TAB PO SCH ×3 (09:12→21:45)
[2021-08-17] MEDS: cycloSPORINE 0.05% OPHTH 0.4 ML DROPERETTE BOTH EYES SCH ×2 (09:12→22:03)
[2021-08-17] MEDS: CITALOPRAM HYDROBROMIDE 20 MG TAB PO SCH (09:12)
[2021-08-17] MEDS: TICAGRELOR 90 MG TAB PO SCH ×2 (09:12→21:44)
[2021-08-17] MEDS: METOPROLOL TARTRATE 25 MG TAB PO SCH ×2 (09:12→21:45)
[2021-08-17] MEDS: FLUTICASONE 50MCG/SPRAY NASAL 16GM EA NOSTRIL SCH (09:13)
--- NOTE | 2021-08-17 10:07 | P.PN ---
Subjective HISTORY OF PRESENT ILLNESS: This is a 80-year-old gentleman with history of ischemic heart disease and previous bypass surgery done in 2016 with the LOPEZ graft to the LAD and vein graft to the RCA. Subsequently in 2019. He had stent placement of the diagonal branch. Patient also has a previous history of CVA with left-sided weakness. Today, apparently was in the bathroom and then became weak and kind of unresponsive. The with help of labor helped him into the bed and they called the paramedics. By the time paramedics came and patient apparently was unresponsive. There was some weakness in the right upper extremity. EKG done s howed evidence of ST depressions in the anterolateral leads and minimal ST elevation in inferior leads initially patient did not have any significant chest pain. By the time patient came to the emergency room. Most of his symptoms are resolved . He is complaining of some fatigue and tiredness. Denies any chest pain or shortness of breath, no palpitations. Repeat EKG showed complete resolution of the ST changes in the inferior leads. There are diffuse nonspecific ST depression in the lateral leads. Picture doesn't seem to be consistent with acute myocardial infarction. He did have a computed tomography scan of the brain which did not reveal any acute bleeding or infarct. Waiting for the input from the neurologist. Apparently patient had similar episodes in the past 2. It appears to be some heart TIA like symptomatology. We'll continue to monitor him. He recently had stress test and echocardiogram in cardiology office. We are in the process of getting the reports. From a cardiac standpoint. We'll continue to monitor his symptoms. Cardiac enzymes and also get an echocardiogram. Continue with anti-cognition therapy. Refills okay with neurologist. Further recommendations depend upon clinical course 08/14/2021 Patient examined this morning at the bedside. Patient denies chest pain or pressure. He denies any shortness of breath. Dr. Yun discussed possi ble cardiac catheterization with patient who is leaning towards not having this procedure performed. However he would like to speak with his further and I will make a final decision. He remains on IV heparin. If no plans for cardiac catheterization will transition back to [facility]. 08/15/2021 Patient examined this morning at the bedside. Patient is s/p cardiac catheterization with PCI of the ramus. Patient was also found to have total occlusion of the vein graft to RCA. In-stent stenosis involving the ramus intermedius with critical lesion. LOPEZ to LAD was patent. [place] circumflex is free of any significant disease. [place] RCA is totally occluded with collaterals from the right to left. Patient reports having some bleeding to his right groin yesterday that has resolved. He denies chest pain or pressure. Denies SOB. Vital signs are stable. 08/16 Patient seen and examined. Patient denies any further chest pain or pressure. Right groin appears stable. Anxious to go home. 08/17 Patient seen and examined. There was some concern regarding her straining to urinate and then having some increase in swelling of the groin. Nursing staff felt pressure with no further swelling. He has been doing well currently today. PHYSICAL EXAM: VITAL SIGNS: Reviewed. GENERAL: Well-developed in no acute distress. NECK: Supple. No JVD or thyromegaly LUNGS: Respirations even and unlabored. Lungs essentially clear to auscultation bilaterally. HEART: Regular rate and rhythm. S1 and S2 heard. EXTREMITIES: Normal range of motion. No clubbing or cyanosis. Peripheral pulses intact. No lower extremity edema ASSESSMENT: Non-STEMI, status post PCI of ramus Possible TIA Coronary artery disease with previous CABG History of CVA with left-sided weakness Persistent atrial fibrillation Right groin hematoma appears stable PLAN: Continue current cardiac medications Continue Eliquis 5mg BID and Brillinta. No aspirin given increased risk of bleeding. Stable from a cardiac standpoint Patient's right groin appears stable. Discussed limitations and if no further issues this afternoon patient may home from a cardiac standpoint. Objective - Vital Signs Vital signs: Vital Signs Temp 98.1 F 08/17/21 08:00 Pulse 113 H 08/17/21 08:00 Resp 16 08/17/21 08:00 BP 142/68 08/17/21 08:00 Pulse Ox 97 08/17/21 08:00 FiO2 Intake & Output 08/16/21 08/17/21 08/17/21 18:59 06:59 18:59 Intake Total 1340 118 Output Total 400 400 Balance 940 -400 118 Weight 68 kg Intake: Oral 1340 118 Output: Urine 400 400 Uretheral ([place]iver[place]) 400 Other: Voiding Method Urinal Urinal # Voids 2 - Labs CBC & Chem 7: 08/16/21 09:20 08/15/21 04:03 Labs: Abnormal Lab Results - Last 24 Hours (Table) 08/16/21 08/16/21 Range/Units 09:20 11:51 RBC 3.86 L (4.30-5.90) m/uL Hgb 11.1 L (13.0-17.5) gm/dL Hct 35.2 L (39.0-53.0) % POC Glucose (mg/dL) 117 H (75-99) mg/dL
--- NOTE | 2021-08-17 10:32 | P.PN ---
Progress Note - Text Progress Note Date: 08/17/21 The patient states that he is voiding without difficulty. He denies hematuria. He is urologically stable for discharge. He has an appointment to see me in September 2021. He has been instructed to contact me in the meantime if he has problems.
--- NOTE | 2021-08-17 13:55 | P.PN ---
Subjective Progress Note Date: 08/17/21 Fem stick site bled overnight, but not bleeding today. Pt has not moved from bed since bleeding issues. Plan for mobility today, then if no bleeding by tomorrow, may go home. Gen: awake, alert HEENT: normocephalic, atraumatic, good hearing acuity, moist mucous membranes Resp: good air exchange, breathing comfortably with no accessory muscle use CVS: good distal perfusion x 4, GI: soft, NTTP, ND : no SPT, no CVAT, lares catheter not present MSK: no pitting edema, no clubbing Neuro: non-focal, moving all extremities Psych: cooperative, euthymic mood Images and labs reviewed as above Assessment/plan: Non-ST elevation [place] CAD Proximal atrial fibrillation History of CVA -Admit inpatient, telemetry -Cardiology, neurology consult -Nothing by mouth the night -Continue brilinta, heparin drip -Follow labs -Trend troponins -Consider vascular surgery consult -hold home eliquis, aspirin -cardiology consult Hypertension Hyperlipidemia Diabetes type 2 BPH -Home medications reviewed and reconciled Objective - Vital Signs Vital signs: Vital Signs Temp 98.1 F 08/17/21 08:00 Pulse 113 H 08/17/21 08:00 Resp 16 08/17/21 08:00 BP 142/68 08/17/21 08:00 Pulse Ox 97 08/17/21 08:00 FiO2 Intake & Output 08/16/21 08/17/21 08/17/21 18:59 06:59 18:59 Intake Total 1340 118 Output Total 400 400 Balance 940 -400 118 Weight 68 kg Intake: Oral 1340 118 Output: Urine 400 400 Uretheral (Lares) 400 Other: Voiding Method Urinal Urinal # Voids 2 - Labs CBC & Chem 7: 08/16/21 09:20 08/15/21 04:03
[2021-08-17] MEDS: SODIUM CHLORIDE 0.9% 500 ML 500 ML IV SCH (16:17)
[2021-08-17 16:34] LABS: Glucose,Whole Blood 118 mg/dL (75-99)
[2021-08-17] MEDS ORDERED: ACETAMINOPHEN TAB 325 MG TAB PO PRN (16:51)
[2021-08-17 20:39] LABS: Glucose,Whole Blood 138 mg/dL (75-99)
[2021-08-17] MEDS: ATORVASTATIN 40 MG TAB PO SCH (21:44)
[2021-08-17] MEDS: TAMSULOSIN 0.4 MG CAP.ER.24H PO SCH (21:44)
[2021-08-17] MEDS: VALSARTAN 160 MG TAB PO SCH (22:02)
[2021-08-18 06:20] LABS: Glucose,Whole Blood 119 mg/dL (75-99)
--- NOTE | 2021-08-18 08:55 | P.PN ---
Subjective HISTORY OF PRESENT ILLNESS: This is a 80-year-old gentleman with history of ischemic heart disease and previous bypass surgery done in 2016 with the LOPEZ graft to the LAD and vein graft to the RCA. Subsequently in 2019. He had stent placement of the diagonal branch. Patient also has a previous history of CVA with left-sided weakness. Today, apparently was in the bathroom and then became weak and kind of unresponsive. The with help of labor helped him into the bed and they called the paramedics. By the time paramedics came and patient apparently was unresponsive. There was some weakness in the right upper extremity. EKG done s howed evidence of ST depressions in the anterolateral leads and minimal ST elevation in inferior leads initially patient did not have any significant chest pain. By the time patient came to the emergency room. Most of his symptoms are resolved . He is complaining of some fatigue and tiredness. Denies any chest pain or shortness of breath, no palpitations. Repeat EKG showed complete resolution of the ST changes in the inferior leads. There are diffuse nonspecific ST depression in the lateral leads. Picture doesn't seem to be consistent with acute myocardial infarction. He did have a computed tomography scan of the brain which did not reveal any acute bleeding or infarct. Waiting for the input from the neurologist. Apparently patient had similar episodes in the past 2. It appears to be some heart TIA like symptomatology. We'll continue to monitor him. He recently had stress test and echocardiogram in cardiology office. We are in the process of getting the reports. From a cardiac standpoint. We'll continue to monitor his symptoms. Cardiac enzymes and also get an echocardiogram. Continue with anti-cognition therapy. Refills okay with neurologist. Further recommendations depend upon clinical course 08/14/2021 Patient examined this morning at the bedside. Patient denies chest pain or pressure. He denies any shortness of breath. Dr. Yun discussed possi ble cardiac catheterization with patient who is leaning towards not having this procedure performed. However he would like to speak with his further and I will make a final decision. He remains on IV heparin. If no plans for cardiac catheterization will transition back to [facility]. 08/15/2021 Patient examined this morning at the bedside. Patient is s/p cardiac catheterization with PCI of the ramus. Patient was also found to have total occlusion of the vein graft to RCA. In-stent stenosis involving the ramus intermedius with critical lesion. LOPEZ to LAD was patent. [place] circumflex is free of any significant disease. [place] RCA is totally occluded with collaterals from the right to left. Patient reports having some bleeding to his right groin yesterday that has resolved. He denies chest pain or pressure. Denies SOB. Vital signs are stable. 08/16 Patient seen and examined. Patient denies any further chest pain or pressure. Right groin appears stable. Anxious to go home. 08/17 Patient seen and examined. There was some concern regarding her straining to urinate and then having some increase in swelling of the groin. Nursing staff felt pressure with no further swelling. He has been doing well currently today. 08/18 Patient seen and examined. No further issues with his groin site. He denies any chest pain or pressure. Has been cleared from urology perspective for discharge home. Was walking the halls yesterday without difficulty per patient. PHYSICAL EXAM: VITAL SIGNS: Reviewed. GENERAL: Well-developed in no acute distress. NECK: Supple. No JVD or thyromegaly LUNGS: Respirations even and unlabored. Lungs essentially clear to auscultation bilaterally. HEART: Regular rate and rhythm. S1 and S2 heard. EXTREMITIES: Normal range of motion. No clubbing or cyanosis. Peripheral pulses intact. No lower extremity edema ASSESSMENT: Non-STEMI, status post PCI of ramus Possible TIA Coronary artery disease with previous CABG History of CVA with left-sided weakness Persistent atrial fibrillation Right groin hematoma appears stable PLAN: Continue current cardiac medications Continue Eliquis 5mg BID and Brillinta. No aspirin given increased risk of bleeding. Stable for discharge home today. Objective Objective - Vital Signs Vital signs: Vital Signs Temp 98.3 F 08/18/21 03:50 Pulse 75 08/18/21 03:50 Resp 18 08/18/21 03:50 BP 160/73 08/18/21 03:50 Pulse Ox 95 08/18/21 03:50 FiO2 Intake & Output 08/17/21 08/18/21 08/18/21 18:59 06:59 18:59 Intake Total 354 240 Output Total 300 675 100 Balance 54 -675 140 Intake: Oral 354 240 Output: Urine 300 675 100 Other: Voiding Method Urinal Urinal # Voids 2 1 # Bowel Movements 1 - Labs CBC & Chem 7: 08/16/21 09:20 08/15/21 04:03 Labs: Abnormal Lab Results - Last 24 Hours (Table) 08/17/21 08/17/21 08/18/21 Range/Units 16:32 20:28 06:09 POC Glucose (mg/dL) 118 H 138 H 119 H (75-99) mg/dL
[2021-08-18] MEDS: METOPROLOL TARTRATE 25 MG TAB PO SCH (09:25)
[2021-08-18] MEDS: CITALOPRAM HYDROBROMIDE 20 MG TAB PO SCH (09:25)
[2021-08-18] MEDS: DICYCLOMINE 20 MG TAB PO SCH ×2 (09:25→15:22)
[2021-08-18] MEDS: APIXABAN 5 MG TAB PO SCH (09:25)
[2021-08-18] MEDS: TICAGRELOR 90 MG TAB PO SCH (09:25)
[2021-08-18] MEDS: cycloSPORINE 0.05% OPHTH 0.4 ML DROPERETTE BOTH EYES SCH (09:25)
[2021-08-18] MEDS: PANTOPRAZOLE 40 MG TABLET PO SCH (09:25)
[2021-08-18] MEDS: LORATADINE 10 MG TAB PO SCH (09:25)
[2021-08-18] MEDS: MULTIVITAMINS, THERA 1 EACH TAB PO SCH (09:25)
[2021-08-18] MEDS: ISOSORBIDE MONONITRATE ER 30 MG TAB.ER.24H PO SCH (09:25)
[2021-08-18] MEDS: FLUTICASONE 50MCG/SPRAY NASAL 16GM EA NOSTRIL SCH (09:30)
[2021-08-18 10:06] VITALS: RESP 16; TEMP 97.6
[2021-08-18 11:50] LABS: Glucose,Whole Blood 131 mg/dL (75-99)
[2021-08-18 12:19] VITALS: BP 127/74; PULSE 97
[2021-08-18] MEDS: SODIUM CHLORIDE 0.9% 500 ML 500 ML IV SCH (15:18)
--- NOTE | 2021-08-18 15:29 | P.DS ---
Providers Date of admission: 08/13/21 09:48 Expected date of discharge: 08/18/21 Attending physician: Jodie Galeana DO Consults: 08/13/21 07:43 Consult Physician Stat Consulting Provider: Selene Jacques Consult Reason/Comments: STEMI ACTIVATION COMPLETE Do you want consulting provider notified?: Yes 08/13/21 08:44 Consult Physician Routine Consulting Provider: Terrance Yun Consult Reason/Comments: st segment depressions Do you want consulting provider notified?: Already Contacted Placement Type Exists?: Yes 08/13/21 09:49 Consult Physician Routine Consulting Provider: Fredo Ogden Consult Reason/Comments: concern for TIA Do you want consulting provider notified?: Already Contacted 08/14/21 18:17 Consult Physician Routine Consulting Provider: Selene Jacques Consult Reason/Comments: Post Interventional patient Do you want consulting provider notified?: Already Contacted 08/15/21 03:13 Consult Physician Routine Consulting Provider: Canelo Reid Consult Reason/Comments: hematuria Do you want consulting provider notified?: Yes, Notify in am Primary care physician: Adam Acosta MD Hospital Course: Non-ST elevation MA CAD Proximal atrial fibrillation History of CVA Hypertension Hyperlipidemia Diabetes type 2 BPH 80-year-old man with history of CAD status post CABG as well as PCI, paroxysmal atrial fibrillation, strokes, hypertension, diabetes, hyper lipidemia, BPH presented with episode of unresponsiveness and presyncope. Upon initial evaluation, patient was afebrile, 107/71, heart rate was 75, 98% on 2 L nasal cannula. CBC was remarkable for mild anemia, at baseline. Chemistries show mild acidosis with a bicarb of 21. LFTs show low total protein of 4.9, low elevated at 2.6. Coags demonstrate elevated PT and INR to 12.6, 1.2. UA is normal. Patient's chest x-ray is grossly unremarkable. Patient's brain CT was negative for acute intracranial bleed. Patient's CT ONTIVEROS of the head and neck shows reduced caliber of the superior aspect of the cervical left internal carotid artery at an estimation of 60%, severe focal stenosis of the cavernous portion of the left internal carotid artery with other segments of focal stenosis at the mid basilar artery, focal stenosis of the M1, M2 segment of the left MCA. Thoracic CT shows ascending aortic aneurysm with unfolding of the thoracic aorta, dilated aortic arch without evidence of dissection, occlusion, or significant stenosis. Echocardiogram shows an ejection fraction of 45-50% with inferior wall motion abnormality. EKG shows atrial fibrillation with rapid ventricular response and what appears to be ischemic changes. Brain MRI is negative for recent infarct. Due to patient's EKG findings, code STEMI was called, and patient was evaluated by cardiology. Patient is not having any chest pain, and presentation was atypical for ACS, therefore, cardiology deferred doing a left heart catheterization at this time. Subsequent troponins have shown elevation, and the case was discussed with cardiology and neurology, who recommended making patient nothing by mouth at midnight and continuing to trend tropes. Patient was already aspirin, brilinta loaded, heparin drip was started. Pt was taken to the clinical laboratory service teacher and had PCI to his first rami. Following procedure, patient's hospitalization prolonged due to bleeding at fem stick site. This resolved with pressure to the groin. Pt also had complications of hematuria following lares placement which also resolved. He will see cardiology and urology in follow up. I spent 34 minutes coordinating this complex discharge. Gen: awake, alert HEENT: normocephalic, atraumatic, good hearing acuity, moist mucous membranes Resp: good air exchange, breathing comfortably with no accessory muscle use CVS: good distal perfusion x 4, GI: soft, NTTP, ND : no SPT, no CVAT, lares catheter not present MSK: no pitting edema, no clubbing Neuro: non-focal, moving all extremities Psych: cooperative, euthymic mood Patient Condition at Discharge: Serious Plan - Discharge Summary New Discharge Prescriptions: New Ticagrelor [Brilinta] 90 mg PO BID #60 tab Isosorbide Mononitrate ER [Imdur] 30 mg PO DAILY #30 tab Continue Rosuvastatin Calcium [Crestor] 20 mg PO HS Tamsulosin [Flomax] 0.4 mg PO HS cap.er.24h Fluticasone Nasal [place] [Flonase Nasal Freedom] 1 spray EA NOSTRIL DAILY Pantoprazole Sodium [Protonix] 40 mg PO DAILY Valsartan 320 mg PO HS Multivitamins, Thera [Multivitamin (formulary)] 1 tab PO DAILY Nitroglycerin Sl Tabs [Nitrostat] 0.4 mg SUBLINGUAL Q5M PRN #25 tab PRN Reason: Chest Pain Cranberry Fruit Extract [Cranberry] 500 mg PO DAILY Metoprolol Tartrate [Lopressor] 25 mg PO BID Citalopram Hydrobromide [CeleXA] 20 mg PO DAILY Apixaban [Eliquis] 5 mg PO BID #60 tab cycloSPORINE 0.05% OPHTH SOLN [Restasis] 1 drop BOTH EYES Q12H Dicyclomine [Bentyl] 20 mg PO TID Mometasone Furoate [Elocon 0.1% Top Soln] 1 applic TOPICAL HS PRN PRN Reason: Itching Aspirin EC [Ecotrin Low Dose] 81 mg PO DAILY Chlorhexidine Gluconate [Peridex] 15 ml PO BID Triamcinolone 0.1% Cream [Kenalog 0.1% Cream] 1 applicatio TOPICAL Q48H Loratadine [Claritin] 10 mg PO DAILY Discharge Medication List Rosuvastatin Calcium [Crestor] 20 mg PO HS 11/19/15 [History] Tamsulosin [Flomax] 0.4 mg PO HS cap.er.24h 11/26/15 [Rx] Fluticasone Nasal [place] [Flonase Nasal [place]] 1 spray EA NOSTRIL DAILY 12/30/16 [History] Pantoprazole Sodium [Protonix] 40 mg PO DAILY 12/30/16 [History] Multivitamins, Thera [Multivitamin (formulary)] 1 tab PO DAILY 10/28/18 [History] Valsartan 320 mg PO HS 10/28/18 [History] Nitroglycerin Sl Tabs [Nitrostat] 0.4 mg SUBLINGUAL Q5M PRN #25 tab 11/04/18 [Rx] Citalopram Hydrobromide [CeleXA] 20 mg PO DAILY 11/05/18 [History] Cranberry Fruit Extract [Cranberry] 500 mg PO DAILY 11/05/18 [History] Metoprolol Tartrate [Lopressor] 25 mg PO BID 11/05/18 [History] Apixaban [Eliquis] 5 mg PO BID #60 tab 11/08/18 [Rx] Aspirin EC [Ecotrin Low Dose] 81 mg PO DAILY 08/13/21 [History] Chlorhexidine Gluconate [Peridex] 15 ml PO BID 08/13/21 [History] Dicyclomine [Bentyl] 20 mg PO TID 08/13/21 [History] Loratadine [Claritin] 10 mg PO DAILY 08/13/21 [History] Mometasone Furoate [Elocon 0.1% Top Soln] 1 applic TOPICAL HS PRN 08/13/21 [History] Triamcinolone 0.1% Cream [Kenalog 0.1% Cream] 1 applicatio TOPICAL Q48H 08/13/21 [History] cycloSPORINE 0.05% OPHTH SOLN [Restasis] 1 drop BOTH EYES Q12H 08/13/21 [History] Isosorbide Mononitrate ER [Imdur] 30 mg PO DAILY #30 tab 08/18/21 [Rx] Ticagrelor [Brilinta] 90 mg PO BID #60 tab 08/18/21 [Rx] Follow up Appointment(s)/Referral(s): Sadi Webb MD [STAFF PHYSICIAN] - 1 Week (please schedule follow up, office closed today. Tell them you were hospitalized and need a post hospital follow up for a heart cath. ) Adam Acosta MD [Primary Care Provider] - 1-2 days (please schedule follow up, office closed today. Tell them you were hospitalized and need a post hospital follow up for a heart cath. ) Patient Instructions/Handouts: *Surgery [facility] - After Heart Catheterization - Sales Engineering Manager Instructions Discharge Disposition: HOME SELF-CARE
== END 2021-08-18 15:42 | disposition home or self-care (01) | DRG 247 ==
LOC: CATHCVL 07:33 → 2SICU 07:44 → UNDOADMIN 07:44 → 3SCARD 09:48
PROVIDERS: ADMIT Internal Medicine; ATTEND Internal Medicine
PROC: 02703ZZ Dilation of Coronary Artery, One Artery, Percutaneous Approach (ICD-10-PCS; principal; 2021-08-14 11:05)
PROC: 027034Z Dilation of Coronary Artery, One Artery with Drug-eluting Intraluminal Device, Percutaneous Approach (ICD-10-PCS; principal; 2021-08-14 11:05)
PROC: B41F1ZZ Fluoroscopy of Right Lower Extremity Arteries using Low Osmolar Contrast (ICD-10-PCS; principal; 2021-08-14 11:05)
PROC: B2111ZZ Fluoroscopy of Multiple Coronary Arteries using Low Osmolar Contrast (ICD-10-PCS; 2021-08-15)
PROC: 4A023N7 Measurement of Cardiac Sampling and Pressure, Left Heart, Percutaneous Approach (ICD-10-PCS; 2021-08-15)
PROC: B2131ZZ Fluoroscopy of Multiple Coronary Artery Bypass Grafts using Low Osmolar Contrast (ICD-10-PCS; 2021-08-15)
DX: I21.4 Non-ST elevation (NSTEMI) myocardial infarction (principal); E87.2 Acidosis; I25.810 Atherosclerosis of coronary artery bypass graft(s) without angina pectoris; I48.19 Other persistent atrial fibrillation; I69.354 Hemiplegia and hemiparesis following cerebral infarction affecting left non-dominant side; I25.10 Atherosclerotic heart disease of native coronary artery without angina pectoris; E11.9 Type 2 diabetes mellitus without complications; E78.5 Hyperlipidemia, unspecified; Z79.82 Long term (current) use of aspirin; Z79.899 Other long term (current) drug therapy; M19.90 Unspecified osteoarthritis, unspecified site; D64.9 Anemia, unspecified; E83.51 Hypocalcemia; F31.9 Bipolar disorder, unspecified; I10 Essential (primary) hypertension; I65.22 Occlusion and stenosis of left carotid artery; N32.81 Overactive bladder; N40.1 Benign prostatic hyperplasia with lower urinary tract symptoms; R31.0 Gross hematuria; Z79.01 Long term (current) use of anticoagulants; K57.90 Diverticulosis of intestine, part unspecified, without perforation or abscess without bleeding; Z98.61 Coronary angioplasty status; R39.16 Straining to void
CPT/HCPCS: 70450; 70496; 70498; 70551; 71045; 71275; 74174; 80048; 80053; 80061; 81003; 82565; 83735; 84484; 85025; 85027; 85610; 85730; 93005; 93306; 93455; 96361; 96374; 99291

== ENCOUNTER 2022-01-20 14:21 | Emergency (ER) | payer MEDICARE, BC ==
--- NOTE | 2022-01-20 15:38 | ED ---
General Adult HPI - General Chief complaint: Fall Stated complaint: Fell in parking lot,Nose bleed Time Seen by Provider: 01/20/22 15:09 Source: patient Mode of arrival: ambulatory Limitations: no limitations - History of Present Illness Initial comments: Dictation was produced using [email or web address] dictation software. please excuse any grammatical, word or spelling errors. Chief Complaint: 81-year-old male presents after fall History of Present Illness: Is an 81-year-old male presents to the emergency department after fall. Patient was here in the hospital getting heart therapy. He was in the parking lot getting ready to leave when he tripped. He fell to the ground and hit his face on the cement. Patient tried to catch himself. He hurt his third digit on his left hand. Shortly after noted that he had significant epistaxis and severe swelling to his left face. The ROS documented in this emergency department record has been reviewed and confirmed by me. Those systems with pertinent positive or negative responses have been documented in the HPI. All other systems are other negative and/or noncontributory. PHYSICAL EXAM: General Impression: Alert and oriented x3, not in acute distress HEENT: Large hematoma over the left maxilla, epistaxis with no septal hematoma extra-ocular movements intact, pupils equal and reactive to light bilaterally, mucous membranes moist. Cardiovascular: Heart regular rate and rhythm Chest: Able to complete full sentences, no retractions, no tachypnea, palpatory tenderness to the left anterior lower chest Abdomen: abdomen soft, non-tender, non-distended, no organomegaly Musculoskeletal: Pulses present and equal in all extremities, no peripheral edema Motor: no focal deficits noted Left hand: Some residual bleeding around the root of the nail of the third digit Neurological: CN II-XII grossly intact, no focal motor or sensory deficits noted Skin: Intact with no visualized rashes Psych: Normal affect and mood ED course: 81-year-old male presents to emergency department after fall. Patient does take anticoagulation medications for atrial fibrillation. Vital Signs upon arrival are within acceptable limits. EKG interpretation: Ventricular rate 63, sinus rhythm,. 185, QRS 118, QTC 470. No UT prolongation, no QTC prolongation, no ST or T-wave changes noted. EKG compared to 08/13/2021 showing no changes. Overall, this EKG is unremarkable Laboratory evaluation obtained. CBC, coag panel, metabolic panel is unremarkable. Hand x-ray nonacute there does appear to be scattered osteoarthritis. Computed tomography scan of the head, face and C-spine shows no acute itch cranial processes. There is a displaced right nasal bone fracture soft tissue edema over the nasal bone, left cheek subcutaneous hematoma. Computed tomography scan of the chest abdomen pelvis obtained showing no acute traumatic processes. Patient was observed in emergency department for approximately 3 hours and 40 minutes. Reevaluated at bedside at extent p.m. found to be in stable medical condition. Patient be discharged. Patient given starter pack for Tylenol number threes. He is also given keflex for nasal bone fracture with epistaxis. - Related Data Home Medications Medication Instructions Recorded Confirmed Rosuvastatin Calcium [Crestor] 20 mg PO HS 11/19/15 08/13/21 Fluticasone Nasal [place] [Flonase 1 spray EA NOSTRIL DAILY 12/30/16 08/13/21 Nasal [place]] Pantoprazole Sodium [Protonix] 40 mg PO DAILY 12/30/16 08/13/21 Multivitamins, Thera [Multivitamin 1 tab PO DAILY 10/28/18 08/13/21 (formulary)] Valsartan 320 mg PO HS 10/28/18 08/13/21 Citalopram Hydrobromide [CeleXA] 20 mg PO DAILY 11/05/18 08/13/21 Cranberry Fruit Extract [Cranberry] 500 mg PO DAILY 11/05/18 08/13/21 Metoprolol Tartrate [Lopressor] 25 mg PO BID 11/05/18 08/13/21 Aspirin EC [Ecotrin Low Dose] 81 mg PO DAILY 08/13/21 08/13/21 Chlorhexidine Gluconate [Peridex] 15 ml PO BID 08/13/21 08/13/21 Dicyclomine [Bentyl] 20 mg PO TID 08/13/21 08/13/21 Loratadine [Claritin] 10 mg PO DAILY 08/13/21 08/13/21 Mometasone Furoate [Elocon 0.1% 1 applic TOPICAL HS PRN 08/13/21 08/13/21 Top Soln] Triamcinolone 0.1% Cream [Kenalog 1 applicatio TOPICAL Q48H 08/13/21 08/13/21 0.1% Cream] cycloSPORINE 0.05% OPHTH SOLN 1 drop BOTH EYES Q12H 08/13/08/13/21 [Restasis] Previous Rx's Medication Instructions Recorded Tamsulosin [Flomax] 0.4 mg PO HS cap.er.24h 11/26/15 Nitroglycerin Sl Tabs [Nitrostat] 0.4 mg SUBLINGUAL Q5M PRN #25 tab 11/04/18 Apixaban [Eliquis] 5 mg PO BID #60 tab 11/08/18 Isosorbide Mononitrate ER [Imdur] 30 mg PO DAILY #30 tab 08/18/21 Ticagrelor [Brilinta] 90 mg PO BID #60 tab 08/18/21 Cephalexin [Keflex] 500 mg PO Q12HR 7 Days #14 cap 01/20/22 Allergies Allergy/AdvReac Type Severity Reaction Status Date / Time erythromycin base AdvReac Nausea & Verified 01/20/22 14:33 Vomiting Review of Systems ROS Statement: Those systems with pertinent positive or pertinent negative responses have been documented in the HPI. ROS Other: All systems not noted in ROS Statement are negative. Past Medical History Past Medical History: Coronary Artery Disease (CAD), CVA/TIA, Diabetes Mellitus, GERD/Reflux, Hyperlipidemia, Hypertension, Osteoarthritis (OA), Prostate Dis order, Renal Disease Additional Past Medical History / Comment(s): 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 History of Any Multi-Drug Resistant Organisms: None Reported Past Surgical History: Adenoidectomy, Coronary Bypass/CABG, Heart Catheterization, Heart Catheterization With Stent, Tonsillectomy Additional Past Surgical History / Comment(s): 11/13/15 Cardiac cath, 11/21/15 CABG-2 vessel, deviated septum repaired, cystoscopies x2, colonoscopy, bilateral cataract surg. Past Anesthesia/Blood Transfusion Reactions: No Reported Reaction Date of Last Stent Placement:: 11/03/18 Past Psychological History: Bipolar, Depression Smoking Status: Never smoker Past Alcohol Use History: None Reported Past Drug Use History: None Reported - Past Family History Father Additional Family Medical History / Comment(s): Father was a "drinker and a smoker". He at the age of 55 yrs from cerebral hemorhage Mother Additional Family Medical History / Comment(s): Mother at the age of 92yrs. General Exam Limitations: no limitations Course Vital Signs 01/20/22 14:30 Temperature 98 F Pulse Rate 78 Respiratory 18 Rate Blood Pressure 154/88 O2 Sat by Pulse 99 Oximetry Medical Decision Making - Lab Data Result diagrams: 01/20/22 15:37 01/20/22 15:37 Lab Results 01/20/22 01/20/22 01/20/22 Range/Units 15:37 15:37 15:37 WBC 9.7 (3.8-10.6) k/uL RBC 4.38 (4.30-5.90) m/uL Hgb 12.3 L (13.0-17.5) gm/dL Hct 38.0 L (39.0-53.0) % MCV 86.7 (80.0-100.0) fL MCH 28.1 (25.0-35.0) pg MCHC 32.4 (31.0-37.0) g/dL RDW 15.0 (11.5-15.5) % Plt Count 312 (150-450) k/uL MPV 7.9 Neutrophils % 76 % Lymphocytes % 14 % Monocytes % 5 % Eosinophils % 3 % Basophils % 1 % Neutrophils # 7.4 (1.3-7.7) k/uL Lymphocytes # 1.4 (1.0-4.8) k/uL Monocytes # 0.5 (0-1.0) k/uL Eosinophils # 0.3 (0-0.7) k/uL Basophils # 0.1 (0-0.2) k/uL PT 11.2 (9.0-12.0) sec INR 1.0 (<1.2) APTT 23.2 (22.0-30.0) sec Sodium 140 (137-145) mmol/L Potassium 4.4 (3.5-5.1) mmol/L Chloride 107 (98-107) mmol/L Carbon Dioxide 23 (22-30) mmol/L Anion Gap 10 mmol/L BUN 23 H (9-20) mg/dL Creatinine 0.71 (0.66-1.25) mg/dL Est GFR (CKD-EPI)AfAm >90 (>60 ml/min/1.73 sqM) Est GFR (CKD-EPI)NonAf 88 (>60 ml/min/1.73 sqM) Glucose 126 H (74-99) mg/dL Calcium 8.6 (8.4-10.2) mg/dL Disposition Clinical Impression: Fall, Facial contusion Disposition: HOME SELF-CARE Condition: Good Instructions (If sedation given, give patient instructions): Fall Prevention for Older Adults (ED) Prescriptions: Cephalexin [Keflex] 500 mg PO Q12HR 7 Days #14 cap Is patient prescribed a controlled substance at d/c from ED?: No Referrals: Dedra Alanis MD [Primary Care Provider] - 1-2 days Time of Disposition: 18:15
[2022-01-20 15:50] LABS: Basophils # (A) 0.1 k/uL (0-0.2); Basophils % (A) 1 %; Eosinophils # (A) 0.3 k/uL (0-0.7); Eosinophils % (A) 3 %; HGB 12.3 gm/dL (13.0-17.5); Lymphocytes # (A) 1.4 k/uL (1.0-4.8); Lymphocytes % (A) 14 %; MCH 28.1 pg (25.0-35.0); MCHC 32.4 g/dL (31.0-37.0); MCV 86.7 fL (80.0-100.0); Mean Platelet Volume 7.9; Monocytes # (A) 0.5 k/uL (0-1.0); Monocytes % (A) 5 %; Neutrophils # (A) 7.4 k/uL (1.3-7.7); Neutrophils % (A) 76 %; Platelet Count 312 k/uL (150-450); RBC 4.38 m/uL (4.30-5.90); WBC 9.7 k/uL (3.8-10.6)
[2022-01-20 15:59] LABS: African American GFR (CKD) >90 (>60 ml/min/1.73 sqM); Anion Gap 10 mmol/L; Blood Urea Nitrogen 23 mg/dL (9-20); Calcium 8.6 mg/dL (8.4-10.2); Carbon Dioxide 23 mmol/L (22-30); Chloride 107 mmol/L (98-107); Glucose 126 mg/dL (74-99); Non-African American GFR(CKD) 88 (>60 ml/min/1.73 sqM); Potassium 4.4 mmol/L (3.5-5.1); Sodium 140 mmol/L (137-145)
[2022-01-20 16:13] LABS: Partial Thromboplastin Time 23.2 sec (22.0-30.0); Prothrombin Time 11.2 sec (9.0-12.0)
--- NOTE | 2022-01-20 17:20 | CT ---
EXAMINATION TYPE: CT brain cspine wo con, CT facial bones wo con CT DLP: 1122.3 mGycm, Automated exposure control for dose reduction was used. DATE OF EXAM: 01/20/2022 4:55 PM COMPARISON: None.. CLINICAL INDICATION:Male, 81 years old with history of fall; fall, facial swelling and bleeding on le ft side TECHNIQUE: Brain: Multiple axial CT images of the brain were obtained without IV contrast. Cspine: Axial CT images from the skull base to the inferior aspect of T2 we obtained without intraven ous contrast. Coronal and sagittal reformatted images were also reviewed. Additional axial imaging of the facial bones was performed with soft tissue and bone window reformats . FINDINGS: Brain: Extra-axial spaces: No abnormal extra-axial fluid collections. Ventricular system: Dilatation in proportion to cerebral atrophy. Cerebral parenchyma: Cerebral atrophy. No acute intraparenchymal hemorrhage or mass effect. Remote ri ght gonzalez radiata injury and bilateral basal ganglia injuries. The mckeon-white junction is well diffe rentiated. Scattered hypoattenuating areas are seen within the white matter. Cerebellum: Unremarkable. Mass effect: No evidence of midline shift. Intracranial vasculature: Atherosclerotic calcifications of the intracranial vessels. Soft tissues: Soft tissue edema over the nasal bridge. Deformity of the nasal bone noted partially vi sualized. Calvarium/osseous structures: No depressed skull fracture. Paranasal sinuses and mastoid air cells: Secretions/blood products are seen within the paranasal sinu ses Visualized orbits: Bilateral aphakia Cervical spine: Fracture: None. Osseous structures: Multilevel degenerative disc disease changes with endplate spurring and disc oste ophyte complex's. Vertebral alignment: Within normal limits. Spinal canal/Neural Foramina: Disc osteophyte complexes at C3-C4 through C5-C6. With at least mild sp inal canal stenosis. Facet joint uncovertebral joint arthropathy scattered throughout the cervical sp ine with varying degrees of neural foraminal stenosis. Neck soft tissues: Prevertebral soft tissues are within normal limits. Other: The airway is patent. The lung apices are clear. CT facial: Soft tissue edema over the nasal bridge with a minimally displaced nasal bone fracture most pronounce d in the right. There is soft tissue edema along the left cheek and upper lip with a subcutaneous hem atoma measuring up to 2.8 x 1.5 cm. Temporomandibular joints are symmetrical. There is atherosclerosi s of the intracranial internal carotid arteries. The globes are intact. Bilateral aphakia. Paranasal sinus is also thickening and or secretions or blood products are seen throughout the nasal cavity and the paranasal sinuses. The mandible, zygomatic arches and orbits are intact without evidence of frac ture.1 IMPRESSION: 1. No acute intracranial process. 2. Soft tissue edema over the nasal bone with minimally displaced right nasal bone fracture. Additio nal left facial/cheek cheek fat stranding with subcutaneous hematoma. 3. No evidence of cervical spine fracture. 4. Mild multilevel degenerative disc disease. 5. Remote bilateral basal ganglia and right gonzalez radiata injuries along with Nonspecific white mat ter changes likely secondary to chronic small vessel ischemic disease.
--- NOTE | 2022-01-20 17:38 | CT ---
EXAMINATION TYPE: CT ChestAbdPelvis w con CT DLP: 1249.7 mGycm, Automated exposure control for dose reduction was used. DATE OF EXAM: 01/20/2022 4:55 PM COMPARISON: 08/13/2021. CLINICAL INDICATION:Male, 81 years old with history of fall; fall in parking lot right side rib pain Technique: Multiple axial images of the chest, abdomen, and pelvis were obtained. Two-dimensional cor onal and sagittal reconstructions were obtained. Contrast used:100 mL of Isovue 300 with IV Contrast, Oral contrast used: without Oral Contrast Findings: CHEST: LUNGS/ PLEURA: Right lower quadrant side granuloma. No focal consolidation, pneumothorax or pleural e ffusion. Scattered streaky atelectasis in the lung bases. AIRWAY: Patent and unremarkable. HEART: Large mildly enlarged for size. MEDIASTINUM: No gross evidence of adenopathy. VASCULATURE: Descending thoracic aorta is mildly dilated measuring up to 41 mm. MUSCULOSKELETAL: No acute osseous abnormalities. Sternotomy wires are present. No displaced rib fract ure. SOFT TISSUES/LYMPH NODES: Unremarkable. LOWER NECK: No significant findings. ABDOMEN: ABDOMEN LIVER: Unremarkable GALLBLADDER AND BILE DUCTS: Layering increased densities within the lumen consistent with gallstones are present. PANCREAS: Unremarkable. SPLEEN: Unremarkable. ADRENAL GLANDS: Unremarkable. KIDNEYS AND URETERS: No evidence of hydronephrosis or renal calculus. Left renal cyst. PELVIS BLADDER: Unremarkable REPRODUCTIVE: Unremarkable. ABDOMEN & PELVIS STOMACH AND BOWEL: No evidence of bowel obstruction. Scattered clonic diverticula. PERITONEUM: No evidence of pneumoperitoneum or free fluid. VASCULATURE: No evidence of aortic aneurysm. Atherosclerosis of the arterial vasculature. MUSCULOSKELETAL: No acute osseous abnormalities, multilevel disc degeneration changes with levoscolio sis apex L4. T12 compression deformity vacuum disc phenomenon. There is straightening of the spine. LYMPH NODES: No gross evidence for lymphadenopathy. SOFT TISSUE/ABDOMINAL WALL: Unremarkable IMPRESSION: No evidence for acute traumatic thoracic abdominal or pelvic process. No definitive evidence for righ t rib fracture.
--- NOTE | 2022-01-20 17:59 | XR ---
EXAMINATION TYPE: XR hand complete LT DATE OF EXAM: 01/20/2022 5:15 PM INDICATION: Patient age:Male; 81 years old; Reason for study: fall; COMPARISON: None TECHNIQUE: Frontal, lateral and oblique views of the left hand were obtained. FINDINGS: Normal alignment of the visualized joints. No acute osseous pathology is identified. No e vidence of soft tissue swelling. Scattered osteoarthrosis with joint space narrowing and osteophyte f ormation throughout the joints of the hand and wrist. IMPRESSION: 1. No acute osseous pathology. 2. Scattered osteoarthrosis changes throughout the joints of the hand and wrist.
[2022-01-20] MEDS ORDERED: ACET/COD 300 MG/30 MG STARTER PACK 6 TAB BTL PO STA (18:16)
[2022-01-20 19:22] VITALS: BP 159/89; PULSE 87; RESP 20; TEMP 97.9
== END 2022-01-20 18:50 | disposition home or self-care (01) ==
LOC: EC 14:21
DX: S00.83XA Contusion of other part of head, initial encounter (principal); I25.10 Atherosclerotic heart disease of native coronary artery without angina pectoris; G45.9 Transient cerebral ischemic attack, unspecified; E11.9 Type 2 diabetes mellitus without complications; K21.9 Gastro-esophageal reflux disease without esophagitis; E78.5 Hyperlipidemia, unspecified; I10 Essential (primary) hypertension; M19.90 Unspecified osteoarthritis, unspecified site; F31.9 Bipolar disorder, unspecified; Z88.1 Allergy status to other antibiotic agents; Z79.83 Long term (current) use of bisphosphonates; Z79.899 Other long term (current) drug therapy; Z79.02 Long term (current) use of antithrombotics/antiplatelets; Z79.82 Long term (current) use of aspirin; W19.XXXA Unspecified fall, initial encounter
CPT/HCPCS: 36415; 93005; 80048; 85025; 85610; 85730; 73130; 72125; 70486; 70450; 71260; 74177; 99284; Q9967

== ENCOUNTER 2024-01-27 10:13 | Inpatient (IN) | payer MEDICARE, BC ==
[2024-01-27] MEDS: MORPHINE SULFATE 4 MG/ML SYRINGE IVP STA (10:27)
--- NOTE | 2024-01-27 10:28 | ED ---
General Adult HPI - General Chief complaint: Fall Stated complaint: Fall Time Seen by Provider: 01/27/24 10:15 Source: patient, EMS, RN notes reviewed Mode of arrival: EMS Limitations: no limitations - History of Present Illness Initial comments: Patient is an 83-year-old male presenting to the emergency department with concerns with fall. Patient was using his walker when he slipped. Patient landed on his left arm and has significant left arm discomfort. Patient denies headache. Patient states he did hit his head however. Patient is on blood t hinners with history of irregular heartbeat. - Related Data Home Medications Medication Instructions Recorded Confirmed Rosuvastatin Calcium [Crestor] 20 mg PO HS 11/19/15 08/13/21 Fluticasone Nasal [place] [Flonase 1 spray EA NOSTRIL DAILY 12/30/16 08/13/21 Nasal [place]] Pantoprazole Sodium [Protonix] 40 mg PO DAILY 12/30/16 08/13/21 Multivitamins, Thera [Multivitamin 1 tab PO DAILY 10/28/18 08/13/21 (formulary)] Valsartan 320 mg PO HS 10/28/18 08/13/21 Citalopram Hydrobromide [CeleXA] 20 mg PO DAILY 11/05/18 08/13/21 Cranberry Fruit Extract [Cranberry] 500 mg PO DAILY 11/05/18 08/13/21 Metoprolol Tartrate [Lopressor] 25 mg PO BID 11/05/18 08/13/21 Aspirin EC [Ecotrin Low Dose] 81 mg PO DAILY 08/13/21 08/13/21 Chlorhexidine Gluconate [Peridex] 15 ml PO BID 08/13/21 08/13/21 Dicyclomine [Bentyl] 20 mg PO TID 08/13/21 08/13/21 Loratadine [Claritin] 10 mg PO DAILY 08/13/21 08/13/21 Mometasone Furoate [Elocon 0.1% 1 applic TOPICAL HS PRN 08/13/21 08/13/21 Top Soln] Triamcinolone 0.1% Cream [Kenalog 1 applicatio TOPICAL Q48H 08/13/21 08/13/21 0.1% Cream] cycloSPORINE 0.05% OPHTH SOLN 1 drop BOTH EYES Q12H 08/13/21 08/13/21 [Restasis] Previous Rx's Medication Instructions Recorded Tamsulosin [Flomax] 0.4 mg PO HS cap.er.24h 11/26/15 Nitroglycerin Sl Tabs [Nitrostat] 0.4 mg SUBLINGUAL Q5M PRN #25 tab 11/04/18 Apixaban [Eliquis] 5 mg PO BID #60 tab 11/08/18 Isosorbide Mononitrate ER [Imdur] 30 mg PO DAILY #30 tab 08/18/21 Ticagrelor [Brilinta] 90 mg PO BID #60 tab 08/18/21 Cephalexin [Keflex] 500 mg PO Q12HR 7 Days #14 cap 01/20/22 Allergies Allergy/AdvReac Type Severity Reaction Status Date / Time erythromycin base AdvReac Nausea & Verified 01/27/24 10:19 Vomiting Review of Systems ROS Statement: Those systems with pertinent positive or pertinent negative responses have been documented in the HPI. ROS Other: All systems not noted in ROS Statement are negative. Constitutional: Denies: fever Eyes: Denies: eye pain ENT: Denies: ear pain Respiratory: Denies: cough Cardiovascular: Denies: chest pain Endocrine: Denies: fatigue Gastrointestinal: Denies: abdominal pain Musculoskeletal: Reports: as per HPI Neurological: Reports: as per HPI. 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 History of Any Multi-Drug Resistant Organisms: None Reported Past Surgical History: Adenoidectomy, Coronary Bypass/CABG, Heart Catheterization, Heart Catheterization With Stent, Tonsillectomy Additional Past Surgical History / Comment(s): 11/13/15 Cardiac cath, 11/21/15 CABG-2 vessel, deviated septum repaired, cystoscopies x2, colonoscopy, bilateral cataract surg. Past Anesthesia/Blood Transfusion Reactions: No Reported Reaction Date of Last Stent Placement:: 11/03/18 Past Psychological History: Bipolar, Depression Smoking Status: Never smoker Past Alcohol Use History: None Reported Past Drug Use History: None Reported - Past Family History Father Additional Family Medical History / Comment(s): Father was a "drinker and a smoker". He at the age of 55 yrs from cerebral hemorhage Mother Additional Family Medical History / Comment(s): Mother at the age of 92yrs. General Exam Limitations: no limitations General appearance: alert, in no apparent distress Head exam: Present: atraumatic, normocephalic Eye exam: Present: normal appearance, PERRL, EOMI. Absent: nystagmus ENT exam: Present: mucous membranes dry Neck exam: Present: normal inspection. Absent: tenderness, meningismus Respiratory exam: Present: normal lung sounds bilaterally Cardiovascular Exam: Present: irregular rhythm GI/Abdominal exam: Present: soft. Absent: tenderness Extremities exam: Present: tenderness (Left proximal humerus. Decreased range of motion left shoulder secondary to pain. Distally the extremity is neurovascular intact.) Back exam: Present: normal inspection. Absent: tenderness, vertebral tenderness Neurological exam: Present: alert, CN II-XII intact Expanded Speech: Present: fluid speech Cranial nerves: EOM's Intact: Normal Motor strength exam: RUE: 5, RLE: 3 (Reported as normal), LLE: 2/1 (Reported as normal) Eye Response: (4) open spontaneously Motor Response: (6) obeys commands Verbal Response: (5) oriented Psychiatric exam: Present: normal affect, normal mood Skin exam: Present: normal color Course Vital Signs 01/27/24 01/27/24 10:15 11:15 Temperature 97.7 F Pulse Rate 104 H 81 Respiratory 20 18 Rate Blood Pressure 132/74 122/73 O2 Sat by Pulse 97 98 Oximetry EKG Findings - EKG Results: EKG: interpreted by ERMD (Left axis. LVH.), normal ST/T EKG shows: atrial fibrillation Medical Decision Making - Medical Decision Making Was pt. sent in by a medical professional or institution (, [facility]INDE, DELIVERY SPECIALIST, urgent care, hospital, or senior living...) When possible be specific @ -No Did you speak to anyone other than the patient for history (EMS, parent, family, police, friend...)? What history was obtained from this source @ - arrives and provides additional history the patient is fully dependent on his walker and will be unable to function at home Did you review nursing and triage notes (agree or disagree)? Why? @ -I reviewed and agree with nursing and triage notes Were old charts reviewed (outside hosp., previous admission, EMS record, old EKG, old radiological studies, urgent care reports/EKG's, senior living records)? Report findings @ -No old charts were reviewed Differential Diagnosis (chest pain, altered mental status, abdominal pain women, abdominal pain men, vaginal bleeding, weakness, fever, dyspnea, syncope, headache, dizziness, GI bleed, back pain, seizure, CVA, palpatations, mental health, musculoskeletal)? @ -Differential Musculoskeletal Muscular strain, contusion, ligament sprain, fracture, arthritis, septic arthritis, bursitis, cellulitis, muscle spasm, nerve compression, DVT, arterial occlusion, herpes zoster, electrolyte abnormality, tumor.... This is not meant to be in all inclusive list EKG interpreted by me (3pts min.). @ -As above X-rays interpreted by me (1pt min.). @ -Left humerus x-ray shows proximal humerus fracture CT interpreted by me (1pt min.). @ -CT brain reveals no acute abnormality U/S interpreted by me (1pt. min.). @ -None done What testing was considered but not performed or refused? (CT, X-rays, U/S, labs)? Why? @ -None What meds were considered but not given or refused? Why? @ -None Did you discuss the management of the patient with other professionals (professionals i.e. , PA, DELIVERY SPECIALIST, lab, RT, psych nurse, socially responsible investment adviser, research and development technician, teacher, industrial relations officer, case manager specialist)? Give summary @ -Case discussed with Dr. Luna who does feel patient will need admission for probable placement. Case also discussed with Malorie with orthopedics who will admit covering Dr. Martino Was smoking cessation discussed for >3mins.? @ -No Was critical care preformed (if so, how long)? @ -No Were there social determinants of health that impacted care today? How? (Homelessness, low income, unemployed, alcoholism, drug addiction, transportation, low edu. Level, literacy, decrease access to med. care, prison, rehab)? @ -No Was there de-escalation of care discussed even if they declined (Discuss DNR or withdrawal of care, Hospice)? DNR status @ -No What co-morbidities impacted this encounter? (DM, HTN, Smoking, COPD, CAD, Cance r, CVA, ARF, Chemo, Hep., AIDS, mental health diagnosis, sleep apnea, morbid obesity)? @ -Patient is dependent upon walker for mobility Was patient admitted / discharged? Hospital course, mention meds given and route, prescriptions, significant lab abnormalities, going to OR and other pertinent info. @ -Patient presents with fall on thinners. Patient struck his head however CT brain unremarkable. Patient does have proximal humerus fracture and unable to take care of self at home secondary to dependency on walker. Patient will need placement. Admission orders written. Undiagnosed new problem with uncertain prognosis? @ -No Drug Therapy requiring intensive monitoring for toxicity (Heparin, Nitro, Insulin, Cardizem)? @ -No Were any procedures done? @ -No Diagnosis/symptom? @Proximal humerus fracture, fall Acute, or Chronic, or Acute on Chronic? @ -Acute, acute Uncomplicated (without systemic symptoms) or Complicated (systemic symptoms)? @ -Complicated with inability to take care of himself at home Side effects of treatment? @ -No Exacerbation, Progression, or Severe Exacerbation? @ -No Poses a threat to life or bodily function? How? (Chest pain, [place], [place], pneumonia, PE, COPD, DKA, ARF, appy, cholecystitis, CVA, Diverticulitis, Homicidal, Suicidal, threat to staff... and all critical care pts) @ -Threat to mobility Disposition Clinical Impression: Fall, Closed fracture of left proximal humerus Disposition: ADMITTED IP TO THIS HOSP Is patient prescribed a controlled substance at d/c from ED?: No Referrals: Dedra Alanis MD [Primary Care Provider] - 1-2 days Time of Disposition: 11:43
--- NOTE | 2024-01-27 11:02 | CT ---
EXAMINATION TYPE: CT brain wo con DATE OF EXAM: 01/27/2024 COMPARISON: 01/20/2022 CLINICAL INDICATION: Male, 83 years old with history of fall; PHH, fall, pt is on blood thinners no L OC CT DLP: 1129.4 mGycm Automated exposure control for dose reduction was used. Findings: The ventricles, basal cisterns and sulci over convexities are moderately enlarged consistent with mod erate generalized atrophy, appropriate for the patient's age. There is moderate to marked decreased density in the periventricular white matter consistent with chr onic ischemic white matter demyelination. There are multiple stable remote lacunar infarcts in the ba gomez ganglia bilaterally. There is no mass effect or shift of midline structures. There is no acute intra or extra-axial hemorrhage. The posterior fossa including the brainstem, fourth ventricle and cerebellopontine angles appear hernando sly normal. The intraorbital contents appear normal symmetric Mild chronic maxillary sinusitis. Calvarium is intact. IMPRESSION: 1. Age appropriate senescent changes as described above. 2. No significant interval change. 3. No acute bleed or mass effect. 4. Multiple stable remote lacunar infarcts in the basal ganglia bilaterally. [facility], Workstation: [facility], 01/27/2024 11:00 AM
--- NOTE | 2024-01-27 11:03 | XR ---
Left humerus. HISTORY: Pain following fall. COMPARISON: None. TECHNIQUE: 2 views of the left humerus are obtained. FINDINGS: There is a mildly displaced fractures through the cervical neck of the left humerus. There is moderate osteopenia. There is no soft tissue abnormality. IMPRESSION: Fracture of the proximal left humerus as described above. [facility], Workstation: [facility], 01/27/2024 11:01 AM
--- NOTE | 2024-01-27 11:06 | XR ---
EXAMINATION TYPE: XR chest 1V portable DATE OF EXAM: 01/27/2024 COMPARISON: 11/05/2018 HISTORY: Chest pain following fall TECHNIQUE: Single frontal view of the chest is obtained. FINDINGS: There is median sternotomy wires. There are small bilateral pleural effusions. The interstitial amalia ngs are indistinct raising the question mild pulmonary vascular congestion. The heart size is promine nt. There is no pneumothorax. There is a comminuted displaced fracture of the left humeral head. IMPRESSION: 1. Findings suggestive of mild CHF. 2. Comminuted moderately displaced fracture of the left humeral head. [facility], Workstation: [facility], 01/27/2024 11:03 AM
[2024-01-27] MEDS ORDERED: NALOXONE 0.4 MG/ML 1 ML VIAL IV PRN (11:43)
[2024-01-27 12:23] LABS: Anisocytosis Slight; Basophils % (A) 0 %; Eosinophils # (A) 0.2 k/uL (0-0.7); Eosinophils % (A) 2 %; HCT 38.1 % (39.0-53.0); HGB 11.7 gm/dL (13.0-17.5); Hypochromasia Moderate; Lymphocytes # (A) 1.2 k/uL (1.0-4.8); Lymphocytes % (A) 10 %; MCH 25.6 pg (25.0-35.0); MCHC 30.7 g/dL (31.0-37.0); MCV 83.5 fL (80.0-100.0); Mean Platelet Volume 7.1; Monocytes # (A) 0.6 k/uL (0-1.0); Monocytes % (A) 5 %; Neutrophils # (A) 10.1 k/uL (1.3-7.7); Neutrophils % (A) 82 %; Platelet Count 321 k/uL (150-450); RBC 4.57 m/uL (4.30-5.90); RDW 17.8 % (11.5-15.5); WBC 12.3 k/uL (3.8-10.6)
[2024-01-27] MEDS: traMADol 50 MG TAB PO PRN (12:27)
[2024-01-27 12:56] LABS: African American GFR (CKD) >90 (>60 ml/min/1.73 sqM); Anion Gap 2 mmol/L; Blood Urea Nitrogen 26 mg/dL (9-20); Calcium 8.2 mg/dL (8.4-10.2); Carbon Dioxide 23 mmol/L (22-30); Chloride 113 mmol/L (98-107); Glucose 122 mg/dL (74-99); Non-African American GFR(CKD) 80 (>60 ml/min/1.73 sqM); Sodium 138 mmol/L (137-145)
[2024-01-27 13:32] LABS: Potassium 4.9 mmol/L (3.5-5.1)
--- NOTE | 2024-01-27 15:20 | XR ---
EXAMINATION TYPE: XR shoulder complete LT DATE OF EXAM: 01/27/2024 3:07 PM INDICATION: Patient age:Male; 83 years old; Reason for study: left proximal humerus fracture; COMPARISON: Left humerus radiographs 01/27/2024 TECHNIQUE: The left shoulder was examined in AP and scapular Y projections. . FINDINGS: Diffuse bone demineralization. Acute displaced comminuted fracture through the surgical neck of the p roximal left humerus redemonstrated from earlier radiograph. No dislocation. Surrounding soft tissue swelling. Arthropathy of the AC joint. Small left pleural effusion with perihilar vascular congestion identified within the visualized porti on of the chest again. IMPRESSION: 1. Redemonstration of acute mildly displaced comminuted fracture through the surgical neck of the le ft humerus. 2. Findings suggestive of CHF exacerbation redemonstrated. [facility], , 01/27/2024 3:18 PM
[2024-01-27] MEDS: MORPHINE SULFATE 4 MG/ML SYRINGE IV PRN (15:40)
[2024-01-27] MEDS: cycloSPORINE 0.05% OPHTH 0.4 ML DROPERETTE BOTH EYES SCH (19:43)
[2024-01-27] MEDS: TAMSULOSIN 0.4 MG CAP.ER.24H PO SCH (20:21)
[2024-01-27] MEDS: APIXABAN 2.5 MG TABLET PO SCH (20:21)
[2024-01-27] MEDS: METOPROLOL TARTRATE 25 MG TAB PO SCH (20:22)
[2024-01-27] MEDS: ATORVASTATIN 80 MG TAB PO SCH (20:23)
[2024-01-27] MEDS: VALSARTAN 160 MG TAB PO SCH (20:23)
[2024-01-27] MEDS: TROSPIUM CHLORIDE 20 MG TABLET PO SCH (20:23)
[2024-01-27] MEDS: DICYCLOMINE 20 MG TAB PO SCH (20:23)
[2024-01-27] MEDS: TRIAMCINOLONE 0.1% CREAM 80 GM TUBE TOPICAL SCH (20:24)
[2024-01-27] MEDS: CHLORHEXIDINE GLUCONATE 15 ML CUP MUCOUS MEM SCH (20:38)
[2024-01-27] MEDS: METOPROLOL TARTRATE 50 MG TAB PO STA (22:20)
[2024-01-28] MEDS: DILTIAZEM 125 MG in SODIUM CHLORIDE 0.9% 100 ML IV SCH (00:02)
[2024-01-28] MEDS: DAPAGLIFLOZIN PROPANEDIOL 10 MG TABLET PO SCH (08:03)
[2024-01-28] MEDS: PANTOPRAZOLE 40 MG TABLET PO SCH (08:03)
[2024-01-28] MEDS: CITALOPRAM HYDROBROMIDE 20 MG TAB PO SCH (08:04)
[2024-01-28] MEDS: LORATADINE 10 MG TAB PO SCH (08:04)
[2024-01-28] MEDS: FLUTICASONE NASAL 50MCG/SPRAY 16GM BTL EA NOSTRIL SCH (08:06)
--- NOTE | 2024-01-28 08:37 | XR ---
EXAMINATION TYPE: XR shoulder limited LT DATE OF EXAM: 01/28/2024 COMPARISON: NONE CLINICAL INDICATION: Male, 83 years old with history of proximal humerus fracture; TECHNIQUE: One view are submitted. FINDINGS: Displaced comminuted humeral neck fracture extending into the proximal diaphysis of the humerus stabl e. Generalized osteopenia. Glenohumeral joint and AC joint arthropathy. IMPRESSION: 1. Stable comminuted fracture proximal humerus. [facility], , 01/28/2024 8:35 AM
[2024-01-28] MEDS: METOPROLOL TARTRATE 50 MG TAB PO SCH (09:40)
--- NOTE | 2024-01-28 10:00 | P.HPOR ---
History of Present Illness H&P Date: 01/28/24 Chief Complaint: Left shoulder pain s/p fall The patient is an 83-year-old male with past medical history including coronary artery disease, CVA, diabetes, hypertension, and A-fib, who presented to the emergency department at [facility] after sustaining a fall at home yesterday. He states that he was walking into his bedroom tripped and fell. He was using a walker at that time. The patient does live with his in their own home and occasionally uses a walker. The patient was found to have left shoulder pain upon x-rays in the emergency department with a proximal humerus fracture was found. Orthopedics was consulted for further evaluation and admission for probable subacute rehab placement. He is currently on Eliquis. This morning, the patient was evaluated in the ED. He states his pain is controlled to the left shoulder. He states he did hit his head during the fall. A head CT was completed that revealed no acute bleed or fractures. The patient is awaiting a bed upstairs. 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 History of Any Multi-Drug Resistant Organisms: None Reported Past Surgical History: Adenoidectomy, Coronary Bypass/CABG, Heart Ca theterization, Heart Catheterization With Stent, Tonsillectomy Additional Past Surgical History / Comment(s): 11/13/15 Cardiac cath, 11/21/15 CABG-2 vessel, deviated septum repaired, cystoscopies x2, colonoscopy, bilateral cataract surg. Past Anesthesia/Blood Transfusion Reactions: No Reported Reaction Date of Last Stent Placement:: 11/03/18 Past Psychological History: Bipolar, Depression Smoking Status: Never smoker Past Alcohol Use History: None Reported Past Drug Use History: None Reported - Past Family History Father Additional Family Medical History / Comment(s): Father was a "drinker and a smoker". He at the age of 55 yrs from cerebral hemorhage Mother Additional Family Medical History / Comment(s): Mother at the age of 92yrs. Medications and Allergies Home Medications Medication Instructions Recorded Confirmed Type Tamsulosin [Flomax] 0.4 mg PO HS cap.er.24h 11/26/15 01/27/24 Rx Fluticasone Nasal [place] [Flonase 1 spray EA NOSTRIL DAILY 12/30/16 01/27/24 Hi story Nasal [place]] Pantoprazole Sodium [Protonix] 40 mg PO DAILY 12/30/16 01/27/24 History Valsartan 160 mg PO HS 10/28/18 01/27/24 History Citalopram Hydrobromide [CeleXA] 20 mg PO DAILY 11/05/18 01/27/24 History Metoprolol Tartrate [Lopressor] 25 mg PO BID 11/05/18 01/27/24 History Chlorhexidine Gluconate [Peridex] 15 ml PO BID 08/13/21 01/27/24 History Dicyclomine [Bentyl] 20 mg PO HS 08/13/21 01/27/24 History Loratadine [Claritin] 10 mg PO DAILY 08/13/21 01/27/24 History Mometasone Furoate [Elocon 0.1% 1 applic TOPICAL HS 08/13/21 01/27/24 History Top Soln] Triamcinolone 0.1% Cream [Kenalog 1 applicatio TOPICAL Q48H 08/13/21 01/27/24 History 0.1% Cream] cycloSPORINE 0.05% OPHTH SOLN 1 drop BOTH EYES Q12H 08/13/21 01/27/24 History [Restasis] Apixaban [Eliquis] 2.5 mg PO BID 01/27/24 01/27/24 History Fesoterodine Fumarate 8 mg PO HS 01/27/24 01/27/24 History [Fesoterodine Fumarate ER] Rosuvastatin Calcium [Crestor] 40 mg PO HS 01/27/24 01/27/24 History Allergies Allergy/AdvReac Type Severity Reaction Status Date / Time erythromycin base AdvReac Nausea & Verified 01/27/24 11:50 Vomiting Physical Examination The patient is a pleasant 83-year-old male in no acute distress. He is alert and oriented 3. The patient's head is normocephalic and atraumatic. Exam of the cervical spine reveals no pain upon palpation or range of motion. Tenderness distinctly over the left proximal humerus. Patient unwilling/unable to actively rotate, flex, extend, or abduct arm. Elbow range of motion is normal, without tenderness. Positive evolving ecchymosis over the upper arm and elbow area, however, no focal tenderness. Sensation intact over medial and lateral forearm, thenar region, hypothenar region, mid-palm, dorsal 1st web space, lateral dorsal hand, and fingertips. Brachial and radial pulses are 2+. Capillary refill in all fingertips is less than 2 seconds. No trophic skin changes. No ulceration. Skin is healthy, pink, and warm. Shoulder ROM today not tested. Results X-rays of the left shoulder and humerus reveals a comminuted and displaced proximal humerus fracture - Labs Labs: Abnormal Lab Results - Last 24 Hours (Table) 01/27/24 01/27/24 Range/Units 12:12 12:12 WBC 12.3 H (3.8-10.6) k/uL Hgb 11.7 L (13.0-17.5) gm/dL Hct 38.1 L (39.0-53.0) % MCHC 30.7 L (31.0-37.0) g/dL RDW 17.8 H (11.5-15.5) % Neutrophils # 10.1 H (1.3-7.7) k/uL Chloride 113 H (98-107) mmol/L BUN 26 H (9-20) mg/dL Glucose 122 H (74-99) mg/dL Calcium 8.2 L (8.4-10.2) mg/dL H & H 01/27/24 Range/Units 12:12 Hgb 11.7 L (13.0-17.5) gm/dL Hct 38.1 L (39.0-53.0) % Result Diagrams: 01/27/24 12:12 01/27/24 12:12 Assessment and Plan (1) Diabetes mellitus Current Visit: Yes Status: Acute Code(s): E11.9 - TYPE 2 DIABETES MELLITUS WITHOUT COMPLICATIONS SNOMED Code(s): 08058614 (2) Closed fracture of left proximal humerus Current Visit: Yes Status: Acute Code(s): S42.202A - UNSP FRACTURE OF UPPER END OF LEFT HUMERUS, INIT FOR CLOS FX SNOMED Code(s): 51929912 (3) Fall Current Visit: Yes Status: Acute Code(s): W19.XXXA - UNSPECIFIED FALL, INITIAL ENCOUNTER SNOMED Code(s): 3700596 (4) Chronic atrial fibrillation Current Visit: No Status: Acute Code(s): I48.20 - CHRONIC ATRIAL FIBRILLATION, UNSPECIFIED SNOMED Code(s): 755752748 (5) Coronary artery disease Current Visit: No Status: Acute Priority: High Code(s): I25.10 - ATHSCL HEART DISEASE OF [place] CORONARY ARTERY W/O ANG PCTRS SNOMED Code(s): 48280283 (6) History of CVA (cerebrovascular accident) Current Visit: No Status: Acute Code(s): Z86.73 - PRSNL HX OF TIA (TIA), AND CEREB INFRC W/O RESID DEFICITS SNOMED Code(s): 935450941 Plan: The clinical and x-ray findings were discussed with the patient. The case was discussed with Dr. Martino. Treatment recommendations were outlined. Based on his x-rays, surgical treatment is not indicated. He is to continue in the arm sling at this time. The patient may come out of the sling to work on gentle ROM of the elbow when he is ready. He was told of potential for developing bruising in the arm and chest. Ice the shoulder. The patient was told of the potential for developing shoulder stiffness following an injury of this type. He will likely need subacute rehab placement upon discharge from the hospital. Internal medicine, PT, and OT have been consulted. We will continue to follow closely. Patient was seen and examined independently this evening, I agree with the above history physical and plan for this patient. Given the overall alignment and minimal displacement of his fracture conservative treatment will be undertaken for this patient. Given his need for walker ambulation at baseline he will likely need some form of acute rehab facility until his fracture has healed and he is able to utilize a walker again. Will plan to see patient in our office in 3 weeks time to assess for fracture healing.
--- NOTE | 2024-01-28 10:04 | P.CRDCN ---
History of Present Illness Consult date: 01/28/24 Reason for Consult (text): Atrial fibrillation, humerus fracture History of present illness: This is a 83-year-old male patient of Dr. Webb with past medical history of coronary artery disease status post stent and CABG, ischemic cardiomyopathy, hypertension, dyslipidemia, diabetes mellitus type 2, persistent atrial fibrillation on Eliquis. We have been asked to evaluate the patient for atrial fibrillation with humerus fracture. Patient presented to the emergency center following a fall where he slipped with his walker and landed on his left arm. Patient was found to have a left humerus fracture. Patient denies having any lightheadedness or dizziness. He is not normally on home oxygen therapy. Discussed case with orthopedic surgery with no plan for any surgical intervention. Patient has been on Cardizem drip at 5 mg/h. Heart rate 86, blood pressure 103/63, pulse ox 96% on 2 L nasal cannula. Patient's heart rate was running in the 120s 130s overnight. Patient is seen today in the emergency center waiting for bed on the cardiac stepdown unit. EKG: #1 atrial fibrillation but ventricular rate of 91 bpm, #2 atrial fibr illation at 126 bpm Chest x-ray: Findings suggestive of mild CHF. CT brain: Age-appropriate changes. Left humerus: Fracture of the proximal left humerus. Shoulder x-ray left: Acute mildly displaced comminuted fracture through the surgical neck of the left humerus. Laboratory studies: WBC 12.3, hemoglobin 9.7, platelet count 321. Sodium 138, potassium 4.9, BUN 26 and creatinine 0.86. Home cardiac medications: Eliquis 2.5 mg twice daily, Lopressor 25 mg twice daily, Crestor 40 mg at bedtime, valsartan 160 mg at bedtime, Jardiance 10 mg daily. Echocardiogram performed in the office on 07/14/2023 revealed EF 35 to 40% with large hypokinetic areas of the anterior, anterior lateral, inferior lateral and anterior septal centeno. Medium sized actinic areas in the inferior and inferior septal centeno from the base to the mid wall. Small hypokinetic area in the inferior wall at the apex. Left ventricular filling cannot be assessed due to atrial fibrillation. Mild left ventricular hypertrophy. Severely dilated left atrium, mildly dilated right atrium. Moderate aortic regurgitation. Aortic va lve is calcified. Moderate to severe MR, mild to moderate TR, PASP normal at 24 mmHg. Moderate to severe pulmonic regurgitation. CV surgery: 11/21/2015 two-vessel CABG with LOPEZ to LAD, VG to PDA. PCI 08/15/2021 with stent ramus. Review Of Systems: At the time of my exam: CONSTITUTIONAL: Denies fever or chills. Reports generalized weakness. HEENT: Denies blurred vision, vision changes, or eye pain. Denies hemoptysis CARDIOVASCULAR: Denies chest pain. Denies orthopnea. Denies PND. Denies palpit ations RESPIRATORY: Denies shortness of breath. GASTROINTESTINAL: Denies abdominal pain. Denies nausea or vomiting. HEMATOLOGIC: Denies bleeding disorders. GENITOURINARY: Denies any blood in urine. SKIN: Denies puritis. Denies rash. Physical examination: Gen: This is an 83-year-old male in no acute distress VS: reviewed HEENT: Head is atraumatic, normocephalic. Pupils equal, round. Sclerae is anicteric. NECK: Supple. No JVD. LUNGS: Clear to auscultation. No wheezes or rhonchi. No intercostal retractions. HEART: Irregular rate and rhythm. 2/6 systolic ejection murmur. ABDOMEN: Soft No tenderness. EXTREMITIES: Mild pedal edema. No calf tenderness. NEUROLOGICAL: Patient is awake, alert and oriented x3. Assessment: Persistent atrial fibrillation presenting with RVR, currently rate controlled Humerus fracture Coronary artery disease with previous CABG and stent Ischemic cardiomyopathy with EF 37% Hypertension Hyperlipidemia Diabetes mellitus type 2 Plan: Resume patient's home cardiac medications as above Discontinue Cardizem drip Increase Lopressor to 50 mg twice daily No need to obtain echocardiogram as this was done in June Continue Eliquis as orthopedics is not planning for surgical intervention Further recommendations to follow based upon clinical course Thank you kindly for this consultation. Nurse practitioner note has been reviewed, I agree with documented findings and plan of care. Patient was seen and examined. 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 History of Any Multi-Drug Resistant Organisms: None Reported Past Surgical History: Adenoidectomy, Coronary Bypass/CABG, Heart Catheterization, Heart Catheterization With Stent, Tonsillectomy Additional Past Surgical History / Comment(s): 11/13/15 Cardiac cath, 11/21/15 CABG-2 vessel, deviated septum repaired, cystoscopies x2, colonoscopy, bilateral cataract surg. Past Anesthesia/Blood Transfusion Reactions: No Reported Reaction Date of Last Stent Placement:: 11/03/18 Past Psychological History: Bipolar, Depression Smoking Status: Never smoker Past Alcohol Use History: None Reported Past Drug Use History: None Reported - Past Family History Father Additional Family Medical History / Comment(s): Father was a "drinker and a smoker". He at the age of 55 yrs from cerebral hemorhage Mother Additional Family Medical History / Comment(s): Mother at the age of 92yrs. Medications and Allergies Home Medications Medication Instructions Recorded Confirmed Type Tamsulosin [Flomax] 0.4 mg PO HS cap.er.24h 11/26/15 01/27/24 Rx Fluticasone Nasal [place] [Flonase 1 spray EA NOSTRIL DAILY 12/30/16 01/27/24 History Nasal [place]] Pantoprazole Sodium [Protonix] 40 mg PO DAILY 12/30/16 01/27/24 History Valsartan 160 mg PO HS 10/28/18 01/27/24 History Citalopram Hydrobromide [CeleXA] 20 mg PO DAILY 11/05/18 01/27/24 History Metoprolol Tartrate [Lopressor] 25 mg PO BID 11/05/18 01/27/24 History Chlorhexidine Gluconate [Peridex] 15 ml PO BID 08/13/21 01/27/24 History Dicyclomine [Bentyl] 20 mg PO HS 08/13/21 01/27/24 History Loratadine [Claritin] 10 mg PO DAILY 08/13/21 01/27/24 History Mometasone Furoate [Elocon 0.1% 1 applic TOPICAL HS 08/13/21 01/27/24 History Top Soln] Triamcinolone 0.1% Cream [Kenalog 1 applicatio TOPICAL Q48H 08/13/21 01/27/24 Hi story 0.1% Cream] cycloSPORINE 0.05% OPHTH SOLN 1 drop BOTH EYES Q12H 08/13/21 01/27/24 History [Restasis] Apixaban [Eliquis] 2.5 mg PO BID 01/27/24 01/27/24 History Fesoterodine Fumarate 8 mg PO HS 01/27/24 01/27/24 History [Fesoterodine Fumarate ER] Rosuvastatin Calcium [Crestor] 40 mg PO HS 01/27/24 01/27/24 History Allergies Allergy/AdvReac Type Severity Reaction Status Date / Time erythromycin base AdvReac Nausea & Verified 01/27/24 11:50 Vomiting Physical Exam Vitals: Vital Signs Temp Pulse Resp BP Pulse Ox 01/28/24 02:00 86 12 103/63 96 01/28/24 00:00 120 H 21 116/79 95 01/27/24 22:00 133 H 12 98/74 96 01/27/24 20:00 117 H 25 H 124/93 96 01/27/24 18:15 121 H 20 143/76 96 01/27/24 15:52 96 01/27/24 15:50 88 L 01/27/24 13:17 102 H 16 134/74 96 01/27/24 11:15 81 18 122/73 98 01/27/24 10:15 97.7 F 104 H 20 132/74 97 Results 01/27/24 12:12 01/27/24 12:12 CBC 01/27/24 Range/Units 12:12 WBC 12.3 H (3.8-10.6) k/uL RBC 4.57 (4.30-5.90) m/uL Hgb 11.7 L (13.0-17.5) gm/dL Hct 38.1 L (39.0-53.0) % Plt Count 321 (150-450) k/uL Comprehensive Metabolic Panel 01/27/24 Range/Units 12:12 Sodium 138 (137-145) mmol/L Potassium 4.9 (3.5-5.1) mmol/L Chloride 113 H (98-107) mmol/L Carbon Dioxide 23 (22-30) mmol/L BUN 26 H (9-20) mg/dL Creatinine 0.86 (0.66-1.25) mg/dL Glucose 122 H (74-99) mg/dL Calcium 8.2 L (8.4-10.2) mg/dL Current Medications Generic Name Dose Route Start Last Admin Trade Name Freq PRN Reason Stop Dose Admin Acetaminophen 650 mg 01/27/24 11:43 Acetaminophen Tab 325 Mg Tab PO Q6HR PRN Mild Pain or Fever > 100.5 Apixaban 2.5 mg 01/27/24 21:00 01/27/24 20:21 Apixaban 2.5 Mg Tablet PO 2.5 mg BID JUAN Administration Protocol Atorvastatin Calcium 80 mg 01/27/24 21:00 01/27/24 20:23 Atorvastatin 80 Mg Tab PO 80 mg HS JUAN Administration Chlorhexidine Gluconate 15 ml 01/27/24 21:00 01/27/24 20:38 Chlorhexidine Gluconate 15 Ml Cup MUCOUS MEM 15 ml BID JUAN Administration Citalopram Hydrobromide 20 mg 01/28/24 09:00 Citalopram Hydrobromide 20 Mg Tab PO DAILY JUAN Cyclosporine 1 drops 01/27/24 19:00 01/27/24 19:43 Cyclosporine 0.05% Ophth 0.4 Ml Droperette BOTH EYES 1 drops Q12H JUAN Administration Dicyclomine HCl 20 mg 01/27/24 21:00 01/27/24 20:23 Dicyclomine 20 Mg Tab PO 20 mg HS JUAN Administration Fluticasone Propionate 1 spray 01/28/24 09:00 Fluticasone Nasal 50mcg/[place] 16gm Btl EA NOSTRIL DAILY JUAN Diltiazem HCl 125 mg/ Sodium 125 mls @ 5 mls/hr 01/27/24 23:45 01/28/24 00:02 Chloride IV 5 mg/hr .Q24H JUAN 5 mls/hr Administration 5 MG/HR Loratadine 10 mg 01/28/24 09:00 Loratadine 10 Mg Tab PO DAILY JUAN Metoprolol Tartrate 25 mg 01/27/24 21:00 01/27/24 20:22 Metoprolol Tartrate 25 Mg Tab PO 25 mg BID JUAN Administration Morphine Sulfate 4 mg 01/27/24 11:43 01/27/24 19:46 Morphine Sulfate 4 Mg/Ml Syringe IV 4 mg Q4HR PRN Administration Severe Pain (Scale 7 to 10) Naloxone HCl 0.2 mg 01/27/24 11:43 Naloxone 0.4 Mg/Ml 1 Ml Vial IV Q2M PRN Opioid Reversal Pantoprazole Sodium 40 mg 01/28/24 07:30 Pantoprazole 40 Mg Tablet PO AC-BRKFST JUAN Tamsulosin HCl 0.4 mg 01/27/24 21:00 01/27/24 20:21 Tamsulosin 0.4 Mg Cap.Er.24h PO 0.4 mg HS JUAN Administration Tramadol HCl 50 mg 01/27/24 11:43 01/27/24 18:25 Tramadol 50 Mg Tab PO 50 mg Q6H PRN Administration Moderate Pain (Scale 4 to 6) Triamcinolone Acetonide 1 applic 01/27/24 21:00 01/27/24 20:24 Triamcinolone 0.1% Cream 80 Gm Tube TOPICAL 1 applic HS JUAN Administration Trospium 20 mg 01/27/24 21:00 01/27/24 20:23 Trospium Chloride 20 Mg Tablet PO 20 mg BID JUAN Administration Valsartan 160 mg 01/27/24 21:00 01/27/24 20:23 Valsartan 160 Mg Tab PO 160 mg HS JUAN Administration 01/27/24 12:12 01/27/24 12:12
--- NOTE | 2024-01-28 11:55 | P.HPIM ---
History of Present Illness H&P Date: 01/27/24 Chief Complaint: Status post a fall with left proximal humerus fracture HISTORY OF PRESENT ILLNESS: This is an 83-year-old male 1 [place] patient with a previous medical history significant for coronary artery disease status post triple-vessel disease including 100% occlusion of the LAD 90% occlusion of the ramus status post PCI in July 2021, total occlusion of the RCA, hypertension and hypertensive cardiovascular disease, mixed hyperlipidemia, enlarged prostate, 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 especially in the left foot, has been ambulating using a walker on a regular basis, apparently the patient slipped and fell landed on the left side of his body, he had suffered from tremendous amount of pain in the left shoulder, he was brought into the emergency department at [facility], had a chest x- ray that showed minimal congestive heart failure, his shoulder x-ray showed evidence of left proximal mildly displaced humerus fracture, but the patient because he is not able to ambulate very well because he has to use his walker due to his fragility and because his prior stroke he was kept in the hospital for evaluation by orthopedic surgery as well as physical therapy evaluation for safety purposes as the patient is on anticoagulation, patient did have a CT scan of the brain did not show evidence of acute infarct or bleed, did show some small vessel disease, patient will be seen and evaluated by physical therapy as well as director social service for discharge planning tomorrow morning. REVIEW OF SYSTEMS: Constitutional: No documented fever, no chills, no night sweats. No weight change. No weakness, fatigue or lethargy. No daytime sleepiness. EENT: No headache. No blurred vision or double vision, no loss of vision. hard of Hearing, no ringing in the ears, no dizziness. No nasal drainage or congestion. No epistaxis. No sore throat. Lungs: No shortness of breath, no cough, no sputum production. No wheezing. Reports dyspnea with activity. Cardiovascular: No chest pain, no lower extremity edema. No palpitations. No paroxysmal nocturnal dyspnea. No orthopnea. No lightheadedness or dizziness. No syncopal episodes. Abdominal: Reports abdominal pain. No nausea, vomiting. No diarrhea. No constipation. No bloody or tarry stools reports loss of appetite. Genitourinary: No dysuria, increased frequency, urgency. No urinary retention. Musculoskeletal: No myalgias. No muscle weakness, positive for gait dysfunction, no frequent falls. No back pain. No neck pain., left arm /shoulder pain Integumentary: No wounds, no lesions. No rash or pruritus. No unusual bruising . No change in hair or nails. Neurologic: No aphasia. No facial droop. No change in mentation. No head injury. No headache. No paralysis. No paresthesia. Psychiatric: No depression. No anxiety. No mood swings. Endocrine: No abnormal blood sugars. No weight change. PAST MEDICAL HISTORY: Coronary artery disease status post PCI of the ramus July 2021. Hypertension and hypertensive cardiovascular disease. Mixed hyperlipidemia. Enlarged prostate. Paroxysmal atrial fibrillation. CVA with left-sided weakness. GERD with esophagitis. Osteoporosis. Gait dysfunction. Depression. PAST SURGICAL HISTORY: Left heart catheterization with PCI x 3 in 2018. Left heart catheterization with PCI times one of the ramus in 2021. Bilateral cataract surgery. Colonoscopy 2018. CABG x 1 in 2015. Tonsillectomy and adenoidectomy. SOCIAL HISTORY: Patient is a lifelong non-smoker, he denies any alcohol ingestion, he denies any drug drug use or abuse, he lives with his , he uses a walker for ambulation. FAMILY HISTORY: Father at the age of 61 from COPD and alcohol and he did have a history of hypertension, mother at the age of 91 from CAD, patient had 2 brothers 1 at the age of 86 from CAD, patient has 1 son alive and well, patient has 1 daughter alive and well. PHYSICAL EXAMINATION: General: 83-year-old male laying down in bed in minimal distress. HEENT: Head is atraumatic, normocephalic, pupils were equal round reactive to light and recommendation, extraocular muscle movement were intact, sclera nonicteric, conjunctivae were pale, mucous membranes of the mouth are somewhat dry. Neck: Supple, no JVP, normal carotid upstroke bilaterally, no lymphadenopathy. Chest: Decreased breath sounds at the bases, few rhonchi, no expiratory wheezes, no chest wall tenderness, no intercostal retractions. Heart: First heart sound is normal, second heart sounds normal there is systolic ejection murmur 2/6 located left sternal border irregularly irregular, Abdomen: Soft, nontender, nondistended, positive bowel sounds. Extremities: There is no edema no calf tenderness DP +2 bilaterally, left upper extremity in sling. Neurologic examination: Patient is awake alert and oriented x3, cranial nerves II-12 appear grossly intact, muscle power were 4 out of 5 in right upper extremity and right lower extremity, and 3 out of 5 in the left lower extremity and could not be performed to the left upper extremity due to the fractured humerus. . ASSESSMENT AND PLAN: 1. Status post a fall with left proximal humerus fracture mildly displaced. Keep the patient in sling, continue with current pain management, physical therapy evaluation tomorrow morning, director social service consultation for discharge planning, orthopedic surgery consultation appreciated. 2. Coronary artery disease status post CABG x 1 followed by PCI in 2019 as well as in 2021 . Continue patient on metoprolol 25 mg orally twice every day, valsartan 160 mg once every day, continue rosuvastatin 40 mg once every day or substitute, monitor the patient lipid panel, keep LDL 55-70, 3. Hypertension and hypertensive cardiovascular disease. Continue valsartan 160 mg once every day, continue metoprolol 25 mg orally twice every day monitor the patient blood pressure very closely. 4. Mixed hyperlipidemia. Continue patient on rosuvastatin 40 mg once every day orally substitute atorvastatin 80 mg once every day, monitor lipid panel, keep LDL 55-70. 5. History of CVA with residual left-sided weakness. Continue patient on statin physical therapy evaluation tomorrow morning. 6. Enlarged prostate. Continue tamsulosin 0.4 mg once every day. 7. Paroxysmal atrial fibrillation. Continue Eliquis 5 mg orally twice every day, metoprolol 25 mg orally twice every day, 8. Chronic diastolic heart failure. Continue patient on metoprolol 25 mg orally twice every day, continue valsartan 160 mg once every day, continue Jardiance 10 mg orally once every day. 9. Depression. Continue citalopram 20 mg orally once every day. 10. DVT prophylaxis. Continue patient on Eliquis 5 mg orally twice every day. 11. GI prophylaxis. Continue patient on pantoprazole 40 mg once every day. 12. Admit to inpatient. Estimated length of stay 2 midnights. 13. Patient is full code. 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 History of Any Multi-Drug Resistant Organisms: None Reported Past Surgical History: Adenoidectomy, Coronary Bypass/CABG, Heart Catheterization, Heart Catheterization With Stent, Tonsillectomy Additional Past Surgical History / Comment(s): 11/13/15 Cardiac cath, 11/21/15 CABG-2 vessel, deviated septum repaired, cystoscopies x2, colonoscopy, bilateral cataract surg. Past Anesthesia/Blood Transfusion Reactions: No Reported Reaction Date of Last Stent Placement:: 11/03/18 Past Psychological History: Bipolar, Depression Smoking Status: Never smoker Past Alcohol Use History: None Reported Past Drug Use History: None Reported - Past Family History Father Additional Family Medical History / Comment(s): Father was a "drinker and a smoker". He at the age of 55 yrs from cerebral hemorhage Mother Additional Family Medical History / Comment(s): Mother at the age of 92yrs. Medications and Allergies Home Medications Medication Instructions Recorded Confirmed Type Tamsulosin [Flomax] 0.4 mg PO HS cap.er.24h 11/26/15 01/27/24 Rx Fluticasone Nasal [place] [Flonase 1 spray EA NOSTRIL DAILY 12/30/16 01/27/24 History Nasal [place]] Pantoprazole Sodium [Protonix] 40 mg PO DAILY 12/30/16 01/27/24 History Valsartan 160 mg PO HS 10/28/18 01/27/24 History Citalopram Hydrobromide [CeleXA] 20 mg PO DAILY 11/05/18 01/27/24 History Metoprolol Tartrate [Lopressor] 25 mg PO BID 11/05/18 01/27/24 History Chlorhexidine Gluconate [Peridex] 15 ml PO BID 08/13/21 01/27/24 History Dicyclomine [Bentyl] 20 mg PO HS 08/13/21 01/27/24 History Loratadine [Claritin] 10 mg PO DAILY 08/13/21 01/27/24 History Mometasone Furoate [Elocon 0.1% 1 applic TOPICAL HS 08/13/21 01/27/24 History Top Soln] Triamcinolone 0.1% Cream [Kenalog 1 applicatio TOPICAL Q48H 08/13/21 01/27/24 History 0.1% Cream] cycloSPORINE 0.05% OPHTH SOLN 1 drop BOTH EYES Q12H 08/13/21 01/27/24 History [Restasis] Apixaban [Eliquis] 2.5 mg PO BID 01/27/24 01/27/24 History Fesoterodine Fumarate 8 mg PO HS 01/27/24 01/27/24 History [Fesoterodine Fumarate ER] Rosuvastatin Calcium [Crestor] 40 mg PO HS 01/27/24 01/27/24 History Allergies Allergy/AdvReac Type Severity Reaction Status Date / Time erythromycin base AdvReac Nausea & Verified 01/27/24 11:50 Vomiting Physical Exam Vitals: Vital Signs Temp Pulse Resp BP Pulse Ox 01/27/24 18:15 121 H 20 143/76 96 01/27/24 15:52 96 01/27/24 15:50 88 L 01/27/24 13:17 102 H 16 134/74 96 01/27/24 11:15 81 18 122/73 98 01/27/24 10:15 97.7 F 104 H 20 132/74 97 Intake and Output 01/27/24 01/27/24 01/27/24 06:59 14:59 22:59 Other: Weight 61.235 kg Results CBC & Chem 7: 01/27/24 12:12 01/27/24 12:12 Labs: Abnormal Lab Results - Last 24 Hours (Table) 01/27/24 01/27/24 Range/Units 12:12 12:12 WBC 12.3 H (3.8-10.6) k/uL Hgb 11.7 L (13.0-17.5) gm/dL Hct 38.1 L (39.0-53.0) % MCHC 30.7 L (31.0-37.0) g/dL RDW 17.8 H (11.5-15.5) % Neutrophils # 10.1 H (1.3-7.7) k/uL Chloride 113 H (98-107) mmol/L BUN 26 H (9-20) mg/dL Glucose 122 H (74-99) mg/dL Calcium 8.2 L (8.4-10.2) mg/dL
[2024-01-28] MEDS: ACETAMINOPHEN TAB 325 MG TAB PO PRN (13:59)
[2024-01-28] MEDS: HYDROcodone/APAP 5-325MG 1 EACH TAB PO PRN (20:36)
--- NOTE | 2024-01-29 08:01 | P.PN ---
Subjective Progress Note Date: 01/29/24 Principal diagnosis: Left proximal humerus fracture The patient is an 83-year-old male with past medical history including coronary artery disease, CVA, diabetes, hypertension, and A-fib, who presented to the emergency department at [facility] after sustaining a fall at home yesterday. He states that he was walking into his bedroom tripped and fell. He was using a walker at that time. The patient does live with his in their own home and occasionally uses a walker. The patient was found to have left shoulder pain upon x-rays in the emergency department with a proximal humerus fracture was found. Orthopedics was consulted for further evaluation and admiss ion for probable subacute rehab placement. He is currently on Eliquis. 01/29/2024: The patient was evaluated at the bedside this morning. He states his pain is controlled to the left shoulder. We are awaiting evaluation from PT and OT. Objective - Vital Signs Vital signs: Vital Signs Temp 98.4 F 01/28/24 20:30 Pulse 123 H 01/29/24 04:00 Resp 18 01/29/24 04:00 BP 125/64 01/29/24 04:00 Pulse Ox 96 01/29/24 04:00 FiO2 Intake & Output 01/28/24 01/29/24 01/29/24 18:59 06:59 18:59 Intake Total 240 10 Output Total 425 Balance 240 -415 Weight 61.235 kg Intake: IV 10 Invasive Line 2 10 Oral 240 Output: Urine 425 Other: Voiding Method Diaper Diaper External Catheter External Catheter - Exam The patient is a pleasant 83-year-old male in no acute distress. He is alert and oriented 3. The patient's head is normocephalic and atraumatic. Exam of the cervical spine reveals no pain upon palpation or range of motion. Tenderness distinctly over the left proximal humerus. Patient unwilling/unable to actively rotate, flex, extend, or abduct arm. Elbow range of motion is normal, without tenderness. Positive evolving ecchymosis over the upper arm and elbow area, however, no focal tenderness. Sensation intact over medial and lateral forearm, thenar region, hypothenar region, mid-palm, dorsal 1st web space, lateral dorsal hand, and fingertips. Brachial and radial pulses are 2+. Capillary refill in all fingertips is less than 2 seconds. No trophic skin changes. No ulceration. Skin is healthy, pink, and warm. Shoulder ROM today not tested. - Labs CBC & Chem 7: 01/27/24 12:12 01/27/24 12:12 Assessment and Plan (1) Diabetes mellitus Current Visit: Yes Status: Acute Code(s): E11.9 - TYPE 2 DIABETES MELLITUS WITHOUT COMPLICATIONS SNOMED Code(s): 30184872 (2) Closed fracture of left proximal humerus Current Visit: Yes Status: Acute Code(s): S42.202A - UNSP FRACTURE OF UPPER END OF LEFT HUMERUS, INIT FOR CLOS FX SNOMED Code(s): 97125593 (3) Fall Current Visit: Yes Status: Acute Code(s): W19.XXXA - UNSPECIFIED FALL, INITIAL ENCOUNTER SNOMED Code(s): 9999745 (4) Chronic atrial fibrillation Current Visit: No Status: Acute Code(s): I48.20 - CHRONIC ATRIAL FIBR ILLATION, UNSPECIFIED SNOMED Code(s): 858557127 (5) Coronary artery disease Current Visit: No Status: Acute Priority: High Code(s): I25.10 - ATHSCL H EART DISEASE OF [place] CORONARY ARTERY W/O ANG PCTRS SNOMED Code(s): 39736314 (6) History of CVA (cerebrovascular accident) Current Visit: No Status: Acute Code(s): Z86.73 - PRSNL HX OF TIA (TIA), AND CEREB INFRC W/O RESID DEFICITS SNOMED Code(s): 360495428 Plan: The clinical and x-ray findings were discussed with the patient. The case was discussed with Dr. Martino. Treatment recommendations were outlined. Based on his x-rays, surgical treatment is not indicated. He is to continue in the arm sling at this time. The patient may come out of the sling to work on gentle ROM of the elbow when he is ready. He was told of potential for developing bruising in the arm and chest. Ice the shoulder. The patient was told of the potential for developing shoulder stiffness following an injury of this type. He will likely need subacute rehab placement upon discharge from the hospital. Continue pain control. Internal medicine, PT, and OT have been consulted. We will continue to follow closely. Agree with the above progress notes, patient is currently awaiting PT evaluations to determine definitive placement upon discharge.
[2024-01-29] MEDS: SODIUM CHLORIDE 0.9% 1,000 ML IV SCH (16:41)
--- NOTE | 2024-01-30 08:47 | P.PN ---
Subjective Progress Note Date: 01/28/24 HISTORY OF PRESENT ILLNESS: This is an 83-year-old male 1 [place] patient with a previous medical hi story significant for coronary artery disease status post triple-vessel disease including 100% occlusion of the LAD 90% occlusion of the ramus status post PCI in July 2021, total occlusion of the RCA, hypertension and hypertensive cardiovascular disease, mixed hyperlipidemia, enlarged prostate, 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 especially in the left foot, has been ambulating using a walker on a regular basis, apparently the patient slipped and fell landed on the left side of his body, he had suffered from tremendous amount of pain in the left shoulder, he was brought into the emergency department at [facility], had a chest x-ray that showed minimal congestive heart failure, his shoulder x-ray showed evidence of left proximal mildly displaced humerus fracture, but the patient because he is not able to ambulate very well because he has to use his walker due to his fragility and because his prior stroke he was kept in the hospital for evaluation by orthopedic surgery as well as physical therapy evaluation for safety purposes as the patient is on anticoagulation, patient did have a CT scan of the brain did not show evidence of acute infarct or bleed, did show some small vessel disease, patient will be seen and evaluated by physical therapy as well as school social worker for discharge planning tomorrow morning. 01/27: Patient is laying down in bed in no apparent distress he denies any chest pain, or any shortness of breath, he continues to have some pain in the left shoulder, he continues to have a sling in the left upper extremity, he has been seen by orthopedic surgery continue with conservative management at this point, physical therapy evaluation, school social worker consultation for discharge planning, his family was at the bedside they were updated about his current condition, patient uses a walker for ambulation, encourage oral intake of food and fluid REVIEW OF SYSTEMS: Constitutional: No documented fever, no chills, no night sweats. No weight change. No weakness, fatigue or lethargy. No daytime sleepiness. EENT: No headache. No blurred vision or double vision, no loss of vision. hard of Hearing, no ringing in the ears, no dizziness. No nasal drainage or congestion. No epistaxis. No sore throat. Lungs: No shortness of breath, no cough, no sputum production. No wheezing. Reports dyspnea with activity. Cardiovascular: No chest pain, no lower extremity edema. No palpitations. No paroxysmal nocturnal dyspnea. No orthopnea. No lightheadedness or dizziness. No syncopal episodes. Abdominal: Reports no abdominal pain. No nausea, vomiting. No diarrhea. No constipation. No bloody or tarry stools reports loss of appetite. Genitourinary: No dysuria, increased frequency, urgency. No urinary retention. Musculoskeletal: No myalgias. No muscle weakness, positive for gait dysfunction, no frequent falls. No back pain. No neck pain., left arm /shoulder pain Integumentary: No wounds, no lesions. No rash or pruritus. No unusual bruising. No change in hair or nails. Neurologic: No aphasia. No facial droop. No change in mentation. No head injury. No headache. No paralysis. No paresthesia. Psychiatric: No depression. No anxiety. No mood swings. Endocrine: No abnormal blood sugars. No weight change. PHYSICAL EXAMINATION: General: 83-year-old male laying down in bed in minimal distress. HEENT: Head is atraumatic, normocephalic, pupils were equal round reactive to light and recommendation, extraocular muscle movement were intact, sclera nonicteric, conjunctivae were pale, mucous membranes of the mouth are somewhat dry. Neck: Supple, no JVP, normal carotid upstroke bilaterally, no lymphadenopathy. Chest: Decreased breath sounds at the bases, few rhonchi, no expiratory wheezes, no chest wall tenderness, no intercostal retractions. Heart: First heart sound is normal, second heart sounds normal there is systolic ejection murmur 2/6 located left sternal border irregularly irregular, Abdomen: Soft, nontender, nondistended, positive bowel sounds. Extremities: There is no edema no calf tenderness DP +2 bilaterally, left upper extremity in sling. Neurologic examination: Patient is awake alert and oriented x3, cranial nerves II-12 appear grossly intact, muscle power were 4 out of 5 in right upper extremity and right lower extremity, and 3 out of 5 in the left lower extremity and could not be performed to the left upper extremity due to the fractured h umerus. . ASSESSMENT AND PLAN: 1. Status post a fall with left proximal humerus fracture mildly displaced. Keep the patient in sling, continue with current pain management, physical therapy evaluation , school social worker consultation for discharge planning, orthopedic surgery consultation appreciated. 2. Coronary artery disease status post CABG x 1 followed by PCI in 2019 as well as in 2021 . Continue patient on metoprolol 25 mg orally twice every day, valsartan 160 mg once every day, continue rosuvastatin 40 mg once every day or substitute, monitor the patient lipid panel, keep LDL 55-70, 3. Hypertension and hypertensive cardiovascular disease. Continue valsartan 160 mg once every day, continue metoprolol 25 mg orally twice every day monitor the patient blood pressure very closely. 4. Mixed hyperlipidemia. Continue patient on rosuvastatin 40 mg once every day orally substitute atorvastatin 80 mg once every day, monitor lipid panel, keep LDL 55-70. 5. History of CVA with residual left-sided weakness. Continue patient on statin physical therapy evaluation tomorrow morning. 6. Enlarged prostate. Continue tamsulosin 0.4 mg once every day. 7. Paroxysmal atrial fibrillation. Continue Eliquis 5 mg orally twice every day, metoprolol 25 mg orally twice every day, 8. Chronic diastolic heart failure. Continue patient on metoprolol 25 mg orally twice every day, continue valsartan 160 mg once every day, continue Jardiance 10 mg orally once every day. 9. Depression. Continue citalopram 20 mg orally once every day. 10. DVT prophylaxis. Continue patient on Eliquis 5 mg orally twice every day. 11. GI prophylaxis. Continue patient on pantoprazole 40 mg once every day. 12. Subacute rehabilitation. Objective - Vital Signs Vital signs: Vital Signs Temp 97.7 F 01/27/24 10:15 Pulse 75 01/28/24 11:00 Resp 20 01/28/24 11:00 BP 121/64 01/28/24 11:00 Pulse Ox 98 01/28/24 11:00 FiO2 Intake & Output 01/27/24 01/28/24 01/28/24 18:59 06:59 18:59 Weight 61.235 kg - Labs CBC & Chem 7: 01/27/24 12:12 01/27/24 12:12 Labs: Abnormal Lab Results - Last 24 Hours (Table) 01/27/24 01/27/24 Range/Units 12:12 12:12 WBC 12.3 H (3.8-10.6) k/uL Hgb 11.7 L (13.0-17.5) gm/dL Hct 38.1 L (39.0-53.0) % MCHC 30.7 L (31.0-37.0) g/dL RDW 17.8 H (11.5-15.5) % Neutrophils # 10.1 H (1.3-7.7) k/uL Chloride 113 H (98-107) mmol/L BUN 26 H (9-20) mg/dL Glucose 122 H (74-99) mg/dL Calcium 8.2 L (8.4-10.2) mg/dL
--- NOTE | 2024-01-30 08:49 | P.PN ---
Subjective Progress Note Date: 01/29/24 HISTORY OF PRESENT ILLNESS: This is an 83-year-old male 1 [place] patient with a previous medical hi story significant for coronary artery disease status post triple-vessel disease including 100% occlusion of the LAD 90% occlusion of the ramus status post PCI in July 2021, total occlusion of the RCA, hypertension and hypertensive cardiovascular disease, mixed hyperlipidemia, enlarged prostate, 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 especially in the left foot, has been ambulating using a walker on a regular basis, apparently the patient slipped and fell landed on the left side of his body, he had suffered from tremendous amount of pain in the left shoulder, he was brought into the emergency department at [facility], had a chest x-ray that showed minimal congestive heart failure, his shoulder x-ray showed evidence of left proximal mildly displaced humerus fracture, but the patient because he is not able to ambulate very well because he has to use his walker due to his fragility and because his prior stroke he was kept in the hospital for evaluation by orthopedic surgery as well as physical therapy evaluation for safety purposes as the patient is on anticoagulation, patient did have a CT scan of the brain did not show evidence of acute infarct or bleed, did show some small vessel disease, patient will be seen and evaluated by physical therapy as well as social media content specialist for discharge planning tomorrow morning. 01/27: Patient is laying down in bed in no apparent distress he denies any chest pain, or any shortness of breath, he continues to have some pain in the left shoulder, he continues to have a sling in the left upper extremity, he has been seen by orthopedic surgery continue with conservative management at this point, physical therapy evaluation, social media content specialist consultation for discharge planning, his family was at the bedside they were updated about his current condition, patient uses a walker for ambulation, encourage oral intake of food and fluid 01/28: Patient is sitting up in bed he appears to be quite drowsy today his mouth is very dry, his son was at the bedside, patient not drinking or eating much, will start the patient on IV fluid resuscitation in the form of normal saline at 50 cc an hour, monitor the patient input and output, patient continues to be in some amount of pain, he has been taking his pain medication, physical therapy evaluation still pending, patient will likely require subacute rehabilitation at this point in time, his son wanted his father to go to [facility] if possible a con sult for social media content specialist and physical therapies in place REVIEW OF SYSTEMS: Constitutional: No documented fever, no chills, no night sweats. No weight change. No weakness, fatigue or lethargy. No daytime sleepiness. EENT: No headache. No blurred vision or double vision, no loss of vision. hard of Hearing, no ringing in the ears, no dizziness. No nasal drainage or congestion. No epistaxis. No sore throat. Lungs: No shortness of breath, no cough, no sputum production. No wheezing. Reports dyspnea with activity. Cardiovascular: No chest pain, no lower extremity edema. No palpitations. No paroxysmal nocturnal dyspnea. No orthopnea. No lightheadedness or dizziness. No syncopal episodes. Abdominal: Reports no abdominal pain. No nausea, vomiting. No diarrhea. No constipation. No bloody or tarry stools reports loss of appetite. Genitourinary: No dysuria, increased frequency, urgency. No urinary retention. Musculoskeletal: No myalgias. No muscle weakness, positive for gait dysfunction, no frequent falls. No back pain. No neck pain., left arm /shoulder pain Integumentary: No wounds, no lesions. No rash or pruritus. No unusual bruising. No change in hair or nails. Neurologic: No aphasia. No facial droop. No change in mentation. No head injury. No headache. No paralysis. No paresthesia. Psychiatric: No depression. No anxiety. No mood swings. Endocrine: No abnormal blood sugars. No weight change. PHYSICAL EXAMINATION: General: 83-year-old male laying down in bed in minimal distress. HEENT: Head is atraumatic, normocephalic, pupils were equal round reactive to light and recommendation, extraocular muscle movement were intact, sclera nonicteric, conjunctivae were pale, mucous membranes of the mouth are somewhat dry. Neck: Supple, no JVP, normal carotid upstroke bilaterally, no lymphadenopathy. Chest: Decreased breath sounds at the bases, few rhonchi, no expiratory wheezes, no chest wall tenderness, no intercostal retractions. Heart: First heart sound is normal, second heart sounds normal there is systolic ejection murmur 2/6 located left sternal border irregularly irregular, Abdomen: Soft, nontender, nondistended, positive bowel sounds. Extremities: There is no edema no calf tenderness DP +2 bilaterally, left upper extremity in sling. Neurologic examination: Patient is awake alert and oriented x3, cranial nerves II-12 appear grossly intact, muscle power were 4 out of 5 in right upper extremity and right lower extremity, and 3 out of 5 in the left lower extremity and could not be performed to the left upper extremity due to the fractured humerus. . ASSESSMENT AND PLAN: 1. Status post a fall with left proximal humerus fracture mildly displaced. Keep the patient in sling, continue with current pain management, physical therapy evaluation , social media content specialist consultation for discharge planning, orthopedic surgery consultation appreciated. 2. Coronary artery disease status post CABG x 1 followed by PCI in 2019 as well as in 2021 . Continue patient on metoprolol 25 mg orally twice every day, valsartan 160 mg once every day, continue rosuvastatin 40 mg once every day or substitute, monitor the patient lipid panel, keep LDL 55-70, 3. Hypertension and hypertensive cardiovascular disease. Continue valsartan 160 mg once every day, continue metoprolol 25 mg orally twice every day monitor the patient blood pressure very closely. 4. Mixed hyperlipidemia. Continue patient on rosuvastatin 40 mg once every day orally substitute atorvastatin 80 mg once every day, monitor lipid panel, keep LDL 55-70. 5. History of CVA with residual left-sided weakness. Continue patient on statin physical therapy evaluation tomorrow morning. 6. Enlarged prostate. Continue tamsulosin 0.4 mg once every day. 7. Paroxysmal atrial fibrillation. Continue Eliquis 5 mg orally twice every day, metoprolol 25 mg orally twice every day, 8. Chronic diastolic heart failure. Continue patient on metoprolol 25 mg orally twice every day, continue valsartan 160 mg once every day, continue Jardiance 10 mg orally once every day. 9. Depression. Continue citalopram 20 mg orally once every day. 10. DVT prophylaxis. Continue patient on Eliquis 5 mg orally twice every day. 11. GI prophylaxis. Continue patient on pantoprazole 40 mg once every day. 12. Poor oral intake . Start the patient on IV fluid in the form of normal saline at 50 cc an hour, monitor the patient input and output monitor for symptoms of heart failure. 13. Disposition likely subacute rehabilitation possibly [facility]. Objective - Vital Signs Vital signs: Vital Signs Temp 97.7 F 01/30/24 03:12 Pulse 84 01/30/24 03:12 Resp 18 01/30/24 03:12 BP 94/58 01/30/24 03:12 Pulse Ox 95 01/30/24 03:12 FiO2 Intake & Output 01/29/24 01/30/24 01/30/24 18:59 06:59 18:59 Intake Total 720 120 Output Total 300 650 Balance 420 -650 120 Weight 57.5 kg Intake: Oral 720 120 Output: Urine 300 650 Uretheral ([place]) 500 Other: Voiding Method Diaper Diaper External Catheter External Catheter - Labs CBC & Chem 7: 01/27/24 12:12 01/27/24 12:12
--- NOTE | 2024-01-30 09:39 | P.PN ---
Subjective Progress Note Date: 01/30/24 Principal diagnosis: Left proximal humerus fracture The patient is an 83-year-old male with past medical history including coronary artery disease, CVA, diabetes, hypertension, and A-fib, who presented to the emergency department at [facility] after sustaining a fall at home yesterday. He states that he was walking into his bedroom tripped and fell. He was using a walker at that time. The patient does live with his in their own home and occasionally uses a walker. The patient was found to have left shoulder pain upon x-rays in the emergency department with a proximal humerus fracture was found. Orthopedics was consulted for further evaluation and admiss ion for probable subacute rehab placement. He is currently on Eliquis. 01/29/2024: The patient was evaluated at the bedside this morning. He states his pain is controlled to the left shoulder. We are awaiting evaluation from PT and OT. 01/30/2024: The patient was evaluated at the bedside this morning. He states his pain is controlled to the left shoulder. He appears confused this morning. We ar e awaiting evaluation from PT and OT. Objective - Vital Signs Vital signs: Vital Signs Temp 98.1 F 01/30/24 08:00 Pulse 98 01/30/24 08:00 Resp 18 01/30/24 08:00 BP 98/57 01/30/24 08:00 Pulse Ox 97 01/30/24 08:00 FiO2 Intake & Output 01/29/24 01/30/24 01/30/24 18:59 06:59 18:59 Intake Total 720 120 Output Total 300 650 Balance 420 -650 120 Weight 57.5 kg Intake: Oral 720 120 Output: Urine 300 650 Uretheral ([place]) 500 Other: Voiding Method Diaper Diaper Diaper External Catheter External Catheter External Catheter - Exam The patient is a pleasant 83-year-old male in no acute distress. He is alert and oriented 3. The patient's head is normocephalic and atraumatic. Exam of the cervical spine reveals no pain upon palpation or range of motion. Tenderness distinctly over the left proximal humerus. Patient unwilling/unable to actively rotate, flex, extend, or abduct arm. Elbow range of motion is normal, without tenderness. Positive evolving ecchymosis over the upper arm and elbow area, however, no focal tenderness. Sensation intact over medial and lateral forearm, thenar region, hypothenar region, mid-palm, dorsal 1st web space, lateral dorsal hand, and fingertips. Brachial and radial pulses are 2+. Capillary refill in all fingertips is less than 2 seconds. No trophic skin changes. No ulceration. Skin is healthy, pink, and warm. Shoulder ROM today not tested. - Labs CBC & Chem 7: 01/27/24 12:12 01/27/24 12:12 Assessment and Plan (1) Diabetes mellitus Current Visit: Yes Status: Acute Code(s): E11.9 - TYPE 2 DIABETES MELLITUS WITHOUT COMPLICATIONS SNOMED Code(s): 84547776 (2) Closed fracture of left proximal humerus Current Visit: Yes Status: Acute Code(s): S42.202A - UNSP FRACTURE OF UPPER END OF LEFT HUMERUS, INIT FOR CLOS FX SNOMED Code(s): 91113894 (3) Fall Current Visit: Yes Status: Acute Code(s): W19.XXXA - UNSPECIFIED FALL, INITIAL ENCOUNTER SNOMED Code(s): 6622116 (4) Chronic atrial fibrillation Current Visit: No Status: Acute Code(s): I48.20 - CHRONIC ATRIAL FIBRILLATION, UNSPECIFIED SNOMED Code(s): 973402313 (5) Coronary artery disease Current Visit: No Status: Acute Priority: High Code(s): I25.10 - ATHSCL HEART DISEASE OF [place] CORONARY ARTERY W/O ANG PCTRS SNOMED Code(s): 94400831 (6) History of CVA (cerebrovascular accident) Current Visit: No Status: Acute Code(s): Z86.73 - PRSNL HX OF TIA (TIA), AND CEREB INFRC W/O RESID DEFICITS SNOMED Code(s): 933354580 Plan: The clinical and x-ray findings were discussed with the patient. The case was discussed with Dr. Martino. Treatment recommendations were outlined. Based on his x-rays, surgical treatment is not indicated. He is to continue in the arm sling at this time. The patient may come out of the sling to work on gentle ROM of the elbow when he is ready. He was told of potential for developing bruising in the arm and chest. Ice the shoulder. The patient was told of the potential for developing shoulder stiffness following an injury of this type. He will likely need subacute rehab placement upon discharge from the hospital. Continue pain control. Internal medicine, PT, and OT have been consulted. We will continue to follow closely.
[2024-01-30 11:25] LABS: Anisocytosis Slight; Basophils # (A) 0.1 k/uL (0-0.2); Basophils % (A) 1 %; Eosinophils # (A) 0.5 k/uL (0-0.7); Eosinophils % (A) 5 %; HCT 36.2 % (39.0-53.0); HGB 11.1 gm/dL (13.0-17.5); Hypochromasia Marked; Lymphocytes # (A) 1.3 k/uL (1.0-4.8); Lymphocytes % (A) 11 %; MCH 25.9 pg (25.0-35.0); MCHC 30.7 g/dL (31.0-37.0); MCV 84.4 fL (80.0-100.0); Mean Platelet Volume 7.1; Monocytes # (A) 0.8 k/uL (0-1.0); Monocytes % (A) 7 %; Neutrophils # (A) 8.6 k/uL (1.3-7.7); Neutrophils % (A) 75 %; Platelet Count 365 k/uL (150-450); RBC 4.29 m/uL (4.30-5.90); RDW 17.5 % (11.5-15.5); WBC 11.5 k/uL (3.8-10.6)
[2024-01-30 11:35] LABS: ALT 18 U/L (4-49); AST 24 U/L (17-59); African American GFR (CKD) 72 (>60 ml/min/1.73 sqM); Albumin 2.3 g/dL (3.5-5.0); Alkaline Phosphatase 213 U/L (38-126); Anion Gap 1 mmol/L; Blood Urea Nitrogen 34 mg/dL (9-20); Calcium 8.1 mg/dL (8.4-10.2); Carbon Dioxide 22 mmol/L (22-30); Chloride 113 mmol/L (98-107); Glucose 101 mg/dL (74-99); Magnesium 2.1 mg/dL (1.6-2.3); Non-African American GFR(CKD) 63 (>60 ml/min/1.73 sqM); Potassium 4.8 mmol/L (3.5-5.1); Sodium 136 mmol/L (137-145); Total Bilirubin 0.7 mg/dL (0.2-1.3); Total Protein 5.1 g/dL (6.3-8.2)
--- NOTE | 2024-01-30 13:01 | P.PN ---
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 especially in the left foot, has been ambulating using a walker on a regular basis, apparently the patient slipped and fell landed on the left side of his body, he had suffered from tremendous amount of pain in the left shoulder, he was brought into the emergency department at [facility], had a chest x-ray that showed minimal congestive heart failure, his shoulder x-ray showed evidence of left proximal mildly displaced humerus fracture, but the patient because he is not able to ambulate very well because he has to use his walker due to his fragility and because his prior stroke he was kept in the hospital for evaluation by orthopedic surgery as well as physical therapy evaluation for safety purposes as the patient is on anticoagulation, patient did have a CT scan of the brain did not show evidence of acute infarct or bleed, did show some small vessel disease, patient will be seen and evaluated by physical therapy as well as manager social work for discharge planning tomorrow morning. 01/27: Patient is laying down in bed in no apparent distress he denies any chest pain, or any shortness of breath, he continues to have some pain in the left shoulder, he continues to have a sling in the left upper extremity, he has been seen by orthopedic surgery continue with conservative management at this point, physical therapy evaluation, manager social work consultation for discharge planning, his family was at the bedside they were updated about his current condition, patient uses a walker for ambulation, encourage oral intake of food and fluid 01/28: Patient is sitting up in bed he appears to be quite drowsy today his mouth is very dry, his son was at the bedside, patient not drinking or eating much, will start the patient on IV fluid resuscitation in the form of normal saline at 50 cc an hour, monitor the patient input and output, patient continues to be in some amount of pain, he has been taking his pain medication, physical therapy evaluation still pending, patient will likely require subacute rehabilitation at this point in time, his son wanted his father to go to [facility] if possible a con sult for manager social work and physical therapies in place 01/29: His IV fluid was infiltrated to the right upper extremity yesterday, his right arm is quite swollen no erythema just edema, it was switched to the left hand, he denies any chest pain he continues to be dry, he denies any shortness of breath, he has no coughing or hemoptysis, he has no abdominal pain, he has not had a bowel movement yesterday just a small 1 yesterday, I will start the patient on Colace 100 mg orally twice every day as well as MiraLAX 17 g in 8 ounce of water once every day, physical therapy evaluation tomorrow morning, manager social work consultation for discharge planning. REVIEW OF SYSTEMS: Constitutional: No documented fever, no chills, no night sweats. No weight change. No weakness, fatigue or lethargy. No daytime sleepiness. EENT: No headache. No blurred vision or double vision, no loss of vision. hard of Hearing, no ringing in the ears, no dizziness. No nasal drainage or congestion. No epistaxis. No sore throat. Lungs: No shortness of breath, occasional cough, no sputum production. No wheezing. Reports dyspnea with activity. Cardiovascular: No chest pain, no lower extremity edema. No palpitations. No paroxysmal nocturnal dyspnea. No orthopnea. No lightheadedness or dizziness. No syncopal episodes. Abdominal: Reports no abdominal pain. No nausea, vomiting. No diarrhea. positive for constipation. No bloody or tarry stools reports loss of appetite. Genitourinary: No dysuria, increased frequency, urgency. No urinary retention. Musculoskeletal: No myalgias. No muscle weakness, positive for gait dysfunction, no frequent falls. No back pain. No neck pain., left arm /shoulder pain Integumentary: No wounds, no lesions. No rash or pruritus. No unusual bruising. No change in hair or nails. Neurologic: No aphasia. No facial droop. No change in mentation. No head injury. No headache. No paralysis. No paresthesia. Psychiatric: No depression. No anxiety. No mood swings. Endocrine: No abnormal blood sugars. No weight change. PHYSICAL EXAMINATION: General: 83-year-old male laying down in bed in minimal distress. HEENT: Head is atraumatic, normocephalic, pupils were equal round reactive to light and recommendation, extraocular muscle movement were intact, sclera nonicteric, conjunctivae were pale, mucous membranes of the mouth are somewhat dry. Neck: Supple, no JVP, normal carotid upstroke bilaterally, no lymphadenopathy. Chest: Decreased breath sounds at the bases, few rhonchi, no expiratory wheezes, no chest wall tenderness, no intercostal retractions. Heart: First heart sound is normal, second heart sounds normal there is systolic ejection murmur 2/6 located left sternal border irregularly irregular, Abdomen: Soft, nontender, nondistended, positive bowel sounds. Extremities: There is no edema no calf tenderness DP +2 bilaterally, left upper extremity in sling, right upper extremity with edema Neurologic examination: Patient is awake alert and oriented x3, cranial nerves II-12 appear grossly intact, muscle power were 4 out of 5 in right upper extremity and right lower extremity, and 3 out of 5 in the left lower extremity and could not be performed to the left upper extremity due to the fractured humerus. . ASSESSMENT AND PLAN: 1. Status post a fall with left proximal humerus fracture mildly displaced. Keep the patient in sling, continue with current pain management, physical therapy evaluation , manager social work consultation for discharge planning, orthopedic surgery consultation appreciated. 2. Coronary artery disease status post CABG x 1 followed by PCI in 2019 as well as in 2021 . Continue patient on metoprolol 25 mg orally twice every day, valsartan 160 mg once every day, continue rosuvastatin 40 mg once every day or substitute, monitor the patient lipid panel, keep LDL 55-70, 3. Hypertension and hypertensive cardiovascular disease. Continue valsartan 160 mg once every day, continue metoprolol 25 mg orally twice every day monitor the patient blood pressure very closely. 4. Mixed hyperlipidemia. Continue patient on rosuvastatin 40 mg once every day orally substitute atorvastatin 80 mg once every day, monitor lipid panel, keep LDL 55-70. 5. History of CVA with residual left-sided weakness. Continue patient on statin physical therapy evaluation tomorrow morning. 6. Enlarged prostate. Continue tamsulosin 0.4 mg once every day. 7. Paroxysmal atrial fibrillation. Continue Eliquis 5 mg orally twice every day, metoprolol 25 mg orally twice every day, 8. Chronic diastolic heart failure. Continue patient on metoprolol 25 mg orally twice every day, continue valsartan 160 mg once every day, continue Jardiance 10 mg orally once every day. 9. Depression. Continue citalopram 20 mg orally once every day. 10. DVT prophylaxis. Continue patient on Eliquis 5 mg orally twice every day. 11. GI prophylaxis. Continue patient on pantoprazole 40 mg once every day. 12. Poor oral intake . Continue on IV fluid in the form of normal saline at 50 cc an hour, monitor the patient input and output monitor for symptoms of heart failure. 13. Moderate protein calorie malnutrition. Started the patient on Ensure twice every day with meals. 14. Disposition likely subacute rehabilitation possibly [facility]. Objective - Vital Signs Vital signs: Vital Signs Temp 97.7 F 01/30/24 03:12 Pulse 84 01/30/24 03:12 Resp 18 01/30/24 03:12 BP 94/58 01/30/24 03:12 Pulse Ox 95 01/30/24 03:12 FiO2 Intake & Output 01/29/24 01/30/24 01/30/24 18:59 06:59 18:59 Intake Total 720 120 Output Total 300 650 Balance 420 -650 120 Weight 57.5 kg Intake: Oral 720 120 Output: Urine 300 650 Uretheral (Rivera) 500 Other: Voiding Method Diaper Diaper External Catheter External Catheter - Labs CBC & Chem 7: 01/30/24 11:03 01/30/24 11:03
[2024-01-30] MEDS: polyethylene glycoL 3350 17 GM POWD.PACK PO SCH (13:22)
[2024-01-30] MEDS: DOCUSATE 100 MG CAP PO SCH (13:22)
--- NOTE | 2024-01-30 13:25 | P.PN ---
Subjective Progress Note Date: 01/30/24 This is a 83-year-old male patient of Dr. Webb with past medical history of coronary artery disease status post stent and CABG, ischemic cardiomyopathy, hypertension, dyslipidemia, diabetes mellitus type 2, persistent atrial fibrillation on Eliquis. We have been asked to evaluate the patient for atrial fibrillation with humerus fracture. Patient presented to the emergency center following a fall where he slipped with his walker and landed on his left arm. Patient was found to have a left humerus fracture. Patient denies having any lightheadedness or dizziness. He is not normally on home oxygen therapy. Discussed case with orthopedic surgery with no plan for any surgical intervention. Patient has been on Cardizem drip at 5 mg/h. Heart rate 86, blood pressure 103/63, pulse ox 96% on 2 L nasal cannula. Patient's heart rate was running in the 120s 130s overnight. Patient is seen today in the emergency center waiting for bed on the cardiac stepdown unit. EKG: #1 atrial fibrillation but ventricular rate of 91 bpm, #2 atrial fibrillation at 126 bpm Chest x-ray: Findings suggestive of mild CHF. CT brain: Age-appropriate changes. Left humerus: Fracture of the proximal left humerus. Shoulder x-ray left: Acute mildly displaced comminuted fracture through the surgical neck of the left humerus. Laboratory studies: WBC 12.3, hemoglobin 9.7, platelet count 321. Sodium 138, potassium 4.9, BUN 26 and creatinine 0.86. Home cardiac medications: Eliquis 2.5 mg twice daily, Lopressor 25 mg twice daily, Crestor 40 mg at bedtime, valsartan 160 mg at bedtime, Jardiance 10 mg daily. Echocardiogram performed in the office on 07/14/2023 revealed EF 35 to 40% with large hypokinetic areas of the anterior, anterior lateral, inferior lateral and anterior septal centeno. Medium sized actinic areas in the inferior and inferior septal centeno from the base to the mid wall. Small hypokinetic area in the inferior wall at the apex. Left ventricular filling cannot be assessed due to atrial fibrillation. Mild left ventricular hypertrophy. Severely dilated left atrium, mildly dilated right atrium. Moderate aortic regurgitation. Aortic valve is calcified. Moderate to severe MR, mild to moderate TR, PASP normal at 24 mmHg. Moderate to severe pulmonic regurgitation. CV surgery: 11/21/2015 two-vessel CABG with LOPEZ to LAD, VG to PDA. PCI 08/15/2021 with stent ramus. January 29, 2024 Patient is seen and examined at bedside. He is in atrial fibrillation but is rate controlled. He is tolerating the higher dose of Lopressor 50 mg twice daily. He is on half dose Eliquis which is appropriate for his age and weight. No concerns of active bleeding January 30, 2024 Patient continues to be in rate controlled atrial fibrillation. No new cardiovascular symptoms. Physical examination: Gen: This is an 83-year-old male in no acute distress VS: reviewed HEENT: Head is atraumatic, normocephalic. Pupils equal, round. Sclerae is anicteric. NECK: Supple. No JVD. LUNGS: Clear to auscultation. No wheezes or rhonchi. No intercostal retractions. HEART: Irregular rate and rhythm. 2/6 systolic ejection murmur. ABDOMEN: Soft No tenderness. EXTREMITIES: Mild pedal edema. No calf tenderness. NEUROLOGICAL: Patient is awake, alert and oriented x3. Assessment: Persistent atrial fibrillation presenting with RVR, currently rate controlled Humerus fracture Coronary artery disease with previous CABG and stent Ischemic cardiomyopathy with EF 37% Hypertension Hyperlipidemia Diabetes mellitus type 2 Plan: Continue Eliquis 2.5 mg twice daily, Is on Farxiga and losartan. Will continue Continue Lopressor 50 mg twice daily At this time patient is stable from cardiac standpoint. Will sign off. Please reconsult us in case of any question Objective - Vital Signs Vital signs: Vital Signs Temp 98.1 F 01/30/24 08:00 Pulse 109 H 01/30/24 12:00 Resp 16 01/30/24 12:00 BP 114/56 01/30/24 12:00 Pulse Ox 96 01/30/24 12:00 FiO2 Intake & Output 01/29/24 01/30/24 01/30/24 18:59 06:59 18:59 Intake Total 720 360 Output Total 300 650 0 Balance 420 -650 360 Weight 57.5 kg Intake: Oral 720 360 Output: Urine 300 650 0 Uretheral (Rviera) 500 Other: Voiding Method Diaper Diaper Diaper External Catheter External Catheter External Catheter - Labs CBC & Chem 7: 01/30/24 11:03 01/30/24 11:03 Labs: Abnormal Lab Results - Last 24 Hours (Table) 01/30/24 01/30/24 Range/Units 11:03 11:03 WBC 11.5 H (3.8-10.6) k/uL RBC 4.29 L (4.30-5.90) m/uL Hgb 11.1 L (13.0-17.5) gm/dL Hct 36.2 L (39.0-53.0) % MCHC 30.7 L (31.0-37.0) g/dL RDW 17.5 H (11.5-15.5) % Neutrophils # 8.6 H (1.3-7.7) k/uL Sodium 136 L (137-145) mmol/L Chloride 113 H (98-107) mmol/L BUN 34 H (9-20) mg/dL Glucose 101 H (74-99) mg/dL Calcium 8.1 L (8.4-10.2) mg/dL Alkaline Phosphatase 213 H (38-126) U/L Total Protein 5.1 L (6.3-8.2) g/dL Albumin 2.3 L (3.5-5.0) g/dL
[2024-01-30] MEDS: AMIODARONE 360 MG in DEXTROSE 5% IN WATER 200 ML IV ONE (22:16)
[2024-01-30] MEDS: DEXTROSE 5% IN WATER 100 ML with AMIODARONE 150 MG IV ONE (22:16)
[2024-01-30 22:37] LABS: Glucose,Whole Blood 122 mg/dL (70-110)
[2024-01-30] MEDS ORDERED: Magnesium Replacement Protocol 1 EACH MISC MISCELLANE PRN (22:43)
[2024-01-30] MEDS ORDERED: Potassium Replacement Protocol 1 EACH MISC MISCELLANE PRN (22:43)
[2024-01-30 23:03] LABS: Anisocytosis Slight; HCT 35.4 % (39.0-53.0); HGB 10.8 gm/dL (13.0-17.5); Hypochromasia Moderate; MCH 25.9 pg (25.0-35.0); MCHC 30.5 g/dL (31.0-37.0); MCV 84.9 fL (80.0-100.0); Mean Platelet Volume 7.7; Platelet Count 448 k/uL (150-450); RBC 4.17 m/uL (4.30-5.90); RDW 17.8 % (11.5-15.5); WBC 15.4 k/uL (3.8-10.6)
[2024-01-30 23:14] LABS: African American GFR (CKD) 67 (>60 ml/min/1.73 sqM); Anion Gap 7 mmol/L; Blood Urea Nitrogen 32 mg/dL (9-20); Calcium 8.1 mg/dL (8.4-10.2); Carbon Dioxide 21 mmol/L (22-30); Chloride 109 mmol/L (98-107); Glucose 133 mg/dL (74-99); Non-African American GFR(CKD) 58 (>60 ml/min/1.73 sqM); Potassium 4.8 mmol/L (3.5-5.1); Sodium 137 mmol/L (137-145)
[2024-01-30] MEDS: NOREPINEPHRINE 4 MG in SODIUM CHLORIDE 0.9% 250 ML IV SCH (23:15)
[2024-01-31 00:09] LABS: Allen Test Performed? Yes
--- NOTE | 2024-01-31 00:18 | XR ---
EXAM: XR Chest, 1 View CLINICAL HISTORY: ITS.REASON XR Reason: intubated/ line placement TECHNIQUE: Frontal view of the chest. COMPARISON: 01/27/2024 chest x-ray. FINDINGS: Lungs: Unremarkable. No consolidation. Pleural space: Moderate right pleural effusion. No pneumothorax. Heart: There is cardiomegaly. Mediastinum: Unremarkable. Normal mediastinal contour. Bones/joints: Osteopenia. No acute fracture. Vasculature: Atherosclerotic disease. Tubes, lines and devices: Endotracheal tube is noted in place with its distal tip approximately 1.1 cm above the nik. NG tube is noted in place with side-port above the diaphragm but its tip just below the diaphragm. Other findings: Hypoaeration. IMPRESSION: 1. Endotracheal tube distal tip is approximate 1.1 cm from the nik. Endotracheal tube should be withdrawn by 2 cm. 2. NG tube should be advanced by 8 cm are withdrawn. 3. Cardiomegaly. 4. Moderate right pleural effusion. <MYCVCSECTION> Communications: 01/31/24 00:27 Call Doctor Regarding Above results, called on 01/30 00:28 (-05:00)
[2024-01-31 00:26] LABS: Appearance,Urine Turbid (Clear); Bilirubin,Urine Negative (Negative); Blood,Urine Large (Negative); Budding Yeast,Urine Many /hpf; Color,Urine Yellow; Glucose,Urine (UA) 4+ (Negative); Hyaline Casts,Urine 25 /lpf (0-2); Ketones,Urine Negative (Negative); Leukocyte Esterase,Urine Large (Negative); Nitrite,Urine Negative (Negative); PH, Urine 5.5 (5.0-8.0); Protein,Urine 1+ (Negative); RBC,Urine 142 /hpf (0-5); Urobilinogen,Urine <2.0 mg/dL (<2.0); WBC,Urine >182 /hpf (0-5)
[2024-01-31 00:27] LABS: Bacteria,Urine Few /hpf
[2024-01-31 00:30] LABS: Specific Gravity,Urine 1.016 (1.001-1.035)
[2024-01-31] MEDS: AMIODARONE 450 MG in DEXTROSE 5% IN WATER 250 ML IV SCH (03:54)
[2024-01-31 04:50] LABS: Glucose,Whole Blood 153 mg/dL (70-110)
[2024-01-31 05:27] LABS: ABG Base Excess -0.8 mmol/L; ABG HCO3 23 mmol/L (21-25); ABG PCO2 33 mmHg (35-45); ABG PH 7.45 (7.35-7.45); ABG PO2 138 mmHg (83-108); ABG TCO2 24 mmol/L (19-24)
[2024-01-31 05:55] LABS: ABG Base Excess 0.6 mmol/L; ABG HCO3 23 mmol/L (21-25); ABG PCO2 28 mmHg (35-45); ABG PH 7.52 (7.35-7.45); ABG PO2 251 mmHg (83-108); ABG TCO2 24 mmol/L (19-24); Allen Test Performed? Yes
[2024-01-31 06:10] LABS: Anisocytosis Slight; Basophils # (A) 0.1 k/uL (0-0.2); Basophils % (A) 0 %; Eosinophils # (A) 0.1 k/uL (0-0.7); Eosinophils % (A) 0 %; HCT 33.7 % (39.0-53.0); HGB 10.8 gm/dL (13.0-17.5); Hypochromasia Slight; Lymphocytes # (A) 1.1 k/uL (1.0-4.8); Lymphocytes % (A) 6 %; MCH 26.4 pg (25.0-35.0); MCHC 32.1 g/dL (31.0-37.0); MCV 82.2 fL (80.0-100.0); Mean Platelet Volume 7.6; Monocytes # (A) 0.9 k/uL (0-1.0); Monocytes % (A) 5 %; Neutrophils # (A) 16.7 k/uL (1.3-7.7); Neutrophils % (A) 88 %; Platelet Count 362 k/uL (150-450); RDW 17.9 % (11.5-15.5); WBC 18.9 k/uL (3.8-10.6)
[2024-01-31 06:36] LABS: ALT 16 U/L (4-49); AST 27 U/L (17-59); African American GFR (CKD) 77 (>60 ml/min/1.73 sqM); Albumin 2.2 g/dL (3.5-5.0); Alkaline Phosphatase 198 U/L (38-126); Anion Gap 6 mmol/L; Blood Urea Nitrogen 30 mg/dL (9-20); Calcium 7.9 mg/dL (8.4-10.2); Carbon Dioxide 20 mmol/L (22-30); Chloride 110 mmol/L (98-107); Glucose 138 mg/dL (74-99); Non-African American GFR(CKD) 67 (>60 ml/min/1.73 sqM); Potassium 4.7 mmol/L (3.5-5.1); Sodium 136 mmol/L (137-145); Total Bilirubin 0.7 mg/dL (0.2-1.3); Total Protein 4.7 g/dL (6.3-8.2)
[2024-01-31 06:52] LABS: Glucose,Whole Blood 180 mg/dL (70-110)
--- NOTE | 2024-01-31 07:28 | XR ---
EXAMINATION TYPE: XR chest 1V DATE OF EXAM: 01/31/2024 5:11 AM COMPARISON: 01/30/2024 CLINICAL INDICATION: Male, 83 years old with history of intubated/ line placement, TECHNIQUE: XR chest 1V view(s) obtained. FINDINGS: The heart size is mildly prominent. The pulmonary vasculature is normal. Mild bibasilar infiltrates are present, greater at the right lung base. There may be a calcified granuloma within the right lower lobe. Endotracheal tube tip is 4 cm above the nik. Nasogastric tube transverses thorax. IMPRESSION: 1. Bibasilar infiltrates. 2. Lines and catheters discussed above. 3. Exam appears stable from comparison. [facility], , 01/31/2024 7:26 AM
--- NOTE | 2024-01-31 10:37 | P.PN ---
Progress Note - Text Progress Note Date: 01/31/24 Patient is examined this morning, overnight patient needed to be resuscitated after his A-fib transitioned to V. tach and a CODE BLUE was initiated. Patient required intubation for airway protection, he is currently intubated and sedated and examination is limited secondary to this. Left shoulder exam remains unchanged he has expected ecchymosis to the distal aspect of the upper arm, there does not appear to be any overt change in the alignment of his fracture there is no new deformity noted secondary to the resuscitation efforts Discussed with the ICU team that given the complexity of his medical condition at this time we will plan to have the medicine team take over the primary care of this patient. From an orthopedic standpoint patient will continue to be nonweightbearing when applicable to the left arm, maintain sling at this time within constraints needed for any resuscitative or intervention efforts ice to the left shoulder to help with swelling Orthopedics will continue to follow, please reach out with any questions.
--- NOTE | 2024-01-31 11:07 | XR ---
EXAMINATION TYPE: XR chest 1V DATE OF EXAM: 01/31/2024 10:54 AM COMPARISON: Chest radiographs from 01/31/2024 TECHNIQUE: XR chest 1V Frontal view of the chest. CLINICAL INDICATION:Male, 83 years old with history of NGT placement; FINDINGS: Patient rotated with the evaluation. Lungs/Pleura: There is no evidence of pleural effusion, or pneumothorax. Bibasilar patchy airspace op acities are similar. Right greater than left. Calcified granuloma within the right lung base redemons trated. Pulmonary vascularity: Unremarkable. Heart/mediastinum: Cardiomediastinal silhouette is prominent in size and stable. Musculoskeletal: No acute osseous pathology. Midline sternotomy wires are noted and stable. Other findings: None Lines/Tubes: Endotracheal tube with distal tip 3.2 cm above the nik Nasogastric tube with its distal tip in the stomach. The sidehole is in the region of the distal esop hagus/GE junction. IMPRESSION: 1. NG tube with distal tip in the stomach however the sidehole is in the region of the distal esopha hector/GE junction. Recommend advancement of approximately 6 cm. 2. Endotracheal tube in appropriate position. 3. Similar bibasilar patchy infiltrates with right greater than left. [facility], , 01/31/2024 11:05 AM
[2024-01-31] MEDS: PANTOPRAZOLE 40 MG/10 ML VIAL IVP SCH (11:39)
--- NOTE | 2024-01-31 11:55 | CA ---
Transthoracic Echo Report Name: Vimal Masterson Age: 83 Gender: M : 1940 Exam Date: 01/31/2024 08:07 Exam Location: [place] [facility] Ht (in): 66 Wt (lb): 126 Ordering Physician: Maryann Burk MD Attending/Referring Phys: Molder Inflated Ball Eve Jeffers RDCS Procedure CPT: Indications: Cardiac Arrest Cardiac Hx: Technical Quality: Good Contrast 1: Total Dose (mL): Contrast 2: Total Dose (mL): MEASUREMENTS (Male / Female) Normal Values 2D ECHO LV Diastolic Diameter PLAX 5.0 cm 4.2 - 5.9 / 3.9 - 5.3 cm LV Systolic Diameter PLAX 3.9 cm IVS Diastolic Thickness 0.9 cm 0.6 - 1.0 / 0.6 - 0.9 cm LVPW Diastolic Thickness 0.9 cm 0.6 - 1.0 / 0.6 - 0.9 cm LV Relative Wall Thickness 0.4 LVOT Diameter 2.4 cm LA Volume 133.4 cm??? 18 - 58 / 22 - 52 cm??? LA Volume Index 81.9 cm???/m??? 16 - 28 cm???/m??? Ascending Aorta Diameter 4.1 cm DOPPLER AV Peak Velocity 125.4 cm/s AV Peak Gradient 6.3 mmHg AV Mean Velocity 80.8 cm/s AV Mean Gradient 3.0 mmHg AV Velocity Time Integral 20.9 cm LVOT Peak Velocity 93.3 cm/s LVOT Peak Gradient 3.5 mmHg LVOT Velocity Time Integral 16.4 cm LVOT Stroke Volume 74.2 cm??? LVOT Stroke Volume Index 45.1 ml/m??? LVOT Cardiac Index 3097.7 cm???/min???m??? AV Area Cont Eq vti 3.5 cm??? AV Area Cont Eq pk 3.4 cm??? MV Area PHT 4.9 cm??? Mitral E Point Velocity 54.6 cm/s Mitral A Point Velocity 22.2 cm/s Mitral E to A Ratio 2.5 MV Deceleration Time 154.8 ms TR Peak Velocity 253.8 cm/s TR Peak Gradient 25.8 mmHg Right Atrial Pressure 20.0 mmHg Pulmonary Artery Systolic Pressu 45.8 mmHg Right Ventricular Systolic Press 45.8 mmHg PV Peak Velocity 59.9 cm/s PV Peak Gradient 1.4 mmHg FINDINGS Left Ventricle Left ventricular ejection fraction is estimated at 45-50 %. Left ventricular dilatation. Left ventricular wall thickness normal. Reduced global left ventricular systolic function. Right Ventricle Right ventricular dilatation with moderately reduced function. Moderate pulmonary hypertension. Right Atrium Severe right atrial dilatation. Left Atrium Severely increased left atrial volume. Moderately increased left atrial area. Mitral Valve Mitral valve thickened. Mitral annular calcification. No evidence for mitral valve prolapse. No mitral stenosis. Mild mitral regurgitation. Aortic Valve Trileaflet aortic valve. Aortic valve sclerosis. No aortic stenosis. Mild aortic regurgitation. Tricuspid Valve Structurally normal tricuspid valve. No tricuspid stenosis. Mild tricuspid regurgitation. Pulmonic Valve Structurally normal pulmonic valve. No pulmonic stenosis. [id number] pulmonic regurgitation. Pericardium No pericardial effusion. Aorta Moderately dilated aortic annulus. Mildly dilated proximal ascending aorta (tube). CONCLUSIONS Technically difficult study for interpretation Mildly impaired LV function with EF between 45 to 50% Aortic sclerosis with no stenosis with mild insufficiency Thickened mitral valve leaflets with mild mitral regurgitation Moderate pulmonary hypertension No evidence of pericardial effusion Previewed by: Dr. Gigi Lacy MD (Electronically Signed) Final Date: 31 January 2024 11:54
[2024-01-31 12:13] LABS: Glucose,Whole Blood 160 mg/dL (70-110)
--- NOTE | 2024-01-31 13:17 | P.CNPUL ---
History of Present Illness Consult date: 01/31/24 Requesting physician: Johnny Martino Reason for consult: other (Cardiac arrest) Chief complaint: Left humerus fracture secondary to fall History of present illness: This is an 83-year-old white male with known history of multiple medical problems including coronary artery disease, previous stent and previous CABG history of severe ischemic cardiomyopathy and LV dysfunction hypertension type 2 diabetes chronic atrial fibrillation, patient was admitted on 01/27/2024, apparently the patient slipped and fell landed on his left side of the body, suffered significant amount of left shoulder pain, brought into the ER, and he was found to have left proximal displaced humerus fracture, admitted, seen by orthopedics on consultation, did not feel surgical treatment is indicated recommended mostly an arm sling and the recommendation was for subacute rehab placement. Last night, patient had a sudden episode of ventricular tachycardia which has developed from ongoing chronic persistent atrial fibrillation, CODE BLUE was initiated, patient was intubated, received 2 shocks/cardioversion, and admitted to the ICU. No documentation of CPR performed during this event. Today the patient is in the ICU, intubated and mechanically ventilated, he is on assist-control rate of 20 tidal volume 450 FiO2 40% PEEP of 5 ABG showed a pO2 of 251 pCO2 28 pH of 7.52 hence his rate was cut down to 16. Patient is still requiring amiodarone at 0.5 mg/min he is on norepinephrine at 0.06 mcg/kg/min patient is also on propofol at 35 mcg/kg/min. Patient is presently in atrial fibrillation with relatively controlled rate, sedated, does not seem to be in any distress, could not obtain actual history from the patient himself. 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 History of Any Multi-Drug Resistant Organisms: None Reported Past Surgical History: Adenoidectomy, Coronary Bypass/CABG, Heart Catheterization, Heart Catheterization With Stent, Tonsillectomy Additional Past Surgical History / Comment(s): 11/13/15 Cardiac cath, 11/21/15 CABG-2 vessel, deviated septum repaired, cystoscopies x2, colonoscopy, bilateral cataract surg. Past Anesthesia/Blood Transfusion Reactions: No Reported Reaction Date of Last Stent Placement:: 11/03/18 Past Psychological History: Bipolar, Depression Smoking Status: Never smoker Past Alcohol Use History: None Reported Past Drug Use History: None Reported - Past Family History Father Additional Family Medical History / Comment(s): Father was a "drinker and a smoker". He at the age of 55 yrs from cerebral hemorhage Mother Additional Family Medical History / Comment(s): Mother at the age of 92yrs. Medications and Allergies Home Medications Medication Instructions Recorded Confirmed Type Tamsulosin [Flomax] 0.4 mg PO HS cap.er.24h 11/26/15 01/27/24 Rx Fluticasone Nasal Belt [Flonase 1 spray EA NOSTRIL DAILY 12/30/16 01/27/24 History Nasal Belt] Pantoprazole Sodium [Protonix] 40 mg PO DAILY 12/30/16 01/27/24 History Valsartan 160 mg PO HS 10/28/18 01/27/24 History Citalopram Hydrobromide [CeleXA] 20 mg PO DAILY 11/05/18 01/27/24 History Metoprolol Tartrate [Lopressor] 25 mg PO BID 11/05/18 01/27/24 History Chlorhexidine Gluconate [Peridex] 15 ml PO BID 08/13/21 01/27/24 History Dicyclomine [Bentyl] 20 mg PO HS 08/13/21 01/27/24 History Loratadine [Claritin] 10 mg PO DAILY 08/13/21 01/27/24 History Mometasone Furoate [Elocon 0.1% 1 applic TOPICAL HS 08/13/21 01/27/24 History Top Soln] Triamcinolone 0.1% Cream [Kenalog 1 applicatio TOPICAL Q48H 08/13/21 01/27/24 History 0.1% Cream] cycloSPORINE 0.05% OPHTH SOLN 1 drop BOTH EYES Q12H 08/13/21 01/27/24 History [Restasis] Apixaban [Eliquis] 2.5 mg PO BID 01/27/24 01/27/24 History Fesoterodine Fumarate 8 mg PO HS 01/27/24 01/27/24 History [Fesoterodine Fumarate ER] Rosuvastatin Calcium [Crestor] 40 mg PO HS 01/27/24 01/27/24 History HYDROcodone/APAP 5-325MG [[place] 5] 1 each PO Q6HR PRN #30 tab 01/30/24 Rx Sennosides-Docusate Sodium 2 tab PO DAILY #30 tablet 01/30/24 Rx [Senokot-S] Allergies Allergy/AdvReac Type Severity Reaction Status Date / Time erythromycin base AdvReac Nausea & Verified 01/27/24 11:50 Vomiting Physical Exam Vitals: Vital Signs Temp Pulse Pulse Resp BP BP BP 01/31/24 12:15 74 17 108/53 01/31/24 12:00 98.3 F 77 13 111/55 01/31/24 11:45 77 19 119/58 01/31/24 11:30 76 18 95/50 01/31/24 11:20 01/31/24 11:15 73 17 96/50 01/31/24 11:00 73 13 106/51 01/31/24 10:45 74 5 L 115/56 01/31/24 10:30 79 16 105/52 01/31/24 10:15 74 17 103/67 01/31/24 10:00 74 16 104/52 01/31/24 09:45 27 H 103/50 01/31/24 09:30 68 21 106/57 01/31/24 09:15 68 21 102/51 01/31/24 09:00 68 20 100/50 01/31/24 08:45 69 20 94/50 01/31/24 08:30 70 20 107/51 01/31/24 08:15 66 20 115/52 01/31/24 08:00 98.5 F 67 20 107/51 01/31/24 07:45 66 20 108/51 01/31/24 07:37 01/31/24 07:30 66 20 105/49 01/31/24 07:15 65 20 105/52 01/31/24 07:00 66 20 103/49 01/31/24 06:45 68 20 101/49 01/31/24 06:30 69 20 104/52 01/31/24 06:15 71 20 110/51 01/31/24 06:00 68 20 110/50 01/31/24 05:57 01/31/24 05:45 71 20 103/49 01/31/24 05:30 68 20 112/49 01/31/24 05:15 71 20 104/50 01/31/24 05:00 73 20 110/50 01/31/24 04:45 74 20 108/51 01/31/24 04:30 74 20 110/52 01/31/24 04:15 76 20 108/51 01/31/24 04:00 99.5 F 75 20 105/51 01/31/24 03:45 75 20 105/51 01/31/24 03:30 74 21 106/49 01/31/24 03:15 75 24 108/46 01/31/24 03:00 72 20 111/47 01/31/24 02:45 75 20 109/48 01/31/24 02:30 76 20 106/48 01/31/24 02:15 73 20 101/49 01/31/24 02:00 73 20 94/50 01/31/24 01:45 75 20 92/46 01/31/24 01:30 76 20 87/44 01/31/24 01:15 76 20 82/42 01/31/24 01:00 76 24 90/44 01/31/24 00:49 01/31/24 00:45 76 20 109/50 01/31/24 00:30 74 21 120/61 01/31/24 00:15 78 23 135/61 01/31/24 00:00 99.8 F H 81 20 112/71 01/30/24 23:45 82 20 103/48 01/30/24 23:30 85 20 70/41 01/30/24 23:15 84 20 59/37 01/30/24 23:00 88 20 109/59 01/30/24 22:45 101.2 F H 96 24 103/55 01/30/24 22:41 01/30/24 22:40 01/30/24 22:00 153 H 01/30/24 21:07 98.3 F 133 H 20 138/75 01/30/24 16:00 97.8 F 105 H 16 117/58 Pulse Ox FiO2 01/31/24 12:15 97 01/31/24 12:00 97 40 01/31/24 11:45 01/31/24 11:30 97 01/31/24 11:20 40 01/31/24 11:15 96 01/31/24 11:00 96 01/31/24 10:45 01/31/24 10:30 96 01/31/24 10:15 01/31/24 10:00 97 01/31/24 09:45 97 01/31/24 09:30 96 01/31/24 09:15 96 01/31/24 09:00 96 01/31/24 08:45 96 01/31/24 08:30 96 01/31/24 08:15 96 01/31/24 08:00 50 01/31/24 07:45 01/31/24 07:37 40 01/31/24 07:30 97 01/31/24 07:15 97 01/31/24 07:00 97 01/31/24 06:45 97 01/31/24 06:30 97 01/31/24 06:15 97 01/31/24 06:00 99 01/31/24 05:57 50 01/31/24 05:45 99 100 01/31/24 05:30 100 01/31/24 05:15 100 01/31/24 05:00 99 01/31/24 04:45 99 01/31/24 04:30 99 01/31/24 04:15 100 01/31/24 04:00 100 100 01/31/24 03:45 100 01/31/24 03:30 100 01/31/24 03:15 100 01/31/24 03:00 100 01/31/24 02:45 100 01/31/24 02:30 100 01/31/24 02:15 100 01/31/24 02:00 100 01/31/24 01:45 100 01/31/24 01:30 100 01/31/24 01:15 99 01/31/24 01:00 99 01/31/24 00:49 100 01/31/24 00:45 99 01/31/24 00:30 99 01/31/24 00:15 100 01/31/24 00:00 99 100 01/30/24 23:45 99 01/30/24 23:30 97 01/30/24 23:15 96 01/30/24 23:00 97 01/30/24 22:45 98 100 01/30/24 22:41 100 01/30/24 22:40 100 01/30/24 22:00 01/30/24 21:07 92 L 01/30/24 16:00 98 Intake and Output 01/30/24 01/31/24 01/31/24 22:59 06:59 14:59 Intake Total 120 442.468 553.739 Output Total 500 555 395 Balance -380 -112.532 158.739 Intake: Intake, IV Titration 442.468 553.739 Amount Norepinephrine 4 mg In 39.251 146.271 Sodium Chloride 0.9% 250 ml @ 0.03 MCG/KG/MIN 6. 572 mls/hr IV .Q24H JUAN Rx#:[id number] Sodium Chloride 0.9% 1, 350 300 000 ml @ 50 mls/hr IV . Q20H JUAN Rx#:[id number] propofoL 1,000 mg In 53.217 107.468 Empty Bag 1 bag @ 15 MCG/ KG/MIN 5.175 mls/hr IV . [id number] JUAN Rx#:[id number] Oral 120 Output: Urine 500 555 395 Straight 500 Other: Voiding Method Diaper Indwelling Catheter Indwelling Catheter External Catheter Weight 57.5 kg Gen: Revealed 83-year-old white male looks frail, chronically ill, medically debilitated, intubated and mechanically ventilated. HEENT: Head is atraumatic, normocephalic. Pupils equal, round. Sclerae is anicteric. Endotracheal tube and orogastric tube are intact NECK: Supple no neck masses no JVD no stridor LUNGS: Diminished breath sound bilaterally no crackles rhonchi or wheezes HEART: Irregular irregular rhythm, 2/6 systolic murmur throughout the precordium ABDOMEN: Flat soft nontender no megaly no rebound no guarding EXTREMITIES: Trace of bipedal edema. NEUROLOGICAL: Could not assess, patient is sedated, on propofol Psychiatric: Could not assess. Results - Laboratory Findings CBC and BMP: 01/31/24 05:29 01/31/24 05:29 ABG ABG pH 7.52 (7.35-7.45) H 01/31/24 05:46 ABG pCO2 28 mmHg (35-45) L 01/31/24 05:46 ABG pO2 251 mmHg (83-108) H 01/31/24 05:46 ABG O2 Saturation 100.0 % (94-97) H 01/31/24 05:46 Abnormal lab findings: Abnormal Labs 01/27/24 01/27/24 01/30/24 12:12 12:12 11:03 WBC 12.3 H 11.5 H RBC 4.29 L Hgb 11.7 L 11.1 L Hct 38.1 L 36.2 L MCHC 30.7 L 30.7 L RDW 17.8 H 17.5 H Neutrophils # 10.1 H 8.6 H ABG pH ABG pCO2 ABG pO2 ABG O2 Saturation Hemoglobin Sodium Chloride 113 H Carbon Dioxide BUN 26 H Glucose 122 H POC Glucose (mg/dL) Calcium 8.2 L Alkaline Phosphatase Total Protein Albumin Urine Protein Urine Glucose (UA) Urine Blood Ur Leukocyte Esterase Urine RBC Urine WBC Urine WBC Clumps Urine Bacteria Hyaline Casts Urine Yeast (Budding) 01/30/24 01/30/24 01/30/24 11:03 22:36 22:42 WBC 15.4 H RBC 4.17 L Hgb 10.8 L Hct 35.4 L MCHC 30.5 L RDW 17.8 H Neutrophils # ABG pH ABG pCO2 ABG pO2 ABG O2 Saturation Hemoglobin Sodium 136 L Chloride 113 H Carbon Dioxide BUN 34 H Glucose 101 H POC Glucose (mg/dL) 122 H Calcium 8.1 L Alkaline Phosphatase 213 H Total Protein 5.1 L Albumin 2.3 L Urine Protein Urine Glucose (UA) Urine Blood Ur Leukocyte Esterase Urine RBC Urine WBC Urine WBC Clumps Urine Bacteria Hyaline Casts Urine Yeast (Budding) 01/30/24 01/30/24 01/30/24 22:42 23:58 23:59 WBC RBC Hgb Hct MCHC RDW Neutrophils # ABG pH ABG pCO2 33 L ABG pO2 138 H ABG O2 Saturation 100.0 H Hemoglobin Sodium Chloride 109 H Carbon Dioxide 21 L BUN 32 H Glucose 133 H POC Glucose (mg/dL) Calcium 8.1 L Alkaline Phosphatase Total Protein Albumin Urine Protein 1+ H Urine Glucose (UA) 4+ H Urine Blood Large H Ur Leukocyte Esterase Large H Urine RBC 142 H Urine WBC >182 H Urine WBC Clumps Many H Urine Bacteria Few H Hyaline Casts 25 H Urine Yeast (Budding) Many H 01/31/24 01/31/24 01/31/24 04:49 05:29 05:29 WBC 18.9 H RBC 4.10 L Hgb 10.8 L Hct 33.7 L MCHC RDW 17.9 H Neutrophils # 16.7 H ABG pH ABG pCO2 ABG pO2 ABG O2 Saturation Hemoglobin Sodium 136 L Chloride 110 H Carbon Dioxide 20 L BUN 30 H Glucose 138 H POC Glucose (mg/dL) 153 H Calcium 7.9 L Alkaline Phosphatase 198 H Total Protein 4.7 L Albumin 2.2 L Urine Protein Urine Glucose (UA) Urine Blood Ur Leukocyte Esterase Urine RBC Urine WBC Urine WBC Clumps Urine Bacteria Hyaline Casts Urine Yeast (Budding) 01/31/24 01/31/24 01/31/24 05:46 06:51 12:12 WBC RBC Hgb Hct MCHC RDW Neutrophils # ABG pH 7.52 H ABG pCO2 28 L ABG pO2 251 H ABG O2 Saturation 100.0 H Hemoglobin 10.2 L Sodium Chloride Carbon Dioxide BUN Glucose POC Glucose (mg/dL) 180 H 160 H Calcium Alkaline Phosphatase Total Protein Albumin Urine Protein Urine Glucose (UA) Urine Blood Ur Leukocyte Esterase Urine RBC Urine WBC Urine WBC Clumps Urine Bacteria Hyaline Casts Urine Yeast (Budding) - Diagnostic Findings Chest x-ray: image reviewed (Chest x-ray showed bibasilar patchy infiltrates/atelectasis, endotracheal tube is in the proper position.) Assessment and Plan Assessment: Impression: ventricular tachycardia cardiac arrest, requiring intubation mechanical ventilation Chronic atrial fibrillation Coronary artery disease and previous CABG and stent placement Left humerus fracture secondary to fall Severe cardiomyopathy and LV dysfunction with ejection fraction of 37% History of benign essential hypertension Dyslipidemia Type 2 diabetes Possible aspiration pneumonia as noted on chest x-ray. History of depression History of enlarged prostate History of CVA with left-sided weakness Dyslipidemia recommendation: Continue ventilatory support Continue amiodarone Continue norepinephrine and titrate accordingly Nutritional support/enteral feeding if the patient does not get extubated today Continue Eliquis and continue GI prophylaxis Will consider placement of a central line and arterial line if the patient remains intubated today and still requiring pressors Empiric antibiotics/Zosyn for presumptive aspiration pneumonia Overall prognosis is extremely poor and guarded Will continue to follow Patient is critically ill Time with Patient: Greater than 30
[2024-01-31 15:12] LABS: ABG Base Excess -2.2 mmol/L; ABG HCO3 22 mmol/L (21-25); ABG PCO2 34 mmHg (35-45); ABG PH 7.42 (7.35-7.45); ABG PO2 100 mmHg (83-108); ABG TCO2 23 mmol/L (19-24); Allen Test Performed? Yes
[2024-01-31] MEDS: PIPERACILLIN-TAZOBACTAM 3.375 GM in SODIUM CHLORIDE 0.9% 100 ML IVPB SCH (15:51)
[2024-01-31 17:53] LABS: Glucose,Whole Blood 120 mg/dL (70-110)
--- NOTE | 2024-01-31 18:13 | P.PN ---
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 especially in the left foot, has been ambulating using a walker on a regular basis, apparently the patient slipped and fell landed on the left side of his body, he had suffered from tremendous amount of pain in the left shoulder, he was brought into the emergency department at [facility], had a chest x-ray that showed minimal congestive heart failure, his shoulder x-ray showed evidence of left proximal mildly displaced humerus fracture, but the patient because he is not able to ambulate very well because he has to use his walker due to his fragility and because his prior stroke he was kept in the hospital for evaluation by orthopedic surgery as well as physical therapy evaluation for safety purposes as the patient is on anticoagulation, patient did have a CT scan of the brain did not show evidence of acute infarct or bleed, did show some small vessel disease, patient will be seen and evaluated by physical therapy as well as social economist for discharge planning tomorrow morning. 01/27: Patient is laying down in bed in no apparent distress he denies any chest pain, or any shortness of breath, he continues to have some pain in the left shoulder, he continues to have a sling in the left upper extremity, he has been seen by orthopedic surgery continue with conservative management at this point, physical therapy evaluation, social economist consultation for discharge planning, his family was at the bedside they were updated about his current condition, patient uses a walker for ambulation, encourage oral intake of food and fluid 01/28: Patient is sitting up in bed he appears to be quite drowsy today his mouth is very dry, his son was at the bedside, patient not drinking or eating much, will start the patient on IV fluid resuscitation in the form of normal saline at 50 cc an hour, monitor the patient input and output, patient continues to be in some amount of pain, he has been taking his pain medication, physical therapy evaluation still pending, patient will likely require subacute rehabilitation at this point in time, his son wanted his father to go to [facility] if possible a con sult for social economist and physical therapies in place 01/29: His IV fluid was infiltrated to the right upper extremity yesterday, his right arm is quite swollen no erythema just edema, it was switched to the left hand, he denies any chest pain he continues to be dry, he denies any shortness of breath, he has no coughing or hemoptysis, he has no abdominal pain, he has not had a bowel movement yesterday just a small 1 yesterday, I will start the patient on Colace 100 mg orally twice every day as well as MiraLAX 17 g in 8 ounce of water once every day, physical therapy evaluation tomorrow morning, social economist consultation for discharge planning. 01/30: Yesterday the patient became quite unresponsive after he developed to have a significant atrial fibrillation with rapid ventricular response, his heart rate went all the way up to 170 cardiology recommended the patient to go on a amiodarone 150 mg IV push followed by amiodarone drip, patient developed to have a significant ventricular tachycardia/ventricular fibrillation, LAURIE KINNEY was called, and the patient was shocked twice, he was intubated and moved to the intensive care unit currently, currently on pressors, in the form of Levophed, he is currently on propofol drip, he is currently on amiodarone drip, patient also was on FiO2 of 40% tidal volume of 450 and PEEP of 5, pulmonary/front maker lockstitch along with cardiology will continue to follow-up with the patient, patient initially was admitted to the hospital for left humerus fracture which appears to be stable at this point in time, we will continue to follow-up with the jennifer ent very closely in the ICU. REVIEW OF SYSTEMS: Patient is sedated on the ventilator. PHYSICAL EXAMINATION: General: 83-year-old male laying down sedated on the ventilator. HEENT: Head is atraumatic, normocephalic, pupils were equal round , mucous membranes of the mouth are somewhat dry, there is an oral gastric tube in place, and ET tube in place. Neck: Supple, no JVP, normal carotid upstroke bilaterally, no lymphadenopathy. Chest: Decreased breath sounds at the bases, few rhonchi, no expiratory wheezes, no chest wall tenderness, no intercostal retractions. Heart: First heart sound is normal, second heart sounds normal there is systolic ejection murmur 2/6 located left sternal border Abdomen: Soft, nontender, nondistended, positive bowel sounds. Extremities: There is no edema no calf tenderness DP +2 bilaterally, left upper extremity in sling, right upper extremity with edema Neurologic examination: Patient is sedated on the ventilator. ASSESSMENT AND PLAN: 1. Acute vent dependent respiratory failure due to ventricular fibrillation/tachycardia status post DC cardioversion x 2, continue current vent setting, continue amiodarone drip, continue with cardiology evaluation, continue with propofol drip, monitor the patient very closely, patient is currently on a small dose of Levophed at this time, we will continue with that until his blood pressure stabilizes. 2. Status post a fall with left proximal humerus fracture mildly displaced. Keep the patient in sling, we will reevaluate the patient for send extubation. 3. Coronary artery disease status post CABG x 1 followed by PCI in 2019 as well as in 2021 . Continue patient on metoprolol 25 mg orally twice every day, valsartan 160 mg once every day, continue rosuvastatin 40 mg once every day or substitute, monitor the patient lipid panel, keep LDL 55-70, 4. Hypertension and hypertensive cardiovascular disease. Continue valsartan 160 mg once every day, continue metoprolol 25 mg orally twice every day monitor the patient blood pressure very closely. 5. Mixed hyperlipidemia. Continue patient on rosuvastatin 40 mg once every day orally substitute atorvastatin 80 mg once every day, monitor lipid panel, keep LDL 55-70. 6. History of CVA with residual left-sided weakness. Continue patient on current treatment plan. 7. Enlarged prostate. Continue tamsulosin 0.4 mg once every day. 8. Paroxysmal atrial fibrillation. Continue Eliquis 5 mg orally twice every day, metoprolol 25 mg orally twice every day, 9. Chronic diastolic heart failure. Continue patient on metoprolol 25 mg orall y twice every day, continue valsartan 160 mg once every day, continue Jardiance 10 mg orally once every day. 10. Depression. Continue citalopram 20 mg orally once every day. 11. DVT prophylaxis. Continue patient on Eliquis 5 mg orally twice every day. 12. GI prophylaxis. Continue patient on pantoprazole 40 mg once every day. 13. Moderate protein calorie malnutrition. Start patient on tube feeding. 14. Disposition likely subacute rehabilitation possibly [place]. Objective - Vital Signs Vital signs: Vital Signs Temp 98.3 F 01/31/24 12:00 Pulse 74 01/31/24 12:15 Resp 17 01/31/24 12:15 BP 108/53 01/31/24 12:15 Pulse Ox 97 01/31/24 12:15 FiO2 40 01/31/24 12:00 Intake & Output 01/30/24 01/31/24 01/31/24 18:59 06:59 18:59 Intake Total 480 442.468 553.739 Output Total 500 555 395 Balance -20 -112.532 158.739 Weight 57.5 kg Intake: Intake, IV Titration 442.468 553.739 Amount Norepinephrine 4 mg In 39.251 146.271 Sodium Chloride 0.9% 250 ml @ 0.03 MCG/KG/MIN 6. 572 mls/hr IV .Q24H JUAN Rx#:[id number] Sodium Chloride 0.9% 1, 350 300 000 ml @ 50 mls/hr IV . Q20H JUAN Rx#:[id number] propofoL 1,000 mg In 53.217 107.468 Empty Bag 1 bag @ 15 MCG/ KG/MIN 5.175 mls/hr IV . [id number] JUAN Rx#:[id number] Oral 480 Output: Urine 500 555 395 Straight 500 Other: Voiding Method Diaper Indwelling Catheter Indwelling Catheter External Catheter - Labs CBC & Chem 7: 01/31/24 05:29 01/31/24 05:29 Labs: Abnormal Lab Results - Last 24 Hours (Table) 01/30/24 01/30/24 01/30/24 Range/Units 22:36 22:42 22:42 WBC 15.4 H (3.8-10.6) k/uL RBC 4.17 L (4.30-5.90) m/uL Hgb 10.8 L (13.0-17.5) gm/dL Hct 35.4 L (39.0-53.0) % MCHC 30.5 L (31.0-37.0) g/dL RDW 17.8 H (11.5-15.5) % Neutrophils # (1.3-7.7) k/uL ABG pH (7.35-7.45) ABG pCO2 (35-45) mmHg ABG pO2 (83-108) mmHg ABG O2 Saturation (94-97) % Hemoglobin (13.0-17.5) gm/dL Sodium (137-145) mmol/L Chloride 109 H (98-107) mmol/L Carbon Dioxide 21 L (22-30) mmol/L BUN 32 H (9-20) mg/dL Glucose 133 H (74-99) mg/dL POC Glucose (mg/dL) 122 H (70-110) mg/dL Calcium 8.1 L (8.4-10.2) mg/dL Alkaline Phosphatase (38-126) U/L Total Protein (6.3-8.2) g/dL Albumin (3.5-5.0) g/dL Urine Protein (Negative) Urine Glucose (UA) (Negative) Urine Blood (Negative) Ur Leukocyte Esterase (Negative) Urine RBC (0-5) /hpf Urine WBC (0-5) /hpf Urine WBC Clumps (None) /hpf Urine Bacteria (None) /hpf Hyaline Casts (0-2) /lpf Urine Yeast (Budding) (None) /hpf 01/30/24 01/30/24 01/31/24 Range/Units 23:58 23:59 04:49 WBC (3.8-10.6) k/uL RBC (4.30-5.90) m/uL Hgb (13.0-17.5) gm/dL Hct (39.0-53.0) % MCHC (31.0-37.0) g/dL RDW (11.5-15.5) % Neutrophils # (1.3-7.7) k/uL ABG pH (7.35-7.45) ABG pCO2 33 L (35-45) mmHg ABG pO2 138 H (83-108) mmHg ABG O2 Saturation 100.0 H (94-97) % Hemoglobin (13.0-17.5) gm/dL Sodium (137-145) mmol/L Chloride (98-107) mmol/L Carbon Dioxide (22-30) mmol/L BUN (9-20) mg/dL Glucose (74-99) mg/dL POC Glucose (mg/dL) 153 H (70-110) mg/dL Calcium (8.4-10.2) mg/dL Alkaline Phosphatase (38-126) U/L Total Protein (6.3-8.2) g/dL Albumin (3.5-5.0) g/dL Urine Protein 1+ H (Negative) Urine Glucose (UA) 4+ H (Negative) Urine Blood Large H (Negative) Ur Leukocyte Esterase Large H (Negative) Urine RBC 142 H (0-5) /hpf Urine WBC >182 H (0-5) /hpf Urine WBC Clumps Many H (None) /hpf Urine Bacteria Few H (None) /hpf Hyaline Casts 25 H (0-2) /lpf Urine Yeast (Budding) Many H (None) /hpf 01/31/24 01/31/24 01/31/24 Range/Units 05:29 05:29 05:46 WBC 18.9 H (3.8-10.6) k/uL RBC 4.10 L (4.30-5.90) m/uL Hgb 10.8 L (13.0-17.5) gm/dL Hct 33.7 L (39.0-53.0) % MCHC (31.0-37.0) g/dL RDW 17.9 H (11.5-15.5) % Neutrophils # 16.7 H (1.3-7.7) k/uL ABG pH 7.52 H (7.35-7.45) ABG pCO2 28 L (35-45) mmHg ABG pO2 251 H (83-108) mmHg ABG O2 Saturation 100.0 H (94-97) % Hemoglobin 10.2 L (13.0-17.5) gm/dL Sodium 136 L (137-145) mmol/L Chloride 110 H (98-107) mmol/L Carbon Dioxide 20 L (22-30) mmol/L BUN 30 H (9-20) mg/dL Glucose 138 H (74-99) mg/dL POC Glucose (mg/dL) (70-110) mg/dL Calcium 7.9 L (8.4-10.2) mg/dL Alkaline Phosphatase 198 H (38-126) U/L Total Protein 4.7 L (6.3-8.2) g/dL Albumin 2.2 L (3.5-5.0) g/dL Urine Protein (Negative) Urine Glucose (UA) (Negative) Urine Blood (Negative) Ur Leukocyte Esterase (Negative) Urine RBC (0-5) /hpf Urine WBC (0-5) /hpf Urine WBC Clumps (None) /hpf Urine Bacteria (None) /hpf Hyaline Casts (0-2) /lpf Urine Yeast (Budding) (None) /hpf 01/31/24 01/31/24 Range/Units 06:51 12:12 WBC (3.8-10.6) k/uL RBC (4.30-5.90) m/uL Hgb (13.0-17.5) gm/dL Hct (39.0-53.0) % MCHC (31.0-37.0) g/dL RDW (11.5-15.5) % Neutrophils # (1.3-7.7) k/uL ABG pH (7.35-7.45) ABG pCO2 (35-45) mmHg ABG pO2 (83-108) mmHg ABG O2 Saturation (94-97) % Hemoglobin (13.0-17.5) gm/dL Sodium (137-145) mmol/L Chloride (98-107) mmol/L Carbon Dioxide (22-30) mmol/L BUN (9-20) mg/dL Glucose (74-99) mg/dL POC Glucose (mg/dL) 180 H 160 H (70-110) mg/dL Calcium (8.4-10.2) mg/dL Alkaline Phosphatase (38-126) U/L Total Protein (6.3-8.2) g/dL Albumin (3.5-5.0) g/dL Urine Protein (Negative) Urine Glucose (UA) (Negative) Urine Blood (Negative) Ur Leukocyte Esterase (Negative) Urine RBC (0-5) /hpf Urine WBC (0-5) /hpf Urine WBC Clumps (None) /hpf Urine Bacteria (None) /hpf Hyaline Casts (0-2) /lpf Urine Yeast (Budding) (None) /hpf
[2024-01-31 23:59] LABS: Glucose,Whole Blood 131 mg/dL (70-110)
[2024-02-01 05:27] LABS: Glucose,Whole Blood 121 mg/dL (70-110)
[2024-02-01 06:38] LABS: Anisocytosis Slight; Basophils % (A) 0 %; Eosinophils # (A) 0.3 k/uL (0-0.7); Eosinophils % (A) 2 %; HCT 33.3 % (39.0-53.0); HGB 10.5 gm/dL (13.0-17.5); Hypochromasia Moderate; Lymphocytes % (A) 7 %; MCH 26.1 pg (25.0-35.0); MCHC 31.4 g/dL (31.0-37.0); Mean Platelet Volume 7.6; Monocytes % (A) 8 %; Neutrophils % (A) 81 %; Platelet Count 270 k/uL (150-450); RBC 4.01 m/uL (4.30-5.90); RDW 17.8 % (11.5-15.5); WBC 13.5 k/uL (3.8-10.6)
[2024-02-01 06:44] LABS: African American GFR (CKD) 77 (>60 ml/min/1.73 sqM); Anion Gap 4 mmol/L; Blood Urea Nitrogen 28 mg/dL (9-20); Carbon Dioxide 18 mmol/L (22-30); Chloride 116 mmol/L (98-107); Glucose 103 mg/dL (74-99); Non-African American GFR(CKD) 67 (>60 ml/min/1.73 sqM); Potassium 4.5 mmol/L (3.5-5.1); Sodium 138 mmol/L (137-145)
--- NOTE | 2024-02-01 07:56 | P.PN ---
Subjective Progress Note Date: 02/01/24 PROGRESS NOTE The patient is an 83-year-old male with known history of atrial fibrillation, ischemic cardiomyopathy, coronary artery disease with CABG and stenting who presented with a fall, slipped and had a humerus fracture. He was in atrial fibrillation on presentation. He had an episode of ventricular tachycardia requiring cardioversion x 2 with buddhism of sinus mechanism. He was extubated yesterday. He is awake and alert this morning, denies any chest discomfort or dyspnea. He had no further ventricular ectopic activity. He is on no vasopressors and continues to be on IV amiodarone. He had an echocardiogram yesterday that showed an ejection fraction of 45 to 50% with mild tricuspid and mitral regurgitation and moderate pulmonary hypertension. Medications: IV amiodarone, Eliquis 2.5 mg twice a day, atorvastatin 80 mg daily, Farxiga 10 mg daily, metoprolol tartrate 50 mg twice a day, Flomax, Diovan 160 mg daily. PHYSICAL EXAMINATION: Blood pressure 132/58 heart rate 68 LUNGS: Clear to auscultation HEART: Regular rate and rhythm, S1, S2. No S3. Systolic ejection murmur ABDOMEN: Soft, nontender, no organomegaly EXTREMETIES: No edema LAB: Hemoglobin 10.5, BUN 28, creatinine 1.03, potassium 4.5 IMPRESSION: 1. Status post episode of ventricular tachycardia and questionable torsades requiring cardioversion, cause unclear, no clear evidence of acute ischemic event 2. History of CAD status post CABG and stenting 3. Mild ischemic cardiomyopathy 4. Prior episode of atrial fibrillation, now in sinus mechanism, anticoagulated 5. Status post fall and fracture of the humerus 6. History of hyperlipidemia 7. History of hypertension PLAN: 1. Switch to oral amiodarone 2. Check magnesium 3. Continue beta-bhumika 4. Depending on his progress further recommendations will be made Objective - Vital Signs Vital signs: Vital Signs Temp 98.6 F 02/01/24 04:00 Pulse 67 02/01/24 06:00 Resp 19 02/01/24 06:00 BP 111/58 02/01/24 06:00 Pulse Ox 97 02/01/24 06:00 FiO2 40 01/31/24 14:40 Intake & Output 01/31/24 02/01/24 02/01/24 18:59 06:59 18:59 Intake Total 1252.522 650 Output Total 780 540 Balance 472.522 110 Weight 57.5 kg 61.5 kg Intake: Intake, IV Titration 1252.522 650 Amount Amiodarone 450 mg In 233.338 Dextrose 5% in Water 250 ml @ 0.5 MG/MIN 16.667 mls/hr IV .Q15H JUAN Rx#: [id number] Norepinephrine 4 mg In 159.415 Sodium Chloride 0.9% 250 ml @ 0.03 MCG/KG/MIN 6. 572 mls/hr IV .Q24H JUAN Rx#:[id number] Piperacillin-Tazobactam 3 100 100 .375 gm In Sodium Chloride 0.9% 100 ml @ 25 mls/hr IVPB Q8HR JUAN Rx# :[id number] Sodium Chloride 0.9% 1, 650 550 000 ml @ 50 mls/hr IV . Q20H JUAN Rx#:[id number] propofoL 1,000 mg In 109.769 Empty Bag 1 bag @ 15 MCG/ KG/MIN 5.175 mls/hr IV . [id number] JUAN Rx#:[id number] Output: Urine 780 540 Other: Voiding Method Indwelling Catheter Indwelling Catheter - Labs CBC & Chem 7: 02/01/24 05:48 02/01/24 05:41 Labs: Abnormal Lab Results - Last 24 Hours (Table) 01/31/24 01/31/24 01/31/24 Range/Units 05:29 12:12 15:10 WBC (3.8-10.6) k/uL RBC (4.30-5.90) m/uL Hgb (13.0-17.5) gm/dL Hct (39.0-53.0) % RDW (11.5-15.5) % Neutrophils # (1.3-7.7) k/uL ABG pCO2 34 L (35-45) mmHg ABG O2 Saturation 98.0 H (94-97) % Hemoglobin 11.5 L (13.0-17.5) gm/dL Chloride (98-107) mmol/L Carbon Dioxide (22-30) mmol/L BUN (9-20) mg/dL Glucose (74-99) mg/dL POC Glucose (mg/dL) 160 H (70-110) mg/dL Calcium (8.4-10.2) mg/dL Procalcitonin 0.69 H (0.02-0.50) ng/mL 01/31/24 01/31/24 02/01/24 Range/Units 17:52 23:58 05:26 WBC (3.8-10.6) k/uL RBC (4.30-5.90) m/uL Hgb (13.0-17.5) gm/dL Hct (39.0-53.0) % RDW (11.5-15.5) % Neutrophils # (1.3-7.7) k/uL ABG pCO2 (35-45) mmHg ABG O2 Saturation (94-97) % Hemoglobin (13.0-17.5) gm/dL Chloride (98-107) mmol/L Carbon Dioxide (22-30) mmol/L BUN (9-20) mg/dL Glucose (74-99) mg/dL POC Glucose (mg/dL) 120 H 131 H 121 H (70-110) mg/dL Calcium (8.4-10.2) mg/dL Procalcitonin (0.02-0.50) ng/mL 02/01/24 02/01/24 Range/Units 05:41 05:48 WBC 13.5 H (3.8-10.6) k/uL RBC 4.01 L (4.30-5.90) m/uL Hgb 10.5 L (13.0-17.5) gm/dL Hct 33.3 L (39.0-53.0) % RDW 17.8 H (11.5-15.5) % Neutrophils # 11.0 H (1.3-7.7) k/uL ABG pCO2 (35-45) mmHg ABG O2 Saturation (94-97) % Hemoglobin (13.0-17.5) gm/dL Chloride 116 H (98-107) mmol/L Carbon Dioxide 18 L (22-30) mmol/L BUN 28 H (9-20) mg/dL Glucose 103 H (74-99) mg/dL POC Glucose (mg/dL) (70-110) mg/dL Calcium 8.0 L (8.4-10.2) mg/dL Procalcitonin (0.02-0.50) ng/mL
[2024-02-01] MEDS: AMIODARONE 200 MG TAB PO SCH (08:21)
[2024-02-01] MEDS: AMPICILLIN-SULBACTAM 3 GM in SODIUM CHLORIDE 0.9% 100 ML IVPB SCH (09:19)
--- NOTE | 2024-02-01 10:49 | XR ---
EXAMINATION TYPE: XR chest 1V DATE OF EXAM: 02/01/2024 5:29 AM COMPARISON: 01/31/2024 CLINICAL INDICATION: Male, 83 years old with history of intubated/ line placement, TECHNIQUE: XR chest 1V view(s) obtained. FINDINGS: The heart size is mildly prominent. The pulmonary vasculature is normal. There is elevation of right diaphragm. Right lower lobe infiltrate may be present. Correlate for atel ectasis. Minimal changes along the left base. Nasogastric tube transverses the thorax with the tip in the left upper quadrant of the abdomen. This is been advanced prior study. Endotracheal tube is been removed. Sternotomy wires are present prior C ABG IMPRESSION: 1. Bibasilar infiltrates. Correlate for atelectasis. 2. Elevation of the right diaphragm. Small subpulmonic effusion should be considered. 3. Mild cardiomegaly [facility], , 02/01/2024 10:47 AM
--- NOTE | 2024-02-01 11:45 | P.PN ---
Subjective Progress Note Date: 02/01/24 Principal diagnosis: Cardiac arrest This is an 83-year-old white male with known history of multiple medical problems including coronary artery disease, previous stent and previous CABG history of severe ischemic cardiomyopathy and LV dysfunction hypertension type 2 diabetes chronic atrial fibrillation, patient was admitted on 01/27/2024, apparently the patient slipped and fell landed on his left side of the body, suffered significant amount of left shoulder pain, brought into the ER, and he was found to have left proximal displaced humerus fracture, admitted, seen by orthopedics on consultation, did not feel surgical treatment is indicated recommended mostly an arm sling and the recommendation was for subacute rehab placement. Last night, patient had a sudden episode of ventricular tachycardia which has developed from ongoing chronic persistent atrial fibrillation, CODE BLUE was initiated, patient was intubated, received 2 shocks/cardioversion, and admitted to the ICU. No documentation of CPR performed during this event. Today the patient is in the ICU, intubated and mechanically ventilated, he is on assist-control rate of 20 tidal volume 450 FiO2 40% PEEP of 5 ABG showed a pO2 of 251 pCO2 28 pH of 7.52 hence his rate was cut down to 16. Patient is still requiring amiodarone at 0.5 mg/min he is on norepinephrine at 0.06 mcg/kg/min patient is also on propofol at 35 mcg/kg/min. Patient is presently in atrial fibrillation with relatively controlled rate, sedated, does not seem to be in any distress, could not obtain actual history from the patient himself. Patient is very today on 02/01/2020, remains in the ICU, he was extubated yesterday uneventfully. Patient is on room air, does not seem to be in any distress. He was on amiodarone this morning, and that would be transition to oral amiodarone. IV fluids at KVO, patient continues to have left arm in a sling. His urine is positive for group B streptococcus, hence I will change his Zosyn to Unasyn. Patient continues to have nasogastric tube in place which I have discontinued today. WBC count is 13.5 hemoglobin 10.5 basic metabolic profile is relatively unremarkable bicarb is 18 BUN is 28 creatinine 1.03. Chest x-ray continues show minimal bibasilar infiltrates/atelectasis Objective - Vital Signs Vital signs: Vital Signs Temp 98.4 F 02/01/24 08:00 Pulse 73 02/01/24 09:00 Resp 28 H 02/01/24 09:00 BP 122/52 02/01/24 09:00 Pulse Ox 94 L 02/01/24 09:00 FiO2 92 02/01/24 08:16 Intake & Output 01/31/24 02/01/24 02/01/24 18:59 06:59 18:59 Intake Total 1252.522 650 690 Output Total 780 540 175 Balance 472.522 110 515 Weight 57.5 kg 61.5 kg Intake: IV 200 Piperacillin-Tazobactam 3 100 .375 gm In Sodium Chloride 0.9% 100 ml @ 25 mls/hr IVPB Q8HR JUAN Rx# :[id number] Sodium Chloride 0.9% 1, 100 000 ml @ 50 mls/hr IV . Q20H JUAN Rx#:[id number] Intake, IV Titration 1252.522 650 250 Amount Amiodarone 450 mg In 233.338 250 Dextrose 5% in Water 250 ml @ 0.5 MG/MIN 16.667 mls/hr IV .Q15H JUAN Rx#: [id number] Norepinephrine 4 mg In 159.415 Sodium Chloride 0.9% 250 ml @ 0.03 MCG/KG/MIN 6. 572 mls/hr IV .Q24H JUAN Rx#:[id number] Piperacillin-Tazobactam 3 100 100 .375 gm In Sodium Chloride 0.9% 100 ml @ 25 mls/hr IVPB Q8HR JUAN Rx# :[id number] Sodium Chloride 0.9% 1, 650 550 000 ml @ 50 mls/hr IV . Q20H JUAN Rx#:[id number] propofoL 1,000 mg In 109.769 Empty Bag 1 bag @ 15 MCG/ KG/MIN 5.175 mls/hr IV . [id number] JUAN Rx#:[id number] Other 240 Output: Urine 780 540 175 Other: Voiding Method Indwelling Catheter Indwelling Catheter Indwelling Catheter - Exam Gen: Revealed 83-year-old white male looks frail, chronically ill, on room air, not in distress. HEENT: Head is atraumatic, normocephalic. Pupils equal, round. Sclerae is anicteric. Gastric tube in place and has been discontinued this morning NECK: Supple no neck masses no JVD no stridor LUNGS: Diminished breath sound bilaterally no crackles rhonchi or wheezes HEART: Irregular irregular rhythm, 2/6 systolic murmur throughout the precordium ABDOMEN: Flat soft nontender no megaly no rebound no guarding EXTREMITIES: Trace of bipedal edema. NEUROLOGICAL: Alert and oriented x 3 no gross focal deficit Psychiatric: Normal mood affect and no mental status examination - Labs CBC & Chem 7: 02/01/24 05:48 02/01/24 05:41 Labs: Abnormal Lab Results - Last 24 Hours (Table) 01/31/24 01/31/24 01/31/24 Range/Units 05:29 12:12 15:10 WBC (3.8-10.6) k/uL RBC (4.30-5.90) m/uL Hgb (13.0-17.5) gm/dL Hct (39.0-53.0) % RDW (11.5-15.5) % Neutrophils # (1.3-7.7) k/uL ABG pCO2 34 L (35-45) mmHg ABG O2 Saturation 98.0 H (94-97) % Hemoglobin 11.5 L (13.0-17.5) gm/dL Chloride (98-107) mmol/L Carbon Dioxide (22-30) mmol/L BUN (9-20) mg/dL Glucose (74-99) mg/dL POC Glucose (mg/dL) 160 H (70-110) mg/dL Calcium (8.4-10.2) mg/dL Procalcitonin 0.69 H (0.02-0.50) ng/mL 01/31/24 01/31/24 02/01/24 Range/Units 17:52 23:58 05:26 WBC (3.8-10.6) k/uL RBC (4.30-5.90) m/uL Hgb (13.0-17.5) gm/dL Hct (39.0-53.0) % RDW (11.5-15.5) % Neutrophils # (1.3-7.7) k/uL ABG pCO2 (35-45) mmHg ABG O2 Saturation (94-97) % Hemoglobin (13.0-17.5) gm/dL Chloride (98-107) mmol/L Carbon Dioxide (22-30) mmol/L BUN (9-20) mg/dL Glucose (74-99) mg/dL POC Glucose (mg/dL) 120 H 131 H 121 H (70-110) mg/dL Calcium (8.4-10.2) mg/dL Procalcitonin (0.02-0.50) ng/mL 02/01/24 02/01/24 Range/Units 05:41 05:48 WBC 13.5 H (3.8-10.6) k/uL RBC 4.01 L (4.30-5.90) m/uL Hgb 10.5 L (13.0-17.5) gm/dL Hct 33.3 L (39.0-53.0) % RDW 17.8 H (11.5-15.5) % Neutrophils # 11.0 H (1.3-7.7) k/uL ABG pCO2 (35-45) mmHg ABG O2 Saturation (94-97) % Hemoglobin (13.0-17.5) gm/dL Chloride 116 H (98-107) mmol/L Carbon Dioxide 18 L (22-30) mmol/L BUN 28 H (9-20) mg/dL Glucose 103 H (74-99) mg/dL POC Glucose (mg/dL) (70-110) mg/dL Calcium 8.0 L (8.4-10.2) mg/dL Procalcitonin (0.02-0.50) ng/mL Microbiology - Last 24 Hours (Table) 01/30/24 23:58 Urine Culture - Preliminary Urine,Voided Group D Enterococcus Assessment and Plan Assessment: Impression: ventricular tachycardia cardiac arrest, requiring intubation mechanical ventilation, extubated on 01/31/2024 Chronic atrial fibrillation Coronary artery disease and previous CABG and stent placement Left humerus fracture secondary to fall Severe cardiomyopathy and LV dysfunction with ejection fraction of 37% History of benign essential hypertension Dyslipidemia Type 2 diabetes Possible aspiration pneumonia as noted on chest x-ray. History of depression History of enlarged prostate History of CVA with left-sided weakness Dyslipidemia Acute urinary tract infection secondary to group D Enterococcus recommendation: Continue to monitor in ICU for now Discontinue nasogastric tube Advance diet as tolerated Oral amiodarone, discontinue IV amiodarone Continue Eliquis and continue GI prophylaxis Change Zosyn to Unasyn Overall prognosis is extremely poor and guarded Will continue to follow family was updated on his condition yesterday, and CODE STATUS was changed to DNR Time with Patient: Less than 30
[2024-02-01 14:16] LABS: Glucose,Whole Blood 98 mg/dL (70-110)
--- NOTE | 2024-02-01 16:50 | P.PN ---
Subjective Progress Note Date: 02/01/24 HISTORY OF PRESENT ILLNESS: This is an 83-year-old male 1 OR patient with a previous medical hi story significant for coronary artery disease status post triple-vessel disease including 100% occlusion of the LAD 90% occlusion of the ramus status post PCI in July 2021, total occlusion of the RCA, hypertension and hypertensive cardiovascular disease, mixed hyperlipidemia, enlarged prostate, 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 especially in the left foot, has been ambulating using a walker on a regular basis, apparently the patient slipped and fell landed on the left side of his body, he had suffered from tremendous amount of pain in the left shoulder, he was brought into the emergency department at [facility], had a chest x-ray that showed minimal congestive heart failure, his shoulder x-ray showed evidence of left proximal mildly displaced humerus fracture, but the patient because he is not able to ambulate very well because he has to use his walker due to his fragility and because his prior stroke he was kept in the hospital for evaluation by orthopedic surgery as well as physical therapy evaluation for safety purposes as the patient is on anticoagulation, patient did have a CT scan of the brain did not show evidence of acute infarct or bleed, did show some small vessel disease, patient will be seen and evaluated by physical therapy as well as school social worker for discharge planning tomorrow morning. 01/27: Patient is laying down in bed in no apparent distress he denies any chest pain, or any shortness of breath, he continues to have some pain in the left shoulder, he continues to have a sling in the left upper extremity, he has been seen by orthopedic surgery continue with conservative management at this point, physical therapy evaluation, school social worker consultation for discharge planning, his family was at the bedside they were updated about his current condition, patient uses a walker for ambulation, encourage oral intake of food and fluid 01/28: Patient is sitting up in bed he appears to be quite drowsy today his mouth is very dry, his son was at the bedside, patient not drinking or eating much, will start the patient on IV fluid resuscitation in the form of normal saline at 50 cc an hour, monitor the patient input and output, patient continues to be in some amount of pain, he has been taking his pain medication, physical therapy evaluation still pending, patient will likely require subacute rehabilitation at this point in time, his son wanted his father to go to [facility] if possible a eladio torrest for school social worker and physical therapies in place 01/29: His IV fluid was infiltrated to the right upper extremity yesterday, his right arm is quite swollen no erythema just edema, it was switched to the left hand, he denies any chest pain he continues to be dry, he denies any shortness of breath, he has no coughing or hemoptysis, he has no abdominal pain, he has not had a bowel movement yesterday just a small 1 yesterday, I will start the patient on Colace 100 mg orally twice every day as well as MiraLAX 17 g in 8 ounce of water once every day, physical therapy evaluation tomorrow morning, school social worker consultation for discharge planning. 01/30: Yesterday the patient became quite unresponsive after he developed to have a significant atrial fibrillation with rapid ventricular response, his heart rate went all the way up to 170 cardiology recommended the patient to go on a amiodarone 150 mg IV push followed by amiodarone drip, patient developed to have a significant ventricular tachycardia/ventricular fibrillation, LAURIE KINNEY was called, and the patient was shocked twice, he was intubated and moved to the intensive care unit currently, currently on pressors, in the form of Levophed, he is currently on propofol drip, he is currently on amiodarone drip, patient also was on FiO2 of 40% tidal volume of 450 and PEEP of 5, pulmonary/boat tender along with cardiology will continue to follow-up with the patient, patient initially was admitted to the hospital for left humerus fracture which appears to be stable at this point in time, we will continue to follow-up with the jennifer ent very closely in the ICU. 01/31: Patient is laying down in bed in no apparent distress, he was extubated successfully, he is currently on 2 L nasal cannula, he continues to have an oral gastric tube in place, this will be discontinued, he denies any chest pain, he is less short of breath, he is having some sore throat, he is coughing up in mL phlegm production, he has no abdominal pain, he does complain of pain in both lower extremity specially the left lower extremity, he is more awake and alert, continue current treatment plan at this time continue aggressive pulmonary toileting, physical therapy evaluation, will continue to work up with the patient, continue with the left upper extremity to be in a sling due to left humerus fracture. REVIEW OF SYSTEMS: Constitutional: No documented fever, no chills, no night sweats. No weight change. No weakness, fatigue or lethargy. No daytime sleepiness. EENT: No headache. No blurred vision or double vision, no loss of vision. hard of Hearing, no ringing in the ears, no dizziness. No nasal drainage or congestion. No epistaxis. No sore throat. Lungs: No shortness of breath, occasional cough, no sputum production. No wheezing. Reports dyspnea with activity. Cardiovascular: No chest pain, no lower extremity edema. No palpitations. No paroxysmal nocturnal dyspnea. No orthopnea. No lightheadedness or dizziness. No syncopal episodes. Abdominal: Reports no abdominal pain. No nausea, vomiting. No diarrhea. positive for constipation. No bloody or tarry stools reports loss of appetite. Genitourinary: No dysuria, increased frequency, urgency. No urinary retention. Musculoskeletal: No myalgias. positive for muscle weakness, positive for gait dysfunction, no frequent falls. No back pain. No neck pain., left arm /klaus ulder pain Integumentary: No wounds, no lesions. No rash or pruritus. No unusual bruising. No change in hair or nails. Neurologic: No aphasia. No facial droop. No change in mentation. No head injury. No headache. Left sided weakness. Chronic Psychiatric: No depression. No anxiety. No mood swings. Endocrine: No abnormal blood sugars. No weight change. PHYSICAL EXAMINATION: General: 83-year-old male laying down sedated on the ventilator. HEENT: Head is atraumatic, normocephalic, pupils were equal round , mucous membranes of the mouth are somewhat dry, there is an oral gastric tube in place, and ET tube in place. Neck: Supple, no JVP, normal carotid upstroke bilaterally, no lymphadenopathy. Chest: Decreased breath sounds at the bases, few rhonchi, no expiratory wheezes, no chest wall tenderness, no intercostal retractions. Heart: First heart sound is normal, second heart sounds normal there is systolic ejection murmur 2/6 located left sternal border Abdomen: Soft, nontender, nondistended, positive bowel sounds. Extremities: There is no edema no calf tenderness DP +2 bilaterally, left upper extremity in sling, right upper extremity with edema Neurologic examination: Patient is sedated on the ventilator. ASSESSMENT AND PLAN: 1. Acute vent dependent respiratory failure due to ventricular fibrillation/tachycardia status post DC cardioversion x 2, since he was extubated continue aggressive pulmonary toileting continue IV antibiotic Unasyn 3 g IV every 8 hours, continue oxygen support, continue with current treatment plan, discontinue oral gastric tube. 2. Status post a fall with left proximal humerus fracture mildly displaced. Keep the patient in sling, we will reevaluate the patient for send extubation. 3. Coronary artery disease status post CABG x 1 followed by PCI in 2019 as well as in 2021 . Continue patient on metoprolol 50 mg orally twice every day, valsartan 160 mg once every day, continue rosuvastatin 40 mg once every day or substitute, monitor the patient lipid panel, keep LDL 55-70, 4. Hypertension and hypertensive cardiovascular disease. Continue valsartan 160 mg once every day, continue metoprolol 50 mg orally twice every day monitor the patient blood pressure very closely. 5. Mixed hyperlipidemia. Continue patient on rosuvastatin 40 mg once every day orally substitute atorvastatin 80 mg once every day, monitor lipid panel, keep LDL 55-70. 6. History of CVA with residual left-sided weakness. Continue patient on current treatment plan. 7. Enlarged prostate. Continue tamsulosin 0.4 mg once every day. 8. Paroxysmal atrial fibrillation. Continue Eliquis 5 mg orally twice every day, metoprolol 50 mg orally twice every day, 9. Chronic diastolic heart failure. Continue patient on metoprolol 50 mg oral ly twice every day, continue valsartan 160 mg once every day, continue Jardiance 10 mg orally once every day. 10. Depression. Continue citalopram 20 mg orally once every day. 11. DVT prophylaxis. Continue patient on Eliquis 5 mg orally twice every day. 12. GI prophylaxis. Continue patient on pantoprazole 40 mg once every day. 13. Moderate protein calorie malnutrition. Restart Ensure. 14. Disposition likely subacute rehabilitation possibly [facility]. Objective - Vital Signs Vital signs: Vital Signs Temp 98.6 F 02/01/24 12:00 Pulse 73 02/01/24 09:00 Resp 16 02/01/24 12:00 BP 118/57 02/01/24 12:00 Pulse Ox 98 02/01/24 12:00 FiO2 88 02/01/24 08:15 Intake & Output 01/31/24 02/01/24 02/01/24 18:59 06:59 18:59 Intake Total 1252.522 650 890 Output Total 780 540 370 Balance 472.522 110 520 Weight 57.5 kg 61.5 kg Intake: IV 400 Piperacillin-Tazobactam 3 100 .375 gm In Sodium Chloride 0.9% 100 ml @ 25 mls/hr IVPB Q8HR JUAN Rx# :[id number] Sodium Chloride 0.9% 1, 300 000 ml @ 50 mls/hr IV . Q20H JUAN Rx#:[id number] Intake, IV Titration 1252.522 650 250 Amount Amiodarone 450 mg In 233.338 250 Dextrose 5% in Water 250 ml @ 0.5 MG/MIN 16.667 mls/hr IV .Q15H JUAN Rx#: [id number] Norepinephrine 4 mg In 159.415 Sodium Chloride 0.9% 250 ml @ 0.03 MCG/KG/MIN 6. 572 mls/hr IV .Q24H JUAN Rx#:[id number] Piperacillin-Tazobactam 3 100 100 .375 gm In Sodium Chloride 0.9% 100 ml @ 25 mls/hr IVPB Q8HR JUAN Rx# :[id number] Sodium Chloride 0.9% 1, 650 550 000 ml @ 50 mls/hr IV . Q20H JUAN Rx#:[id number] propofoL 1,000 mg In 109.769 Empty Bag 1 bag @ 15 MCG/ KG/MIN 5.175 mls/hr IV . [id number] JUAN Rx#:[id number] Other 240 Output: Urine 780 540 370 Other: Voiding Method Indwelling Catheter Indwelling Catheter Indwelling Catheter - Labs CBC & Chem 7: 02/01/24 05:48 02/01/24 05:41 Labs: Abnormal Lab Results - Last 24 Hours (Table) 01/31/24 01/31/24 02/01/24 Range/Units 17:52 23:58 05:26 WBC (3.8-10.6) k/uL RBC (4.30-5.90) m/uL Hgb (13.0-17.5) gm/dL Hct (39.0-53.0) % RDW (11.5-15.5) % Neutrophils # (1.3-7.7) k/uL Chloride (98-107) mmol/L Carbon Dioxide (22-30) mmol/L BUN (9-20) mg/dL Glucose (74-99) mg/dL POC Glucose (mg/dL) 120 H 131 H 121 H (70-110) mg/dL Calcium (8.4-10.2) mg/dL 02/01/24 02/01/24 Range/Units 05:41 05:48 WBC 13.5 H (3.8-10.6) k/uL RBC 4.01 L (4.30-5.90) m/uL Hgb 10.5 L (13.0-17.5) gm/dL Hct 33.3 L (39.0-53.0) % RDW 17.8 H (11.5-15.5) % Neutrophils # 11.0 H (1.3-7.7) k/uL Chloride 116 H (98-107) mmol/L Carbon Dioxide 18 L (22-30) mmol/L BUN 28 H (9-20) mg/dL Glucose 103 H (74-99) mg/dL POC Glucose (mg/dL) (70-110) mg/dL Calcium 8.0 L (8.4-10.2) mg/dL Microbiology - Last 24 Hours (Table) 01/30/24 23:58 Urine Culture - Preliminary Urine,Voided Group D Enterococcus
[2024-02-01 18:36] LABS: Glucose,Whole Blood 96 mg/dL (70-110)
[2024-02-02 00:06] LABS: Glucose,Whole Blood 88 mg/dL (70-110)
[2024-02-02 06:13] LABS: African American GFR (CKD) 83 (>60 ml/min/1.73 sqM); Anion Gap 4 mmol/L; Blood Urea Nitrogen 26 mg/dL (9-20); Calcium 7.8 mg/dL (8.4-10.2); Carbon Dioxide 21 mmol/L (22-30); Chloride 119 mmol/L (98-107); Glucose 68 mg/dL (74-99); Non-African American GFR(CKD) 72 (>60 ml/min/1.73 sqM); Potassium 3.9 mmol/L (3.5-5.1); Sodium 144 mmol/L (137-145)
[2024-02-02 06:28] LABS: Glucose,Whole Blood 74 mg/dL (70-110)
--- NOTE | 2024-02-02 07:29 | P.PN ---
Subjective Progress Note Date: 02/02/24 PROGRESS NOTE The patient is an 83-year-old male with known history of atrial fibrillation, ischemic cardiomyopathy, coronary artery disease with CABG and stenting who presented with a fall, slipped and had a humerus fracture. He was in atrial fibrillation on presentation. He had an episode of ventricular tachycardia requiring cardioversion x 2 with quaker of sinus mechanism. He was extubated yesterday. He is awake and alert this morning, denies any chest discomfort or dyspnea. He had no further ventricular ectopic activity. He is on no vasopressors and continues to be on IV amiodarone. He had an echocardiogram yesterday that showed an ejection fraction of 45 to 50% with mild tricuspid and mitral regurgitation and moderate pulmonary hypertension. February 01: The patient is awake and alert. He is in sinus mechanism. Hemodynamically stable. He continues to have the NG tube. He denies any chest discomfort or significant dyspnea. He has discomfort in the left upper extremity. He is on no vasopressors. There is no evidence of recurrent ventricular ectopic activity. He feels tired. Medications: Amiodarone 200 mg twice a day, Eliquis 2.5 mg twice a day, atorvastatin 80 mg daily, Farxiga 10 mg daily, metoprolol tartrate 50 mg twice a day, Flomax, Diovan 160 mg daily. PHYSICAL EXAMINATION: Blood pressure 116/60 heart rate 72 LUNGS: Clear to auscultation HEART: Regular rate and rhythm, S1, S2. No S3. Systolic ejection murmur ABDOMEN: Soft, nontender, no organomegaly EXTREMETIES: No edema, left arm in a sling LAB: BUN 26, creatinine 0.97, potassium 3.9 IMPRESSION: 1. Status post episode of ventricular tachycardia and questionable torsades requiring cardioversion, cause unclear, no clear evidence of acute ischemic event 2. History of CAD status post CABG and stenting 3. Mild ischemic cardiomyopathy 4. Prior episode of atrial fibrillation, now in sinus mechanism, anticoagulated 5. Status post fall and fracture of the humerus 6. History of hyperlipidemia 7. History of hypertension PLAN: 1. Continue medical therapy 2. Increase physical activity 3. Probable DC NG tube today 4. Probable long-term rehab after discharge Objective - Vital Signs Vital signs: Vital Signs Temp 97.6 F 02/02/24 04:00 Pulse 72 02/02/24 04:00 Resp 20 02/02/24 04:00 BP 116/50 11/13/24 04:00 Pulse Ox 94 L 02/02/24 04:00 FiO2 88 02/01/24 08:15 Intake & Output 02/01/24 02/02/24 02/02/24 18:59 06:59 18:59 Intake Total 1390 Output Total 645 350 Balance 745 -350 Weight 62.9 kg Intake: IV 900 Ampicillin-Sulbactam 3 gm 200 In Sodium Chloride 0.9% 100 ml @ 200 mls/hr IVPB Q8H JUAN Rx#:[id number] Piperacillin-Tazobactam 3 100 .375 gm In Sodium Chloride 0.9% 100 ml @ 25 mls/hr IVPB Q8HR JUAN Rx# :[id number] Sodium Chloride 0.9% 1, 600 000 ml @ 50 mls/hr IV . Q20H JUAN Rx#:[id number] Intake, IV Titration 250 Amount Amiodarone 450 mg In 250 Dextrose 5% in Water 250 ml @ 0.5 MG/MIN 16.667 mls/hr IV .Q15H JUAN Rx#: [id number] Other 240 Output: Urine 645 350 Other: Voiding Method Indwelling Catheter Indwelling Catheter # Bowel Movements 0 - Labs CBC & Chem 7: 02/01/24 05:48 02/02/24 05:21 Labs: Abnormal Lab Results - Last 24 Hours (Table) 02/02/24 Range/Units 05:21 Chloride 119 H (98-107) mmol/L Carbon Dioxide 21 L (22-30) mmol/L BUN 26 H (9-20) mg/dL Glucose 68 L (74-99) mg/dL Calcium 7.8 L (8.4-10.2) mg/dL Microbiology - Last 24 Hours (Table) 01/30/24 23:58 Urine Culture - Preliminary Urine,Voided Group D Enterococcus
[2024-02-02] MEDS: POTASSIUM BICARBONATE/CIT AC 20 MEQ TABLET.EFF NG-TUBE SCH (08:38)
--- NOTE | 2024-02-02 10:39 | FL ---
EXAMINATION TYPE: FL barium swallow w video DATE OF EXAM: 02/02/2024 COMPARISON: NONE HISTORY: Post extubation TECHNIQUE: Fluoroscopy. FINDINGS: Fluoroscopic guidance was provided for the procedure performed in conjunction with the [facility]. Please see complete report forthcoming from the Speech Pathology departmen t. Various consistencies from thin liquid to solids were administered. Fluoroscopy time 3 minutes 5 seconds. Number of images: 235.61 With thin liquids there is aspiration with all swallowing. With nectar thick and greater consistencie s there was no aspiration or penetration observed. Some pooling was observed in the vallecula. There is marked hesitancy of various consistencies. No propulsion with solids was observed. IMPRESSION: 1. Thin liquid aspiration. 2. Marked hesitancy of swallowing. 3. Pooling within the vallecula [facility], , 02/02/2024 10:37 AM
[2024-02-02 11:48] LABS: Glucose,Whole Blood 103 mg/dL (70-110)
--- NOTE | 2024-02-02 12:27 | P.PN ---
Subjective Progress Note Date: 02/02/24 Principal diagnosis: Cardiac arrest This is an 83-year-old white male with known history of multiple medical problems including coronary artery disease, previous stent and previous CABG history of severe ischemic cardiomyopathy and LV dysfunction hypertension type 2 diabetes chronic atrial fibrillation, patient was admitted on 01/27/2024, apparently the patient slipped and fell landed on his left side of the body, suffered significant amount of left shoulder pain, brought into the ER, and he was found to have left proximal displaced humerus fracture, admitted, seen by orthopedics on consultation, did not feel surgical treatment is indicated recommended mostly an arm sling and the recommendation was for subacute rehab placement. Last night, patient had a sudden episode of ventricular tachycardia which has developed from ongoing chronic persistent atrial fibrillation, CODE BLUE was initiated, patient was intubated, received 2 shocks/cardioversion, and admitted to the ICU. No documentation of CPR performed during this event. Today the patient is in the ICU, intubated and mechanically ventilated, he is on assist-control rate of 20 tidal volume 450 FiO2 40% PEEP of 5 ABG showed a pO2 of 251 pCO2 28 pH of 7.52 hence his rate was cut down to 16. Patient is still requiring amiodarone at 0.5 mg/min he is on norepinephrine at 0.06 mcg/kg/min patient is also on propofol at 35 mcg/kg/min. Patient is presently in atrial fibrillation with relatively controlled rate, sedated, does not seem to be in any distress, could not obtain actual history from the patient himself. Patient is very today on 02/01/2024, remains in the ICU, he was extubated yesterday uneventfully. Patient is on room air, does not seem to be in any distress. He was on amiodarone this morning, and that would be transition to oral amiodarone. IV fluids at KVO, patient continues to have left arm in a sling. His urine is positive for group B streptococcus, hence I will change his Zosyn to Unasyn. Patient continues to have nasogastric tube in place which I have discontinued today. WBC count is 13.5 hemoglobin 10.5 basic metabolic profile is relatively unremarkable bicarb is 18 BUN is 28 creatinine 1.03. Chest x-ray continues show minimal bibasilar infiltrates/atelectasis Patient was seen today on 02/02/2024, patient is doing well, remains in the ICU, tolerated the extubation well over the last 48 hours. Patient had an episode of ventricular tachycardia requiring cardioversion, intubation, and transferred to the ICU but he was extubated 2 days ago, patient does have history of underlying coronary artery disease previous CABG and stenting, and he has mild ischemic cardiomyopathy. Patient is doing great, his nasogastric tube was also removed yesterday, and the plan is to transfer the patient back to the cardiac floor/3 S. No cough no wheezing no shortness of breath no chest pain. Patient feels generally weak, and he has chronic low back painBasic metabolic profile is normal renal profile is normal blood sugar is 68 today Objective - Vital Signs Vital signs: Vital Signs Temp 97.9 F 02/02/24 08:00 Pulse 67 02/02/24 08:00 Resp 20 02/02/24 08:00 BP 108/83 02/02/24 08:00 Pulse Ox 96 02/02/24 08:00 FiO2 88 02/01/24 08:15 Intake & Output 02/01/24 02/02/24 02/02/24 18:59 06:59 18:59 Intake Total 1390 1100 Output Total 645 350 225 Balance 745 -350 875 Weight 62.9 kg Intake: IV 900 800 Ampicillin-Sulbactam 3 gm 200 100 In Sodium Chloride 0.9% 100 ml @ 200 mls/hr IVPB Q8H JUAN Rx#:[id number] Piperacillin-Tazobactam 3 100 .375 gm In Sodium Chloride 0.9% 100 ml @ 25 mls/hr IVPB Q8HR JUAN Rx# :[id number] Sodium Chloride 0.9% 1, 600 700 000 ml @ 50 mls/hr IV . Q20H JUAN Rx#:[id number] Intake, IV Titration 250 Amount Amiodarone 450 mg In 250 Dextrose 5% in Water 250 ml @ 0.5 MG/MIN 16.667 mls/hr IV .Q15H JUAN Rx#: [id number] Other 240 300 Output: Urine 645 350 225 Other: Voiding Method Indwelling Catheter Indwelling Catheter Indwelling Catheter # Bowel Movements 0 - Exam Gen: Revealed 83-year-old white male looks frail, chronically ill, on 2 L nasal cannula O2 sat is 96% HEENT: Head is atraumatic, normocephalic. Pupils equal, round. Sclerae is anicteric. NECK: Supple no neck masses no JVD no stridor LUNGS: Diminished breath sound bilaterally no crackles rhonchi or wheezes HEART: Irregular irregular rhythm, 2/6 systolic murmur throughout the precordium ABDOMEN: Flat soft nontender no megaly no rebound no guarding EXTREMITIES: Trace of bipedal edema. NEUROLOGICAL: Alert and oriented x 3 no gross focal deficit Psychiatric: Normal mood affect and no mental status examination - Labs CBC & Chem 7: 02/01/24 05:48 02/02/24 05:21 Labs: Abnormal Lab Results - Last 24 Hours (Table) 02/02/24 Range/Units 05:21 Chloride 119 H (98-107) mmol/L Carbon Dioxide 21 L (22-30) mmol/L BUN 26 H (9-20) mg/dL Glucose 68 L (74-99) mg/dL Calcium 7.8 L (8.4-10.2) mg/dL Microbiology - Last 24 Hours (Table) 01/30/24 23:58 Urine Culture - Preliminary Urine,Voided Group D Enterococcus Assessment and Plan Assessment: Impression: ventricular tachycardia cardiac arrest, requiring intubation mechanical ventilation, extubated on 01/31/2024 Chronic atrial fibrillation Coronary artery disease and previous CABG and stent placement Left humerus fracture secondary to fall Severe cardiomyopathy and LV dysfunction with ejection fraction of 37% History of benign essential hypertension Dyslipidemia Type 2 diabetes Possible aspiration pneumonia as noted on chest x-ray. History of depression History of enlarged prostate History of CVA with left-sided weakness Dyslipidemia Acute urinary tract infection secondary to group D Enterococcus recommendation: Transfer patient to [facility] Cardiology is addressing his cardiac meds Advance diet as tolerated Continue amiodarone, Eliquis and continue GI prophylaxis Continue Unasyn for his UTI Overall long-term prognosis is extremely poor and guarded Will continue to follow Time with Patient: Less than 30
--- NOTE | 2024-02-02 15:09 | P.PN ---
Subjective Progress Note Date: 02/02/24 HISTORY OF PRESENT ILLNESS: This is an 83-year-old male 1 [place] patient with a previous medical hi story significant for coronary artery disease status post triple-vessel disease including 100% occlusion of the LAD 90% occlusion of the ramus status post PCI in July 2021, total occlusion of the RCA, hypertension and hypertensive cardiovascular disease, mixed hyperlipidemia, enlarged prostate, 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 especially in the left foot, has been ambulating using a walker on a regular basis, apparently the patient slipped and fell landed on the left side of his body, he had suffered from tremendous amount of pain in the left shoulder, he was brought into the emergency department at [facility], had a chest x-ray that showed minimal congestive heart failure, his shoulder x-ray showed evidence of left proximal mildly displaced humerus fracture, but the patient because he is not able to ambulate very well because he has to use his walker due to his fragility and because his prior stroke he was kept in the hospital for evaluation by orthopedic surgery as well as physical therapy evaluation for safety purposes as the patient is on anticoagulation, patient did have a CT scan of the brain did not show evidence of acute infarct or bleed, did show some small vessel disease, patient will be seen and evaluated by physical therapy as well as social welfare administrator for discharge planning tomorrow morning. 01/27: Patient is laying down in bed in no apparent distress he denies any chest pain, or any shortness of breath, he continues to have some pain in the left shoulder, he continues to have a sling in the left upper extremity, he has been seen by orthopedic surgery continue with conservative management at this point, physical therapy evaluation, social welfare administrator consultation for discharge planning, his family was at the bedside they were updated about his current condition, patient uses a walker for ambulation, encourage oral intake of food and fluid 01/28: Patient is sitting up in bed he appears to be quite drowsy today his mouth is very dry, his son was at the bedside, patient not drinking or eating much, will start the patient on IV fluid resuscitation in the form of normal saline at 50 cc an hour, monitor the patient input and output, patient continues to be in some amount of pain, he has been taking his pain medication, physical therapy evaluation still pending, patient will likely require subacute rehabilitation at this point in time, his son wanted his father to go to [facility] if possible a eladio torrest for social welfare administrator and physical therapies in place 01/29: His IV fluid was infiltrated to the right upper extremity yesterday, his right arm is quite swollen no erythema just edema, it was switched to the left hand, he denies any chest pain he continues to be dry, he denies any shortness of breath, he has no coughing or hemoptysis, he has no abdominal pain, he has not had a bowel movement yesterday just a small 1 yesterday, I will start the patient on Colace 100 mg orally twice every day as well as MiraLAX 17 g in 8 ounce of water once every day, physical therapy evaluation tomorrow morning, social welfare administrator consultation for discharge planning. 01/30: Yesterday the patient became quite unresponsive after he developed to have a significant atrial fibrillation with rapid ventricular response, his heart rate went all the way up to 170 cardiology recommended the patient to go on a amiodarone 150 mg IV push followed by amiodarone drip, patient developed to have a significant ventricular tachycardia/ventricular fibrillation, LAURIE KINNEY was called, and the patient was shocked twice, he was intubated and moved to the intensive care unit currently, currently on pressors, in the form of Levophed, he is currently on propofol drip, he is currently on amiodarone drip, patient also was on FiO2 of 40% tidal volume of 450 and PEEP of 5, pulmonary/glass technician/installer along with cardiology will continue to follow-up with the patient, patient initially was admitted to the hospital for left humerus fracture which appears to be stable at this point in time, we will continue to follow-up with the jennifer ent very closely in the ICU. 01/31: Patient is laying down in bed in no apparent distress, he was extubated successfully, he is currently on 2 L nasal cannula, he continues to have an oral gastric tube in place, this will be discontinued, he denies any chest pain, he is less short of breath, he is having some sore throat, he is coughing up in mL phlegm production, he has no abdominal pain, he does complain of pain in both lower extremity specially the left lower extremity, he is more awake and alert, continue current treatment plan at this time continue aggressive pulmonary toileting, physical therapy evaluation, will continue to work up with the patient, continue with the left upper extremity to be in a sling due to left humerus fracture. 02/01: Patient is laying down in bed in no apparent distress, he complains of pain in the lower back, because of laying down in bed, he has an NG tube tube placed due to the fact that he failed swallow screen, he is scheduled to go for modified barium swallow today, patient is feeling a lot better, his blood pressure is better today, he denies any chest pain or pressure at this time he has no chest pain or shortness of breath, he has no abdominal pain, nausea or vomiting at this time, he he has a bit of a swelling in both lower extremities, but appears to be generally weak. REVIEW OF SYSTEMS: Constitutional: No documented fever, no chills, no night sweats. No weight change. No weakness, fatigue or lethargy. No daytime sleepiness. EENT: No headache. No blurred vision or double vision, no loss of vision. hard of Hearing, no ringing in the ears, no dizziness. No nasal drainage or congestion. No epistaxis. No sore throat. Lungs: No shortness of breath, occasional cough, no sputum production. No wheezing. Reports dyspnea with activity. Cardiovascular: No chest pain, no lower extremity edema. No palpitations. No paroxysmal nocturnal dyspnea. No orthopnea. No lightheadedness or dizziness. No syncopal episodes. Abdominal: Reports no abdominal pain. No nausea, vomiting. No diarrhea. positive for constipation. No bloody or tarry stools reports loss of appetite. Genitourinary: No dysuria, increased frequency, urgency. No urinary retention. Musculoskeletal: No myalgias. positive for muscle weakness, positive for gait dysfunction, no frequent falls. No back pain. No neck pain., left arm /shoulder pain Integumentary: No wounds, no lesions. No rash or pruritus. No unusual bruising. No change in hair or nails. Neurologic: No aphasia. No facial droop. No change in mentation. No head injury. No headache. Left sided weakness. Chronic Psychiatric: No depression. No anxiety. No mood swings. Endocrine: No abnormal blood sugars. No weight change. PHYSICAL EXAMINATION: General: 83-year-old male who is sitting up in bed in no apparent distress HEENT: Head is atraumatic, normocephalic, pupils were equal round , mucous membranes of the mouth are somewhat dry, there is NG tube in place. Neck: Supple, no JVP, normal carotid upstroke bilaterally, no lymphadenopathy. Chest: Decreased breath sounds at the bases, few rhonchi, no expiratory wheezes, no chest wall tenderness, no intercostal retractions. Heart: First heart sound is normal, second heart sounds normal there is systolic ejection murmur 2/6 located left sternal border Abdomen: Soft, nontender, nondistended, positive bowel sounds. Extremities: There is mild edema no calf tenderness DP +2 bilaterally, left upper extremity in sling. Neurologic examination: Patient is awake alert and oriented x 2, cranial nerves III to XII appear gross intact, patient does have left-sided weakness that has been chronic. ASSESSMENT AND PLAN: 1. Status post vent dependent respiratory failure due to cardiac arrest due to ventricular tachycardia/fibrillation post DC cardioversion currently extubated on 2 L nasal cannula, continue aggressive pulmonary toileting, continue Zosyn 3.375 g piggyback every 8 hours to cover for aspiration pneumonia, continue nebulized treatment [id number], patient is currently has an NG tube in place due to failed swallow evaluation, he scheduled to go for modified barium swallow MBS later on today. 2. Status post a fall with left proximal humerus fracture mildly displaced. Keep the patient in sling, we will reevaluate the patient for send extubation. 3. Coronary artery disease status post CABG x 1 followed by PCI in 2019 as well as in 2021 . Continue patient on metoprolol 50 mg orally twice every day, valsartan 160 mg once every day, continue rosuvastatin 40 mg once every day or substitute, monitor the patient lipid panel, keep LDL 55-70, 4. Hypertension and hypertensive cardiovascular disease. Continue valsartan 160 mg once every day, continue metoprolol 50 mg orally twice every day monitor the patient blood pressure very closely. 5. Mixed hyperlipidemia. Continue patient on rosuvastatin 40 mg once every day orally substitute atorvastatin 80 mg once every day, monitor lipid panel, keep LDL 55-70. 6. History of CVA with residual left-sided weakness. Continue patient on current treatment plan. 7. Enlarged prostate. Continue tamsulosin 0.4 mg once every day. 8. Paroxysmal atrial fibrillation. Continue Eliquis 5 mg orally twice every day, metoprolol 50 mg orally twice every day, 9. Chronic diastolic heart failure. Continue patient on metoprolol 50 mg or ally twice every day, continue valsartan 160 mg once every day, continue Jardiance 10 mg orally once every day. 10. Depression. Continue citalopram 20 mg orally once every day. 11. DVT prophylaxis. Continue patient on Eliquis 5 mg orally twice every day. 12. GI prophylaxis. Continue patient on pantoprazole 40 mg once every day. 13. Moderate protein calorie malnutrition. Restart Ensure. 14. Disposition likely subacute rehabilitation possibly [place]. Objective - Vital Signs Vital signs: Vital Signs Temp 97.9 F 02/02/24 08:00 Pulse 67 02/02/24 08:00 Resp 20 02/02/24 08:00 BP 108/83 02/02/24 08:00 Pulse Ox 96 02/02/24 08:00 FiO2 88 02/01/24 08:15 Intake & Output 02/01/24 02/02/24 02/02/24 18:59 06:59 18:59 Intake Total 1390 1250 Output Total 645 350 400 Balance 745 -350 850 Weight 62.9 kg Intake: IV 900 950 Ampicillin-Sulbactam 3 gm 200 100 In Sodium Chloride 0.9% 100 ml @ 200 mls/hr IVPB Q8H JUAN Rx#:[id number] Piperacillin-Tazobactam 3 100 .375 gm In Sodium Chloride 0.9% 100 ml @ 25 mls/hr IVPB Q8HR JUAN Rx# :[id number] Sodium Chloride 0.9% 1, 600 850 000 ml @ 50 mls/hr IV . Q20H JUAN Rx#:[id number] Intake, IV Titration 250 Amount Amiodarone 450 mg In 250 Dextrose 5% in Water 250 ml @ 0.5 MG/MIN 16.667 mls/hr IV .Q15H JUAN Rx#: [id number] Other 240 300 Output: Urine 645 350 400 Other: Voiding Method Indwelling Catheter Indwelling Catheter Indwelling Catheter # Bowel Movements 0 - Labs CBC & Chem 7: 02/01/24 05:48 02/02/24 05:21 Labs: Abnormal Lab Results - Last 24 Hours (Table) 02/02/24 Range/Units 05:21 Chloride 119 H (98-107) mmol/L Carbon Dioxide 21 L (22-30) mmol/L BUN 26 H (9-20) mg/dL Glucose 68 L (74-99) mg/dL Calcium 7.8 L (8.4-10.2) mg/dL Microbiology - Last 24 Hours (Table) 01/30/24 23:58 Urine Culture - Final Urine,Voided Enterococcus faecalis
[2024-02-02 17:30] LABS: Glucose,Whole Blood 122 mg/dL (70-110)
[2024-02-03 06:11] LABS: Glucose,Whole Blood 92 mg/dL (70-110)
[2024-02-03 08:03] LABS: Anisocytosis Slight; Basophils # (A) 0.1 k/uL (0-0.2); Basophils % (A) 1 %; Eosinophils # (A) 0.3 k/uL (0-0.7); Eosinophils % (A) 4 %; HCT 33.1 % (39.0-53.0); HGB 9.9 gm/dL (13.0-17.5); Hypochromasia Marked; Lymphocytes # (A) 0.7 k/uL (1.0-4.8); Lymphocytes % (A) 8 %; MCH 25.4 pg (25.0-35.0); MCHC 29.8 g/dL (31.0-37.0); MCV 85.3 fL (80.0-100.0); Mean Platelet Volume 7.4; Monocytes # (A) 0.6 k/uL (0-1.0); Monocytes % (A) 6 %; Neutrophils # (A) 6.9 k/uL (1.3-7.7); Neutrophils % (A) 80 %; Platelet Count 324 k/uL (150-450); RBC 3.88 m/uL (4.30-5.90); RDW 17.7 % (11.5-15.5); WBC 8.7 k/uL (3.8-10.6)
[2024-02-03 08:25] LABS: ALT 21 U/L (4-49); AST 33 U/L (17-59); African American GFR (CKD) 84 (>60 ml/min/1.73 sqM); Alkaline Phosphatase 248 U/L (38-126); Anion Gap 2 mmol/L; Blood Urea Nitrogen 24 mg/dL (9-20); Calcium 7.8 mg/dL (8.4-10.2); Carbon Dioxide 24 mmol/L (22-30); Chloride 120 mmol/L (98-107); Glucose 86 mg/dL (74-99); Non-African American GFR(CKD) 73 (>60 ml/min/1.73 sqM); Potassium 4.1 mmol/L (3.5-5.1); Sodium 146 mmol/L (137-145); Total Bilirubin 0.8 mg/dL (0.2-1.3); Total Protein 4.4 g/dL (6.3-8.2)
[2024-02-03 11:11] VITALS: BMI 22.4
[2024-02-03 11:31] LABS: Glucose,Whole Blood 84 mg/dL (70-110)
--- NOTE | 2024-02-03 12:45 | P.PN ---
Subjective HISTORY OF PRESENT ILLNESS: The patient is an 83-year-old male with known history of atrial fibrillation, ischemic cardiomyopathy, coronary artery disease with CABG and stenting who presented with a fall, slipped and had a humerus fracture. He was in atrial fibrillation on presentation. He had an episode of ventricular tachycardia requiring cardioversion x 2 with mormon of sinus mechanism. He was extubated yesterday. He is awake and alert this morning, denies any chest discomfort or dyspnea. He had no further ventricular ectopic activity. He is on no vasopressors and continues to be on IV amiodarone. He had an echocardiogram yesterday that showed an ejection fraction of 45 to 50% with mild tricuspid and mitral regurgitation and moderate pulmonary hypertension. 02/03/2024 Patient examined this morning at the bedside. Patient denies chest pain or pressure. He denies shortness of breath. Patient states that he has not been out of bed yet except just to stand up. He states he has not ambulated. Vital signs are stable. Systolic murmur noted. PHYSICAL EXAM: VITAL SIGNS: Reviewed. GENERAL: Well-developed in no acute distress. NECK: Supple. No JVD or thyromegaly LUNGS: Respirations even and unlabored. Lungs essentially clear to auscultation bilaterally. HEART: Regular rate and rhythm. S1 and S2 heard. EXTREMITIES: Normal range of motion. No clubbing or cyanosis. Peripheral pulses intact. No lower extremity edema ASSESSMENT: 1. Status post episode of ventricular tachycardia and questionable torsades r equiring cardioversion, cause unclear, no clear evidence of acute ischemic event 2. History of CAD status post CABG and stenting 3. Mild ischemic cardiomyopathy 4. Prior episode of atrial fibrillation, now in sinus mechanism, anticoagulated 5. Status post fall and fracture of the humerus 6. History of hyperlipidemia 7. History of hypertension PLAN: Continue current cardiac medications Continue telemetry monitoring Increase activity as tolerated Patient is currently stable from a cardiac perspective Further recommendations pending patient course Nurse practitioner note has been reviewed by physician. Signing provider agrees with the documented findings, assessment, and plan of care documented by MITTEN STITCHER as a scribe. Objective - Vital Signs Vital signs: Vital Signs Temp 98.1 F 02/03/24 11:23 Pulse 74 02/03/24 11:23 Resp 17 02/03/24 11:23 BP 156/76 02/03/24 11:23 Pulse Ox 94 L 02/03/24 11:09 FiO2 88 11/12/24 08:15 Intake & Output 02/02/24 02/03/24 02/03/24 18:59 06:59 18:59 Intake Total 1270 140 Output Total 400 525 Balance 870 -385 Weight 62.9 kg Intake: IV 970 20 Ampicillin-Sulbactam 3 gm 100 In Sodium Chloride 0.9% 100 ml @ 200 mls/hr IVPB Q8H JUAN Rx#:[id number] Invasive Line 4 20 20 Sodium Chloride 0.9% 1, 850 000 ml @ 50 mls/hr IV . Q20H JUAN Rx#:[id number] Oral 120 Other 300 Output: Urine 400 525 Straight 525 Other: Voiding Method Indwelling Catheter Incontinent - Labs CBC & Chem 7: 02/03/24 07:25 02/03/24 07:25 Labs: Abnormal Lab Results - Last 24 Hours (Table) 02/02/24 02/03/24 02/03/24 Range/Units 17:28 07:25 07:25 RBC 3.88 L (4.30-5.90) m/uL Hgb 9.9 L (13.0-17.5) gm/dL Hct 33.1 L (39.0-53.0) % MCHC 29.8 L (31.0-37.0) g/dL RDW 17.7 H (11.5-15.5) % Lymphocytes # 0.7 L (1.0-4.8) k/uL Sodium 146 H (137-145) mmol/L Chloride 120 H (98-107) mmol/L BUN 24 H (9-20) mg/dL POC Glucose (mg/dL) 122 H (70-110) mg/dL Calcium 7.8 L (8.4-10.2) mg/dL Alkaline Phosphatase 248 H (38-126) U/L Total Protein 4.4 L (6.3-8.2) g/dL Albumin 2.0 L (3.5-5.0) g/dL Microbiology - Last 24 Hours (Table) 01/30/24 23:58 Urine Culture - Final Urine,Voided Enterococcus faecalis
--- NOTE | 2024-02-03 13:53 | P.PN ---
Subjective Progress Note Date: 02/03/24 Principal diagnosis: Cardiac arrest This is an 83-year-old white male with known history of multiple medical problems including coronary artery disease, previous stent and previous CABG history of severe ischemic cardiomyopathy and LV dysfunction hypertension type 2 diabetes chronic atrial fibrillation, patient was admitted on 01/27/2024, apparently the patient slipped and fell landed on his left side of the body, suffered significant amount of left shoulder pain, brought into the ER, and he was found to have left proximal displaced humerus fracture, admitted, seen by orthopedics on consultation, did not feel surgical treatment is indicated recommended mostly an arm sling and the recommendation was for subacute rehab placement. Last night, patient had a sudden episode of ventricular tachycardia which has developed from ongoing chronic persistent atrial fibrillation, CODE BLUE was initiated, patient was intubated, received 2 shocks/cardioversion, and admitted to the ICU. No documentation of CPR performed during this event. Today the patient is in the ICU, intubated and mechanically ventilated, he is on assist-control rate of 20 tidal volume 450 FiO2 40% PEEP of 5 ABG showed a pO2 of 251 pCO2 28 pH of 7.52 hence his rate was cut down to 16. Patient is still requiring amiodarone at 0.5 mg/min he is on norepinephrine at 0.06 mcg/kg/min patient is also on propofol at 35 mcg/kg/min. Patient is presently in atrial fibrillation with relatively controlled rate, sedated, does not seem to be in any distress, could not obtain actual history from the patient himself. Patient is very today on 02/01/2024, remains in the ICU, he was extubated yesterday uneventfully. Patient is on room air, does not seem to be in any distress. He was on amiodarone this morning, and that would be transition to oral amiodarone. IV fluids at KVO, patient continues to have left arm in a sling. His urine is positive for group B streptococcus, hence I will change his Zosyn to Unasyn. Patient continues to have nasogastric tube in place which I have discontinued today. WBC count is 13.5 hemoglobin 10.5 basic metabolic profile is relatively unremarkable bicarb is 18 BUN is 28 creatinine 1.03. Chest x-ray continues show minimal bibasilar infiltrates/atelectasis Patient was seen today on 02/02/2024, patient is doing well, remains in the ICU, tolerated the extubation well over the last 48 hours. Patient had an episode of ventricular tachycardia requiring cardioversion, intubation, and transferred to the ICU but he was extubated 2 days ago, patient does have history of underlying coronary artery disease previous CABG and stenting, and he has mild ischemic cardiomyopathy. Patient is doing great, his nasogastric tube was also removed yesterday, and the plan is to transfer the patient back to the cardiac floor/3 S. No cough no wheezing no shortness of breath no chest pain. Patient feels generally weak, and he has chronic low back painBasic metabolic profile is normal renal profile is normal blood sugar is 68 today Patient was seen today on 02/03/2024, patient is doing well, he is on the cardiac floor, not in any distress, no further episodes of ventricular arrhythmia, patient is being followed by cardiology, he was extubated 3 days ago. Patient is known to have history of mild ischemic cardiomyopathy no active pulmonary symptoms, no cough no wheezing no shortness of breath no chest pain. Patient is being considered for transfer to rehab facilityWBC count is 8.7 hemoglobin 9.9 electrolytes are normal renal profile is normal Objective - Vital Signs Vital signs: Vital Signs Temp 98.1 F 02/03/24 11:23 Pulse 74 02/03/24 11:23 Resp 17 02/03/24 11:23 BP 156/76 02/03/24 11:23 Pulse Ox 94 L 02/03/24 11:09 FiO2 88 02/01/24 08:15 Intake & Output 02/02/24 02/03/24 02/03/24 18:59 06:59 18:59 Intake Total 1270 140 Output Total 400 525 Balance 870 -385 Weight 62.9 kg Intake: IV 970 20 Ampicillin-Sulbactam 3 gm 100 In Sodium Chloride 0.9% 100 ml @ 200 mls/hr IVPB Q8H JUAN Rx#:[id number] Invasive Line 4 20 20 Sodium Chloride 0.9% 1, 850 000 ml @ 50 mls/hr IV . Q20H UJAN Rx#:[id number] Oral 120 Other 300 Output: Urine 400 525 Straight 525 Other: Voiding Method Indwelling Catheter Incontinent - Exam Gen: Revealed 83-year-old white male looks frail, chronically ill, on 2 L nasal cannula O2 sat is 94% HEENT: Head is atraumatic, normocephalic. Pupils equal, round. Sclerae is anicteric. NECK: Supple no neck masses no JVD no stridor LUNGS: Diminished breath sound bilaterally no crackles rhonchi or wheezes HEART: Irregular irregular rhythm, 2/6 systolic murmur throughout the precordium ABDOMEN: Flat soft nontender no megaly no rebound no guarding EXTREMITIES: Trace of bipedal edema. NEUROLOGICAL: Alert and oriented x 3 no gross focal deficit Psychiatric: Normal mood affect and no mental status examination - Labs CBC & Chem 7: 02/03/24 07:25 02/03/24 07:25 Labs: Abnormal Lab Results - Last 24 Hours (Table) 02/02/24 02/03/24 02/03/24 Range/Units 17:28 07:25 07:25 RBC 3.88 L (4.30-5.90) m/uL Hgb 9.9 L (13.0-17.5) gm/dL Hct 33.1 L (39.0-53.0) % MCHC 29.8 L (31.0-37.0) g/dL RDW 17.7 H (11.5-15.5) % Lymphocytes # 0.7 L (1.0-4.8) k/uL Sodium 146 H (137-145) mmol/L Chloride 120 H (98-107) mmol/L BUN 24 H (9-20) mg/dL POC Glucose (mg/dL) 122 H (70-110) mg/dL Calcium 7.8 L (8.4-10.2) mg/dL Alkaline Phosphatase 248 H (38-126) U/L Total Protein 4.4 L (6.3-8.2) g/dL Albumin 2.0 L (3.5-5.0) g/dL Microbiology - Last 24 Hours (Table) 01/30/24 23:58 Urine Culture - Final Urine,Voided Enterococcus faecalis Assessment and Plan Assessment: Impression: ventricular tachycardia cardiac arrest, requiring intubation mechanical v entilation, extubated on 01/31/2024 Chronic atrial fibrillation Coronary artery disease and previous CABG and stent placement Left humerus fracture secondary to fall Severe cardiomyopathy and LV dysfunction with ejection fraction of 37% History of benign essential hypertension Dyslipidemia Type 2 diabetes Possible aspiration pneumonia as noted on chest x-ray. History of depression History of enlarged prostate History of CVA with left-sided weakness Dyslipidemia Acute urinary tract infection secondary to group D Enterococcus recommendation: Continue amiodarone, Eliquis and continue GI prophylaxis Continue antibiotics for UTI Overall long-term prognosis is extremely poor and guarded Will continue to follow Time with Patient: Less than 30
[2024-02-03 16:42] LABS: Glucose,Whole Blood 156 mg/dL (70-110)
--- NOTE | 2024-02-03 19:22 | P.PN ---
Subjective Progress Note Date: 02/03/24 HISTORY OF PRESENT ILLNESS: This is an 83-year-old male 1 NC patient with a previous medical hi story significant for coronary artery disease status post triple-vessel disease including 100% occlusion of the LAD 90% occlusion of the ramus status post PCI in July 2021, total occlusion of the RCA, hypertension and hypertensive cardiovascular disease, mixed hyperlipidemia, enlarged prostate, 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 especially in the left foot, has been ambulating using a walker on a regular basis, apparently the patient slipped and fell landed on the left side of his body, he had suffered from tremendous amount of pain in the left shoulder, he was brought into the emergency department at [facility], had a chest x-ray that showed minimal congestive heart failure, his shoulder x-ray showed evidence of left proximal mildly displaced humerus fracture, but the patient because he is not able to ambulate very well because he has to use his walker due to his fragility and because his prior stroke he was kept in the hospital for evaluation by orthopedic surgery as well as physical therapy evaluation for safety purposes as the patient is on anticoagulation, patient did have a CT scan of the brain did not show evidence of acute infarct or bleed, did show some small vessel disease, patient will be seen and evaluated by physical therapy as well as social media content specialist for discharge planning tomorrow morning. 01/27: Patient is laying down in bed in no apparent distress he denies any chest pain, or any shortness of breath, he continues to have some pain in the left shoulder, he continues to have a sling in the left upper extremity, he has been seen by orthopedic surgery continue with conservative management at this point, physical therapy evaluation, social media content specialist consultation for discharge planning, his family was at the bedside they were updated about his current condition, patient uses a walker for ambulation, encourage oral intake of food and fluid 01/28: Patient is sitting up in bed he appears to be quite drowsy today his mouth is very dry, his son was at the bedside, patient not drinking or eating much, will start the patient on IV fluid resuscitation in the form of normal saline at 50 cc an hour, monitor the patient input and output, patient continues to be in some amount of pain, he has been taking his pain medication, physical therapy evaluation still pending, patient will likely require subacute rehabilitation at this point in time, his son wanted his father to go to [facility] if possible a eladio torrest for social media content specialist and physical therapies in place 01/29: His IV fluid was infiltrated to the right upper extremity yesterday, his right arm is quite swollen no erythema just edema, it was switched to the left hand, he denies any chest pain he continues to be dry, he denies any shortness of breath, he has no coughing or hemoptysis, he has no abdominal pain, he has not had a bowel movement yesterday just a small 1 yesterday, I will start the patient on Colace 100 mg orally twice every day as well as MiraLAX 17 g in 8 ounce of water once every day, physical therapy evaluation tomorrow morning, social media content specialist consultation for discharge planning. 01/30: Yesterday the patient became quite unresponsive after he developed to have a significant atrial fibrillation with rapid ventricular response, his heart rate went all the way up to 170 cardiology recommended the patient to go on a amiodarone 150 mg IV push followed by amiodarone drip, patient developed to have a significant ventricular tachycardia/ventricular fibrillation, LAURIE KINNEY was called, and the patient was shocked twice, he was intubated and moved to the intensive care unit currently, currently on pressors, in the form of Levophed, he is currently on propofol drip, he is currently on amiodarone drip, patient also was on FiO2 of 40% tidal volume of 450 and PEEP of 5, pulmonary/prop drawer along with cardiology will continue to follow-up with the patient, patient initially was admitted to the hospital for left humerus fracture which appears to be stable at this point in time, we will continue to follow-up with the jennifer ent very closely in the ICU. 01/31: Patient is laying down in bed in no apparent distress, he was extubated successfully, he is currently on 2 L nasal cannula, he continues to have an oral gastric tube in place, this will be discontinued, he denies any chest pain, he is less short of breath, he is having some sore throat, he is coughing up in mL phlegm production, he has no abdominal pain, he does complain of pain in both lower extremity specially the left lower extremity, he is more awake and alert, continue current treatment plan at this time continue aggressive pulmonary toileting, physical therapy evaluation, will continue to work up with the patient, continue with the left upper extremity to be in a sling due to left humerus fracture. 02/01: Patient is laying down in bed in no apparent distress, he complains of pain in the lower back, because of laying down in bed, he has an NG tube tube placed due to the fact that he failed swallow screen, he is scheduled to go for modified barium swallow today, patient is feeling a lot better, his blood pressure is better today, he denies any chest pain or pressure at this time he has no chest pain or shortness of breath, he has no abdominal pain, nausea or vomiting at this time, he he has a bit of a swelling in both lower extremities, but appears to be generally weak. 02/02: Patient is laying down in bed he is feeling a bit stronger today, he had modified barium swallow yesterday that showed aspiration of thin liquid, and pooling in the vallecula, we will continue to work with the speech therapist to try to overcome the aspiration currently has an NG tube removed, we will continue with that until the patient is able to swallow, continue IV antibiotic in the form of Unasyn, continue to monitor the patient closely patient is moved to telemetry unit REVIEW OF SYSTEMS: Constitutional: No documented fever, no chills, no night sweats. No weight change. Positive for generalized weakness, fatigue or lethargy. No daytime sleepiness. EENT: No headache. No blurred vision or double vision, no loss of vision. hard of Hearing, no ringing in the ears, no dizziness. No nasal drainage or congestion. No epistaxis. No sore throat. Lungs: No shortness of breath, occasional cough, no sputum production. No wheezing. Reports dyspnea with activity. Cardiovascular: No chest pain, no lower extremity edema. No palpitations. No paroxysmal nocturnal dyspnea. No orthopnea. No lightheadedness or dizziness. No syncopal episodes. Abdominal: Reports no abdominal pain. No nausea, vomiting. No diarrhea. positive for constipation. No bloody or tarry stools reports loss of appetite. Genitourinary: No dysuria, increased frequency, urgency. No urinary retention. Rivera catheter in place Musculoskeletal: No myalgias. positive for muscle weakness, positive for gait dysfunction, no frequent falls. No back pain. No neck pain., left arm /shoulder pain Integumentary: No wounds, no lesions. No rash or pruritus. No unusual bruising. No change in hair or nails. Neurologic: No aphasia. No facial droop. No change in mentation. No head injury. No headache. Left sided weakness. Chronic Psychiatric: No depression. No anxiety. No mood swings. Endocrine: No abnormal blood sugars. No weight change. PHYSICAL EXAMINATION: General: 83-year-old male who is sitting up in bed in no apparent distress HEENT: Head is atraumatic, normocephalic, pupils were equal round , mucous membranes of the mouth are somewhat dry, Neck: Supple, no JVP, normal carotid upstroke bilaterally, no lymphadenopathy. Chest: Decreased breath sounds at the bases, few rhonchi, no expiratory wheezes, no chest wall tenderness, no intercostal retractions. Heart: First heart sound is normal, second heart sounds normal there is systolic ejection murmur 2/6 located left sternal border Abdomen: Soft, nontender, nondistended, positive bowel sounds. Extremities: There is mild edema no calf tenderness DP +2 bilaterally, left upper extremity in sling. Neurologic examination: Patient is awake alert and oriented x 2, cranial nerves III to XII appear gross intact, patient does have left-sided weakness that has been chronic. ASSESSMENT AND PLAN: 1. Status post vent dependent respiratory failure due to cardiac arrest due to ventricular tachycardia/fibrillation post DC cardioversion currently extubated on 2 L nasal cannula, continue aggressive pulmonary toileting, continue Unasyn 3 g piggyback every 8 hours to cover for aspiration pneumonia, continue nebulized treatment [id number], patient is currently has an NG tube is removed, and patient was seen by speech therapy, continue with thick nectar and soft diet. 2. Status post a fall with left proximal humerus fracture mildly displaced. Keep the patient in sling, we will reevaluate the patient for rehabilitation. 3. Coronary artery disease status post CABG x 1 followed by PCI in 2019 as well as in 2021 . Continue patient on metoprolol 50 mg orally twice every day, valsartan 160 mg once every day, continue rosuvastatin 40 mg once every day or substitute, monitor the patient lipid panel, keep LDL 55-70, 4. Hypertension and hypertensive cardiovascular disease. Continue valsartan 160 mg once every day, continue metoprolol 50 mg orally twice every day monitor the patient blood pressure very closely. 5. Mixed hyperlipidemia. Continue patient on rosuvastatin 40 mg once every day orally substitute atorvastatin 80 mg once every day, monitor lipid panel, keep LDL 55-70. 6. History of CVA with residual left-sided weakness. Continue patient on curre nt treatment plan. 7. Enlarged prostate. Continue tamsulosin 0.4 mg once every day. 8. Paroxysmal atrial fibrillation. Continue Eliquis 5 mg orally twice every day, metoprolol 50 mg orally twice every day, 9. Chronic diastolic heart failure. Continue patient on metoprolol 50 mg orally twice every day, continue valsartan 160 mg once every day, continue Jardiance 10 mg orally once every day. 10. Depression. Continue citalopram 20 mg orally once every day. 11. DVT prophylaxis. Continue patient on Eliquis 5 mg orally twice every day. 12. GI prophylaxis. Continue patient on pantoprazole 40 mg once every day. 13. Moderate protein calorie malnutrition. Restart Ensure. 14. Patient had failed swallow screen as well as MBS showed evidence of aspiration of thin liquids patient was placed on a thick nectar and a soft diet, follow-up with the patient very closely. Avoid aspiration 15. Disposition likely subacute rehabilitation possibly [facility]. Hopefully tomorrow morning. Objective - Vital Signs Vital signs: Vital Signs Temp 98 F 02/02/24 23:35 Pulse 67 02/02/24 23:35 Resp 17 02/02/24 23:35 BP 145/51 02/02/24 23:35 Pulse Ox 94 L 02/02/24 23:35 FiO2 88 02/01/24 08:15 Intake & Output 02/02/24 02/02/24 02/03/24 06:59 18:59 06:59 Intake Total 1270 20 Output Total 350 400 Balance -350 870 20 Weight 62.9 kg Intake: IV 970 20 Ampicillin-Sulbactam 3 gm 100 In Sodium Chloride 0.9% 100 ml @ 200 mls/hr IVPB Q8H JUAN Rx#:[id number] Invasive Line 4 20 20 Sodium Chloride 0.9% 1, 850 000 ml @ 50 mls/hr IV . Q20H JUAN Rx#:[id number] Other 300 Output: Urine 350 400 Other: Voiding Method Indwelling Catheter Indwelling Catheter Incontinent - Labs CBC & Chem 7: 02/03/24 07:25 02/03/24 07:25 Labs: Abnormal Lab Results - Last 24 Hours (Table) 02/02/24 02/02/24 Range/Units 05:21 17:28 Chloride 119 H (98-107) mmol/L Carbon Dioxide 21 L (22-30) mmol/L BUN 26 H (9-20) mg/dL Glucose 68 L (74-99) mg/dL POC Glucose (mg/dL) 122 H (70-110) mg/dL Calcium 7.8 L (8.4-10.2) mg/dL Microbiology - Last 24 Hours (Table) 01/30/24 23:58 Urine Culture - Final Urine,Voided Enterococcus faecalis
[2024-02-03 19:59] LABS: Glucose,Whole Blood 118 mg/dL (70-110)
[2024-02-04 06:17] LABS: Glucose,Whole Blood 112 mg/dL (70-110)
[2024-02-04 07:01] LABS: Anisocytosis Slight; Basophils % (A) 0 %; Eosinophils # (A) 0.1 k/uL (0-0.7); Eosinophils % (A) 1 %; HCT 33.5 % (39.0-53.0); HGB 10.2 gm/dL (13.0-17.5); Hypochromasia Marked; Lymphocytes # (A) 0.8 k/uL (1.0-4.8); Lymphocytes % (A) 8 %; MCH 25.9 pg (25.0-35.0); MCHC 30.3 g/dL (31.0-37.0); MCV 85.5 fL (80.0-100.0); Mean Platelet Volume 7.6; Monocytes # (A) 0.8 k/uL (0-1.0); Monocytes % (A) 8 %; Neutrophils # (A) 7.6 k/uL (1.3-7.7); Neutrophils % (A) 80 %; Platelet Count 339 k/uL (150-450); RBC 3.92 m/uL (4.30-5.90); RDW 18.1 % (11.5-15.5); WBC 9.5 k/uL (3.8-10.6)
[2024-02-04 08:28] LABS: ALT 26 U/L (4-49); AST 44 U/L (17-59); African American GFR (CKD) 85 (>60 ml/min/1.73 sqM); Alkaline Phosphatase 322 U/L (38-126); Anion Gap 4 mmol/L; Blood Urea Nitrogen 20 mg/dL (9-20); Calcium 8.1 mg/dL (8.4-10.2); Carbon Dioxide 20 mmol/L (22-30); Chloride 125 mmol/L (98-107); Glucose 109 mg/dL (74-99); Non-African American GFR(CKD) 74 (>60 ml/min/1.73 sqM); Potassium 3.7 mmol/L (3.5-5.1); Sodium 149 mmol/L (137-145); Total Bilirubin 0.9 mg/dL (0.2-1.3); Total Protein 4.6 g/dL (6.3-8.2)
[2024-02-04 10:34] VITALS: PULSE 74
--- NOTE | 2024-02-04 11:03 | P.PN ---
Subjective HISTORY OF PRESENT ILLNESS: The patient is an 83-year-old male with known history of atrial fibrillation, ischemic cardiomyopathy, coronary artery disease with CABG and stenting who presented with a fall, slipped and had a humerus fracture. He was in atrial fibrillation on presentation. He had an episode of ventricular tachycardia requiring cardioversion x 2 with mandaen of sinus mechanism. He was extubated yesterday. He is awake and alert this morning, denies any chest discomfort or dyspnea. He had no further ventricular ectopic activity. He is on no vasopressors and continues to be on IV amiodarone. He had an echocardiogram yesterday that showed an ejection fraction of 45 to 50% with mild tricuspid and mitral regurgitation and moderate pulmonary hypertension. 02/03/2024 Patient examined this morning at the bedside. Patient denies chest pain or pressure. He denies shortness of breath. Patient states that he has not been out of bed yet except just to stand up. He states he has not ambulated. Vital signs are stable. 02/04/2024 Patient examined this morning the bedside. Patient currently denies any chest pain or pressure. He denies SOB. He is tolerating chopped diet. Na today 149. No signs are stable. Telemetry reveals sinus mechanism. PHYSICAL EXAM: VITAL SIGNS: Reviewed. GENERAL: Well-developed in no acute distress. NECK: Supple. No JVD or thyromegaly LUNGS: Respirations even and unlabored. Lungs essentially clear to auscultation bilaterally. HEART: Regular rate and rhythm. S1 and S2 heard. Systolic murmur noted. EXTREMITIES: Normal range of motion. No clubbing or cyanosis. Peripheral pul ses intact. No lower extremity edema ASSESSMENT: 1. Status post episode of ventricular tachycardia and questionable torsades requiring cardioversion, cause unclear, no clear evidence of acute ischemic event 2. History of CAD status post CABG and stenting 3. Mild ischemic cardiomyopathy 4. Prior episode of atrial fibrillation, now in sinus mechanism, anticoagulated 5. Status post fall and fracture of the humerus 6. History of hyperlipidemia 7. History of hypertension PLAN: Continue current cardiac medications Continue telemetry monitoring Increase activity as tolerated Patient is currently stable for discharge from a cardiac perspective Further recommendations pending patient course Nurse practitioner note has been reviewed by physician. Signing provider agrees with the documented findings, assessment, and plan of care documented by PSYCHIATRIC TECH as a scribe. Objective - Vital Signs Vital signs: Vital Signs Temp 97.6 F 02/04/24 08:50 Pulse 74 02/04/24 08:50 Resp 20 02/04/24 08:50 BP 148/61 02/04/24 08:50 Pulse Ox 96 02/04/24 09:23 FiO2 88 02/01/24 08:15 Intake & Output 02/03/24 02/04/24 02/04/24 18:59 06:59 18:59 Intake Total 220 Output Total 900 350 Balance 220 -900 -350 Weight 62.9 kg 63 kg Intake: Oral 220 Output: Urine 900 350 Straight 600 Other: Voiding Method Indwelling Catheter Indwelling Catheter - Labs CBC & Chem 7: 02/04/24 06:43 02/04/24 06:43 Labs: Abnormal Lab Results - Last 24 Hours (Table) 02/03/24 02/03/24 02/04/24 Range/Units 16:40 19:58 06:07 RBC (4.30-5.90) m/uL Hgb (13.0-17.5) gm/dL Hct (39.0-53.0) % MCHC (31.0-37.0) g/dL RDW (11.5-15.5) % Lymphocytes # (1.0-4.8) k/uL Sodium (137-145) mmol/L Chloride (98-107) mmol/L Carbon Dioxide (22-30) mmol/L Glucose (74-99) mg/dL POC Glucose (mg/dL) 156 H 118 H 112 H (70-110) mg/dL Calcium (8.4-10.2) mg/dL Alkaline Phosphatase (38-126) U/L Total Protein (6.3-8.2) g/dL Albumin (3.5-5.0) g/dL 02/04/24 02/04/24 Range/Units 06:43 06:43 RBC 3.92 L (4.30-5.90) m/uL Hgb 10.2 L (13.0-17.5) gm/dL Hct 33.5 L (39.0-53.0) % MCHC 30.3 L (31.0-37.0) g/dL RDW 18.1 H (11.5-15.5) % Lymphocytes # 0.8 L (1.0-4.8) k/uL Sodium 149 H (137-145) mmol/L Chloride 125 H (98-107) mmol/L Carbon Dioxide 20 L (22-30) mmol/L Glucose 109 H (74-99) mg/dL POC Glucose (mg/dL) (70-110) mg/dL Calcium 8.1 L (8.4-10.2) mg/dL Alkaline Phosphatase 322 H (38-126) U/L Total Protein 4.6 L (6.3-8.2) g/dL Albumin 2.0 L (3.5-5.0) g/dL
--- NOTE | 2024-02-04 12:42 | P.DS ---
Providers Date of admission: 01/27/24 11:44 Expected date of discharge: 02/04/24 Attending physician: Dedra Alanis Consults: 01/27/24 11:43 Consult Physician Routine Consulting Provider: Dedra Alanis Consult Reason/Comments: medical care Do you want consulting provider notified?: Already Contacted 01/28/24 08:48 Consult Physician Routine Consulting Provider: Johnny Martino Consult Reason/Comments: left proximal humerus fracture Do you want consulting provider notified?: Already Contacted 01/30/24 22:25 Consult Physician Stat Consulting Provider: Maryann Burk Consult Reason/Comments: [facility]TA[facility] - icu management Do you want consulting provider notified?: Already Contacted 01/31/24 17:23 Consult Physician Routine Consulting Provider: Sadi Webb Consult Reason/Comments: afib/vtach Do you want consulting provider notified?: Already Contacted Primary care physician: Dedra Alanis Hospital Course: HISTORY OF PRESENT ILLNESS: This is an 83-year-old male 1 [place] patient with a previous medical history significant for coronary artery disease status post triple-vessel disease including 100% occlusion of the LAD 90% occlusion of the ramus status post PCI in July 2021, total occlusion of the RCA, hypertension and hypertensive cardiovascular disease, mixed hyperlipidemia, enlarged prostate, 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 especially in the left foot, has been ambulating using a walker on a regular basis, apparently the patient slipped and fell landed on the left side of his body, he had suffered from tremendous amount of pain in the left shoulder, he was brought into the emergency department at [facility], had a chest x- ray that showed minimal congestive heart failure, his shoulder x-ray showed evidence of left proximal mildly displaced humerus fracture, but the patient because he is not able to ambulate very well because he has to use his walker due to his fragility and because his prior stroke he was kept in the hospital for evaluation by orthopedic surgery as well as physical therapy evaluation for safety purposes as the patient is on anticoagulation, patient did have a CT scan of the brain did not show evidence of acute infarct or bleed, did show some small vessel disease, patient will be seen and evaluated by physical therapy as well as social services specialist for discharge planning tomorrow morning. 01/27: Patient is laying down in bed in no apparent distress he denies any chest pain, or any shortness of breath, he continues to have some pain in the left shoulder, he continues to have a sling in the left upper extremity, he has been seen by orthopedic surgery continue with conservative management at this point, physical therapy evaluation, social services specialist consultation for discharge planning, his family was at the bedside they were updated about his current condition, patient uses a walker for ambulation, encourage oral intake of food and fluid 01/28: Patient is sitting up in bed he appears to be quite drowsy today his mouth is very dry, his son was at the bedside, patient not drinking or eating much, will start the patient on IV fluid resuscitation in the form of normal saline at 50 cc an hour, monitor the patient input and output, patient continues to be in some amount of pain, he has been taking his pain medication, physical therapy evaluation still pending, patient will likely require subacute rehabilitation at this point in time, his son wanted his father to go to [facility] if possible a consult for social services specialist and physical therapies in place 01/29: His IV fluid was infiltrated to the right upper extremity yesterday, his right arm is quite swollen no erythema just edema, it was switched to the left hand, he denies any chest pain he continues to be dry, he denies any shortness of breath, he has no coughing or hemoptysis, he has no abdominal pain, he has not had a bowel movement yesterday just a small 1 yesterday, I will start the patient on Colace 100 mg orally twice every day as well as MiraLAX 17 g in 8 ounce of water once every day, physical therapy evaluation tomorrow morning, social services specialist consultation for discharge planning. 01/30: Yesterday the patient became quite unresponsive after he developed to have a significant atrial fibrillation with rapid ventricular response, his heart rate went all the way up to 170 cardiology recommended the patient to go on a amiodarone 150 mg IV push followed by amiodarone drip, patient developed to have a significant ventricular tachycardia/ventricular fibrillation, LAURIE KINNEY was called, and the patient was shocked twice, he was intubated and moved to the intensive care unit currently, currently on pressors, in the form of Levophed, he is currently on propofol drip, he is currently on amiodarone drip, patient also was on FiO2 of 40% tidal volume of 450 and PEEP of 5, pulmonary/manager msw along with cardiology will continue to follow-up with the patient, patient initially was admitted to the hospital for left humerus fracture which appears to be stable at this point in time, we will continue to follow-up with the patient very closely in the ICU. 01/31: Patient is laying down in bed in no apparent distress, he was extubated successfully, he is currently on 2 L nasal cannula, he continues to have an oral gastric tube in place, this will be discontinued, he denies any chest pain, he is less short of breath, he is having some sore throat, he is coughing up in mL phlegm production, he has no abdominal pain, he does complain of pain in both lower extremity specially the left lower extremity, he is more awake and alert, continue current treatment plan at this time continue aggressive pulmonary toileting, physical therapy evaluation, will continue to work up with the patient, continue with the left upper extremity to be in a sling due to left humerus fracture. 02/01: Patient is laying down in bed in no apparent distress, he complains of pain in the lower back, because of laying down in bed, he has an NG tube tube placed due to the fact that he failed swallow screen, he is scheduled to go for modified barium swallow today, patient is feeling a lot better, his blood p ressure is better today, he denies any chest pain or pressure at this time he has no chest pain or shortness of breath, he has no abdominal pain, nausea or vomiting at this time, he he has a bit of a swelling in both lower extremities, but appears to be generally weak. 02/02: Patient is laying down in bed he is feeling a bit stronger today, he had modified barium swallow yesterday that showed aspiration of thin liquid, and pooling in the vallecula, we will continue to work with the speech therapist to try to overcome the aspiration currently has an NG tube removed, we will continue with that until the patient is able to swallow, continue IV antibiotic in the form of Unasyn, continue to monitor the patient closely patient is moved to telemetry unit 02/03: No new concerns overnight. Cardiology has seen the patient this morning and is cleared for discharge. Blood pressure 148/61 blood pressure 74, pulse ox 96% on 4 L nasal cannula. Repeat blood work reveals WBC 9.5, hemoglobin 10.2. Sodium 149, potassium 3.7, creatinine 0.95. Alkaline phosphatase 322. Will plan to have Rivera catheter removed today. Patient will need a voiding trial at [facility]. Discharge plan is for subacute rehab at [facility]. Patient will be discharged once all arrangements are completed. DISCHARGE DIAGNOSES: 1. Status post vent dependent respiratory failure due to cardiac arrest due to ventricular tachycardia/fibrillation post DC cardioversion currently extubated on 4 L nasal cannula. 2. Status post a fall with left proximal humerus fracture mildly displaced. 3. Urinary tract infection with Enterococcus faecalis 4. Coronary artery disease status post CABG x 1 followed by PCI in 2019 as well as in 2021. 5. Hypertension and hypertensive cardiovascular disease. 6. Mixed hyperlipidemia. 7. History of CVA with residual left-sided weakness. 8. Enlarged prostate. 9. Paroxysmal atrial fibrillation. 10. Chronic diastolic heart failure. 11. Depression. 12. Moderate protein calorie malnutrition. 13. Patient had failed swallow screen as well as MBS showed evidence of aspiration of thin liquids patient was placed on a thick nectar and a soft diet 14. Disposition subacute rehabilitation at [facility]. Greater than 35 minutes was utilized and coordinating patient's discharge. Impression and plan of care have been directed as dictated by the signing physician. Jesica Luciano nurse practitioner acting as scribe for signing physician. Patient Condition at Discharge: Stable Plan - Discharge Summary Discharge Rx Participant: No New Discharge Prescriptions: New Dapagliflozin Propanediol [Farxiga] 10 mg PO DAILY tab Atorvastatin [Lipitor] 80 mg PO HS tab Metoprolol Tartrate [Lopressor] 50 mg PO BID tab polyethylene glycoL 3350 [Miralax] 17 gm PO DAILY packet Acetaminophen Tab [Tylenol] 650 mg PO Q6HR PRN tab PRN Reason: Mild Pain Or Fever > 100.5 Amoxic-Pot Clav 500-125 mg [Augmentin 500-125 mg] 1 tab PO Q12HR #14 tab traMADol HCl [Ultram] 50 mg PO Q6H PRN #12 tab PRN Reason: Mild Pain (Scale 1 To 3) Sennosides-Docusate Sodium [Senokot-S] 2 tab PO DAILY #30 tablet Amiodarone [Cordarone] 200 mg PO BID tab Continue Tamsulosin [Flomax] 0.4 mg PO HS cap.er.24h Fluticasone Nasal Ceylon [Flonase Nasal Ceylon] 1 spray EA NOSTRIL DAILY Pantoprazole Sodium [Protonix] 40 mg PO DAILY Valsartan 160 mg PO HS Citalopram Hydrobromide [CeleXA] 20 mg PO DAILY cycloSPORINE 0.05% OPHTH SOLN [Restasis] 1 drop BOTH EYES Q12H Dicyclomine [Bentyl] 20 mg PO HS Mometasone Furoate [Elocon 0.1% Top Soln] 1 applic TOPICAL HS Fesoterodine Fumarate [Fesoterodine Fumarate ER] 8 mg PO HS Apixaban [Eliquis] 2.5 mg PO BID Loratadine [Claritin] 10 mg PO DAILY Discontinued Metoprolol Tartrate [Lopressor] 25 mg PO BID Rosuvastatin Calcium [Crestor] 40 mg PO HS Chlorhexidine Gluconate [Peridex] 15 ml PO BID Triamcinolone 0.1% Cream [Kenalog 0.1% Cream] 1 applicatio TOPICAL Q48H Discharge Medication List Tamsulosin [Flomax] 0.4 mg PO HS cap.er.24h 11/26/15 [Rx] Fluticasone Nasal Ceylon [Flonase Nasal Ceylon] 1 spray EA NOSTRIL DAILY 12/30/16 [History] Pantoprazole Sodium [Protonix] 40 mg PO DAILY 12/30/16 [History] Valsartan 160 mg PO HS 10/28/18 [History] Citalopram Hydrobromide [CeleXA] 20 mg PO DAILY 11/05/18 [History] Dicyclomine [Bentyl] 20 mg PO HS 08/13/21 [History] Loratadine [Claritin] 10 mg PO DAILY 08/13/21 [History] Mometasone Furoate [Elocon 0.1% Top Soln] 1 applic TOPICAL HS 08/13/21 [History] cycloSPORINE 0.05% OPHTH SOLN [Restasis] 1 drop BOTH EYES Q12H 08/13/21 [History] Apixaban [Eliquis] 2.5 mg PO BID 01/27/24 [History] Fesoterodine Fumarate [Fesoterodine Fumarate ER] 8 mg PO HS 01/27/24 [History] Sennosides-Docusate Sodium [Senokot-S] 2 tab PO DAILY #30 tablet 01/30/24 [Rx] Acetaminophen Tab [Tylenol] 650 mg PO Q6HR PRN tab 02/04/24 [Rx] Amiodarone [Cordarone] 200 mg PO BID tab 02/04/24 [Rx] Amoxic-Pot Clav 500-125 mg [Augmentin 500-125 mg] 1 tab PO Q12HR #14 tab 02/04/24 [Rx] Atorvastatin [Lipitor] 80 mg PO HS tab 02/04/24 [Rx] Dapagliflozin Propanediol [Farxiga] 10 mg PO DAILY tab 02/04/24 [Rx] Metoprolol Tartrate [Lopressor] 50 mg PO BID tab 02/04/24 [Rx] polyethylene glycoL 3350 [Miralax] 17 gm PO DAILY packet 02/04/24 [Rx] traMADol HCl [Ultram] 50 mg PO Q6H PRN #12 tab 02/04/24 [Rx] Follow up Appointment(s)/Referral(s): Johnny Martino MD [STAFF PHYSICIAN] - 3 Weeks Dedra Alanis MD [Primary Care Provider] - 1 Week (At [facility]) Activity/Diet/Wound Care/Special Instructions: Keep arm in sling for comfort May loosen when in bed Encourage elbow range of motion twice daily to prevent elbow stiffness. Follow up with Dr. Johnny Martino in 3 weeks for x-rays in the office. Discharge Disposition: TRANSFER TO SNF/ECF
--- NOTE | 2024-02-04 13:50 | P.PN ---
Subjective Progress Note Date: 02/04/24 Principal diagnosis: Cardiac arrest This is an 83-year-old white male with known history of multiple medical problems including coronary artery disease, previous stent and previous CABG history of severe ischemic cardiomyopathy and LV dysfunction hypertension type 2 diabetes chronic atrial fibrillation, patient was admitted on 01/27/2024, apparently the patient slipped and fell landed on his left side of the body, suffered significant amount of left shoulder pain, brought into the ER, and he was found to have left proximal displaced humerus fracture, admitted, seen by orthopedics on consultation, did not feel surgical treatment is indicated recommended mostly an arm sling and the recommendation was for subacute rehab placement. Last night, patient had a sudden episode of ventricular tachycardia which has developed from ongoing chronic persistent atrial fibrillation, CODE BLUE was initiated, patient was intubated, received 2 shocks/cardioversion, and admitted to the ICU. No documentation of CPR performed during this event. Today the patient is in the ICU, intubated and mechanically ventilated, he is on assist-control rate of 20 tidal volume 450 FiO2 40% PEEP of 5 ABG showed a pO2 of 251 pCO2 28 pH of 7.52 hence his rate was cut down to 16. Patient is still requiring amiodarone at 0.5 mg/min he is on norepinephrine at 0.06 mcg/kg/min patient is also on propofol at 35 mcg/kg/min. Patient is presently in atrial fibrillation with relatively controlled rate, sedated, does not seem to be in any distress, could not obtain actual history from the patient himself. Patient is very today on 02/01/2024, remains in the ICU, he was extubated yesterday uneventfully. Patient is on room air, does not seem to be in any distress. He was on amiodarone this morning, and that would be transition to oral amiodarone. IV fluids at KVO, patient continues to have left arm in a sling. His urine is positive for group B streptococcus, hence I will change his Zosyn to Unasyn. Patient continues to have nasogastric tube in place which I have discontinued today. WBC count is 13.5 hemoglobin 10.5 basic metabolic profile is relatively unremarkable bicarb is 18 BUN is 28 creatinine 1.03. Chest x-ray continues show minimal bibasilar infiltrates/atelectasis Patient was seen today on 02/02/2024, patient is doing well, remains in the ICU, tolerated the extubation well over the last 48 hours. Patient had an episode of ventricular tachycardia requiring cardioversion, intubation, and transferred to the ICU but he was extubated 2 days ago, patient does have history of underlying coronary artery disease previous CABG and stenting, and he has mild ischemic cardiomyopathy. Patient is doing great, his nasogastric tube was also removed yesterday, and the plan is to transfer the patient back to the cardiac floor/3 S. No cough no wheezing no shortness of breath no chest pain. Patient feels generally weak, and he has chronic low back painBasic metabolic profile is normal renal profile is normal blood sugar is 68 today Patient was seen today on 02/03/2024, patient is doing well, he is on the cardiac floor, not in any distress, no further episodes of ventricular arrhythmia, patient is being followed by cardiology, he was extubated 3 days ago. Patient is known to have history of mild ischemic cardiomyopathy no active pulmonary symptoms, no cough no wheezing no shortness of breath no chest pain. Patient is being considered for transfer to rehab facilityWBC count is 8.7 hemoglobin 9.9 electrolytes are normal renal profile is normal Patient was seen today on 02/04/2024, patient is doing well, continues to do well, being considered for discharge today. No cough no wheezing no shortness of breath, Objective - Vital Signs Vital signs: Vital Signs Temp 97.6 F 02/04/24 08:50 Pulse 74 02/04/24 08:50 Resp 20 02/04/24 08:50 BP 148/61 02/04/24 08:50 Pulse Ox 96 02/04/24 09:23 FiO2 88 02/01/24 08:15 Intake & Output 02/03/24 02/04/24 02/04/24 18:59 06:59 18:59 Intake Total 220 Output Total 900 350 Balance 220 -900 -350 Weight 62.9 kg 63 kg Intake: Oral 220 Output: Urine 900 350 Straight 600 Other: Voiding Method Indwelling Catheter Indwelling Catheter - Exam Gen: Revealed 83-year-old white male looks frail, chronically ill, on 4 L nasal cannula with O2 sat of 96% HEENT: Head is atraumatic, normocephalic. Pupils equal, round. Sclerae is anicteric. NECK: Supple no neck masses no JVD no stridor LUNGS: Diminished breath sound bilaterally no crackles rhonchi or wheezes HEART: Irregular irregular rhythm, 2/6 systolic murmur throughout the precordium ABDOMEN: Flat soft nontender no megaly no rebound no guarding EXTREMITIES: Trace of bipedal edema. NEUROLOGICAL: Alert and oriented x 3 no gross focal deficit Psychiatric: Normal mood affect and no mental status examination - Labs CBC & Chem 7: 02/04/24 06:43 02/04/24 06:43 Labs: Abnormal Lab Results - Last 24 Hours (Table) 02/03/24 02/03/24 02/04/24 Range/Units 16:40 19:58 06:07 RBC (4.30-5.90) m/uL Hgb (13.0-17.5) gm/dL Hct (39.0-53.0) % MCHC (31.0-37.0) g/dL RDW (11.5-15.5) % Lymphocytes # (1.0-4.8) k/uL Sodium (137-145) mmol/L Chloride (98-107) mmol/L Carbon Dioxide (22-30) mmol/L Glucose (74-99) mg/dL POC Glucose (mg/dL) 156 H 118 H 112 H (70-110) mg/dL Calcium (8.4-10.2) mg/dL Alkaline Phosphatase (38-126) U/L Total Protein (6.3-8.2) g/dL Albumin (3.5-5.0) g/dL 02/04/24 02/04/24 Range/Units 06:43 06:43 RBC 3.92 L (4.30-5.90) m/uL Hgb 10.2 L (13.0-17.5) gm/dL Hct 33.5 L (39.0-53.0) % MCHC 30.3 L (31.0-37.0) g/dL RDW 18.1 H (11.5-15.5) % Lymphocytes # 0.8 L (1.0-4.8) k/uL Sodium 149 H (137-145) mmol/L Chloride 125 H (98-107) mmol/L Carbon Dioxide 20 L (22-30) mmol/L Glucose 109 H (74-99) mg/dL POC Glucose (mg/dL) (70-110) mg/dL Calcium 8.1 L (8.4-10.2) mg/dL Alkaline Phosphatase 322 H (38-126) U/L Total Protein 4.6 L (6.3-8.2) g/dL Albumin 2.0 L (3.5-5.0) g/dL Assessment and Plan Assessment: Impression: ventricular tachycardia cardiac arrest, requiring intubation mechanical ventilation, extubated on 01/31/2024 Chronic atrial fibrillation Coronary artery disease and previous CABG and stent placement Left humerus fracture secondary to fall Severe cardiomyopathy and LV dysfunction with ejection fraction of 37% History of benign essential hypertension Dyslipidemia Type 2 diabetes Possible aspiration pneumonia as noted on chest x-ray. History of depression History of enlarged prostate History of CVA with left-sided weakness Dyslipidemia Acute urinary tract infection secondary to group D Enterococcus recommendation: Continue amiodarone, Eliquis and continue GI prophylaxis Oral antibiotics for UTI Cleared for discharge if cleared by other consultants Patient will be going to rehab Time with Patient: Less than 30
[2024-02-04 16:45] VITALS: BP 168/75; RESP 17; TEMP 98.3
== END 2024-02-04 18:13 | DRG 562 ==
LOC: SUPCPDRO 10:13 → EC 10:13 → 5NMEDONC 11:44 → 3SCARD 21:50 → 2SICU 01-30 22:33 → 3SCARD 02-02 18:42
PROVIDERS: ADMIT Internal Medicine; ATTEND Internal Medicine
PROC: 5A1935Z Respiratory Ventilation, Less than 24 Consecutive Hours (ICD-10-PCS; principal; 2024-01-30)
PROC: 0BH17EZ Insertion of Endotracheal Airway into Trachea, Via Natural or Artificial Opening (ICD-10-PCS; 2024-01-30)
DX: S42.212A Unspecified displaced fracture of surgical neck of left humerus, initial encounter for closed fracture (principal); I46.2 Cardiac arrest due to underlying cardiac condition; I49.01 Ventricular fibrillation; J69.0 Pneumonitis due to inhalation of food and vomit; J96.00 Acute respiratory failure, unspecified whether with hypoxia or hypercapnia; I48.19 Other persistent atrial fibrillation; I50.32 Chronic diastolic (congestive) heart failure; I69.354 Hemiplegia and hemiparesis following cerebral infarction affecting left non-dominant side; E44.0 Moderate protein-calorie malnutrition; I47.20 Ventricular tachycardia, unspecified; N39.0 Urinary tract infection, site not specified; I27.20 Pulmonary hypertension, unspecified; B95.2 Enterococcus as the cause of diseases classified elsewhere; I11.0 Hypertensive heart disease with heart failure; Z99.81 Dependence on supplemental oxygen; E11.9 Type 2 diabetes mellitus without complications; I37.1 Nonrheumatic pulmonary valve insufficiency; F32.A Depression, unspecified; I08.3 Combined rheumatic disorders of mitral, aortic and tricuspid valves; E78.2 Mixed hyperlipidemia; I25.5 Ischemic cardiomyopathy; I25.10 Atherosclerotic heart disease of native coronary artery without angina pectoris; M81.0 Age-related osteoporosis without current pathological fracture; N40.0 Benign prostatic hyperplasia without lower urinary tract symptoms; K21.00 Gastro-esophageal reflux disease with esophagitis, without bleeding; W01.0XXA Fall on same level from slipping, tripping and stumbling without subsequent striking against object, initial encounter; Y92.009 Unspecified place in unspecified non-institutional (private) residence as the place of occurrence of the external cause; Y93.01 Activity, walking, marching and hiking; Z22.330 Carrier of Group B streptococcus; Z68.22 Body mass index [BMI] 22.0-22.9, adult; Z79.01 Long term (current) use of anticoagulants; Z79.82 Long term (current) use of aspirin; Z79.84 Long term (current) use of oral hypoglycemic drugs; Z79.899 Other long term (current) drug therapy; Z87.442 Personal history of urinary calculi; Z95.1 Presence of aortocoronary bypass graft; Z88.1 Allergy status to other antibiotic agents; Z95.5 Presence of coronary angioplasty implant and graft; Z82.5 Family history of asthma and other chronic lower respiratory diseases; Z82.49 Family history of ischemic heart disease and other diseases of the circulatory system
CPT/HCPCS: 36600; 70450; 71045; 74230; 80048; 80053; 81001; 82805; 83735; 84145; 85025; 85027; 87077; 87086; 87186; 93005; 93306; 94760; 96365; 96366; 96375; 96376; 99285